=== PATIENT | female | born 1985 | race Caucasian/White ===

== ENCOUNTER 2018-09-03 16:43 | Emergency (ER) | payer SELFPAY ==
[2018-09-03 17:48] LABS: Absolute Lymphocytes (CBC) 1.6 K/uL (0.7-4.9); Absolute Monocytes 0.7 K/uL (0.1-1.3); Absolute Neutrophil 7.4 K/uL (1.8-8.0); Basophils % 0.5 % (0-1.3); Eosinophils % 0.6 % (0-4.4); Hematocrit 32.4 % (36.0-45.0); MCH 21.4 pg (27.0-35.0); MCV 67.9 fL (80-100); MPV 7.1 fL (7.6-11.3); Monocytes % 6.9 % (3.3-12.3); RBC Red Blood Cell Count 4.78 M/uL (3.86-4.86)
[2018-09-03] MEDS ORDERED: AZITHROMYCIN 250 MG TAB ONE (18:06)
[2018-09-03] MEDS ORDERED: FLUCONAZOLE 100 MG TAB ONE (18:06)
[2018-09-03] MEDS ORDERED: LIDOCAINE 1% MPF 30 ML VIAL ONE (18:07)
[2018-09-03] MEDS ORDERED: CEFTRIAXONE/SWI 1gm 1 GM/10 ML SYR ONE (18:07)
[2018-09-03 18:08] LABS: ALT/SGPT 12 U/L (12-78); AST/SGOT 8 U/L (15-37); Albumin 3.2 g/dL (3.4-5.0); Alkaline Phosphatase 74 U/L (45-117); BUN Blood Urea Nitrogen 12 mg/dL (7-18); Bicarbonate 27 mmol/L (21-32); Bilirubin Total 0.2 mg/dL (0.2-1.0); Glucose Level 381 mg/dL (74-106); Potassium 3.6 mmol/L (3.5-5.1); Protein, Total 7.2 g/dL (6.4-8.2); Sodium Level 137 mmol/L (136-145)
--- NOTE | 2018-09-03 18:23 | ER ---
Nurse's Notes [facility] Name: Javier Pimentel Age: 32 yrs Sex: Female : 1985 Arrival Date: 09/03/2018 Time: 16:45 Bed 14 Private MD: Diagnosis: Abscess of Bartholin's gland;Cyst of Bartholin's gland;Type 1 diabetes mellitus;Anemia, unspecified Presentation: 09/03 17:06 Presenting complaint: Patient states: swelling and tenderness to right labia for a few iw days, has been getting over a yeast infection. Transition of care: patient was not received from another setting of care. Onset of symptoms was September 03, 2018. Risk Assessment: Do you want to hurt yourself or someone else? Patient reports no desire to harm self or others. Initial Sepsis Screen: Does the patient meet any 2 criteria? No. Patient's initial sepsis screen is negative. Does the patient have a suspected source of infection? No. Patient's initial sepsis screen is negative. Care prior to arrival: None. 17:06 Method Of Arrival: Ambulatory iw 17:06 Acuity: NING 3 iw Triage Assessment: 17:05 General: Appears in no apparent distress. Behavior is cooperative. 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 - Social history:: Smoking status: Patient uses tobacco products, few cigarettes per day . - Ebola Screening: : Patient negative for fever greater than or equal to 101.5 degrees Fahrenheit, and additional compatible Ebola Virus Disease symptoms Patient denies exposure to infectious person Patient denies travel to an Ebola-affected area in the 21 days before illness onset No symptoms or risks identified at this time. - Family history:: not pertinent. Screenin:05 Abuse screen: Denies threats or abuse. Denies injuries from another. Nutritional ls4 screening: No deficits noted. Tuberculosis screening: No symptoms or risk factors identified. Fall Risk None identified. Assessment: 18:38 Pain: Complains of pain in pelvis and right labia minora Pain currently is 5 out of 10 ls4 on a pain scale. Quality of pain is described as pressure. Neuro: No deficits noted. Respiratory: No deficits noted. GI: No deficits noted. Musculoskeletal: No deficits noted. 19:15 Reassessment: Patient appears in no apparent distress at this time. Patient and/or cc3 family updated on plan of care and expected duration. Pain level reassessed. Patient is alert, oriented x 3, equal unlabored respirations, skin warm/dry/pink. Received from morning shift RENARD Romeo as a case of vaginal pain, for discharge home after IV fluids and repeat random blood sugar as endorsed. 19:40 Reassessment: Repeat RBS of 190 mg/dL, Dr. Byers discharged home the patient with cc3 prescription given. IV cannula removed and patient left ER vitally stable and ambulatory with her . Vital Signs: 17:10 BP 123 / 86; Pulse 105; Resp 16; Temp 98.2(O); Pulse Ox 100% on R/A; Weight 48.99 kg; iw Height 4 ft. 11 in. (149.86 cm); Pain 8/10; 18:10 BP 120 / 80; Pulse 99; Resp 16; Pulse Ox 99% on R/A; Pain 3/10; ls4 19:15 BP 124 / 86; Pulse 93; Resp 20 S; Temp 98.9(O); Pulse Ox 100% on R/A; cc3 17:10 Body Mass Index 21.81 (48.99 kg, 149.86 cm) ED Course: 16:45 Patient arrived in ED. rg4 16:53 Agueda Chiang, RN is Primary Nurse. ls4 16:56 Zhang Byers MD is Attending Physician. nata 17:05 Patient has correct armband on for positive identification. Allergy band placed. Placed ls4 in gown. Bed in low position. Call light in reach. Side rails up X2. Door closed. Noise minimized. 17:05 Assist provider with pelvic exam: Performed by Zhang Byers MD Patient tolerated well.ls4 17:07 Triage completed. iw 17:10 Arm band placed on. iw 17:10 Inserted saline lock: 20 gauge in right antecubital area, using aseptic technique. ls4 18:23 Jhon Willard MD is Referral Physician. nata 19:02 Assist provider with I \T\ D: of an abscess on right Bartholin's gland Set up I\T\D tray. jl 7 Performed by Zhang Byers MD Culture sent to lab. Wound packed. WORD Patient tolerated well. 19:40 IV discontinued, intact, bleeding controlled, No redness/swelling at site. Pressure cc3 dressing applied. Administered Medications: 18:10 Drug: DiFLUcan 150 mg Route: PO; ls4 18:36 Follow up: Response: No adverse reaction; No change in condition ls4 18:10 Drug: Insulin Regular Human 5 units {Co-Signature: bp (Jeremy Yadav RN).} Route: ls4 Sub-Q; Site: right upper arm; 18:30 Follow up: Response: No adverse reaction ls4 18:14 Drug: Zithromax 1 grams Route: PO; ls4 18:37 Follow up: Response: No adverse reaction ls4 18:18 Drug: Insulin Regular Human 8 units {Co-Signature: bp (Jeremy Yadav RN).} Route: IVP; ls4 Site: right antecubital; 18:30 Follow up: Response: No adverse reaction ls4 18:22 Drug: Lidocaine (1 %) 10 mg {Note: administered by Dr Byers .} Volume: 20 ml; Route: ls4 Infiltration; 18:23 Not Given (Other Intervention Used): Rocephin - (cefTRIAXone) 1 grams IVPB once over 30 ls4 mins; (mix in 50 mL NS) 18:35 Drug: Rocephin 1 grams Route: IV; Rate: calculated rate; Site: right antecubital; ls4 18:38 Follow up: IV Status: Completed infusion; IV Intake: 10ml ls4 18:37 Drug: NS 0.9% 1000 ml Route: IV; Rate: 1 bolus; Site: right antecubital; ls4 19:40 Follow up: Response: No adverse reaction; IV Status: Completed infusion; IV Intake: cc3 1000ml Point of Care Testing: Blood Glucose: 19:21 Blood Glucose: 190 mg/dL; cc3 Ranges: Intake: 18:38 IV: 10ml; Total: 10ml. ls4 19:40 IV: 1000ml; Total: 1010ml. cc3 Outcome: 18:23 Discharge ordered by . nata 18:46 Condition: stable ls4 19:40 Discharged to home ambulatory, with family. cc3 19:40 Condition: stable 19:40 Discharge instructions given to patient, family, Instructed on discharge instructions, follow up and referral plans. medication usage, Demonstrated understanding of instructions, follow-up care, medications, Prescriptions given X 3. 19:47 Patient left the ED. cc3 Addendum: 09/09/2018 07:59 Addendum: Culture Results: Positive wound culture. No further action required. Other: a a5 Continue antibiotics prescribed per NORA Vincent. . Signatures: Zhang Byers MD MD cha Williams, Irene, RN RN iw Mee Mcallister RN RN alee5 Brianna Daly4 Brandy Andrade RN RN jl7 Arianna Miller cc3 Agueda Chiang, RN RN ls4 Jeremy Yadav RN bp Corrections: (The following items were deleted from the chart) 09/03 17:24 17:06 Acuity: NING 4 [facility]
--- NOTE | 2018-09-03 18:23 | EDPHYS ---
Physician Documentation [facility] Name: Javier Pimentel Age: 32 yrs Sex: Female : 1985 Arrival Date: 09/03/2018 Time: 16:45 Bed 14 Private MD: ED Physician Zhang Byers HPI: 09/03 17:14 This 32 yrs old Female presents to ER via Ambulatory with complaints of nata Vaginal Pain. 17:14 The patient presents with pelvic pain, that is located in/on the right labia minora. nata Onset: The symptoms/episode began/occurred 3 day(s) ago. Modifying factors: The symptoms are alleviated by nothing, the symptoms are aggravated by movement, sexual intercourse, walking. Severity of symptoms: At their worst the symptoms were moderate, in the emergency department the symptoms are unchanged. The patient has not experienced similar symptoms in the past. PIECE HAND: 17:05 0 ls4 Historical: - Allergies: 17:10 PENICILLINS; iw - Home Meds: 17:10 Novolin 70/30 [place] Sub-Q nightly [Active]; metformin 1,000 mg Oral tab 1 tab 2 times iw per day [Active]; sertraline 100 mg oral tab 1 tab once daily [Active]; - PMHx: 17:10 Diabetes - IDDM; Anxiety; iw - PSHx: 17:10 Tubal ligation; ; iw - Immunization history:: Adult Immunizations not up to date. - Social history:: Smoking status: Patient uses tobacco products, few cigarettes per day . - Ebola Screening: : Patient negative for fever greater than or equal to 101.5 degrees Fahrenheit, and additional compatible Ebola Virus Disease symptoms Patient denies exposure to infectious person Patient denies travel to an Ebola-affected area in the 21 days before illness onset No symptoms or risks identified at this time. - Family history:: not pertinent. ROS: 17:14 Constitutional: Negative for fever, chills, and weight loss, Eyes: Negative for injury, nata pain, redness, and discharge, ENT: Negative for injury, pain, and discharge, Neck: Negative for injury, pain, and swelling, Cardiovascular: Negative for chest pain, palpitations, and edema, Respiratory: Negative for shortness of breath, cough, wheezing, and pleuritic chest pain, Abdomen/GI: Negative for abdominal pain, nausea, vomiting, diarrhea, and constipation, Back: Negative for injury and pain, MS/Extremity: Negative for injury and deformity, Skin: Negative for injury, rash, and discoloration, Neuro: Negative for headache, weakness, numbness, tingling, and seizure, Psych: Negative for depression, anxiety, suicide ideation, homicidal ideation, and hallucinations, Allergy/Immunology: Negative for hives, rash, and allergies, Endocrine: Negative for neck swelling, polydipsia, polyuria, polyphagia, and marked weight changes, Hematologic/Lymphatic: Negative for swollen nodes, abnormal bleeding, and unusual bruising. 17:14 : Positive for pelvic pain, of the right labia minora. Exam: 17:14 Constitutional: This is a well developed, well nourished patient who is awake, alert, nata and in no acute distress. Head/Face: Normocephalic, atraumatic. Eyes: Pupils equal round and reactive to light, extra-ocular motions intact. Lids and lashes normal. Conjunctiva and sclera are non-icteric and not injected. Cornea within normal limits. Periorbital areas with no swelling, redness, or edema. ENT: Nares patent. No nasal discharge, no septal abnormalities noted. Tympanic membranes are normal and external auditory canals are clear. Oropharynx with no redness, swelling, or masses, exudates, or evidence of obstruction, uvula midline. Mucous membranes moist. Neck: Trachea midline, no thyromegaly or masses palpated, and no cervical lymphadenopathy. Supple, full range of motion without nuchal rigidity, or vertebral point tenderness. No Meningismus. Chest/axilla: Normal chest wall appearance and motion. Nontender with no deformity. No lesions are appreciated. Cardiovascular: Regular rate and rhythm with a normal S1 and S2. No gallops, murmurs, or rubs. Normal PMI, no JVD. No pulse deficits. Respiratory: Lungs have equal breath sounds bilaterally, clear to auscultation and percussion. No rales, rhonchi or wheezes noted. No increased work of breathing, no retractions or nasal flaring. Abdomen/GI: Soft, non-tender, with normal bowel sounds. No distension or tympany. No guarding or rebound. No evidence of tenderness throughout. Back: No spinal tenderness. No costovertebral tenderness. Full range of motion. Skin: Warm, dry with normal turgor. Normal color with no rashes, no lesions, and no evidence of cellulitis. MS/ Extremity: Pulses equal, no cyanosis. Neurovascular intact. Full, normal range of motion. Neuro: Awake and alert, GCS 15, oriented to person, place, time, and situation. Cranial nerves II-XII grossly intact. Motor strength 5/5 in all extremities. Sensory grossly intact. Cerebellar exam normal. Normal gait. 17:14 : CVA tenderness, is absent, Pelvic Exam: External exam: Bartholin's cyst present, erythema is noted. Vital Signs: 17:10 BP 123 / 86; Pulse 105; Resp 16; Temp 98.2(O); Pulse Ox 100% on R/A; Weight 48.99 kg; iw Height 4 ft. 11 in. (149.86 cm); Pain 8/10; 18:10 BP 120 / 80; Pulse 99; Resp 16; Pulse Ox 99% on R/A; Pain 3/10; ls4 19:15 BP 124 / 86; Pulse 93; Resp 20 S; Temp 98.9(O); Pulse Ox 100% on R/A; cc3 17:10 Body Mass Index 21.81 (48.99 kg, 149.86 cm) iw Procedures: 17:19 I \T\ D: Incision and drainage was performed for an abscess of the Bartholin's gland. nata Prepped with Betadine, Anesthetized with 10 ml's 1% Lidocaine. Incised with #11 blade. Drained moderate amount Packed with word. Dressing: sterile 4x4 gauze, the patient tolerated the procedure well. MDM: 16:56 Patient medically screened. [facility] 17:19 Data reviewed: vital signs, nurses notes, lab test result(s). [facility] 09/03 17:14 Order name: CBC with Diff [facility] 09/03 17:14 Order name: Comprehensive Metabolic Panel; Complete Time: 18:13 nata 09/03 17:50 Order name: CBC Smear Scan EDMS 09/03 18:49 Order name: Urine Dipstick--Ancillary (enter results); Complete Time: 19:28 bd 09/03 18:49 Order name: Urine --Ancillary (enter results); Complete Time: 19:28 bd 09/03 19:03 Order name: Wound Culture jl7 09/03 17:14 Order name: Urine Dipstick-Ancillary (obtain specimen); Complete Time: 18:26 [facility] 09/03 17:14 Order name: Urine Test (obtain specimen); Complete Time: 18:26 [facility] Administered Medications: 18:10 Drug: DiFLUcan 150 mg Route: PO; ls4 18:36 Follow up: Response: No adverse reaction; No change in condition ls4 18:10 Drug: Insulin Regular Human 5 units {Co-Signature: bp (Jeremy Yadav RN).} Route: ls4 Sub-Q; Site: right upper arm; 18:30 Follow up: Response: No adverse reaction ls4 18:14 Drug: Zithromax 1 grams Route: PO; ls4 18:37 Follow up: Response: No adverse reaction ls4 18:18 Drug: Insulin Regular Human 8 units {Co-Signature: bp (Jeremy Yadav RN).} Route: IVP; ls4 Site: right antecubital; 18:30 Follow up: Response: No adverse reaction ls4 18:22 Drug: Lidocaine (1 %) 10 mg {Note: administered by Dr Byers .} Volume: 20 ml; Route: ls4 Infiltration; 18:23 Not Given (Other Intervention Used): Rocephin - (cefTRIAXone) 1 grams IVPB once over 30 ls4 mins; (mix in 50 mL NS) 18:35 Drug: Rocephin 1 grams Route: IV; Rate: calculated rate; Site: right antecubital; ls4 18:38 Follow up: IV Status: Completed infusion; IV Intake: 10ml ls4 18:37 Drug: NS 0.9% 1000 ml Route: IV; Rate: 1 bolus; Site: right antecubital; ls4 19:40 Follow up: Response: No adverse reaction; IV Status: Completed infusion; IV Intake: cc3 1000ml Point of Care Testing: Blood Glucose: 19:21 Blood Glucose: 190 mg/dL; cc3 Ranges: Critical Glucose Levels:Adult <50 mg/dl or >400 mg/dl <40 mg/dl or >180 mg/dl Disposition: 09/03/18 18:23 Discharged to Home. Impression: Abscess of Bartholin's gland, Cyst of Bartholin's gland, Type 1 diabetes mellitus, Anemia, unspecified. - Condition is Stable. - Discharge Instructions: Anemia, Nonspecific, Bartholin Cyst or Abscess, Type 1 Diabetes Mellitus, Diagnosis, Adult, Incision and Drainage, How to Take a Sitz Bath, Type 1 Diabetes Mellitus, Self Care, Adult, Type 1 Diabetes Mellitus, Diagnosis, Adult, [id number]. - Prescriptions for Tylenol- Codeine #3 300-30 mg Oral Tablet - take 2 tablets by ORAL route every 6 hours As needed; 20 tablet. Doxycycline Hyclate 100 mg Oral Tablet - take 1 tablet by ORAL route every 12 hours; 20 tablet. Fluconazole 150 mg Oral Tablet - take 1 tablet by ORAL route once daily; 2 tablet. - Medication Reconciliation Form, Thank You Letter, Antibiotic Education, Prescription Opioid Use form. - Follow up: Private Physician; When: 2 - 3 days; Reason: Recheck today's complaints, Continuance of care, Re-evaluation by your physician. Follow up: Jhon Willard; When: 2 - 3 days; Reason: Recheck today's complaints, Re-evaluation by your physician. - Problem is new. - Symptoms have improved. Signatures: Dispatcher [employer] EDMS Zhang Byers MD MD cha Williams, Irene, RN RN iw Brandy Andrade RN RN jl7 Arianna Miller cc3 Agueda Chiang RN RN ls4 Jeremy Yadav RN bp Corrections: (The following items were deleted from the chart) 19:47 18:23 09/03/2018 18:23 Discharged to Home. Impression: Abscess of Bartholin's gland; cc3 Cyst of Bartholin's gland; Type 1 diabetes mellitus; Anemia, unspecified. Condition is Stable. Discharge Instructions: Bartholin Cyst or Abscess, Type 1 Diabetes Mellitus, Diagnosis, Adult, Incision and Drainage, How to Take a Sitz Bath, Type 1 Diabetes Mellitus, Self Care, Adult, Type 1 Diabetes Mellitus, Diagnosis, Adult, [id number], Anemia, Nonspecific. Prescriptions for Tylenol-Codeine #3 300-30 mg Oral Tablet - take 2 tablets by ORAL route every 6 hours As needed; 20 tablet, Doxycycline Hyclate 100 mg Oral Tablet - take 1 tablet by ORAL route every 12 hours; 20 tablet, Fluconazole 150 mg Oral Tablet - take 1 tablet by ORAL route once daily; 2 tablet. and Forms are Medication Reconciliation Form, Thank You Letter, Antibiotic Education, Prescription Opioid Use. Follow up: Private Physician; When: 2 - 3 days; Reason: Recheck today's complaints, Continuance of care, Re-evaluation by your physician. Follow up: Jhon Willard; When: 2 - 3 days; Reason: Recheck today's complaints, Re-evaluation by your physician. Problem is new. Symptoms have improved. nata
[2018-09-03] MEDS ORDERED: INSULIN -REGULAR HUMAN 50 UNIT/0.5 ML ML ONE (18:37)
[2018-09-03] MEDS ORDERED: NA CHLORIDE 0.9% 1,000 ML ONE (18:49)
[2018-09-03 19:03] LABS: Urine Blood NEGATIVE (NEG); Urine Glucose 3+ (NEG); Urine Protein NEGATIVE (NEG); Urine Specific Gravity 1.015 (1.005-1.030); Urine pH 5.5 (5.0-7.0)
[2018-09-03 20:37] VITALS: BP 124/86; TEMP 98.9; O2SAT 100
[2018-09-03 21:56] LABS: Platelet Estimate INCR; Urine White Blood Cell Casts OK
[2018-09-03 21:57] LABS: Anisocytosis 1+; Blood Morphology Comment NOTED (NOT SEEN); Hypochromasia 1+
== END 2018-09-03 19:47 | disposition home or self-care (01) ==
LOC: ER 16:43
PROC: 0U9L0ZZ Drainage of Vestibular Gland, Open Approach (ICD-10-PCS; principal; 2018-09-03)
DX: N75.1 Abscess of Bartholin's gland (principal); D64.9 Anemia, unspecified; E10.9 Type 1 diabetes mellitus without complications; F41.9 Anxiety disorder, unspecified; Z79.4 Long term (current) use of insulin; Z88.0 Allergy status to penicillin
CPT/HCPCS: 36415; 80053; 81003; 81025; 82962; 85025; 87070; 87077; 87186; 87205; 96361; 96372; 96374; 96375; 99284; J0696; J7030

== ENCOUNTER 2018-11-12 19:53 | Emergency (ER) | payer SELFPAY ==
[2018-11-12 21:33] LABS: Urine Blood NEGATIVE (NEG); Urine Glucose 2+ (NEG); Urine Protein NEGATIVE (NEG)
--- NOTE | 2018-11-12 21:36 | RAD REPORT ---
EXAM DESCRIPTION: CT - Head Brain Wo Cont - 11/12/2018 8:55 pm CLINICAL HISTORY: Slip and fall, head injury, left-sided head trauma COMPARISON: None. TECHNIQUE: Axial 5 mm thick images of the head were obtained without IV contrast. All CT scans are performed using dose optimization technique as appropriate and may include automated exposure control or mA/KV adjustment according to patient size. FINDINGS: No intracranial hemorrhage, mass, edema or shift of mid-line structures. No acute infarcti on changes seen. No abnormal extra-axial fluid collections. Ventricles are normal. Right-sided mastoid air cells are clear. Left mastoid air cells are opacified. There is mucosal thick ening throughout much of the visualized portions of the maxillary sinus. Left ethmoid air cells and l eft sphenoid sinus fully opacified. Left frontal sinus is partially opacified. Patchy mucosal thicken ing in the right side ethmoid air cells. Nasal pharyngeal tissues are not fully imaged on this study. No acute bony findings. IMPRESSION: No hemorrhage, edema or acute intracranial finding. Extensive opacification of the left-side paranasal sinuses and left ethmoid air cells believed to be mastoiditis/sinusitis changes that predate the injury. Nasopharyngeal region is not adequately visual ized to assess for any associated abnormality.
--- NOTE | 2018-11-12 21:51 | ER ---
Nurse's Notes [facility] Name: Javier Pimentel Age: 32 yrs Sex: Female : 1985 Arrival Date: 11/12/2018 Time: 19:57 Bed 7 Private MD: Diagnosis: Contusion of other part of head;Acute pansinusitis Presentation: 11/12 20:05 Presenting complaint: Patient states: that she was taking a shower and slipped and fc fell. Hitting the left side of her head on the side of the bathtub. Denies any LOC. Care prior to arrival: Medication(s) given: Excedrin Migraine at 1630. Mechanism of Injury: Fall from standing position. Trauma event details: Injury occurred in the [facility], Injury occurred: at home. Injury occurred: November 12, 2018 Injury occurred at: 16:00. 20:05 Acuity: NING 3 fc 20:05 Method Of Arrival: Ambulatory fc 20:09 Transition of care: patient was not received from another setting of care. Onset of fc symptoms was November 12, 2018 at 16:00. Risk Assessment: Do you want to hurt yourself or someone else? Patient reports no desire to harm self or others. Initial Sepsis Screen: Does the patient meet any 2 criteria? HR > 90 bpm. Yes Does the patient have a suspected source of infection? No. Patient's initial sepsis screen is negative. 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 - Social history:: Smoking status: Patient/guardian denies using tobacco, Patient/guardian denies using alcohol, street drugs. - Ebola Screening: : Patient negative for fever greater than or equal to 101.5 degrees Fahrenheit, and additional compatible Ebola Virus Disease symptoms Patient denies exposure to infectious person Patient denies travel to an Ebola-affected area in the 21 days before illness onset. Screenin:05 Abuse screen: Denies threats or abuse. Tuberculosis screening: No symptoms or risk fc factors identified. 20:10 Nutritional screening: No deficits noted. Fall Risk None identified. fc Assessment: 20:19 General: Appears in no apparent distress. Behavior is calm, cooperative. Pain: ak1 Complains of pain in left side of head. Neuro: Level of Consciousness is awake, alert, obeys commands, Oriented to person, place, time, situation, Truck Caterer are equal bilaterally Moves all extremities. Gait is steady, Speech is normal, Facial symmetry appears normal. Cardiovascular: No deficits noted. Respiratory: No deficits noted. GI: No signs and/or symptoms were reported involving the gastrointestinal system. : No signs and/or symptoms were reported regarding the genitourinary system. EENT: No signs and/or symptoms were reported regarding the EENT system. Derm: No signs and/or symptoms reported regarding the dermatologic system. Musculoskeletal: No signs and/or symptoms reported regarding the musculoskeletal system. 20:21 Reassessment: pt stated she slipped and fell in shower at 1600, pt denies LOC. pt c/o ak1 left side head pain. . 21:17 Reassessment: Patient appears in no apparent distress at this time. No changes from ak1 previously documented assessment. pt returned from CT. will continue to monitor. Vital Signs: 20:05 BP 123 / 86; Pulse 105; Resp 18; Temp 99.1(O); Pulse Ox 99% on R/A; Weight 49.44 kg fc (R); Height 4 ft. 11 in. (149.86 cm) (R); Pain 9/10; 21:16 BP 119 / 86; Pulse 106; Resp 18; Pulse Ox 99% on R/A; ak1 20:05 Body Mass Index 22.02 (49.44 kg, 149.86 cm) [place] Coma Score: 20:05 Eye Response: spontaneous(4). Verbal Response: oriented(5). Motor Response: obeys fc commands(6). Total: 15. Trauma Score (Adult): 20:05 Eye Response: spontaneous(1); Verbal Response: oriented(1); Motor Response: obeys fc commands(2); Systolic BP: > 89 mm Hg(4); Respiratory Rate: 10 to 29 per min(4); Luz Marina Score: 15; Trauma Score: 12 ED Course: 19:57 Patient arrived in ED. am2 20:05 Patient has correct armband on for positive identification. Bed in low position. Call light in reach. 20:05 Patient maintains SpO2 saturation greater than 95% on room air. 20:08 Triage completed. 20:10 Arm band placed on Patient placed in an exam room, on a stretcher. 20:16 Lacy Herr, RN is Primary Nurse. ak1 20:19 Pulse ox on. NIBP on. Door closed. ak1 20:21 Sandeep Rizo MD is Attending Physician. 20:[address] 20:55 CT completed. Patient tolerated procedure well. Patient moved back from CT. sd 20:56 CT Head Brain wo Cont In Process Unspecified. EDMS 21:57 No provider procedures requiring assistance completed. Patient did not have IV access ak1 during this emergency room visit. Administered Medications: No medications were administered Outcome: 21:51 Discharge ordered by . gs 21:57 Discharged to home ambulatory. ak1 21:57 Condition: good 21:57 Discharge instructions given to patient, Instructed on discharge instructions, follow up and referral plans. medication usage, safe sex practices, control, Demonstrated understanding of instructions, follow-up care, medications, Prescriptions given X 1. 22:03 Patient left the ED. ak1 Signatures: Dispatcher [employer] Sri Eller Felicia, RN RN Lacy Herr, RN RN ak1 Marco Velez [facility] Sandeep Rizo MD MD
--- NOTE | 2018-11-12 21:52 | EDPHYS ---
Physician Documentation [facility] Name: Javier Pimentel Age: 32 yrs Sex: Female : 1985 Arrival Date: 11/12/2018 Time: 19:57 Bed 7 Private MD: ED Physician Sandeep Rizo HPI: 11/12 21:46 This 32 yrs old Female presents to ER via Ambulatory with complaints of Fall gs Injury, Headache. 21:46 Details of fall: The patient fell from an upright position, while standing. Onset: The gs symptoms/episode began/occurred acutely, just prior to arrival. Associated injuries: The patient sustained injury to the head, contusion, pain, tenderness. Severity of symptoms: At their worst the symptoms were moderate, in the emergency department the symptoms are unchanged. The patient has not experienced similar symptoms in the past. 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 - Social history:: Smoking status: Patient/guardian denies using tobacco, Patient/guardian denies using alcohol, street drugs. - Ebola Screening: : Patient negative for fever greater than or equal to 101.5 degrees Fahrenheit, and additional compatible Ebola Virus Disease symptoms Patient denies exposure to infectious person Patient denies travel to an Ebola-affected area in the 21 days before illness onset. ROS: 21:46 All other systems are negative. gs Exam: 21:46 Eyes: Pupils equal round and reactive to light, extra-ocular motions intact. Lids and gs lashes normal. Conjunctiva and sclera are non-icteric and not injected. Cornea within normal limits. Periorbital areas with no swelling, redness, or edema. ENT: Nares patent. No nasal discharge, no septal abnormalities noted. Tympanic membranes are normal and external auditory canals are clear. Oropharynx with no redness, swelling, or masses, exudates, or evidence of obstruction, uvula midline. Mucous membranes moist. Neck: Trachea midline, no thyromegaly or masses palpated, and no cervical lymphadenopathy. Supple, full range of motion without nuchal rigidity, or vertebral point tenderness. No Meningismus. Chest/axilla: Normal chest wall appearance and motion. Nontender with no deformity. No lesions are appreciated. Cardiovascular: Regular rate and rhythm with a normal S1 and S2. No gallops, murmurs, or rubs. Normal PMI, no JVD. No pulse deficits. Respiratory: Lungs have equal breath sounds bilaterally, clear to auscultation and percussion. No rales, rhonchi or wheezes noted. No increased work of breathing, no retractions or nasal flaring. Abdomen/GI: Soft, non-tender, with normal bowel sounds. No distension or tympany. No guarding or rebound. No evidence of tenderness throughout. Back: No spinal tenderness. No costovertebral tenderness. Full range of motion. Skin: Warm, dry with normal turgor. Normal color with no rashes, no lesions, and no evidence of cellulitis. MS/ Extremity: Pulses equal, no cyanosis. Neurovascular intact. Full, normal range of motion. Neuro: Awake and alert, GCS 15, oriented to person, place, time, and situation. Cranial nerves II-XII grossly intact. Motor strength 5/5 in all extremities. Sensory grossly intact. Cerebellar exam normal. Normal gait. 21:46 Constitutional: The patient appears alert, awake. 21:46 Head/face: Noted is contusion, that is superficial, of the left temporal area. Vital Signs: 20:05 BP 123 / 86; Pulse 105; Resp 18; Temp 99.1(O); Pulse Ox 99% on R/A; Weight 49.44 kg fc (R); Height 4 ft. 11 in. (149.86 cm) (R); Pain 9/10; 21:16 BP 119 / 86; Pulse 106; Resp 18; Pulse Ox 99% on R/A; ak1 20:05 Body Mass Index 22.02 (49.44 kg, 149.86 cm) [place] Coma Score: 20:05 Eye Response: spontaneous(4). Verbal Response: oriented(5). Motor Response: obeys commands(6). Total: 15. Trauma Score (Adult): 20:05 Eye Response: spontaneous(1); Verbal Response: oriented(1); Motor Response: obeys fc commands(2); Systolic BP: > 89 mm Hg(4); Respiratory Rate: 10 to 29 per min(4); Luz Marina Score: 15; Trauma Score: 12 MDM: 20:29 Patient medically screened. 21:46 Differential diagnosis: closed head injury, contusion. Data reviewed: vital signs, nurses notes. Response to treatment: the patient's symptoms have mildly improved after treatment, and as a result, I will discharge patient. 11/12 20:39 Order name: Urine Dipstick--Ancillary (enter results); Complete Time: 21:46 [facility] 11/12 20:39 Order name: Urine --Ancillary (enter results); Complete Time: 21:46 [facility] 11/12 20:31 Order name: CT Head Brain wo Cont; Complete Time: 21:46 Administered Medications: No medications were administered Disposition: 11/12/18 21:51 Discharged to Home. Impression: Contusion of other part of head, Acute pansinusitis. - Condition is Stable. - Discharge Instructions: Head Injury, Adult, Sinusitis, Adult. - Prescriptions for Zithromax Z- Duglas 250 mg Oral Tablet - take 1 tablet by ORAL route as directed for 5 days Day 1 - take two (2) tablets one time. Day 2, 3, 4 , 5 take one (1) tablet once daily.; 6 tablet. - Medication Reconciliation Form, Thank You Letter, Antibiotic Education, Prescription Opioid Use form. - Follow up: Private Physician; When: 2 - 3 days; Reason: Re-evaluation by your physician. Signatures: Dispatcher [employer] EDJosefina Baum RN RN fc Krenek, Amber, RN RN ak1 Snadeep Rizo MD MD Corrections: (The following items were deleted from the chart) 22:03 21:51 11/12/2018 21:51 Discharged to Home. Impression: Contusion of other part of head; ak1 Acute pansinusitis. Condition is Stable. Forms are Medication Reconciliation Form, Thank You Letter, Antibiotic Education, Prescription Opioid Use. Follow up: Private Physician; When: 2 - 3 days; Reason: Re-evaluation by your physician.
[2018-11-12 22:13] VITALS: TEMP 99.1; O2SAT 99
[2018-11-12 22:14] VITALS: BP 119/86
== END 2018-11-12 22:03 | disposition home or self-care (01) ==
LOC: ER 19:53
DX: S00.83XA Contusion of other part of head, initial encounter (principal); J01.40 Acute pansinusitis, unspecified; W18.39XA Other fall on same level, initial encounter; Y93.89 Activity, other specified; Y92.9 Unspecified place or not applicable; Z88.0 Allergy status to penicillin; F41.9 Anxiety disorder, unspecified
CPT/HCPCS: 70450; 81003; 81025; 99284

== ENCOUNTER 2018-12-09 18:45 | Emergency (ER) | payer SELFPAY ==
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
[2018-12-09] MEDS ORDERED: SMZ./TMP. 800/160 MG TABLET ONE (20:24)
[2018-12-09] MEDS ORDERED: HYDROCODONE/APAP 7.5/325 MG TAB ONE (20:24)
[2018-12-09 20:34] VITALS: BP 138/97; TEMP 97.9; O2SAT 99
--- NOTE | 2018-12-09 20:38 | RAD REPORT ---
EXAM DESCRIPTION: RAD - Forearm Right - 12/09/2018 8:26 pm CLINICAL HISTORY: Right arm pain status post injury FINDINGS: No fracture is seen.
[2018-12-09 22:56] LABS: Urine Blood TRACE (NEG); Urine Glucose 3+ (NEG); Urine Protein NEGATIVE (NEG)
== END 2018-12-09 20:27 | disposition home or self-care (01) ==
LOC: ER 18:45
DX: S50.11XA Contusion of right forearm, initial encounter (principal); Y04.8XXA Assault by other bodily force, initial encounter; Y93.9 Activity, unspecified; Y92.89 Other specified places as the place of occurrence of the external cause; Z72.0 Tobacco use; Z88.0 Allergy status to penicillin
CPT/HCPCS: 81003; 81025; 82962; 87086; 87088; 99284

== ENCOUNTER 2019-09-13 14:15 | Emergency (ER) | payer SELFPAY ==
--- NOTE | 2019-09-13 15:44 | RAD REPORT ---
EXAM DESCRIPTION: US - Extremity Nonvascular Limited - 09/13/2019 3:36 pm CLINICAL HISTORY: right labial abscess COMPARISON: TRANSVAG OB dated 03/11/2016; Abdomen Pelvis W Contrast dated 06/21/2017 TECHNIQUE: Real-time sonographic evaluation of the area of interest was performed. FINDINGS: Heterogenous complex collection is seen in the area of interest 3.8 x 2.6 x 1.6 cm. Althou gh nonspecific, in the correct clinical setting, this could represent an abscess.
[2019-09-13] MEDS ORDERED: LIDOCAINE 1% MPF 5 ML VIAL ONE (15:50)
[2019-09-13] MEDS ORDERED: MORPHINE 4 MG/ML SYR ONE (16:11)
[2019-09-13] MEDS ORDERED: ONDANSETRON 4 MG (ODT) TAB ONE (16:12)
--- NOTE | 2019-09-13 17:07 | ER ---
Nurse's Notes [facility] Name: Javier Pimentel Age: 33 yrs Sex: Female : 1985 Arrival Date: 09/13/2019 Time: 14:17 Bed 16 Private MD: Rigo Abel T Diagnosis: Abscess of Bartholin's gland Presentation: 09/13 14:24 Presenting complaint: Patient states: I am having swelling on the right side of my la1 vagina, noticed it last night. Transition of care: patient was not received from another setting of care. Onset of symptoms was September 13, 2019. Risk Assessment: Do you want to hurt yourself or someone else? Patient reports no desire to harm self or others. Initial Sepsis Screen: Does the patient meet any 2 criteria? No. Patient's initial sepsis screen is negative. Does the patient have a suspected source of infection? No. Patient's initial sepsis screen is negative. Care prior to arrival: None. 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 - Social history:: Smoking status: Patient/guardian denies using tobacco. - Ebola Screening: : No symptoms or risks identified at this time. Screenin:36 Abuse screen: Denies threats or abuse. Denies injuries from another. Nutritional ca1 screening: No deficits noted. Tuberculosis screening: No symptoms or risk factors identified. Fall Risk None identified. Assessment: 14:36 General: Appears in no apparent distress. comfortable, Behavior is calm, cooperative, ca1 appropriate for age. Pain: Complains of pain in groin Pain currently is 7 out of 10 on a pain scale. Pain began 1 day ago. Neuro: Level of Consciousness is awake, alert, obeys commands, Oriented to person, place, time, situation. Derm: Skin is intact, is healthy with good turgor, Skin is Abscess located on groin is dime sized, is hot to touch, is red, is raised. Musculoskeletal: Circulation, motion, and sensation intact. Capillary refill < 3 seconds, Range of motion: intact in all extremities. 14:51 Reassessment: BGL 169. ca1 15:46 Reassessment: Patient appears in no apparent distress at this time. Patient and/or ca1 family updated on plan of care and expected duration. Pain level reassessed. Patient is alert, oriented x 3, equal unlabored respirations, skin warm/dry/pink. 16:56 Reassessment: Patient appears in no apparent distress at this time. Patient is alert, ca1 oriented x 3, equal unlabored respirations, skin warm/dry/pink. Vital Signs: 14:25 BP 115 / 74; Pulse 74; Resp 16; Temp 98.7; Pulse Ox 100% on R/A; Weight 55.79 kg; la1 Height 4 ft. 11 in. (149.86 cm); 15:46 BP 110 / 75; Pulse 97; Resp 16 S; Pulse Ox 100% on R/A; ca1 16:56 BP 130 / 91; Pulse 97; Resp 16 S; Pulse Ox 100% on R/A; ca1 14:25 Body Mass Index 24.84 (55.79 kg, 149.86 cm) la1 ED Course: 14:17 Patient arrived in ED. ag5 14:18 Rigo Abel MD is Private Physician. ag5 14:24 Triage completed. la1 14:25 Arm band placed on left wrist. la1 14:26 Bogdan Silvestre PA is PHCP. jr8 14:26 Homero Kenney MD is Attending Physician. jr8 14:34 Winnie Mcdonough, RENARD is Primary Nurse. ca1 14:36 Patient has correct armband on for positive identification. Placed in gown. Bed in low ca1 position. Call light in reach. Side rails up X 1. Pulse ox on. NIBP on. Warm blanket given. 15:37 US Extrmty Nonvasular Limited In Process Unspecified. EDMS 16:44 Assist provider with I \T\ D: of an abscess on right Bartholin's gland Set up I\T\D tray. ca 1 Performed by Bogdan MELENDEZ Wound packed. Word catheter Dressing with Neosporin and 4X4s, tape Patient tolerated well. 17:14 Patient did not have IV access during this emergency room visit. ca1 Administered Medications: 16:10 Drug: Zofran 4 mg Route: PO; ca1 16:47 Follow up: Response: No adverse reaction ca1 16:20 Drug: morphine 4 mg Route: IM; Site: left deltoid; ca1 16:47 Follow up: Response: No adverse reaction; Pain is decreased; RASS: Alert and Calm (0) ca1 16:47 Drug: Lidocaine (1 %) 1 amp {Note: by PA. Bogdan} Volume: 5 ml; Route: Infiltration; ca1 16:47 Drug: Lidocaine (1 %) 1 amp {Note: by PA. Bogdan} Volume: 5 ml; Route: Infiltration; ca1 Outcome: 17:06 Discharge ordered by MD. winters 17:14 Discharged to home ambulatory, with friend. ca1 17:14 Condition: stable 17:14 Discharge instructions given to patient, Instructed on discharge instructions, follow up and referral plans. medication usage, wound care, Demonstrated understanding of instructions, follow-up care, medications, wound care, Prescriptions given X 1. 17:15 Patient left the ED. ca1 Signatures: Dispatcher [employer] EDMS Bogdan Silvestre PA PA jrArsh Huang RN RN la1 Winnie Mcdonough RN RN ca1 Mai Parks 5
--- NOTE | 2019-09-13 17:07 | EDPHYS ---
Physician Documentation [facility] Name: Javier Pimentel Age: 33 yrs Sex: Female : 1985 Arrival Date: 09/13/2019 Time: 14:17 Bed 16 Private MD: Rigo Abel T ED Physician Homero Kenney HPI: 09/13 17:07 This 33 yrs old Female presents to ER via Ambulatory with complaints of jr8 Vaginal Swelling. 17:07 The patient presents with swelling to labia . Onset: The symptoms/episode jr8 began/occurred acutely, today. Modifying factors: The symptoms are alleviated by nothing, the symptoms are aggravated by movement, pressure, walking. Associated signs and symptoms: The patient has no apparent associated signs or symptoms. Severity of symptoms: At their worst the symptoms were mild, in the emergency department the symptoms are unchanged. The patient has experienced a previous episode. The patient has not recently seen a physician. Stated that she felt pain and swelling to right labial region. Has had Bartholin abscess in past and concerned she has another one . 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 - Social history:: Smoking status: Patient/guardian denies using tobacco. - Ebola Screening: : No symptoms or risks identified at this time. ROS: 17:07 Eyes: Negative for injury, pain, redness, and discharge, ENT: Negative for injury, jr8 pain, and discharge, Neck: Negative for injury, pain, and swelling, Cardiovascular: Negative for chest pain, palpitations, and edema, Respiratory: Negative for shortness of breath, cough, wheezing, and pleuritic chest pain, Abdomen/GI: Negative for abdominal pain, nausea, vomiting, diarrhea, and constipation, Back: Negative for injury and pain, MS/Extremity: Negative for injury and deformity, Skin: Negative for injury, rash, and discoloration, Neuro: Negative for headache, weakness, numbness, tingling, and seizure. 17:07 : Positive for vaginal pain. Exam: 17:07 Eyes: Pupils equal round and reactive to light, extra-ocular motions intact. Lids and jr8 lashes normal. Conjunctiva and sclera are non-icteric and not injected. Cornea within normal limits. Periorbital areas with no swelling, redness, or edema. ENT: Nares patent. No nasal discharge, no septal abnormalities noted. Tympanic membranes are normal and external auditory canals are clear. Oropharynx with no redness, swelling, or masses, exudates, or evidence of obstruction, uvula midline. Mucous membranes moist. Neck: Trachea midline, no thyromegaly or masses palpated, and no cervical lymphadenopathy. Supple, full range of motion without nuchal rigidity, or vertebral point tenderness. No Meningismus. Cardiovascular: Regular rate and rhythm with a normal S1 and S2. No gallops, murmurs, or rubs. Normal PMI, no JVD. No pulse deficits. Respiratory: Lungs have equal breath sounds bilaterally, clear to auscultation and percussion. No rales, rhonchi or wheezes noted. No increased work of breathing, no retractions or nasal flaring. Abdomen/GI: Soft, non-tender, with normal bowel sounds. No distension or tympany. No guarding or rebound. No evidence of tenderness throughout. Back: No spinal tenderness. No costovertebral tenderness. Full range of motion. Skin: Warm, dry with normal turgor. Normal color with no rashes, no lesions, and no evidence of cellulitis. MS/ Extremity: Pulses equal, no cyanosis. Neurovascular intact. Full, normal range of motion. Neuro: Awake and alert, GCS 15, oriented to person, place, time, and situation. Cranial nerves II-XII grossly intact. Motor strength 5/5 in all extremities. Sensory grossly intact. Cerebellar exam normal. Normal gait. 17:07 : Pelvic Exam: External exam: Bartholin's cyst present, the nurse was present for the exam. Vital Signs: 14:25 BP 115 / 74; Pulse 74; Resp 16; Temp 98.7; Pulse Ox 100% on R/A; Weight 55.79 kg; la1 Height 4 ft. 11 in. (149.86 cm); 15:46 BP 110 / 75; Pulse 97; Resp 16 S; Pulse Ox 100% on R/A; ca1 16:56 BP 130 / 91; Pulse 97; Resp 16 S; Pulse Ox 100% on R/A; ca1 14:25 Body Mass Index 24.84 (55.79 kg, 149.86 cm) la1 Procedures: 16:40 I \T\ D: Incision and drainage was performed for an abscess of the right Bartholin's jr8 gland. Prepped with Betadine, Anesthetized with 2 ml's 1% Lidocaine. Incised with #11 blade. Drained moderate amount purulent fluid. bloody fluid. Packed with word cath. the patient tolerated the procedure well. MDM: 14:26 Patient medically screened. jr8 17:05 Data reviewed: vital signs, nurses notes, and as a result, I will discharge patient. jr8 Data interpreted: Pulse oximetry: on room air is 100 %. Interpretation: normal. Counseling: I had a detailed discussion with the patient and/or guardian regarding: the historical points, exam findings, and any diagnostic results supporting the discharge/admit diagnosis, the need for outpatient follow up, an OB/Gyne specialist, to return to the emergency department if symptoms worsen or persist or if there are any questions or concerns that arise at home. Response to treatment: the patient's symptoms have markedly improved after treatment. 09/13 15:03 Order name: Glucose, Ancillary Testing; Complete Time: 15:03 EDMS 09/13 15:04 Order name: US Extrmty Nonvasular Limited; Complete Time: 15:48 jr8 09/13 16:46 Order name: Dressing - Wound; Complete Time: 16:46 ca1 09/13 16:46 Order name: Gloves, Sterile; Complete Time: 16:46 ca1 09/13 16:46 Order name: I\T\D Setup; Complete Time: 16:46 ca1 09/13 16:46 Order name: Scalpel; Complete Time: 16:46 ca1 Administered Medications: 16:10 Drug: Zofran 4 mg Route: PO; ca1 16:47 Follow up: Response: No adverse reaction ca1 16:20 Drug: morphine 4 mg Route: IM; Site: left deltoid; ca1 16:47 Follow up: Response: No adverse reaction; Pain is decreased; RASS: Alert and Calm (0) ca1 16:47 Drug: Lidocaine (1 %) 1 amp {Note: by PA. Bogdan} Volume: 5 ml; Route: Infiltration; ca1 16:47 Drug: Lidocaine (1 %) 1 amp {Note: by PA. Bogdan} Volume: 5 ml; Route: Infiltration; ca1 Disposition: 09/14 07:07 Co-signature as Attending Physician, Homero Kenney MD. rn Disposition: 09/13/19 17:06 Discharged to Home. Impression: Abscess of Bartholin's gland. - Condition is Stable. - Discharge Instructions: Bartholin Cyst or Abscess. - Prescriptions for Clindamycin HCl 300 mg Oral Capsule - take 1 capsule by ORAL route every 6 hours for 7 days; 28 capsule. - Medication Reconciliation Form, Thank You Letter, Antibiotic Education, Prescription Opioid Use form. - Follow up: Private Physician; When: 5 - 6 days; Reason: Recheck today's complaints, Continuance of care, Re-evaluation by your physician. - Problem is new. - Symptoms have improved. Signatures: Dispatcher [employer] EDMS Homero Kenney MD MD rn Roszak, Josh, PA PA jr8 Arsh Pardo RN RN la1 Winnie Mcdonough RN RN ca1 Corrections: (The following items were deleted from the chart) 09/13 17:15 17:06 09/13/2019 17:06 Discharged to Home. Impression: Abscess of Bartholin's gland. ca1 Condition is Stable. Forms are Medication Reconciliation Form, Thank You Letter, Antibiotic Education, Prescription Opioid Use. Follow up: Private Physician; When: 5 - 6 days; Reason: Recheck today's complaints, Continuance of care, Re-evaluation by your physician. Problem is new. Symptoms have improved. jr8
[2019-09-13 17:24] VITALS: TEMP 98.7; O2SAT 100
[2019-09-13 17:26] VITALS: BP 130/91
== END 2019-09-13 17:15 | disposition home or self-care (01) ==
LOC: ER 14:15
PROC: 0U9L0ZZ Drainage of Vestibular Gland, Open Approach (ICD-10-PCS; principal; 2019-09-13)
DX: N75.1 Abscess of Bartholin's gland (principal)
CPT/HCPCS: 76882; 82947; 96372; 99284

== ENCOUNTER 2020-12-26 20:16 | Emergency (ER) | payer MEDICAID, OTHER ==
[2020-12-26 21:33] LABS: Absolute Lymphocytes (CBC) 1.8 K/uL (0.7-4.9); Basophils % 0.8 % (0-1.3); Hematocrit 35.5 % (36.0-45.0); Lymphocytes % 27.5 % (15.3-44.8); MPV 7.3 fL (7.6-11.3); RBC Red Blood Cell Count 4.51 M/uL (3.86-4.86)
[2020-12-26] MEDS ORDERED: FAMOTIDINE 20 MG/2 ML VIAL IV ONE (21:53)
[2020-12-26] MEDS ORDERED: FLUORESCEIN SODIUM 1 MG/WRAP ONE (21:53)
[2020-12-26] MEDS ORDERED: ONDANSETRON 4 MG/2 ML VIAL ONE (21:53)
[2020-12-26] MEDS ORDERED: NA CHLORIDE 0.9% 1,000 ML ONE ×2 (21:53→22:39)
[2020-12-26 21:55] LABS: ALT/SGPT 15 U/L (12-78); AST/SGOT 10 U/L (15-37); Albumin 3.2 g/dL (3.4-5.0); Alkaline Phosphatase 91 U/L (45-117); BUN Blood Urea Nitrogen 14 mg/dL (7-18); Bicarbonate 31 mmol/L (21-32); Bilirubin Direct 0.1 mg/dL (0-0.2); Bilirubin Total 0.2 mg/dL (0.2-1.0); Glucose Level 400 mg/dL (74-106); Lipase 52 U/L (73-393); Potassium 3.5 mmol/L (3.5-5.1); Sodium Level 137 mmol/L (136-145)
[2020-12-26 22:05] LABS: Urine Blood 2+ (NEG); Urine Glucose 2+ (NEG); Urine Protein NEGATIVE (NEG); Urine Specific Gravity 1.015 (1.005-1.030)
[2020-12-26] MEDS ORDERED: TETRACAINE HCL 0.5% 4ML OPTH ONE (22:36)
[2020-12-26] MEDS ORDERED: INSULIN -REGULAR HUMAN 50 UNIT/0.5 ML ML ONE (22:41)
--- NOTE | 2020-12-27 00:28 | ER ---
Nurse's Notes [facility] Name: Javier Pimentel Age: 35 yrs Sex: Female : 1985 Arrival Date: 12/26/2020 Time: 20:16 Bed 13 [facility] MD: Diagnosis: Gastrenteritis;Cystitis, unspecified;Diabetes With Hyperglycemia;Right Corneal Abrasion Presentation: 12/26 20:18 Coronavirus screen: Client denies travel out of the [place] in the last 14 days. Ebola ll1 Screen: Patient denies travel to an Ebola-affected area in the 21 days before illness onset. Risk Assessment: Do you want to hurt yourself or someone else? Patient reports no desire to harm self or others. 20:18 Method Of Arrival: Ambulatory ll1 20:18 Acuity: NING 3 ll1 20:21 Chief complaint: Patient states: N/V/D for 10 days. R eye redness, irritation, drainage ll1 for 1 week. No fever. Initial Sepsis Screen: Does the patient meet any 2 criteria? No. Patient's initial sepsis screen is negative. Does the patient have a suspected source of infection? Yes: Other: N/V/D. Onset of symptoms was December 16, 2020. Triage Assessment: 20:39 GI: Reports diarrhea, nausea, vomiting. vg1 Historical: - Allergies: 20:19 PENICILLINS; ll1 - PMHx: 20:19 Anxiety; Diabetes - IDDM; ll1 - PSHx: 20:23 ; Tubal ligation; ll1 - Immunization history:: Adult Immunizations up to date, Flu vaccine is up to date. - Social history:: Smoking status: Patient denies any tobacco usage or history of. Smoking status: Reported history of juuling and/or vaping. Screenin:38 Abuse screen: Denies threats or abuse. Nutritional screening: No deficits noted. vg1 Tuberculosis screening: No symptoms or risk factors identified. Fall Risk No fall in past 12 months (0 pts). No secondary diagnosis (0 pts). No IV (0 pts). Ambulatory Aid- None/Bed Rest/Nurse Assist (0 pts). Gait- Normal/Bed Rest/Wheelchair (0 pts) Mental Status- Oriented to own ability (0 pts). Total Davis Fall Scale indicates No Risk (0-24 pts). Assessment: 20:36 General: Appears in no apparent distress. comfortable, Behavior is calm, cooperative. vg1 Pain: Complains of pain in right eye, right upper quadrant and left upper quadrant Pain currently is 8 out of 10 on a pain scale. Pain began about 10 days ago. Neuro: Level of Consciousness is awake, alert, obeys commands, Oriented to person, place, time, situation. Cardiovascular: Patient's skin is warm and dry. Respiratory: Airway is patent Respiratory effort is even, unlabored, Respiratory pattern is regular, symmetrical. GI: Abdomen is flat, non-distended, Bowel sounds present X 4 quads. Abd is soft and non tender in right lower quadrant and left lower quadrant Abdomen is tender to palpation in right upper quadrant and left upper quadrant Reports diarrhea, nausea, vomiting. : No signs and/or symptoms were reported regarding the genitourinary system. EENT: Sclera/Cornea are reddened in outer aspect of conjuctiva of right eye, iris of right eye and inner aspect of conjuctiva of right eye. Derm: Skin is intact, is healthy with good turgor. Musculoskeletal: Circulation, motion, and sensation intact. 22:36 Reassessment: Patient appears in no apparent distress at this time. No changes from vg1 previously documented assessment. Patient and/or family updated on plan of care and expected duration. Pain level reassessed. Patient is alert, oriented x 3, equal unlabored respirations, skin warm/dry/pink. 22:36 Reassessment: Received VO from Dr Harden to administer 10 units of Reg insulin Sub q x1 vg1 and 1 L NS bolus. 23:30 Reassessment: Patient appears in no apparent distress at this time. Patient and/or jb4 family updated on plan of care and expected duration. Pain level reassessed. Patient is alert, oriented x 3, equal unlabored respirations, skin warm/dry/pink. 12/27 00:30 Reassessment: Patient appears in no apparent distress at this time. Patient and/or jb4 family updated on plan of care and expected duration. Pain level reassessed. Patient is alert, oriented x 3, equal unlabored respirations, skin warm/dry/pink. Vital Signs: 12/26 20:21 BP 122 / 86; Pulse 89; Resp 17; Temp 97.2; Pulse Ox 99% ; Weight 56.7 kg; Height 4 ft. ll1 11 in. (149.86 cm); Pain 8/10; 20:38 BP 111 / 78; Pulse 85; Resp 14; Pulse Ox 100% on R/A; vg1 22:15 BP 109 / 80; Pulse 88; Resp 16; Pulse Ox 100% on R/A; jb4 23:15 BP 117 / 95; Pulse 94; Resp 18; Pulse Ox 98% on R/A; jb4 12/27 00:00 BP 129 / 85; Pulse 85; Resp 17; Pulse Ox 100% on R/A; jb4 12/26 20:21 Body Mass Index 25.25 (56.70 kg, 149.86 cm) ll1 Visual Acuity: 12/26 23:30 Left Eye Visual acuity 20/30, Pupil size 3 mm, Normal, React To Light, Reactive To jb4 Accomodation; Right Eye Visual acuity 20/50, Pupil size 3 mm, Normal, React To Light, Reactive To Accomodation; Both Eyes Visual acuity 20/40; With Lenses; ED Course: 20:16 Patient arrived in ED. cl3 20:18 Triage completed. ll1 20:18 Arm band placed on Patient placed in an exam room, on a stretcher. ll1 20:24 Ander Harden MD is Attending Physician. mh7 20:27 Candice Daly, RENARD is Primary Nurse. vg1 20:39 Patient has correct armband on for positive identification. Bed in low position. Call vg1 light in reach. Side rails up X 1. 21:10 Urine collected: clean catch specimen, clear, blood tinged. jp3 21:10 Patient maintains SpO2 saturation greater than 95% on room air. jp3 21:20 Initial lab(s) drawn, by ga, sent to lab. Inserted saline lock: 20 gauge in left jb4 antecubital area, using aseptic technique. Blood collected. 23:30 CT Abd/Pelvis - IV Contrast Only In Process Unspecified. EDMS 12/27 00:26 Gadiel Boyle MD is Referral Physician. mh7 00:26 Jon Mcmahon MD is Referral Physician. mh7 00:40 Beth Collins MD is Referral Physician. mh7 00:54 No provider procedures requiring assistance completed. Patient did not have IV access jb4 during this emergency room visit. Administered Medications: 12/26 21:40 Drug: NS 0.9% 1000 ml Route: IV; Rate: 1000 ml; Site: left antecubital; jb4 23:00 Follow up: Response: No adverse reaction; IV Status: Completed infusion; IV Intake: jb4 1000ml 21:41 Drug: Zofran (Ondansetron) 4 mg Route: IVP; Site: left antecubital; jb4 22:41 Follow up: Response: No adverse reaction vg1 21:43 Drug: Pepcid 20 mg Route: IVP; Site: left antecubital; jb4 22:41 Follow up: Response: No adverse reaction vg1 22:39 Drug: NS 0.9% 1000 ml Route: IV; Rate: 1 bolus; Site: left antecubital; vg1 12/27 00:00 Follow up: Response: No adverse reaction; IV Status: Completed infusion; IV Intake: jb4 1000ml 12/26 22:40 Drug: Insulin Regular Human 10 units {Co-Signature: jb4 (Vinay Brooks RN).} Route: vg1 Sub-Q; Site: left upper arm; 23:40 Follow up: Response: No adverse reaction; Blood sugar is lowered jb4 22:50 Drug: Fluorescein Strip 1 strip Route: Ophthalmic; Site: right eye; jb4 22:50 Drug: Tetracaine Drops 0.5 % 1 drops Route: Ophthalmic; Site: right eye; jb4 12/27 00:49 Drug: Cipro 500 mg Route: PO; jb4 00:49 Follow up: Response: Medication administered at discharge. jb4 Point of Care Testing: Urine : 12/26 21:22 hCG Reading: Negative; Control Reading: Positive; jp3 Intake: 23:00 IV: 1000ml; Total: 1000ml. jb4 12/27 00:00 IV: 1000ml; Total: 2000ml. jb4 Outcome: 00:28 Discharge ordered by MD. pham 00:54 Discharged to home ambulatory. jb4 00:54 Condition: stable 00:54 Discharge instructions given to patient, Instructed on discharge instructions, follow up and referral plans. medication usage, Demonstrated understanding of instructions, follow-up care, medications, Prescriptions given X 5 00:55 Patient left the ED. jb4 Addendum: 12/30/2020 17:23 Addendum: Culture Results: Positive urine culture. Prescription called-in to pharmacy s s of choice. Levaquin 750 mg PO DAILY x 7 days called in to health [facility] pharmacy in [place] as ordered by NORA Lynn. Pt verbalizes understanding. Signatures: Dispatcher [employer] Palma Bond, RN RN Vinay Brooks, RN RN jb4 Jose Alfredo Reardon jp3 Emanuel Fernandez cl3 Candice Daly RN RN vg1 Angeline Fernandez RN RN ll1 Ander Harden MD MD 7 Vinay Brooks RN jb4 Corrections: (The following items were deleted from the chart) 12/26 20:24 20:19 Immunization history: Adult Immunizations up to date, Flu vaccine is not up to 1 date. ll1 20:39 20:36 GI: Abdomen is flat, non-distended, Bowel sounds present X 4 quads. Abd is soft vg1 and non tender in right lower quadrant and left lower quadrant Abdomen is tender to palpation in right upper quadrant and left upper quadrant vg1 12/27 00:54 00:00 BP 129 / ???; Pulse 85bpm; Resp 17bpm; Pulse Ox 100% RA; jb4 jb4
--- NOTE | 2020-12-27 00:28 | EDPHYS ---
Physician Documentation [facility] Name: Javier Pimentel Age: 35 yrs Sex: Female : 1985 Arrival Date: 12/26/2020 Time: 20:16 Bed 13 Private MD: ED Physician Ander Harden HPI: 12/26 21:30 This 35 yrs old Female presents to ER via Ambulatory with complaints of mh7 Vomiting/Diarrhea. 21:30 The patient presents to the emergency department with nausea, that is moderate, mh7 vomiting, that is intermittent, described as undigested food, diarrhea, that is intermittent. Onset: The symptoms/episode began/occurred 10 day(s) ago. Possible causes: unknown. The symptoms are aggravated by food , The symptoms are alleviated by nothing. Associated signs and symptoms: Pertinent positives: abdominal pain, diarrhea, nausea, vomiting, Pertinent negatives: anorexia, belching, constipation, dysuria, fever, flatulence, GI bleeding, hematuria, vaginal discharge. Severity of symptoms: At their worst the symptoms were moderate 4 day(s) ago, in the emergency department the symptoms are unchanged. Also complains of right ye redness and drainage for 10 days. Denies any eye pain, vision loss.. Historical: - Allergies: 20:19 PENICILLINS; ll1 - PMHx: 20:19 Anxiety; Diabetes - IDDM; ll1 - PSHx: 20:23 ; Tubal ligation; ll1 - Immunization history:: Adult Immunizations up to date, Flu vaccine is up to date. - Social history:: Smoking status: Patient denies any tobacco usage or history of. Smoking status: Reported history of juuling and/or vaping. ROS: 21:30 Constitutional: Negative for fever, chills, and weight loss, ENT: Negative for injury, mh7 pain, and discharge, Neck: Negative for injury, pain, and swelling, Cardiovascular: Negative for chest pain, palpitations, and edema, Respiratory: Negative for shortness of breath, cough, wheezing, and pleuritic chest pain, Back: Negative for injury and pain, : Negative for injury, bleeding, discharge, and swelling, MS/Extremity: Negative for injury and deformity, Skin: Negative for injury, rash, and discoloration, Neuro: Negative for headache, weakness, numbness, tingling, and seizure, Psych: Negative for depression, anxiety, suicide ideation, homicidal ideation, and hallucinations, Allergy/Immunology: Negative for hives, rash, and allergies, Endocrine: Negative for neck swelling, polydipsia, polyuria, polyphagia, and marked weight changes, Hematologic/Lymphatic: Negative for swollen nodes, abnormal bleeding, and unusual bruising. 21:30 Eyes: Positive for discharge, itching, redness, tearing, Negative for blurry vision, foreign body sensation, icterus, injury or acute deformity, matting, pain, photophobia, sunken appearance, swelling, vision loss, visual disturbance. Exam: 21:30 Constitutional: This is a well developed, well nourished patient who is awake, alert, mh7 and in no acute distress. Head/Face: Normocephalic, atraumatic. Neck: Trachea midline, no thyromegaly or masses palpated, and no cervical lymphadenopathy. Supple, full range of motion without nuchal rigidity, or vertebral point tenderness. No Meningismus. Chest/axilla: Normal chest wall appearance and motion. Nontender with no deformity. No lesions are appreciated. Cardiovascular: Regular rate and rhythm with a normal S1 and S2. No gallops, murmurs, or rubs. Normal PMI, no JVD. No pulse deficits. Respiratory: Lungs have equal breath sounds bilaterally, clear to auscultation and percussion. No rales, rhonchi or wheezes noted. No increased work of breathing, no retractions or nasal flaring. 21:30 Back: No spinal tenderness. No costovertebral tenderness. Full range of motion. Skin: Warm, dry with normal turgor. Normal color with no rashes, no lesions, and no evidence of cellulitis. MS/ Extremity: Pulses equal, no cyanosis. Neurovascular intact. Full, normal range of motion. Neuro: Awake and alert, GCS 15, oriented to person, place, time, and situation. Cranial nerves II-XII grossly intact. Motor strength 5/5 in all extremities. Sensory grossly intact. Cerebellar exam normal. Normal gait. Psych: Awake, alert, with orientation to person, place and time. Behavior, mood, and affect are within normal limits. 21:30 Abdomen/GI: Inspection: abdomen appears normal, Bowel sounds: normal, in all quadrants, Palpation: mild abdominal tenderness, in the umbilical area, right upper quadrant and left upper quadrant, Rectal exam: the exam is deferred, because of patient request, Indicators: McBurney's point is not tender, Quinonez's sign is negative, Rovsing's sign is negative, Obturator sign is negative, Psoas sign is negative, Liver: no appreciated palpable abnormalities, Hernia: not appreciated. 12/27 00:13 Eyes: Periorbital structures: appear normal, Pupils: equal, round, and reactive to mh7 light and accomodation, Extraocular movements: intact throughout, Conjunctiva: chemosis, is not appreciated, excoriated, is not appreciated, injected, in the right eye, Corneas: abrasion, that is small, on the right, at 6 o'clock, foreign body, is not appreciated, a fluorescein strip employed to appreciate the findings, Sclera: no appreciated abnormality, Lids and lashes: appear normal, funduscopic exam reveals no obvious abnormalities, Visual chopra: are intact, Nystagmus: is not appreciated, Intraocular pressure: right eye = 15mmHg, left eye = 15mmHg, No slit lamp available. Vital Signs: 12/26 20:21 BP 122 / 86; Pulse 89; Resp 17; Temp 97.2; Pulse Ox 99% ; Weight 56.7 kg; Height 4 ft. ll1 11 in. (149.86 cm); Pain 8/10; 20:38 BP 111 / 78; Pulse 85; Resp 14; Pulse Ox 100% on R/A; vg1 22:15 BP 109 / 80; Pulse 88; Resp 16; Pulse Ox 100% on R/A; jb4 23:15 BP 117 / 95; Pulse 94; Resp 18; Pulse Ox 98% on R/A; jb4 12/27 00:00 BP 129 / 85; Pulse 85; Resp 17; Pulse Ox 100% on R/A; jb4 12/26 20:21 Body Mass Index 25.25 (56.70 kg, 149.86 cm) ll1 Visual Acuity: 12/26 23:30 Left Eye Visual acuity 20/30, Pupil size 3 mm, Normal, React To Light, Reactive To jb4 Accomodation; Right Eye Visual acuity 20/50, Pupil size 3 mm, Normal, React To Light, Reactive To Accomodation; Both Eyes Visual acuity 20/40; With Lenses; MDM: 12/27 00:24 Differential diagnosis: gastritis, pancreatitis, diverticulitis, viral gastroenteritis, [facility] gastroenteritis. Data reviewed: vital signs, nurses notes, old medical records, lab test result(s), CBC, electrolytes, urinalysis, UPT: negative radiologic studies, CT scan. Data interpreted: Pulse oximetry: on room air is 100 %. Interpretation: normal. Counseling: I had a detailed discussion with the patient and/or guardian regarding: the historical points, exam findings, and any diagnostic results supporting the discharge/admit diagnosis, lab results, radiology results, the need for outpatient follow up, an orthotic finish grinding technician, a urologist, to return to the emergency department if symptoms worsen or persist or if there are any questions or concerns that arise at home. Response to treatment: the patient's symptoms have resolved after treatment, the patient's blood pressure is in an acceptable range, mental status has returned to baseline, the patient no longer shows bradycardia, the patient is not short of breath, the patient is not tachycardic, the patient's pain is gone, the patient's temperature has normalized. 00:28 Patient medically screened. [facility] 12/26 21:11 Order name: Basic Metabolic Panel [facility] 12/26 21:11 Order name: CBC with Diff; Complete Time: 21:55 [facility] 12/26 21:11 Order name: Hepatic Function; Complete Time: 21:55 [facility] 12/26 21:11 Order name: Lipase; Complete Time: 21:55 [facility] 12/26 21:12 Order name: Basic Metabolic Panel; Complete Time: 21:55 [facility] 12/26 21:23 Order name: Urine Dipstick--Ancillary (enter results) [facility] 12/26 21:23 Order name: Urine --Ancillary (enter results) [facility] 12/26 21:24 Order name: Urine Dipstick-Ancillary; Complete Time: 22:43 [facility] 12/26 21:24 Order name: Urine --Ancillary; Complete Time: 22:43 [facility] 12/26 22:44 Order name: CT Abd/Pelvis - IV Contrast Only [facility] 12/26 22:47 Order name: Glucose, Ancillary Testing; Complete Time: 22:53 [facility] 12/26 23:57 Order name: Glucose, Ancillary Testing; Complete Time: 00:00 [facility] 12/27 00:11 Order name: Urine Culture [facility] 12/26 21:11 Order name: IV Saline Lock; Complete Time: 21:25 [facility] 12/26 21:11 Order name: Labs collected and sent; Complete Time: : [facility] 12/26 21:11 Order name: Urine Dipstick-Ancillary (obtain specimen); Complete Time: 21: [facility] 12/26 21:11 Order name: Urine Test (obtain specimen); Complete Time: : [facility] 12/26 22:52 Order name: Visual Acuity; Complete Time: 23:56 [facility] Administered Medications: 12/26 21:40 Drug: NS 0.9% 1000 ml Route: IV; Rate: 1000 ml; Site: left antecubital; jb4 23:00 Follow up: Response: No adverse reaction; IV Status: Completed infusion; IV Intake: jb4 1000ml 21:41 Drug: Zofran (Ondansetron) 4 mg Route: IVP; Site: left antecubital; jb4 22:41 Follow up: Response: No adverse reaction 1 21:43 Drug: Pepcid 20 mg Route: IVP; Site: left antecubital; jb4 22:41 Follow up: Response: No adverse reaction vg1 22:39 Drug: NS 0.9% 1000 ml Route: IV; Rate: 1 bolus; Site: left antecubital; vg1 12/27 00:00 Follow up: Response: No adverse reaction; IV Status: Completed infusion; IV Intake: jb4 1000ml 12/26 22:40 Drug: Insulin Regular Human 10 units {Co-Signature: jb4 (Vinay Brooks RN).} Route: vg1 Sub-Q; Site: left upper arm; 23:40 Follow up: Response: No adverse reaction; Blood sugar is lowered jb4 22:50 Drug: Fluorescein Strip 1 strip Route: Ophthalmic; Site: right eye; jb4 22:50 Drug: Tetracaine Drops 0.5 % 1 drops Route: Ophthalmic; Site: right eye; jb4 12/27 00:49 Drug: Cipro 500 mg Route: PO; jb4 00:49 Follow up: Response: Medication administered at discharge. jb4 Point of Care Testing: Urine : 12/26 21:22 hCG Reading: Negative; Control Reading: Positive; jp3 Disposition: 12/27/20 00:28 Discharged to Home. Impression: Gastrenteritis, Cystitis, unspecified, Diabetes With Hyperglycemia, Right Corneal Abrasion. - Condition is Stable. - Discharge Instructions: Viral Gastroenteritis, Adult, Ivhy-zj-Cowm, Corneal Abrasion, Desq-ec-Rhlc, Urinary Tract Infection, Adult, Ftuf-vd-Kjih, Diabetes Mellitus and Food, Hyperglycemia, [id number]-gn-Vzmv. - Prescriptions for Zofran ODT 4 mg Oral tablet,disintegrating - place 1 tablet by TRANSLINGUAL route every 8 hours As needed; 10 tablet. Bentyl 20 mg Oral Tablet - take 1 tablet by ORAL route every 6 hours As needed; 20 tablet. Pepcid 20 mg Oral Tablet - take 1 tablet by ORAL route every 12 hours for 5 days; 10 tablet. Bactrim DS 800- 160 mg Oral Tablet - take 1 tablet by ORAL route every 12 hours for 7 days; 14 tablet. Ciloxan 0.3 % Ophthalmic Drops - instill 2 drop by OPHTHALMIC route every 6 hours for 7 days; 5 milliliter. - Medication Reconciliation Form, Thank You Letter, Antibiotic Education, Prescription Opioid Use form. - Follow up: Gadiel Boyle MD; When: 1 - 2 days; Reason: Worsening of condition, Recheck today's complaints, Continuance of care. Follow up: Jon Mcmahon MD; When: 1 - 2 days; Reason: Worsening of condition, Further diagnostic work-up, Recheck today's complaints. Follow up: Beth Collins MD; When: 1 - 2 days; Reason: Worsening of condition, Recheck today's complaints. - Problem is an ongoing problem. - Symptoms have improved. Signatures: Dispatcher [employer] EDNJ Vinay Brooks RN RN jb4 Candice Daly RN RN vg1 Angeline Fernandez RN RN ll1 Ander Harden MD MD mh7 Vinay Brooks RN jb4 Corrections: (The following items were deleted from the chart) 20:24 20:19 Immunization history: Adult Immunizations up to date, Flu vaccine is not up to ll1 date. ll1 12/27 00:39 00:28 12/27/2020 00:28 Discharged to Home. Impression: Gastrenteritis; Cystitis, mh7 unspecified; Diabetes With Hyperglycemia. Condition is Stable. Forms are Medication Reconciliation Form, Thank You Letter, Antibiotic Education, Prescription Opioid Use. Follow up: Gadiel Boyle; When: 1 - 2 days; Reason: Worsening of condition, Recheck today's complaints, Continuance of care. Follow up: Jon Mcmahon; When: 1 - 2 days; Reason: Worsening of condition, Further diagnostic work-up, Recheck today's complaints. Problem is an ongoing problem. Symptoms have improved. mh7 00:40 00:39 12/27/2020 00:28 Discharged to Home. Impression: Gastrenteritis; Cystitis, mh7 unspecified; Diabetes With Hyperglycemia; Right Corneal Abrasion. Condition is Stable. Discharge Instructions: Viral Gastroenteritis, Adult, Gxzl-nn-[id number], Urinary Tract Infection, Adult, Gbjl-bc-Exer, Diabetes Mellitus and Food, Hyperglycemia, Bbfj-zm-Tdas. Prescriptions for Zofran ODT 4 mg Oral tablet,disintegrating - place 1 tablet by TRANSLINGUAL route every 8 hours As needed; 10 tablet, Bentyl 20 mg Oral Tablet - take 1 tablet by ORAL route every 6 hours As needed; 20 tablet, Pepcid 20 mg Oral Tablet - take 1 tablet by ORAL route every 12 hours for 5 days; 10 tablet, Bactrim DS 800-160 mg Oral Tablet - take 1 tablet by ORAL route every 12 hours for 7 days; 14 tablet. and Forms are Medication Reconciliation Form, Thank You Letter, Antibiotic Education, Prescription Opioid Use. Follow up: Gadiel Boyle; When: 1 - 2 days; Reason: Worsening of condition, Recheck today's complaints, Continuance of care. Follow up: Jon Mcmahon; When: 1 - 2 days; Reason: Worsening of condition, Further diagnostic work-up, Recheck today's complaints. Problem is an ongoing problem. Symptoms have improved. 7 00:55 00:40 12/27/2020 00:28 Discharged to Home. Impression: Gastrenteritis; Cystitis, jb4 unspecified; Diabetes With Hyperglycemia; Right Corneal Abrasion. Condition is Stable. Discharge Instructions: Viral Gastroenteritis, Adult, Owtk-hy-Pktu, Urinary Tract Infection, Adult, Tjzr-es-Mlnd, Diabetes Mellitus and Food, Hyperglycemia, Wwyx-dd-Jaqy. Prescriptions for Zofran ODT 4 mg Oral tablet,disintegrating - place 1 tablet by TRANSLINGUAL route every 8 hours As needed; 10 tablet, Bentyl 20 mg Oral Tablet - take 1 tablet by ORAL route every 6 hours As needed; 20 tablet, Pepcid 20 mg Oral Tablet - take 1 tablet by ORAL route every 12 hours for 5 days; 10 tablet, Bactrim DS 800-160 mg Oral Tablet - take 1 tablet by ORAL route every 12 hours for 7 days; 14 tablet, Ciloxan 0.3 % Ophthalmic Drops - instill 2 drop by OPHTHALMIC route every 6 hours for 7 days; 5 milliliter. and Forms are Medication Reconciliation Form, Thank You Letter, Antibiotic Education, Prescription Opioid Use. Follow up: Gadiel Boyle; When: 1 - 2 days; Reason: Worsening of condition, Recheck today's complaints, Continuance of care. Follow up: Jon Mcmahon; When: 1 - 2 days; Reason: Worsening of condition, Further diagnostic work-up, Recheck today's complaints. Follow up: Beth Collins; When: 1 - 2 days; Reason: Worsening of condition, Recheck today's complaints. Problem is an ongoing problem. Symptoms have improved. 7
[2020-12-27] MEDS ORDERED: CIPROFLOXACIN HCL 500 MG TAB ONE (00:53)
[2020-12-27 01:09] VITALS: TEMP 97.2
[2020-12-27 01:13] VITALS: BP 129/85; O2SAT 100
--- NOTE | 2020-12-28 12:34 | RAD REPORT ---
EXAM DESCRIPTION: CT - Abdomen Pelvis W Contrast - 12/27/2020 12:53 am [facility]: CT ABDOMEN PELVIS WITH IV CONTRAST CLINICAL HISTORY: Abd pain;Nausea / vomiting. COMPARISON: None. TECHNIQUE: CT of the abdomen and pelvis was performed following intravenous administration of iodina tracey contrast. Arterial phase images through the abdomen and portal venous phase images through the ab domen and pelvis were obtained. Oral contrast was not administered. Axial, coronal, and sagittal soft tissue window reconstructions were created and sent to PACS. This exam was performed according to our departmental dose-optimization program, which includes autom ated exposure control, adjustment of the mA and/or kV according to patient size and/or use of iterati ve reconstruction technique. FINDINGS: Thoracic: No significant abnormality. Hepatobiliary: No concerning hepatic lesion identified. Geographic low density along the falciform li gament is likely focal fatty infiltration versus a perfusional variant. The hepatic and portal veins are patent. The gallbladder is unremarkable. No biliary ductal dilatation. Pancreas: Unremarkable. Spleen: Unremarkable. Gastrointestinal: No evidence of bowel obstruction or perienteric inflammation. The appendix is dominik l. Adrenals: No abnormality identified in either adrenal gland. Renal: No concerning parenchymal abnormality in either kidney. No hydronephrosis or urolithiasis. Bladder/Reproductive: Small amount anti-dependent gas within the urinary bladder. Small amount of int ramural gas superiorly. There is also a small amount of extraperitoneal free air anterior and along t he right posterior bladder. No gas is identified in the ureters or renal collecting systems. No nikole d off fluid collection identified. No immediately adjacent free fluid. Grossly unremarkable CT appear ance of the uterus and ovaries. Vascular/Lymphatics: No lymphadenopathy identified by CT size criteria. Abdominal aorta is normal in caliber. Mild atherosclerosis. Trace nonspecific fat stranding at the root of the mesentery. Musculoskeletal: No concerning osseous lesion identified. Fluid / peritoneum: Trace free fluid in the pelvis. IMPRESSION 1. Small amount of gas in the urinary bladder, as well as in the superior wall (intramu ral gas), and adjacent soft tissues (free extraperitoneal air). Correlate for gas-forming infection ( emphysematous cystitis). Bladder rupture is unlikely, given no immediately adjacent free fluid. [facility] er, correlation with cystography. 2. No gas in the ureters or renal collecting systems. No abscess identified. 3. Trace free fluid in the pelvis. Electronically signed by: Margarita Rand MD 12/26/2020 11:50 PM CEILING INSTALLER Due to temporary technical issues with the PACS/Fluency reporting system, reports are being signed by the in house radiologists without review as a courtesy to insure prompt reporting. The interpreting radiologist is fully responsible for the content of the report.
== END 2020-12-27 00:55 | disposition home or self-care (01) ==
LOC: ER 20:16
DX: K52.9 Noninfective gastroenteritis and colitis, unspecified (principal); N30.90 Cystitis, unspecified without hematuria; E11.65 Type 2 diabetes mellitus with hyperglycemia; S05.01XA Injury of conjunctiva and corneal abrasion without foreign body, right eye, initial encounter; Z88.0 Allergy status to penicillin
CPT/HCPCS: 96361; 87088; 85025; 87086; 80048; 36415; 81025; 82947 ×2; 80076; 87077 ×2; 87186 ×2; 81003; 83690; 74177; 96375; 96372; 96374; 99284; Q9967; J7030 ×2; J2405

== ENCOUNTER 2021-01-17 16:50 | Emergency (ER) | payer MEDICAID, OTHER ==
[2021-01-17 19:00] LABS: Absolute Lymphocytes (CBC) 1.3 K/uL (0.7-4.9); Basophils % 0.2 % (0-1.3); Hematocrit 39.3 % (36.0-45.0); Lymphocytes % 15.2 % (15.3-44.8); RBC Red Blood Cell Count 4.84 M/uL (3.86-4.86)
[2021-01-17 19:08] LABS: ALT/SGPT 19 U/L (12-78); AST/SGOT 6 U/L (15-37); Albumin 3.4 g/dL (3.4-5.0); Alkaline Phosphatase 67 U/L (45-117); BUN Blood Urea Nitrogen 22 mg/dL (7-18); Bicarbonate 26 mmol/L (21-32); Bilirubin Direct < 0.1 mg/dL (0-0.2); Bilirubin Total 0.4 mg/dL (0.2-1.0); Glucose Level 400 mg/dL (74-106); Lipase 77 U/L (73-393); Potassium 4.1 mmol/L (3.5-5.1); Protein, Total 6.8 g/dL (6.4-8.2); Sodium Level 136 mmol/L (136-145)
[2021-01-17 19:21] LABS: Urine Blood NEGATIVE (NEG); Urine Glucose 3+ (NEG); Urine Protein NEGATIVE (NEG); Urine Specific Gravity 1.015 (1.005-1.030)
[2021-01-17] MEDS ORDERED: NA CHLORIDE 0.9% 1,000 ML ONE ×2 (19:22→20:55)
[2021-01-17 19:39] LABS: Urine Bacteria >50 /HPF (<20); Urine RBC <5 /HPF (NONE SEEN); Urine Yeast PRESENT (NONE SEEN)
[2021-01-17] MEDS ORDERED: INSULIN -REGULAR HUMAN 50 UNIT/0.5 ML ML ONE (20:59)
[2021-01-17] MEDS ORDERED: FLUCONAZOLE 100 MG TAB ONE (21:00)
[2021-01-17] MEDS ORDERED: CEFTRIAXONE/SWI 1gm 1 GM/10 ML SYR ONE (21:06)
[2021-01-17] MEDS ORDERED: ONDANSETRON 4 MG/2 ML VIAL ONE (21:06)
[2021-01-17] MEDS ORDERED: MORPHINE 4 MG/ML SYR ONE (21:06)
--- NOTE | 2021-01-17 21:36 | ER ---
Nurse's Notes [facility] Name: Javier Pimentel Age: 35 yrs Sex: Female : 1985 Arrival Date: 01/17/2021 Time: 16:53 Bed 24 Private MD: Diagnosis: Hyperglycemia, unspecified;Dental pain;Candidiasis of other urogenital sites;Urinary tract infection, site not specified Presentation: 01/17 17:00 Chief complaint: Patient states: Pain on the L side of face. I think it starts on the L ca1 lower teeth then goes all the way to my L ear. It started this morning. Coronavirus screen: Client denies travel out of the [place] in the last 14 days. At this time, the client does not indicate any symptoms associated with coronavirus-19. Ebola Screen: Patient negative for fever greater than or equal to 101.5 degrees Fahrenheit, and additional compatible Ebola Virus Disease symptoms Patient denies exposure to infectious person. Patient denies travel to an Ebola-affected area in the 21 days before illness onset. No symptoms or risks identified at this time. Initial Sepsis Screen: Does the patient meet any 2 criteria? No. Patient's initial sepsis screen is negative. Does the patient have a suspected source of infection? No. Patient's initial sepsis screen is negative. Risk Assessment: Do you want to hurt yourself or someone else? Patient reports no desire to harm self or others. Onset of symptoms was January 17, 2021. 17:00 Method Of Arrival: Ambulatory ca1 17:00 Acuity: NING 4 ca1 18:44 Acuity: NING 3 iw 18:44 Chief complaint: now pt reports that she is worried about being in DKA, ran out of her iw inulin 3 days ago, has been vomiting and has dysuria. 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 - Social history:: Smoking status: Patient denies any tobacco usage or history of. Screenin:46 Abuse screen: Denies threats or abuse. Denies injuries from another. Nutritional iw screening: No deficits noted. Tuberculosis screening: No symptoms or risk factors identified. Fall Risk IV access (20 points). Assessment: 18:45 General: Appears in no apparent distress. Behavior is calm, cooperative. Pain: Denies iw pain. Neuro: Level of Consciousness is awake, alert, obeys commands, Oriented to person, place, time, situation, Moves all extremities. Full function. Cardiovascular: Patient's skin is warm and dry. Respiratory: Respiratory effort is even, unlabored, Respiratory pattern is regular, symmetrical. GI: Reports vomiting. Derm: Skin is intact, is healthy with good turgor. Musculoskeletal: Range of motion:. 19:45 Reassessment: Patient and/or family updated on plan of care and expected duration. Pain fu level reassessed. Patient is alert, oriented x 3, equal unlabored respirations, skin warm/dry/pink. 20:30 Reassessment: Patient and/or family updated on plan of care and expected duration. Pain fu level reassessed. Patient is alert, oriented x 3, equal unlabored respirations, skin warm/dry/pink. 22:00 Reassessment: Patient and/or family updated on plan of care and expected duration. Pain fu level reassessed. Patient is alert, oriented x 3, equal unlabored respirations, skin warm/dry/pink. Patient denies pain at this time. Patient states feeling better. 22:05 Reassessment: blood glucose 172. fu Vital Signs: 17:00 BP 142 / 99; Pulse 87; Resp 16 S; Temp 97.3(TE); Pulse Ox 100% on R/A; Weight 58.97 kg ca1 (R); Height 5 ft. (152.40 cm) (R); Pain 10/10; 17:00 Body Mass Index 25.39 (58.97 kg, 152.40 cm) ca1 ED Course: 16:53 Patient arrived in ED. bg2 17:02 Triage completed. ca1 17:03 Arm band placed on right wrist. ca1 18:19 Richard Qureshi NP is PHCP. pm1 18:19 Zhang Byers MD is Attending Physician. pm1 18:32 Reyna Hwang, RENARD is Primary Nurse. iw 18:46 Initial lab(s) drawn, by me, sent to lab. Inserted saline lock: 22 gauge in right iw antecubital area, using aseptic technique. Blood collected. 21:00 Patient has correct armband on for positive identification. Bed in low position. Call fu light in reach. Side rails up X 1. 21:00 Pulse ox on. NIBP on. fu 22:00 No provider procedures requiring assistance completed. fu 22:05 Basic Metabolic Panel Sent. fu 22:05 CBC with Diff Sent. fu 22:06 Hepatic Function Sent. fu 22:06 Lipase Sent. fu 22:12 IV discontinued, bleeding controlled, Pressure dressing applied. fu Administered Medications: 19:12 Drug: NS 0.9% 1000 ml Route: IV; Rate: 1000 ml; Site: left antecubital; fu 20:12 Follow up: Response: No adverse reaction; IV Intake: 1000ml fu 19:22 Drug: NS 0.9% 1000 ml Route: IV; Rate: 1000 ml; Site: left antecubital; fu 20:47 Drug: Insulin Regular Human 10 units {Co-Signature: fu (Noah Ferrer RN).} Route: IVP; rr5 Site: left antecubital; 22:05 Follow up: Response: Blood sugar is lowered fu 20:47 Drug: DiFLUcan 150 mg Route: PO; rr5 21:47 Follow up: Response: No adverse reaction fu 20:52 Drug: Zofran (Ondansetron) 4 mg Route: IVP; Site: left antecubital; rr5 21:50 Follow up: Response: Nausea is decreased fu 20:54 Drug: Rocephin 1 grams Route: IV; Rate: calculated rate; Site: left antecubital; rr5 20:54 Drug: morphine 4 mg {Note: rass 0.} Route: IVP; Site: left antecubital; rr5 21:24 Follow up: Response: Pain is decreased fu Point of Care Testing: Blood Glucose: 18:51 Blood Glucose: 367 mg/dL; iw Ranges: Intake: 20:12 IV: 1000ml; Total: 1000ml. fu Outcome: 21:35 Discharge ordered by . pm1 22:10 Discharged to home ambulatory. fu 22:10 Condition: stable 22:10 Prescriptions given X 4. 22:10 Discharge instructions given to patient, Instructed on discharge instructions, follow up and referral plans. Demonstrated understanding of instructions, follow-up care. 22:12 Patient left the ED. fu Addendum: 01/21/2021 19:07 Addendum: Culture Results: Positive urine culture. Bacteria is resistant to, has s g intermediate sensitivity, or is not tested against prescribed antibiotics. Report given to TERESA for further evaluation and then to insurance broker for follow up with patient. Prescription called-in to pharmacy of choice. Macrobid 100 mg tablet BID dispense 14, Bogdan EMLENDEZ, called to [facility] at [phone]. Signatures: Valerio Norman, RN RENARD Reyna Hwang RN RENARD Smita Dimas 2 Richard Qureshi, BEAUTY CULTURE TEACHER BEAUTY CULTURE TEACHER pm1 Carissa, Noah RN RENARD fu Junior Armando RN RENARD rr5 Winnie Mcdonough RN RN ca1 Noah Ferrer RN fu Corrections: (The following items were deleted from the chart) 01/17 20:55 20:02 Zofran (Ondansetron) 4 mg IVP in left antecubital rr5 rr5 01/18 02:15 02:14 Reassessment: blood glucose 172 fu fu 02:01/17 22:12 Discharged to home ambulatory, fu fu 01/18 02:19 01/17 22:12 Condition: stable fu fu 01/18 02:01/17 22:12 Discharge instructions given to patient, Instructed on discharge fu instructions, follow up and referral plans. Demonstrated understanding of instructions, follow-up care, fu 01/18 02:01/17 22:12 Prescriptions given X 4, fu fu
--- NOTE | 2021-01-17 21:36 | EDPHYS ---
Physician Documentation [facility] Name: Javier Pimentel Age: 35 yrs Sex: Female : 1985 Arrival Date: 01/17/2021 Time: 16:53 Bed 24 Private MD: Zhang Molina HPI: 01/17 18:39 This 35 yrs old Female presents to ER via Ambulatory with complaints of pm1 Dental pain. 18:39 The patient presents with pain. The problem is located in the upper left first molar. pm1 Onset: The symptoms/episode began/occurred 2 day(s) ago. Duration: The symptoms are continuous. Modifying factors: The symptoms are alleviated by nothing, the symptoms are aggravated by chewing, food. Associated signs and symptoms: Pertinent positives: nausea, vomiting, Pertinent negatives: fever, inability to eat. Severity of symptoms: in the emergency department the symptoms are unchanged. The patient has experienced similar episodes in the past, a few times. The patient has not recently seen a physician, just moved to the area. Patient reports some nausea and being without her insulin for the past three days. Patient is concerned that she is in DKA due to the nausea and vomiting. Patient has been without her insulin because she just moved to the area and does not have a MD. 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 - Social history:: Smoking status: Patient denies any tobacco usage or history of. ROS: 18:39 Constitutional: Negative for fever, chills, and weight loss, Cardiovascular: Negative pm1 for chest pain, palpitations, and edema, Respiratory: Negative for shortness of breath, cough, wheezing, and pleuritic chest pain. 18:39 Back: Negative for injury and pain. 18:39 MS/Extremity: Negative for injury and deformity, Skin: Negative for injury, rash, and discoloration, Neuro: Negative for headache, weakness, numbness, tingling, and seizure. 18:39 Abdomen/GI: Positive for nausea and vomiting, Negative for abdominal pain, diarrhea, constipation. 18:39 : Positive for burning with urination, vaginal itching, Negative for pelvic pain, flank pain. 18:39 ENT: Positive for dental pain, ear pain. pm1 Exam: 18:39 Constitutional: This is a well developed, well nourished patient who is awake, alert, pm1 and in no acute distress. Head/Face: Normocephalic, atraumatic. 18:39 Back: No spinal tenderness. No costovertebral tenderness. Full range of motion. Skin: Warm, dry with normal turgor. Normal color with no rashes, no lesions, and no evidence of cellulitis. MS/ Extremity: Pulses equal, no cyanosis. Neurovascular intact. Full, normal range of motion. 18:39 ENT: External ear(s): are unremarkable, Ear canal(s): are normal, TM's: are normal, Posterior pharynx: no acute changes, Dental exam: dental caries, that is moderate, diffusely, gum swelling, not appreciated. 18:39 Cardiovascular: Exam negative for acute changes, Rate: normal, Rhythm: regular, Pulses: no pulse deficits are appreciated. 18:39 Respiratory: Exam negative for acute changes, respiratory distress, shortness of breath. 18:39 Abdomen/GI: Inspection: abdomen appears normal, Palpation: abdomen is soft and non-tender, in all quadrants. 18:39 Neuro: Exam negative for acute changes, Orientation: is normal, Mentation: is normal, Motor: is normal, moves all fours. Vital Signs: 17:00 BP 142 / 99; Pulse 87; Resp 16 S; Temp 97.3(TE); Pulse Ox 100% on R/A; Weight 58.97 kg ca1 (R); Height 5 ft. (152.40 cm) (R); Pain 10/10; 17:00 Body Mass Index 25.39 (58.97 kg, 152.40 cm) ca1 MDM: 18:22 Patient medically screened. pm1 20:05 Data reviewed: vital signs. Data interpreted: Pulse oximetry: on room air is 100 %. pm1 Interpretation: normal. 20:57 Counseling: I had a detailed discussion with the patient and/or guardian regarding: the pm1 historical points, exam findings, and any diagnostic results supporting the discharge/admit diagnosis, lab results. 21:33 ED course: normal anion gap. Patient is not in DKA. Will prescribe patient her insulin pm1 to take at her regular dosage and will give patient abx for UTI. 21:33 Counseling: I had a detailed discussion with the patient and/or guardian regarding: the pm1 need for outpatient follow up, to return to the emergency department if symptoms worsen or persist or if there are any questions or concerns that arise at home. 01/17 18:32 Order name: Basic Metabolic Panel pm1 01/17 18:32 Order name: CBC with Diff pm1 01/17 18:32 Order name: Hepatic Function pm1 01/17 18:32 Order name: Lipase pm1 01/17 18:32 Order name: Urine Microscopic Only pm1 01/17 18:32 Order name: ABG pm1 01/17 19:02 Order name: Glucose, Ancillary Testing; Complete Time: 19:18 EDMS 01/17 19:07 Order name: CBC with Automated Diff; Complete Time: 19:18 EDMS 01/17 19:08 Order name: Basic Metabolic Panel; Complete Time: 19:18 EDMS 01/17 19:08 Order name: Liver (Hepatic) Function; Complete Time: 19:18 EDMS 01/17 19:08 Order name: Lipase; Complete Time: 19:18 EDMS 01/17 19:09 Order name: Urine Dipstick--Ancillary (enter results) tt3 01/17 19:09 Order name: Urine --Ancillary (enter results) tt3 01/17 19:22 Order name: Urine --Ancillary; Complete Time: 19:49 EDMS 01/17 18:32 Order name: IV Saline Lock; Complete Time: 18:51 pm1 01/17 18:32 Order name: Labs collected and sent; Complete Time: 18:51 pm1 01/17 18:32 Order name: Urine Dipstick-Ancillary (obtain specimen); Complete Time: 18:51 pm1 01/17 18:32 Order name: Urine Test (obtain specimen); Complete Time: 19:03 pm1 01/17 19:22 Order name: Urine Dipstick-Ancillary; Complete Time: 19:49 EDMS 01/17 19:39 Order name: Urine Microscopic Only; Complete Time: 19:49 EDMS 01/17 21:32 Order name: Glucose Level; Complete Time: 22:05 pm1 Administered Medications: 19:12 Drug: NS 0.9% 1000 ml Route: IV; Rate: 1000 ml; Site: left antecubital; fu 20:12 Follow up: Response: No adverse reaction; IV Intake: 1000ml fu 19:22 Drug: NS 0.9% 1000 ml Route: IV; Rate: 1000 ml; Site: left antecubital; fu 20:47 Drug: Insulin Regular Human 10 units {Co-Signature: fu (Noah Ferrer RN).} Route: IVP; rr5 Site: left antecubital; 22:05 Follow up: Response: Blood sugar is lowered fu 20:47 Drug: DiFLUcan 150 mg Route: PO; rr5 21:47 Follow up: Response: No adverse reaction fu 20:52 Drug: Zofran (Ondansetron) 4 mg Route: IVP; Site: left antecubital; rr5 21:50 Follow up: Response: Nausea is decreased fu 20:54 Drug: Rocephin 1 grams Route: IV; Rate: calculated rate; Site: left antecubital; rr5 20:54 Drug: morphine 4 mg {Note: rass 0.} Route: IVP; Site: left antecubital; rr5 21:24 Follow up: Response: Pain is decreased fu Point of Care Testing: Blood Glucose: 18:51 Blood Glucose: 367 mg/dL; iw Ranges: Critical Glucose Levels:Adult <50 mg/dl or >400 mg/dl <40 mg/dl or >180 mg/dl Disposition: 01/18 19:57 Co-signature as Attending Physician, Zhang Byers MD I agree with the assessment and nata plan of care. Disposition: 01/17/21 21:35 Discharged to Home. Impression: Hyperglycemia, unspecified, Dental pain, Candidiasis of other urogenital sites, Urinary tract infection, site not specified. - Condition is Stable. - Discharge Instructions: Hyperglycemia, Urinary Tract Infection, Adult, Vaginal Yeast Infection, Adult, Blood Glucose Monitoring, Adult. - Prescriptions for Humulin 70/30 100 unit/mL (70- 30) Subcutaneous suspension - inject 20 unit by SUBCUTANEOUS route as directed; 1 bottle. Zofran ODT 4 mg Oral tablet,disintegrating - place 2 tablet by TRANSLINGUAL route every 8 hours As needed; 12 tablet. Bactrim DS 800- 160 mg Oral Tablet - take 1 tablet by ORAL route every 12 hours for 10 days; 20 tablet. Tramadol 50 mg Oral Tablet - take 1 tablet by ORAL route every 8 hours as needed; 12 tablet. - Medication Reconciliation Form, Thank You Letter, Antibiotic Education, Prescription Opioid Use form. - Follow up: Emergency Department; When: As needed; Reason: Worsening of condition. Follow up: Private Physician; When: 2 - 3 days; Reason: Recheck today's complaints, Continuance of care, Re-evaluation by your physician. - Problem is new. - Symptoms have improved. Signatures: Dispatcher [employer] EDMS Zhang Byers MD MD cha Marinas, Patrick, DOUGLAS ACETALDEHYDE CONVERTER OPERATOR pm1 Noah Ferrer, RN RENARD fu Junior Armando RN RN rr5 Winnie Mcdonough RN RN [facility] Noah wei Corrections: (The following items were deleted from the chart) 01/17 22:12 21:35 01/17/2021 21:35 Discharged to Home. Impression: Hyperglycemia, unspecified; fu Dental pain; Candidiasis of other urogenital sites; Urinary tract infection, site not specified. Condition is Stable. Forms are Medication Reconciliation Form, Thank You Letter, Antibiotic Education, Prescription Opioid Use. Follow up: Emergency Department; When: As needed; Reason: Worsening of condition. Follow up: Private Physician; When: 2 - 3 days; Reason: Recheck today's complaints, Continuance of care, Re-evaluation by your physician. Problem is new. Symptoms have improved. pm1
[2021-01-17 22:40] LABS: Blood Gas Oxyhemoglobin 43.3 % (94-97); Blood O2 Saturation 44.1 % (92-98.5)
[2021-01-17 23:46] VITALS: BP 142/99; TEMP 97.3; O2SAT 100
== END 2021-01-17 22:12 | disposition home or self-care (01) ==
LOC: ER 16:50
DX: E11.65 Type 2 diabetes mellitus with hyperglycemia (principal); B37.49 Other urogenital candidiasis; Z88.0 Allergy status to penicillin
CPT/HCPCS: 87088; 85025; 87086; 80048; 36415; 81025; 82947 ×2; 80076; 83690; 82805; 96375; 96374; 99284; J0696; J7030 ×2; J2405; 81003; 81015; 87077; 87186

== ENCOUNTER 2021-04-02 11:57 | Emergency (ER) | payer MEDICAID ==
[2021-04-02 13:05] LABS: Urine Blood 1+ (Negative); Urine Glucose 3+ (Negative); Urine Protein Negative (Negative); Urine Specific Gravity <=1.005 (1.005-1.030); Urine pH 5.5 (5.0-7.0)
[2021-04-02] MEDS ORDERED: ONDANSETRON 4 MG/2 ML VIAL ONE (13:18)
[2021-04-02] MEDS ORDERED: NA CHLORIDE 0.9% 1,000 ML ONE ×2 (13:18→15:57)
[2021-04-02 13:31] LABS: Urine Bacteria LOADED /HPF (<20)
[2021-04-02 13:40] LABS: ALT/SGPT 16 U/L (12-78); AST/SGOT 6 U/L (15-37); Albumin 3.2 g/dL (3.4-5.0); Alkaline Phosphatase 67 U/L (45-117); BUN Blood Urea Nitrogen 6 mg/dL (7-18); Bicarbonate 31 mmol/L (21-32); Bilirubin Direct < 0.1 mg/dL (0-0.2); Bilirubin Total 0.3 mg/dL (0.2-1.0); Lipase 58 U/L (73-393); Potassium 3.9 mmol/L (3.5-5.1); Protein, Total 6.7 g/dL (6.4-8.2); Sodium Level 136 mmol/L (136-145)
[2021-04-02 13:42] LABS: Glucose Level 587 mg/dL (74-106)
[2021-04-02 13:54] LABS: Absolute Lymphocytes (CBC) 1.9 K/uL (0.7-4.9); Basophils % 0.4 % (0-1.3); Hematocrit 36.6 % (36.0-45.0); Lymphocytes % 36.1 % (15.3-44.8); MPV 7.4 fL (7.6-11.3); RBC Red Blood Cell Count 4.48 M/uL (3.86-4.86)
[2021-04-02] MEDS ORDERED: INSULIN -REGULAR HUMAN 50 UNIT/0.5 ML ML ONE ×2 (14:45→15:56)
[2021-04-02] MEDS ORDERED: CEFTRIAXONE/SWI 1gm 1 GM/10 ML SYR ONE (14:46)
[2021-04-02] MEDS ORDERED: ACETAMINOPHEN 500 MG TAB ONE (15:45)
--- NOTE | 2021-04-02 17:12 | EDPHYS ---
Physician Documentation [facility] Name: Javier Pimentel Age: 35 yrs Sex: Female : 1985 Arrival Date: 04/02/2021 Time: 12:02 Bed 16 Private MD: ED Physician Justin Garg HPI: 04/02 16:02 This 35 yrs old Female presents to ER via Ambulatory with complaints of High jr8 Blood Sugar, Vomiting. 16:02 Onset: The symptoms/episode began/occurred acutely, today. Current symptoms: In the [facility] emergency department the patient's symptoms are unchanged from the initial presentation. The patient has experienced a previous episode. The patient has not recently seen a physician. Patient stated that she ran out of her insulin 2 days ago. Today started to have n/v and noted that her blood sugar was almost 500 . 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 - Social history:: Smoking status: Reported history of juuling and/or vaping. ROS: 16:02 Eyes: Negative for injury, pain, redness, and discharge, ENT: Negative for injury, jr8 pain, and discharge, Neck: Negative for injury, pain, and swelling, Cardiovascular: Negative for chest pain, palpitations, and edema, Respiratory: Negative for shortness of breath, cough, wheezing, and pleuritic chest pain, Back: Negative for injury and pain, MS/Extremity: Negative for injury and deformity, Skin: Negative for injury, rash, and discoloration, Neuro: Negative for headache, weakness, numbness, tingling, and seizure. 16:02 Abdomen/GI: Positive for nausea and vomiting, Negative for abdominal pain, diarrhea, constipation, abdominal cramps, abdominal distension. Exam: 16:02 Eyes: Pupils equal round and reactive to light, extra-ocular motions intact. Lids and jr8 lashes normal. Conjunctiva and sclera are non-icteric and not injected. Cornea within normal limits. Periorbital areas with no swelling, redness, or edema. ENT: Nares patent. No nasal discharge, no septal abnormalities noted. Tympanic membranes are normal and external auditory canals are clear. Oropharynx with no redness, swelling, or masses, exudates, or evidence of obstruction, uvula midline. Mucous membranes moist. Neck: Trachea midline, no thyromegaly or masses palpated, and no cervical lymphadenopathy. Supple, full range of motion without nuchal rigidity, or vertebral point tenderness. No Meningismus. Cardiovascular: Regular rate and rhythm with a normal S1 and S2. No gallops, murmurs, or rubs. Normal PMI, no JVD. No pulse deficits. Respiratory: Lungs have equal breath sounds bilaterally, clear to auscultation and percussion. No rales, rhonchi or wheezes noted. No increased work of breathing, no retractions or nasal flaring. Abdomen/GI: Soft, non-tender, with normal bowel sounds. No distension or tympany. No guarding or rebound. No evidence of tenderness throughout. Back: No spinal tenderness. No costovertebral tenderness. Full range of motion. Skin: Warm, dry with normal turgor. Normal color with no rashes, no lesions, and no evidence of cellulitis. MS/ Extremity: Pulses equal, no cyanosis. Neurovascular intact. Full, normal range of motion. Neuro: Awake and alert, GCS 15, oriented to person, place, time, and situation. Cranial nerves II-XII grossly intact. Motor strength 5/5 in all extremities. Sensory grossly intact. Vital Signs: 12:28 BP 110 / 78; Pulse 98; Resp 18; Temp 98.4(O); Pulse Ox 100% on R/A; Weight 58.97 kg; em Height 4 ft. 11 in. (149.86 cm); Pain 10/10; 12:55 BP 124 / 93; Pulse 95; Resp 16; Pulse Ox 98% on R/A; vg1 14:00 BP 129 / 97; Pulse 94; Resp 16; Pulse Ox 98% on R/A; vg1 15:00 BP 119 / 87; Pulse 95; Resp 16; Pulse Ox 100% on R/A; vg1 12:28 Body Mass Index 26.26 (58.97 kg, 149.86 cm) em MDM: 12:53 Patient medically screened. [facility] 17:10 Data reviewed: vital signs, nurses notes, lab test result(s). Data interpreted: Pulse jr8 oximetry: on room air is 100 %. Interpretation: normal. Counseling: I had a detailed discussion with the patient and/or guardian regarding: the historical points, exam findings, and any diagnostic results supporting the discharge/admit diagnosis, lab results, the need for outpatient follow up, a family practitioner, to return to the emergency department if symptoms worsen or persist or if there are any questions or concerns that arise at home. Response to treatment: the patient's symptoms have markedly improved after treatment, patient is well hydrated. ED course: blood sugars to a much more reasonable level. Patient will go home on Abx for UTI and 70/30 . 04/02 12:54 Order name: Hepatic Function; Complete Time: 14: [facility] 04/02 12:54 Order name: Lipase; Complete Time: 14: [facility] 04/02 12:54 Order name: Basic Metabolic Panel; Complete Time: 14: [facility] 04/02 12:54 Order name: CBC with Diff; Complete Time: 14: [facility] 04/02 12:54 Order name: Ketone, Serum; Complete Time: 14:20 8 04/02 13:04 Order name: Urine Dipstick-Ancillary; Complete Time: 13:13 [facility] 04/02 13:05 Order name: Urine Microscopic Only; Complete Time: 14:20 8 04/02 13:36 Order name: Urine Culture [facility] 04/02 15:41 Order name: Glucose, Ancillary Testing; Complete Time: 15:57 [facility] 04/02 17:14 Order name: Glucose, Ancillary Testing; Complete Time: 17:20 [facility] 04/02 12:54 Order name: IV Saline Lock; Complete Time: 13:07 8 04/02 12:54 Order name: Labs collected and sent; Complete Time: 13:07 [facility] 04/02 12:54 Order name: Urine Dipstick-Ancillary (obtain specimen); Complete Time: 13:05 jr8 Administered Medications: 11:30 Drug: Insulin Regular Human 10 units {Co-Signature: ca1 (Winnie Mcdonough RN).} Route: vg1 Sub-Q; Site: left upper arm; 15:30 Follow up: Response: No adverse reaction; Blood sugar is lowered vg1 13:13 Drug: Zofran (Ondansetron) 4 mg Route: IVP; Site: left antecubital; vg1 14:22 Follow up: Response: No adverse reaction vg1 13:20 Drug: NS 0.9% 1000 ml Route: IV; Rate: 1000 ml; Site: left antecubital; vg1 14:21 Follow up: IV Status: Completed infusion; IV Intake: 1000ml vg1 14:32 Drug: Insulin Regular Human 10 units {Co-Signature: ca1 (Winnie Mcdonough RN).} Route: IVP; vg1 Site: left antecubital; 15:30 Follow up: Response: No adverse reaction vg1 14:39 Drug: Rocephin (cefTRIAXone) 1 grams Route: IV; Rate: calculated rate; Site: left vg1 antecubital; 15:30 Drug: Tylenol 1000 mg Route: PO; vg1 17:30 Follow up: Response: No adverse reaction; Pain is decreased vg1 15:43 Drug: Insulin Regular Human 10 units {Co-Signature: ld1 (Carri Tom RN).} Route: hb Sub-Q; Site: left upper arm; 17:30 Follow up: Response: No adverse reaction vg1 15:45 Drug: NS 0.9% 1000 ml Route: IV; Rate: 1 bolus; Site: left antecubital; hb 17:30 Follow up: IV Status: Completed infusion; IV Intake: 1000ml vg1 Disposition: 18:17 Co-signature as Attending Physician, Justin Garg MD I agree with the assessment and kdr plan of care. Disposition: 04/02/21 17:11 Discharged to Home. Impression: Hyperglycemia, unspecified, Urinary tract infection, site not specified. - Condition is Stable. - Discharge Instructions: Hyperglycemia, Urinary Tract Infection, Adult, Blood Glucose Monitoring, Adult. - Prescriptions for Humulin 70/30 100 unit/mL (70- 30) Subcutaneous suspension - inject 30 unit by SUBCUTANEOUS route as directed 30 units QAM and 20 units QHS; 1 vial. Macrobid 100 mg Oral Capsule - take 1 capsule by ORAL route every 12 hours for 7 days; 14 capsule. - Medication Reconciliation Form, Thank You Letter, Antibiotic Education, Prescription Opioid Use form. - Follow up: Private Physician; When: 5 - 6 days; Reason: Recheck today's complaints, Continuance of care, Re-evaluation by your physician. - Problem is new. - Symptoms have improved. Signatures: Dispatcher [employer] EDMS Justin Garg MD MD [facility] Rocky Mckeon RN RN Bogdan Roman PA PA jr8 Lisa Koo, RN RN Candice Warner RN RN vg1 Winnie Mcdonough RN ca1 Carri Tom RN ld1 Corrections: (The following items were deleted from the chart) 17:29 17:11 04/02/2021 17:11 Discharged to Home. Impression: Hyperglycemia, unspecified; vg1 Urinary tract infection, site not specified. Condition is Stable. Forms are Medication Reconciliation Form, Thank You Letter, Antibiotic Education, Prescription Opioid Use. Follow up: Private Physician; When: 5 - 6 days; Reason: Recheck today's complaints, Continuance of care, Re-evaluation by your physician. Problem is new. Symptoms have improved. jr8
--- NOTE | 2021-04-02 17:12 | ER ---
Nurse's Notes [facility] Name: Javier Pimentel Age: 35 yrs Sex: Female : 1985 Arrival Date: 04/02/2021 Time: 12:02 Bed 16 Private MD: Diagnosis: Hyperglycemia, unspecified;Urinary tract infection, site not specified Presentation: 04/02 12:28 Chief complaint: Patient states: Nausea and vomiting since this morning, checked em glucose and it was 494, has not had any insulin for 3 days, also reports falling today after becoming dizzy, reports left shoulder and left hip pain, also reports burning with urination that started 3 days ago, denies fever. Coronavirus screen: Client denies travel out of the [place] in the last 14 days. Ebola Screen: Patient negative for fever greater than or equal to 101.5 degrees Fahrenheit, and additional compatible Ebola Virus Disease symptoms Patient denies exposure to infectious person. Patient denies travel to an Ebola-affected area in the 21 days before illness onset. No symptoms or risks identified at this time. Initial Sepsis Screen: Does the patient meet any 2 criteria? HR > 90 bpm. No. Patient's initial sepsis screen is negative. Does the patient have a suspected source of infection? No. Patient's initial sepsis screen is negative. Risk Assessment: Do you want to hurt yourself or someone else? Patient reports no desire to harm self or others. Onset of symptoms was April 02, 2021. 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 - Social history:: Smoking status: Reported history of juuling and/or vaping. Screenin:56 Abuse screen: Denies threats or abuse. Nutritional screening: No deficits noted. vg1 Tuberculosis screening: No symptoms or risk factors identified. Fall Risk Fall in past 12 months (25 points). No secondary diagnosis (0 pts). IV access (20 points). Ambulatory Aid- None/Bed Rest/Nurse Assist (0 pts). Gait- Normal/Bed Rest/Wheelchair (0 pts) Mental Status- Oriented to own ability (0 pts). Total Davis Fall Scale indicates High Risk Score (45 or more points). Fall prevention measures have been instituted. Side Rails Up X 2 Placed Close to Nursing Station. Assessment: 12:54 General: Appears in no apparent distress. comfortable, Behavior is calm, cooperative. vg1 Pain: Complains of pain in Left shoulder, left hip, LLQ Pain currently is 10 out of 10 on a pain scale. Pain began 2 hours ago. Neuro: Level of Consciousness is awake, alert, obeys commands, Oriented to person, place, time, situation, Reports headache. Cardiovascular: Patient's skin is warm and dry. Respiratory: Airway is patent Respiratory effort is even, unlabored. GI: Abdomen is flat, Reports nausea, vomiting. : No signs and/or symptoms were reported regarding the genitourinary system. EENT: No signs and/or symptoms were reported regarding the EENT system. Derm: Skin is intact, is healthy with good turgor. Musculoskeletal: Circulation, motion, and sensation intact. 14:09 Reassessment: Patient appears in no apparent distress at this time. No changes from vg1 previously documented assessment. Patient and/or family updated on plan of care and expected duration. Pain level reassessed. Patient is alert, oriented x 3, equal unlabored respirations, skin warm/dry/pink. 15:32 Reassessment: BG 401; provider notified. Received VO from NORA Silvestre to administer 10 vg1 units of REG INSULIN SQ and a bolus of NS 0.9% x1 IV. 15:34 Reassessment: Patient appears in no apparent distress at this time. Patient and/or vg1 family updated on plan of care and expected duration. Pain level reassessed. Patient is alert, oriented x 3, equal unlabored respirations, skin warm/dry/pink. Vital Signs: 12:28 BP 110 / 78; Pulse 98; Resp 18; Temp 98.4(O); Pulse Ox 100% on R/A; Weight 58.97 kg; em Height 4 ft. 11 in. (149.86 cm); Pain 10/10; 12:55 BP 124 / 93; Pulse 95; Resp 16; Pulse Ox 98% on R/A; vg1 14:00 BP 129 / 97; Pulse 94; Resp 16; Pulse Ox 98% on R/A; vg1 15:00 BP 119 / 87; Pulse 95; Resp 16; Pulse Ox 100% on R/A; vg1 12:28 Body Mass Index 26.26 (58.97 kg, 149.86 cm) em ED Course: 12:02 Patient arrived in ED. mr 12:30 Triage completed. em 12:31 Arm band placed on. em 12:50 Candice Daly, RENARD is Primary Nurse. vg1 12:50 Bogdan Silvestre PA is PHCP. jr8 12:50 Justin Garg MD is Attending Physician. jr8 12:56 Patient has correct armband on for positive identification. Bed in low position. Call vg1 light in reach. Side rails up X 1. 13:07 Warm blanket given. Verbal reassurance given. Pulse ox on. NIBP on. jp3 13:07 Initial lab(s) drawn, by or, sent to lab. Inserted saline lock: 20 gauge in left jp3 antecubital area, using aseptic technique. Blood collected. Patient maintains SpO2 saturation greater than 95% on room air. 17:29 No provider procedures requiring assistance completed. IV discontinued, intact, vg1 bleeding controlled, No redness/swelling at site. Pressure dressing applied. Administered Medications: 11:30 Drug: Insulin Regular Human 10 units {Co-Signature: tomy (Winnie Mcdonough RN).} Route: vg1 Sub-Q; Site: left upper arm; 15:30 Follow up: Response: No adverse reaction; Blood sugar is lowered vg1 13:13 Drug: Zofran (Ondansetron) 4 mg Route: IVP; Site: left antecubital; vg1 14:22 Follow up: Response: No adverse reaction vg1 13:20 Drug: NS 0.9% 1000 ml Route: IV; Rate: 1000 ml; Site: left antecubital; vg1 14:21 Follow up: IV Status: Completed infusion; IV Intake: 1000ml vg1 14:32 Drug: Insulin Regular Human 10 units {Co-Signature: tomy (Winnie Mcdonough RN).} Route: IVP; vg1 Site: left antecubital; 15:30 Follow up: Response: No adverse reaction vg1 14:39 Drug: Rocephin (cefTRIAXone) 1 grams Route: IV; Rate: calculated rate; Site: left vg1 antecubital; 15:30 Drug: Tylenol 1000 mg Route: PO; vg1 17:30 Follow up: Response: No adverse reaction; Pain is decreased vg1 15:43 Drug: Insulin Regular Human 10 units {Co-Signature: ld1 (Carri Tom RN).} Route: hb Sub-Q; Site: left upper arm; 17:30 Follow up: Response: No adverse reaction vg1 15:45 Drug: NS 0.9% 1000 ml Route: IV; Rate: 1 bolus; Site: left antecubital; hb 17:30 Follow up: IV Status: Completed infusion; IV Intake: 1000ml vg1 Intake: 14:21 IV: 1000ml; Total: 1000ml. vg1 17:30 IV: 1000ml; Total: 2000ml. vg1 Outcome: 17:11 Discharge ordered by . vianey 17:29 Discharged to home ambulatory. vg1 17:29 Condition: stable 17:29 Discharge instructions given to patient, Instructed on discharge instructions, follow up and referral plans. medication usage, Demonstrated understanding of instructions, follow-up care, medications, Prescriptions given X 2. 17:29 Patient left the ED. vg1 Signatures: Miladis Nichols Edgar, RN RN Bogdan Roman PA PA jr8 Lisa Koo, Jose Alfredo Nieto RN, Victoria, RN RN vg1 Winnie Mcdonough RN ca1 Carri Tom RN ld1
[2021-04-02 18:04] VITALS: TEMP 98.4
[2021-04-02 18:11] VITALS: BP 119/87; O2SAT 100
== END 2021-04-02 17:29 | disposition home or self-care (01) ==
LOC: ER 11:57
DX: E11.65 Type 2 diabetes mellitus with hyperglycemia (principal); N39.0 Urinary tract infection, site not specified; Z88.0 Allergy status to penicillin
CPT/HCPCS: 96361; 87088; 85025; 87086; 80048; 36415; 82010; 82947 ×2; 80076; 87077 ×2; 87186 ×2; 83690; 96375; 96372; 96374; 99284; J0696; J7030 ×2; J2405; 81003; 81015

== ENCOUNTER 2021-07-13 16:49 | Inpatient (IN) | payer OTHER ==
[2021-07-13 18:16] LABS: Absolute Lymphocytes (CBC) 0.9 K/uL (0.7-4.9); Basophils % 0.2 % (0-1.3); Hematocrit 41.9 % (36.0-45.0); Lymphocytes % 5.5 % (15.3-44.8); MPV 7.7 fL (7.6-11.3); RBC Red Blood Cell Count 5.11 M/uL (3.86-4.86)
[2021-07-13 18:40] LABS: ALT/SGPT 15 U/L (12-78); AST/SGOT 9 U/L (15-37); Albumin 3.6 g/dL (3.4-5.0); Alkaline Phosphatase 72 U/L (45-117); BUN Blood Urea Nitrogen 17 mg/dL (7-18); Bicarbonate 20 mmol/L (21-32); Bilirubin Direct 0.1 mg/dL (0-0.2); Bilirubin Total 0.7 mg/dL (0.2-1.0); Lipase 32 U/L (73-393); Potassium 4.1 mmol/L (3.5-5.1); Protein, Total 7.5 g/dL (6.4-8.2); Sodium Level 139 mmol/L (136-145)
[2021-07-13 18:49] LABS: Glucose Level 465 mg/dL (74-106)
[2021-07-13] MEDS ORDERED: NA CHLORIDE 0.9% 1,000 ML ONE (18:50)
[2021-07-13] MEDS ORDERED: ONDANSETRON 4 MG/2 ML VIAL ONE (19:05)
[2021-07-13] MEDS ORDERED: FAMOTIDINE 20 MG/2 ML VIAL IV ONE (19:06)
[2021-07-13] MEDS ORDERED: LIDOCAINE VISCOUS 2% SOLN 15 ML UDC ONE (19:06)
[2021-07-13] MEDS ORDERED: MAGNES/ALUMIN/SIMET 30ML UCUP ONE (19:06)
[2021-07-13 19:28] LABS: Platelet Estimate INCR; White Blood Cell Scan OK (OK)
[2021-07-13 19:29] LABS: Blood Morphology Comment NOT SEEN (NOT SEEN)
[2021-07-13] MEDS ORDERED: INSULIN -REGULAR HUMAN 50 UNIT/0.5 ML ML ONE (19:56)
[2021-07-13] MEDS ORDERED: NA CHLORIDE 0.9% 2,000 ML ONE (19:56)
[2021-07-13] MEDS ORDERED: DIPHENHYDRAMINE 50 MG/ML VIAL ONE (20:06)
[2021-07-13] MEDS ORDERED: METOCLOPRAMIDE 10 MG/2mL INJ ONE (20:06)
--- NOTE | 2021-07-13 20:43 | RAD REPORT ---
EXAM DESCRIPTION: CT - Chest For Pe Angio - 07/13/2021 8:34 pm CLINICAL HISTORY: CHEST PAIN COMPARISON: No comparisons FINDINGS: Chest Wall: No suspicious thyroid nodules or pathologic lymphadenopathy. Lungs: No acute abnormality. Pleura: No significant effusions or pneumothorax. Mediastinum/fernandez: No pathologic lymphadenopathy. There is some fluid within the esophagus. There is m oderate circumferential thickening of the distal esophagus. Pulmonary arteries/Aorta: No filling defect identified. No aortic aneurysm. Heart: No significant pericardial effusion. Normal heart size. Upper abdomen: No acute abnormality. Bones: No acute abnormality. IMPRESSION: Negative for pulmonary embolism. There is some fluid within the esophagus which may be s econdary to reflux. The distal esophagus is circumferentially thickened. Endoscopy could better evalu ate.
--- NOTE | 2021-07-13 20:45 | RAD REPORT ---
EXAM DESCRIPTION: CTAbdomen Pelvis W Contrast - 07/13/2021 8:34 pm CLINICAL HISTORY: . abdominal pain, vomiting COMPARISON: Abdomen Pelvis W Contrast dated 12/26/2020; Abdomen Pelvis W Contrast dated 06/21/2017 TECHNIQUE: Biphasic CT imaging of the abdomen and pelvis was performed with 100 ml non-ionic IV cont rast. All CT scans are performed using dose optimization technique as appropriate and may include automated exposure control or mA/KV adjustment according to patient size. FINDINGS: Lower chest: Moderate circumferential thickening of distal esophagus. Liver: No acute abnormality or suspicious lesions. Biliary: No biliary ductal dilatation. Stomach: No significant focal abnormality. Duodenum: No significant focal abnormality. Pancreas: No significant abnormality. Spleen: No significant abnormality. Adrenal: No suspicious lesions. Kidney/ureter: No hydronephrosis. No renal calculi. Retroperitoneum: No retroperitoneal adenopathy. Bowel: No significant focal abnormality. Normal appendix. Peritoneum: No ascites or free air. Bladder: Grossly unremarkable. Reproductive: Left adnexal cyst, presumably physiologic. Bones: No acute fracture. Other: n/a IMPRESSION: No acute intra-abdominal or pelvic finding. Moderately thickened distal esophagus suggesting esophagitis. Endoscopy could better evaluate.
[2021-07-13] MEDS ORDERED: SUCRALFATE 1 GM TABLET ONE (22:21)
[2021-07-13 23:11] LABS: BUN Blood Urea Nitrogen 13 mg/dL (7-18); Bicarbonate 15 mmol/L (21-32); Glucose Level 246 mg/dL (74-106); Potassium 3.5 mmol/L (3.5-5.1); Sodium Level 143 mmol/L (136-145)
[2021-07-14 00:08] LABS: Arterial Blood Carboxyhemoglob 1.3 % (0-1.5); Blood Gas Oxyhemoglobin 95.3 % (94-97); Blood O2 Saturation 97.7 % (92-98.5)
--- NOTE | 2021-07-14 00:16 | EDPHYS ---
Physician Documentation [facility] Name: Javier Pimentel Age: 35 yrs Sex: Female : 1985 Arrival Date: 07/13/2021 Time: 16:58 Bed 30 Private MD: GRANT Physician Zhang Byers HPI: 07/13 18:51 This 35 yrs old Female presents to ER via EMS with complaints of jmm Vomiting/diarrhea. 18:51 Onset: The symptoms/episode began/occurred gradually, 3 day(s) ago. Possible causes: jmm unknown. The symptoms are aggravated by nothing. The symptoms are alleviated by nothing. Associated signs and symptoms: Pertinent negatives: fever. Is a 35-year-old female with history of bipolar, diabetes mellitus, schizophrenia that presents emerged part with complaints of vomiting and diarrhea over the past few days. Patient states she has not taken her insulin due to not feeling well. Patient states that she has chest pain when she vomits.. 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 - Social history:: Smoking status: unknown. ROS: 18:51 Constitutional: Negative for fever, chills, and weight loss, Cardiovascular: Negative jmm for chest pain, palpitations, and edema, Respiratory: Negative for shortness of breath, cough, wheezing, and pleuritic chest pain. 18:51 Abdomen/GI: Positive for abdominal pain, nausea and vomiting, diarrhea. 18:51 All other systems are negative. Exam: 18:51 Constitutional: This is a well developed, well nourished patient who is awake, alert, jmm and in no acute distress. Head/Face: atraumatic. Eyes: EOMI, no conjunctival erythema appreciated ENT: Moist Mucus Membranes Neck: Trachea midline, Supple Chest/axilla: Normal chest wall appearance and motion. Cardiovascular: Regular rate and rhythm. No edema appreciated Respiratory: Normal respirations, no respiratory distress appreciated Abdomen/GI: Non distended, soft Back: Normal ROM Skin: General appearance color normal MS/ Extremity: Moves all extremities, no obvious deformities appreciated, no edema noted to the lower extremities Neuro: Awake and alert, normal gait Psych: Behavior is normal, Mood is normal, Patient is cooperative and pleasant Vital Signs: 18:15 BP 135 / 100; Pulse 98; Resp 16; Temp 97.1; aj2 18:15 Pulse Ox 99% on R/A; aj2 21:07 BP 127 / 65; Pulse 132; Resp 18; Temp 97.6(A); Pulse Ox 100% on R/A; Pain 2/10; kc4 07/14 03:00 Weight 62.8 kg; Height 4 ft. 11 in. (149.86 cm); bs2 03:00 Body Mass Index 27.96 (62.80 kg, 149.86 cm) bs2 MDM: 07/13 17:44 Patient medically screened. [facility] 07/14 00:15 Data reviewed: vital signs, nurses notes. Counseling: I had a detailed discussion with kamila the patient and/or guardian regarding: the historical points, exam findings, and any diagnostic results supporting the discharge/admit diagnosis, the need for further work-up and treatment in the hospital. ED course: I discussed the patient with Arsh Pardo whom accepted the patient to Dr. Suzie pink. 07/13 17:18 Order name: Glucose, Ancillary Testing; Complete Time: 17:36 [facility] 07/13 17:36 Order name: Basic Metabolic Panel; Complete Time: 18:53 [facility] 07/13 17:36 Order name: CBC with Diff; Complete Time: 19:42 [facility] 07/13 17:36 Order name: Hepatic Function; Complete Time: 18:53 [facility] 07/13 17:36 Order name: Lipase; Complete Time: 18:53 [facility] 07/13 19:28 Order name: CBC Smear Scan; Complete Time: 19:42 [facility] 07/13 21:02 Order name: BMP: draw after IVF; Complete Time: 23:32 [facility] 07/13 23:33 Order name: ABG; Complete Time: 00:14 [facility] 07/14 00:40 Order name: COVID-19 : Document "Date of Symptom Onset" if Symptomatic. [facility] 07/14 01:15 Order name: Glucose, Ancillary Testing; Complete Time: 01:17 [facility] 07/14 01:17 Order name: Urine Microscopic Only; Complete Time: 15:20 la1 07/14 01:54 Order name: Urine Drug Screen kc4 07/14 02:17 Order name: Urine Drug Screen; Complete Time: 15:20 EDMS 07/14 02:44 Order name: Glucose, Ancillary Testing; Complete Time: 15:20 EDMS 07/14 03:44 Order name: Glucose, Ancillary Testing; Complete Time: 15:20 EDMS 07/14 03:59 Order name: SARS-COV-2 RT PCR; Complete Time: 15:20 EDMS 07/14 05:16 Order name: Glucose, Ancillary Testing; Complete Time: 15:20 EDMS 07/14 05:46 Order name: Acetone Level; Complete Time: 15:20 EDMS 07/14 06:20 Order name: Basic Metabolic Panel; Complete Time: 15:20 EDMS 07/14 06:20 Order name: Lipid Profile; Complete Time: 15:20 EDMS 07/14 06:20 Order name: Magnesium; Complete Time: 15:20 EDMS 07/14 06:27 Order name: Glucose, Ancillary Testing; Complete Time: 15:20 EDMS 07/14 06:58 Order name: Hemoglobin A1c; Complete Time: 15:20 EDMS 07/14 08:25 Order name: Glucose, Ancillary Testing; Complete Time: 15:20 EDMS 07/14 10:31 Order name: Glucose, Ancillary Testing; Complete Time: 15:20 EDMS 07/14 11:34 Order name: Glucose, Ancillary Testing; Complete Time: 15:20 EDMS 07/14 12:08 Order name: Procalcitonin; Complete Time: 15:20 EDMS 07/14 13:19 Order name: Glucose, Ancillary Testing; Complete Time: 15:20 EDMS 07/14 14:07 Order name: Magnesium; Complete Time: 15:20 EDMS 07/13 17:36 Order name: IV Saline Lock; Complete Time: 18:12 m 07/13 17:36 Order name: Labs collected and sent; Complete Time: 18:13 m 07/13 19:43 Order name: CT Chest For PE Angio; Complete Time: 20:57 m 07/13 19:43 Order name: CT Abd/Pelvis - IV Contrast Only; Complete Time: 20:57 [facility] 07/14 01:17 Order name: Urine Dipstick-Ancillary (obtain specimen); Complete Time: 02:21 la1 07/14 18:19 Order name: Glucose, Ancillary Testing; Complete Time: 18:23 EDMS 07/14 19:15 Order name: Glucose, Ancillary Testing; Complete Time: 19:24 EDMS 07/14 20:45 Order name: Glucose, Ancillary Testing; Complete Time: 00:38 EDMS 07/14 21:03 Order name: Basic Metabolic Panel; Complete Time: 00:38 EDMS Administered Medications: 07/13 18:13 Drug: NS 0.9% 1000 ml Route: IV; Rate: 1 bolus; Site: left antecubital; aj2 20:02 Follow up: IV Status: Completed infusion; IV Intake: 1000ml kc4 18:20 Drug: Zofran (Ondansetron) 4 mg Route: IVP; Site: left antecubital; aj2 20:03 Follow up: Response: No adverse reaction kc4 19:22 Drug: GI Cocktail without - (Maalox Suspension 30 ml, Lidocaine Liquid 2 % 15 aj2 ml) Route: PO; 20:03 Follow up: Response: No adverse reaction kc4 19:22 Drug: Pepcid (famotidine) 20 mg Route: IVP; Site: left antecubital; aj2 20:04 Follow up: Response: No adverse reaction kc4 19:39 CANCELLED (Physician Discretion; provider ): Insulin Aspart 10 units Sub-Q once kc4 19:44 CANCELLED (Duplicate Order): Pepcid (famotidine) 20 mg IVP once; dilute with 10 mL 0.9% kc4 NaCl; give over 2 minutes 19:48 CANCELLED (Duplicate Order): Reglan (metoCLOPramide) 20 mg IVP once; over 15 mins kc4 20:00 Drug: Insulin Regular Human 10 units {Co-Signature: bs2 (Karlee Valdez RN).} Route: kc4 IVP; Site: left antecubital; 07/14 01:10 Follow up: Response: No adverse reaction 4 07/13 20:01 Drug: Benadryl (diphenhydrAMINE) 12.5 mg Route: IVP; Site: left antecubital; kc4 07/14 01:09 Follow up: Response: No adverse reaction 4 07/13 20:01 Drug: Reglan (metoCLOPramide) 20 mg Route: IVP; Site: left antecubital; kc4 07/14 01:09 Follow up: Response: No adverse reaction kc4 07/13 20:02 Drug: NS 0.9% 2000 ml Route: IV; Rate: 1 bolus; Site: left antecubital; kc4 07/14 02:20 Follow up: IV Status: Completed infusion; IV Intake: 2000ml bs2 07/13 22:03 Drug: Sucralfate Suspension 1 grams Route: PO; kc4 07/14 01:09 Follow up: Response: No adverse reaction kc4 01:26 Drug: ProTONIX (pantoprazole) 40 mg Route: IVP; Site: left antecubital; kc4 02:19 Follow up: Response: No adverse reaction bs2 01:50 Drug: Insulin Drip - (Insulin Regular Human 100 units, NS 0.9% 100 ml) {Co-Signature: [facility] bs2 (Karlee Valdez RN).} Route: IV; Rate: calculated rate; Site: left hand; 02:49 Follow up: IV Status: Infusion continued upon admission bs2 01:51 Drug: D5-1/2 NS 1000 ml Route: IV; Rate: 125 ml/hr; Site: left antecubital; kc4 02:49 Follow up: IV Status: Infusion continued upon admission bs2 02:48 Drug: LevaQUIN (levofloxacin) 500 mg Volume: 100 ml; Route: IVPB; Infused Over: 60 bs2 mins; Site: left antecubital; 04:00 Follow up: IV Status: Completed infusion bs2 Disposition: 07/15 07:20 Co-signature as Attending Physician, Zhang Byers MD I agree with the assessment and nata plan of care. Disposition Summary: 07/14/21 00:16 Hospitalization Ordered Hospitalization Status: Inpatient Admission jm Provider: Michel Larsen Condition: Stable jmm Problem: new jmm Symptoms: are unchanged jmm Bed/Room Type: Standard [facility] Location: Telemetry/MedSurg (Inpatient)(07/14/21 20:38) tl1 Room Assignment: 230(07/14/21 20:38) tl1 Diagnosis - DKA jmm Forms: - Medication Reconciliation Form jmm - SBAR form jmm Signatures: Dispatcher [facility] EDPA Summer Lang RN Zhang Bergeron MD MD cha Mickail, Joel, PA PA [facility] Arsh Pardo, MATCHBOOK ASSEMBLER-C MATCHBOOK ASSEMBLER-Cla1 Marylu Soriano RN RN tl1 Karlee Valdez RN RN bs2 Jerica Rose aj2 Esthela Mack kc4 Karlee Valdze RN bs2 Corrections: (The following items were deleted from the chart) 07/13 19:39 18:56 Insulin Aspart 10 units Sub-Q once ordered. [facility] kc4 19:39 19:21 Insulin Aspart 10 units Sub-Q once ordered. [facility] kc4 19:44 19:41 Pepcid (famotidine) 20 mg IVP once; dilute with 10 mL 0.9% NaCl; give over 2 kc4 minutes ordered. kc4 19:48 19:45 Reglan (metoCLOPramide) 20 mg IVP once; over 15 mins ordered. kc4 kc4 07/14 00:25 07/13 18:48 Arterial Blood Gas+RC.LAB.BRZ ordered. EDMS EDMS 07/14 00:38 00:16 Telemetry/MedSurg (Inpatient) [facility] 00:38 00:16 [facility] 02:21 01:17 Urine Test ordered. la1 bs2 20:38 00:38 [facility] ER HOLD tl1 20:38 00:38 ERHOLD- tl1
--- NOTE | 2021-07-14 00:16 | ER ---
Nurse's Notes [facility] Name: Javier Pimentel Age: 35 yrs Sex: Female : 1985 Arrival Date: 07/13/2021 Time: 16:58 Bed 30 Private MD: Diagnosis: DKA Presentation: 07/13 18:18 Chief complaint: Patient states: Reports she has been vomiting for a "couple" of days. aj2 Reports she is a diabetic and has not taken her insulin in a "few" days. Chief complaint:. Coronavirus screen: Vaccine status: Patient reports being unvaccinated. Ebola Screen: No symptoms or risks identified at this time. Initial Sepsis Screen: Does the patient meet any 2 criteria? No. Patient's initial sepsis screen is negative. 18:18 Method Of Arrival: EMS: [facility] 18:18 Initial Sepsis Screen: Does the patient have a suspected source of infection? No. aj2 Patient's initial sepsis screen is negative. Risk Assessment: Do you want to hurt yourself or someone else? Patient reports no desire to harm self or others. Onset of symptoms is unknown. 21:09 Acuity: NING 3 kc4 Triage Assessment: 18:15 General: Appears in no apparent distress. Behavior is cooperative, agitated. Pain: aj2 Denies pain. 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 - Social history:: Smoking status: unknown. Screenin:08 Abuse screen: Denies threats or abuse. Denies injuries from another. Nutritional kc4 screening: Has had N/V for 3 or more days. Tuberculosis screening: No symptoms or risk factors identified. Fall Risk None identified. Assessment: 21:12 Reassessment: Patient and/or family updated on plan of care and expected duration. Pain kc4 level reassessed. Patient is alert, oriented x 3, equal unlabored respirations, skin warm/dry/pink. Patient states feeling better. General: Appears in no apparent distress. comfortable, Behavior is calm, cooperative, appropriate for age. Neuro: No deficits noted. Cardiovascular: Rhythm is sinus tachycardia. Respiratory: No deficits noted. GI: No deficits noted. : No deficits noted. EENT: No deficits noted. Derm: No deficits noted. Musculoskeletal: No deficits noted. Vital Signs: 18:15 BP 135 / 100; Pulse 98; Resp 16; Temp 97.1; aj2 18:15 Pulse Ox 99% on R/A; aj2 21:07 BP 127 / 65; Pulse 132; Resp 18; Temp 97.6(A); Pulse Ox 100% on R/A; Pain 2/10; kc4 07/14 03:00 Weight 62.8 kg; Height 4 ft. 11 in. (149.86 cm); bs2 03:00 Body Mass Index 27.96 (62.80 kg, 149.86 cm) bs2 ED Course: 07/13 16:58 Patient arrived in ED. aa5 17:34 Timothy Varela PA is PHCP. [facility] 17:34 Zhang Byers MD is Attending Physician. [facility] 18:07 Jerica Rose is Primary Nurse. aj2 18:15 Arm band placed on left wrist. aj2 20:34 CT Chest For PE Angio In Process Unspecified. EDMS 20:34 CT Abd/Pelvis - IV Contrast Only In Process Unspecified. EDMS 21:09 Triage completed. kc4 21:09 No provider procedures requiring assistance completed. Inserted saline lock: 20 gauge kc4 in left antecubital area, using aseptic technique. ,using aseptic technique. inserted on previous shift. 21:10 Patient has correct armband on for positive identification. Placed in gown. Bed in low kc4 position. Call light in reach. Side rails up X 1. environmental monitoring specialist on. Pulse ox on. NIBP on. Door closed. Noise minimized. Lights dimmed. Warm blanket given. PO fluids given. 07/14 00:16 Michel Larsen DO is Hospitalizing Provider. [facility] 01:51 COVID-19 : Document "Date of Symptom Onset" if Symptomatic. Sent. kc4 02:19 Urine Drug Screen Sent. kc4 02:20 Inserted saline lock: 20 gauge in left hand, using aseptic technique. kc4 02:50 Patient admitted, IV remains in place. bs2 19:23 Primary Nurse role handed off by Jerica Rose Administered Medications: 07/13 18:13 Drug: NS 0.9% 1000 ml Route: IV; Rate: 1 bolus; Site: left antecubital; aj2 20:02 Follow up: IV Status: Completed infusion; IV Intake: 1000ml kc4 18:20 Drug: Zofran (Ondansetron) 4 mg Route: IVP; Site: left antecubital; aj2 20:03 Follow up: Response: No adverse reaction kc4 19:22 Drug: GI Cocktail without - (Maalox Suspension 30 ml, Lidocaine Liquid 2 % 15 aj2 ml) Route: PO; 20:03 Follow up: Response: No adverse reaction kc4 19:22 Drug: Pepcid (famotidine) 20 mg Route: IVP; Site: left antecubital; aj2 20:04 Follow up: Response: No adverse reaction kc4 19:39 CANCELLED (Physician Discretion; provider ): Insulin Aspart 10 units Sub-Q once kc4 19:44 CANCELLED (Duplicate Order): Pepcid (famotidine) 20 mg IVP once; dilute with 10 mL 0.9% kc4 NaCl; give over 2 minutes 19:48 CANCELLED (Duplicate Order): Reglan (metoCLOPramide) 20 mg IVP once; over 15 mins kc4 20:00 Drug: Insulin Regular Human 10 units {Co-Signature: bs2 (Karlee Valdez RN).} Route: kc4 IVP; Site: left antecubital; 07/14 01:10 Follow up: Response: No adverse reaction [facility] 07/13 20:01 Drug: Benadryl (diphenhydrAMINE) 12.5 mg Route: IVP; Site: left antecubital; kc4 07/14 01:09 Follow up: Response: No adverse reaction 4 07/13 20:01 Drug: Reglan (metoCLOPramide) 20 mg Route: IVP; Site: left antecubital; 4 07/14 01:09 Follow up: Response: No adverse reaction [facility] 07/13 20:02 Drug: NS 0.9% 2000 ml Route: IV; Rate: 1 bolus; Site: left antecubital; kc4 07/14 02:20 Follow up: IV Status: Completed infusion; IV Intake: 2000ml bs2 07/13 22:03 Drug: Sucralfate Suspension 1 grams Route: PO; kc4 07/14 01:09 Follow up: Response: No adverse reaction kc4 01:26 Drug: ProTONIX (pantoprazole) 40 mg Route: IVP; Site: left antecubital; kc4 02:19 Follow up: Response: No adverse reaction bs2 01:50 Drug: Insulin Drip - (Insulin Regular Human 100 units, NS 0.9% 100 ml) {Co-Signature: 4 bs2 (Karlee Valdez RN).} Route: IV; Rate: calculated rate; Site: left hand; 02:49 Follow up: IV Status: Infusion continued upon admission bs2 01:51 Drug: D5-1/2 NS 1000 ml Route: IV; Rate: 125 ml/hr; Site: left antecubital; kc4 02:49 Follow up: IV Status: Infusion continued upon admission bs2 02:48 Drug: LevaQUIN (levofloxacin) 500 mg Volume: 100 ml; Route: IVPB; Infused Over: 60 bs2 mins; Site: left antecubital; 04:00 Follow up: IV Status: Completed infusion bs2 Intake: 07/13 20:02 IV: 1000ml; Total: 1000ml. 4 07/14 02:20 IV: 2000ml; Total: 3000ml. bs2 Outcome: 00:16 Decision to Hospitalize by Provider. [facility] 02:50 Admitted to ICU Other pt is ER HOLD bs2 02:50 Condition: stable 02:50 Instructed on the need for admit. 21:46 Patient left the ED. mw2 Signatures: Dispatcher [employer] EDMS Rosalva Huntley Joel, PA PA jmm Calderon, Audri, RN RN aa5 Jimbo Ascencio mw2 Karlee Valdez RN RN bs2 Jerica Rose aj2 Esthela Mack kc4 Karlee Valdez RN bs2 Corrections: (The following items were deleted from the chart) 07/13 19:23 18:25 NS 0.9% 2000 ml IV at 1 bolus in left antecubital aj2 aj2
[2021-07-14] MEDS ORDERED: NA CHLORIDE 0.9% 100 ML ONE (01:21)
[2021-07-14] MEDS ORDERED: INSULIN -REGULAR HUMAN 50 UNIT/0.5 ML ML ONE ×4 (01:21→21:18)
[2021-07-14] MEDS ORDERED: PANTOPRAZOLE 40 MG INJ ONE (01:38)
[2021-07-14] MEDS ORDERED: D5 0.45 NS 1,000 ML IV ONE (01:39)
--- NOTE | 2021-07-14 01:50 | P.HP ---
Certification for Inpatient Patient admitted to: Inpatient With expected LOS: >2 Midnights Patient will require the following post-hospital care: None Practitioner: I am a practitioner with admitting privileges, knowledge of patient current condition, hospital course, and medical plan of care. Services: Services provided to patient in accordance with Admission requirements found in Title 42 Section 412.3 of the Code of Federal Regulations Patient History Date of Service: 07/14/21 History of Present Illness: 35-year-old female with history of diabetes metas type I, bipolar/schizophrenia presents emerge department for nausea, vomiting, hyperglycemia. Patient was evaluated in the emergency department labs were significant for sodium 139 chloride 104 CO2 20 creatinine 0.62 glucose 465 initial anion gap was 15, ED provider attempted to treat initial anion gap acidosis with normal saline, patient received 3 L normal saline bolus repeat labs demonstrated sodium 143 chloride 117 but CO2 dropped to 15, glucose around 246. Given patient's acidosis is worsening patient was initiated on insulin drip, ED provider wishes to admit for further evaluation and management of diabetic ketoacidosis. Allergies Penicillins Allergy (Intermediate, Verified 04/02/12 20:01) Itching/Hives/Rash Home Medications: Insulin 70/30 NPH/Reg Human [Novolin 70/30*] SQ ACHS 11/29/12 Vits W-Ca,Fe,FA(<1Mg) [] 11/29/12 Hydrocodone/Acetaminophen [[place] 5-325 Tablet] 1 each PO Q4HP PRN #0 tablet 12/01/12 - Past Medical/Surgical History Diabetic: Yes -: Diabetes type 1 -: Bipolar disorder -: Schizophrenia -: None Psychosocial/ Personal History: Disabled, lives alone. - Family History Father -: Diabetes Mother -: Diabetes - Social History Smoking Status: Never smoker Alcohol use: No CD- Drugs: No Caffeine use: Yes Place of Residence: Home Review of Systems 10-point ROS is otherwise unremarkable General: Malaise Gastrointestinal: Nausea, Vomiting Physical Examination - Physical Exam General: Alert, In no apparent distress, Oriented x3 HEENT: Atraumatic, PERRLA, Mucous membr. moist/pink, EOMI, Sclerae nonicteric Neck: Supple, 2+ carotid pulse no bruit, No LAD, Without JVD or thyroid abnormality Respiratory: Clear to auscultation bilaterally, Normal air movement Cardiovascular: Regular rate/rhythm, Normal S1 S2 Gastrointestinal: Normal bowel sounds, No tenderness Musculoskeletal: No tenderness Integumentary: No rashes Neurological: Normal speech, Normal strength at 5/5 x4 extr, Normal tone, Normal affect - Studies Laboratory Data (last 24 hrs) 07/13/21 22:10: Sodium 143, Potassium 3.5, BUN 13, Creatinine 0.39 L, Glucose 246 H 07/13/21 17:46: WBC 16.10 H, Hgb 14.0, Hct 41.9, Plt Count 498 H 07/13/21 17:46: Sodium 139, Potassium 4.1, BUN 17, Creatinine 0.62, Glucose 465 H*, Total Bilirubin 0.7, AST 9 L, ALT 15, Alkaline Phosphatase 72, Lipase 32 L Assessment and Plan - Plan Assessment: Diabetes type 1 complicated with diabetic ketoacidosis Bipolar disorder/schizophrenia Plan: Diabetes type 1 complicated with diabetic ketoacidosis: Continue with hourly Accu-Cheks, every 4 BMP, insulin drip. Patient's CO2 dropped from 20-15 with IV fluids, needs insulin drip for the time being. A1c with morning labs, every 4 hours ketones. Patient reports she has been out of her needles and has been unable to administer insulin Terazol for past 1 week. Bipolar disorder/schizophrenia: Home medications have been continued. DVT PPX: Lovenox Code status: Full code Discharge Plan: Home Plan to discharge in: 48 Hours - Advance Directives Does patient have a Living Will: No Does patient have a Durable POA for Healthcare: No - Code Status/Comfort Care Code Status Assessed: Yes (fc) Critical Care: No Time Spent Managing Pts Care (In Minutes): 55
[2021-07-14 02:17] LABS: Barbiturates NEGATIVE (NEGATIVE); Benzodiazepines NEGATIVE (NEGATIVE); Cocaine NEGATIVE (NEGATIVE); METHAMPHETAM NEGATIVE (NEGATIVE); Methadone NEGATIVE (NEGATIVE); Opiates NEGATIVE (NEGATIVE); Phencyclidine NEGATIVE (NEGATIVE); THC Cannibis NEGATIVE (NEGATIVE)
[2021-07-14] MEDS ORDERED: PROPRANOLOL HCL 10 MG TAB PO SCH (02:24)
[2021-07-14] MEDS ORDERED: hydrOXYzine HCL 25 MG TAB PO PRN (02:24)
[2021-07-14] MEDS ORDERED: INSULIN -REGULAR HUMAN 100 UNIT in NA CHLORIDE 0.9% 100 ML IV SCH (02:24)
[2021-07-14] MEDS: D5 0.45 NS 1,000 ML IV SCH ×3 (02:24→18:24)
[2021-07-14] MEDS ORDERED: Levofloxacin500mg IV 500 MG/100 ML BAG IV SCH (02:24)
[2021-07-14] MEDS: GABAPENTIN 300 MG CAP PO SCH ×3 (02:24→20:59)
[2021-07-14 02:51] LABS: Urine Bacteria <20 /HPF (<20); Urine RBC NONE SEEN /HPF (NONE SEEN); Urine Yeast MANY (NONE SEEN)
[2021-07-14] MEDS ORDERED: PROMETHAZINE INJ 25 MG/ML AMP IV ONE (02:54)
[2021-07-14] MEDS ORDERED: GABAPENTIN 300 MG CAP ONE ×3 (02:57→21:19)
[2021-07-14 03:02] VITALS: BMI 27.9
[2021-07-14] MEDS ORDERED: PROMETHAZINE INJ 25 MG/ML AMP ONE (03:05)
[2021-07-14] MEDS ORDERED: PROPRANOLOL HCL 10 MG TAB ONE (03:18)
[2021-07-14] MEDS: QUETIAPINE 100MG TAB PO SCH ×2 (04:00→22:06)
[2021-07-14] MEDS ORDERED: QUETIAPINE 100MG TAB ONE (04:04)
[2021-07-14] MEDS ORDERED: ONDANSETRON 4 MG/2 ML VIAL IV ONE (05:37)
[2021-07-14] MEDS ORDERED: ONDANSETRON 4 MG/2 ML VIAL ONE ×2 (05:57→20:50)
[2021-07-14 06:18] LABS: BUN Blood Urea Nitrogen 10 mg/dL (7-18); Bicarbonate 18 mmol/L (21-32); Glucose Level 182 mg/dL (74-106); HDL Cholesterol 45 mg/dL (40-60); LDL Cholesterol, Calculated 137 (<130); Potassium 3.2 mmol/L (3.5-5.1); Sodium Level 140 mmol/L (136-145)
[2021-07-14 06:19] LABS: Magnesium 1.3 mg/dL (1.8-2.4)
[2021-07-14] MEDS ORDERED: Magnesium Sulfate 2gm IVPB 2 G/50 ML BAG IV ONE (06:29)
--- NOTE | 2021-07-14 06:40 | P.PN ---
Subjective Date of Service: 07/14/21 Subjective: Improving Physical Examination - Vital Signs Blood Pressure: 105/65 Pulse: 107 Respirations: 18 Pulse Ox (%): 98 - Studies Laboratory Data (last 24 hrs) 07/13/21 22:10: Sodium 143, Potassium 3.5, BUN 13, Creatinine 0.39 L, Glucose 246 H 07/13/21 17:46: WBC 16.10 H, Hgb 14.0, Hct 41.9, Plt Count 498 H 07/13/21 17:46: Sodium 139, Potassium 4.1, BUN 17, Creatinine 0.62, Glucose 465 H*, Total Bilirubin 0.7, AST 9 L, ALT 15, Alkaline Phosphatase 72, Lipase 32 L Assessment & Plan Discharge Plan: Home Plan to discharge in: 24 Hours Physician Review Additional Text: COVID: Negative CT Chest: COMPARISON: No comparisons FINDINGS: Chest Wall: No suspicious thyroid nodules or pathologic lymphadenopathy. Lungs: No acute abnormality. Pleura: No significant effusions or pneumothorax. Mediastinum/fernandez: No pathologic lymphadenopathy. There is some fluid within the esophagus. There is moderate circumferential thickening of the distal esophagus. Pulmonary arteries/Aorta: No filling defect identified. No aortic aneurysm. Heart: No significant pericardial effusion. Normal heart size. Upper abdomen: No acute abnormality. Bones: No acute abnormality. IMPRESSION: Negative for pulmonary embolism. There is some fluid within the esophagus which may be secondary to reflux. The distal esophagus is circumferentially thickened. Endoscopy could better evaluate. CT Ab: FINDINGS: Lower chest: Moderate circumferential thickening of distal esophagus. Liver: No acute abnormality or suspicious lesions. Biliary: No biliary ductal dilatation. Stomach: No significant focal abnormality. Duodenum: No significant focal abnormality. Pancreas: No significant abnormality. Spleen: No significant abnormality. Adrenal: No suspicious lesions. Kidney/ureter: No hydronephrosis. No renal calculi. Retroperitoneum: No retroperitoneal adenopathy. Bowel: No significant focal abnormality. Normal appendix. Peritoneum: No ascites or free air. Bladder: Grossly unremarkable. Reproductive: Left adnexal cyst, presumably physiologic. Bones: No acute fracture. Other: n/a IMPRESSION: No acute intra-abdominal or pelvic finding. Moderately thickened distal esophagus suggesting esophagitis. Physical exam General: Alert, In no apparent distress, Oriented x3 HEENT: Atraumatic, PERRLA, Mucous membr. moist/pink, EOMI, Sclerae nonicteric Neck: Supple, 2+ carotid pulse no bruit, No LAD, Without JVD or thyroid abnormality Respiratory: Clear to auscultation bilaterally, Normal air movement Cardiovascular: Regular rate/rhythm, Normal S1 S2 Gastrointestinal: Normal bowel sounds, No tenderness Musculoskeletal: No tenderness Integumentary: No rashes Neurological: Normal speech, Normal strength at 5/5 x4 extr, Normal tone, Normal affect Impression: Diabetes type 1 complicated with diabetic ketoacidosis Bipolar disorder/schizophrenia GERD Plan: Diabetes type 1 complicated with diabetic ketoacidosis: Patient no longer in DKA. Discontinue insulin drip. Transition to Lantus. Educated on the importance of taking her medications. This was discussed in detail with present. Hemoglobin A1c 11. Continue to reassess. Consider discharge later today. Bipolar disorder/schizophrenia: Home medications restarted GERD: Continue Protonix DVT PPX: Lovenox Code status: Full code Discharge Plan: Home Time Spent Managing Pts Care (In Minutes): 55
[2021-07-14] MEDS ORDERED: POTASSIUM CL SA 10 MEQ TAB PO ONE (07:00)
[2021-07-14] MEDS ORDERED: NA CHLORIDE 0.9% 500 ML IV ONE ×2 (07:18→14:00)
[2021-07-14] MEDS: INSULIN GLARGINE 100 UNITS/ML SQ SCH ×3 (07:20→20:59)
[2021-07-14] MEDS: INSULIN -REGULAR HUMAN 50 UNIT/0.5 ML ML SQ SCH ×4 (07:30→20:59)
[2021-07-14] MEDS ORDERED: NA CHLORIDE 0.9% 500 ML ONE ×2 (08:00→14:19)
[2021-07-14] MEDS ORDERED: INSULIN GLARGINE 100 UNITS/ML SQ ONE ×2 (08:32→21:19)
[2021-07-14] MEDS ORDERED: PROPRANOLOL HCL 40 MG TAB PO SCH (09:00)
[2021-07-14] MEDS: ENOXAPARIN 40 MG/0.4 ML SQ SCH (09:00)
[2021-07-14] MEDS: FLUOXETINE 20 MG CAP PO SCH (09:00)
[2021-07-14] MEDS ORDERED: ENOXAPARIN 40 MG/0.4 ML SQ ONE (13:49)
[2021-07-14] MEDS: ONDANSETRON 4 MG/2 ML VIAL IV PRN (20:44)
[2021-07-14 21:02] LABS: BUN Blood Urea Nitrogen 9 mg/dL (7-18); Bicarbonate 19 mmol/L (21-32); Glucose Level 293 mg/dL (74-106); Potassium 3.9 mmol/L (3.5-5.1); Sodium Level 139 mmol/L (136-145)
[2021-07-15] MEDS: D5 0.45 NS 1,000 ML IV SCH (02:24)
[2021-07-15] MEDS: ONDANSETRON 4 MG/2 ML VIAL IV PRN ×2 (04:54→12:39)
--- NOTE | 2021-07-15 05:59 | P.DS ---
Admission Date: 07/14/21 Discharge Date: 07/15/21 Primary Care Provider: unknown Disposition: ROUTINE DISCHARGE Discharge Condition: GOOD Reason for Admission: DKA Consultations: none Procedures: COVID: Negative CT Chest: COMPARISON: No comparisons FINDINGS: Chest Wall: No suspicious thyroid nodules or pathologic lymphadenopathy. Lungs: No acute abnormality. Pleura: No significant effusions or pneumothorax. Mediastinum/fernandez: No pathologic lymphadenopathy. There is some fluid within the esophagus. There is moderate circumferential thickening of the distal esophagus. Pulmonary arteries/Aorta: No filling defect identified. No aortic aneurysm. Heart: No significant pericardial effusion. Normal heart size. Upper abdomen: No acute abnormality. Bones: No acute abnormality. IMPRESSION: Negative for pulmonary embolism. There is some fluid within the esophagus which may be secondary to reflux. The distal esophagus is circumf erentially thickened. Endoscopy could better evaluate. CT Ab: FINDINGS: Lower chest: Moderate circumferential thickening of distal esophagus. Liver: No acute abnormality or suspicious lesions. Biliary: No biliary ductal dilatation. Stomach: No significant focal abnormality. Duodenum: No significant focal abnormality. Pancreas: No significant abnormality. Spleen: No significant abnormality. Adrenal: No suspicious lesions. Kidney/ureter: No hydronephrosis. No renal calculi. Retroperitoneum: No retroperitoneal adenopathy. Bowel: No significant focal abnormality. Normal appendix. Peritoneum: No ascites or free air. Bladder: Grossly unremarkable. Reproductive: Left adnexal cyst, presumably physiologic. Bones: No acute fracture. Other: n/a IMPRESSION: No acute intra-abdominal or pelvic finding. Moderately thickened distal esophagus suggesting esophagitis. Medical Problem List: Diabetes type 1 complicated with diabetic ketoacidosis Bipolar disorder/schizophrenia GERD with possible esophagitis Chronic pain Brief History of Present Illness: 35-year-old female with history of diabetes mellitus type 1, bipolar disorder, and schizophrenia. Patient presented with nausea, vomiting and hyperglycemia. Patient found to have DKA. The patient was admitted for treatment. Hospital Course: Patient presented with nausea, vomiting secondary to diabetic ketoacidosis. Patient with history of diabetes mellitus type 1. Patient with noncompliance. Patient was treated for DKA. This resolved. Patient was transition to Lantus. Hemoglobin A1c 11.0. Education on the importance of taking her medications was addressed in detail with patient and significant other. Patient still do a better job of this. At discharge patient doing well without significant nausea or vomiting. DKA resolved. At discharge the patient will continue with Lantus 20 units subcu twice daily. Recommend to monitor blood sugars at least twice daily. Recommend to maintain blood sugar less than 140 fasting and less than 200 after meals. If blood sugar remains above 200 she may increase Lantus by 1 to 2 units for better control. This can be done with the help of her PCP. Patient placed establish care locally with a PCP to further monitor her care. Recommend to recheck hemoglobin A1c every 3 months. Recommend diabetic diet at this time. Recommend measures to ensure that she takes her Lantus appropriately. Education on DKA and diabetes mellitus type 1 will be provided. Patient with bipolar disorder and schizophrenia. At discharge she will continue with her medications including Prozac and Seroquel. Recommend follow-up with her psychiatrist to further monitor and adjust medication. Patient with GERD and possible esophagitis. This was noted on CT scan. At discharge will recommend Protonix 40 mg daily. Recommend follow-up with GI as an outpatient to further evaluate. Patient would benefit with EGD to further address. Patient with chronic pain. At discharge she will continue with her medications including Neurontin as directed. Patient will continue with her pain medication as directed. Patient would benefit with pain management referral to further address. Vital Signs/Physical Exam: Temp Pulse Resp BP Pulse Ox 98.6 F 111 H 18 108/74 97 07/15/21 00:00 07/15/21 00:00 07/15/21 00:00 07/15/21 00:00 07/15/21 00:00 General: Alert, In no apparent distress, Oriented x3, Cooperative HEENT: Atraumatic Neck: Supple Respiratory: Clear to auscultation bilaterally, Normal air movement Cardiovascular: Normal pulses, Regular rate/rhythm Gastrointestinal: Normal bowel sounds, Soft and benign, Non-distended, No tenderness, No masses, No rebound, No guarding Musculoskeletal: No erythema, No tenderness, No warmth Integumentary: No tenderness/swelling Neurological: Normal speech, Normal strength at 5/5 x4 extr, Normal tone, Normal affect Laboratory Data at Discharge: WBC 16.10 K/uL (4.3-10.9) H 07/13/21 17:46 Hgb 14.0 g/dL (12.0-15.0) 07/13/21 17:46 Hct 41.9 % (36.0-45.0) 07/13/21 17:46 Plt Count 498 K/uL (152-406) H 07/13/21 17:46 Sodium 139 mmol/L (136-145) 07/14/21 20:34 Potassium 3.9 mmol/L (3.5-5.1) 07/14/21 20:34 BUN 9 mg/dL (7-18) 07/14/21 20:34 Creatinine 0.61 mg/dL (0.55-1.3) 07/14/21 20:34 Glucose 293 mg/dL (74-106) H 07/14/21 20:34 Magnesium 2.3 mg/dL (1.8-2.4) D 07/14/21 13:37 Total Bilirubin 0.7 mg/dL (0.2-1.0) 07/13/21 17:46 AST 9 U/L (15-37) L 07/13/21 17:46 ALT 15 U/L (12-78) 07/13/21 17:46 Alkaline Phosphatase 72 U/L (45-117) 07/13/21 17:46 Triglycerides 90 mg/dL (<150) 07/14/21 05:19 Cholesterol 200 mg/dL (<200) 07/14/21 05:19 HDL Cholesterol 45 mg/dL (40-60) 07/14/21 05:19 Cholesterol/HDL Ratio 4.44 07/14/21 05:19 Lipase 32 U/L (73-393) L 07/13/21 17:46 Home Medications: Hydrocodone/Acetaminophen [[place] 5-325 Tablet] 1 each PO Q4HP PRN #0 tablet 12/01/12 Insulin Glargine Human [Lantus*] 20 units SQ BID #1 vial 07/14/21 Pantoprazole [Protonix Tab] 40 mg PO DAILY #30 tab 07/14/21 New Medications: Insulin Glargine Human [Lantus*] 20 units SQ BID #1 vial Pantoprazole [Protonix Tab] 40 mg PO DAILY #30 tab Physician Discharge Instructions: Patient presented with nausea, vomiting secondary to diabetic ketoacidosis. Patient with history of diabetes mellitus type 1. Patient with noncompliance. Patient was treated for DKA. This resolved. Patient was transition to Lantus. Hemoglobin A1c 11.0. Education on the importance of taking her medications was addressed in detail with patient and significant other. Patient still do a better job of this. At discharge patient doing well without significant nausea or vomiting. DKA resolved. At discharge the patient will continue with Lantus 20 units subcu twice daily. Recommend to monitor blood sugars at least twice daily. Recommend to maintain blood sugar less than 140 fasting and less than 200 after meals. If blood sugar remains above 200 she may increase Lantus by 1 to 2 units for better control. This can be done with the help of her PCP. Patient placed establish care locally with a PCP to further monitor her care. Recommend to recheck hemoglobin A1c every 3 months. Recommend diabetic diet at this time. Recommend measures to ensure that she takes her Lantus appropriately. Education on DKA and diabetes mellitus type 1 will be provided. Patient with bipolar disorder and schizophrenia. At discharge she will continue with her medications including Prozac and Seroquel. Recommend follow-up with her psychiatrist to further monitor and adjust medication. Patient with GERD and possible esophagitis. This was noted on CT scan. At discharge will recommend Protonix 40 mg daily. Recommend follow-up with GI as an outpatient to further evaluate. Patient would benefit with EGD to further address. Patient with chronic pain. At discharge she will continue with her medications including Neurontin as directed. Patient will continue with her pain medication as directed. Patient would benefit with pain management referral to further address. Diet: ADA Activity: [place] Followup: Unknown,U [Primary Care Provider] - Time spent managing pt's care (in minutes): 55
[2021-07-15 06:08] LABS: Absolute Lymphocytes (CBC) 2.7 K/uL (0.7-4.9); Basophils % 0.5 % (0-1.3); Hematocrit 30.6 % (36.0-45.0); Lymphocytes % 30.8 % (15.3-44.8); MPV 6.8 fL (7.6-11.3); RBC Red Blood Cell Count 3.75 M/uL (3.86-4.86)
[2021-07-15 06:21] LABS: BUN Blood Urea Nitrogen 6 mg/dL (7-18); Bicarbonate 23 mmol/L (21-32); Glucose Level 237 mg/dL (74-106); Magnesium 1.7 mg/dL (1.8-2.4); Potassium 3.3 mmol/L (3.5-5.1); Sodium Level 142 mmol/L (136-145)
[2021-07-15] MEDS ORDERED: PANTOPRAZOLE 40MG TABLET PO SCH (07:30)
[2021-07-15] MEDS: ENOXAPARIN 40 MG/0.4 ML SQ SCH (09:00)
[2021-07-15] MEDS ORDERED: POTASSIUM CL SA 10 MEQ TAB PO ONE (09:00)
[2021-07-15] MEDS ORDERED: MAGNESIUM SULFATE 1 gm IVPB 1 GM/100 ML BAG IV ONE (09:00)
[2021-07-15] MEDS: INSULIN -REGULAR HUMAN 50 UNIT/0.5 ML ML SQ SCH ×2 (09:29→11:30)
[2021-07-15] MEDS: INSULIN GLARGINE 100 UNITS/ML SQ SCH (09:29)
[2021-07-15] MEDS: GABAPENTIN 300 MG CAP PO SCH (09:30)
[2021-07-15] MEDS: FLUOXETINE 20 MG CAP PO SCH (09:30)
[2021-07-15 10:14] VITALS: O2SAT 95
[2021-07-15] MEDS ORDERED: ACETAMINOPHEN 500 MG TAB PO ONE (12:50)
[2021-07-15] MEDS ORDERED: ACETAMINOPHEN 500 MG TAB ONE (13:04)
[2021-07-15 14:10] VITALS: BP 94/58; TEMP 97.8
== END 2021-07-15 16:48 | disposition home or self-care (01) | DRG 639 ==
LOC: ER 16:49 → ERHOLD 07-14 01:14 → 2ND 07-14 21:25
PROVIDERS: ADMIT Family Medicine; ATTEND Family Medicine
DX: E10.10 Type 1 diabetes mellitus with ketoacidosis without coma (principal); F20.9 Schizophrenia, unspecified; F31.9 Bipolar disorder, unspecified; K21.9 Gastro-esophageal reflux disease without esophagitis; Z88.0 Allergy status to penicillin; Z20.822 Contact with and (suspected) exposure to COVID-19
CPT/HCPCS: 36415; 71275; 74177; 80048; 80061; 80076; 80307; 81015; 82010; 82947; 83036; 83690; 83735; 84145; 85025; 87077; 87086; 87088; 87186; 99285; C9113; J1200; J1650; J1815; J2405; J2550; J2765; J3475; J7030; J7040; J7799; Q9967; U0003

== ENCOUNTER 2022-04-11 10:42 | Emergency (ER) | payer OTHER ==
[2022-04-11 11:16] LABS: Absolute Lymphocytes (CBC) 1.8 K/uL (0.7-4.9); Hematocrit 35.4 % (36.0-45.0); Lymphocytes % 17.4 % (15.3-44.8); MPV 6.3 fL (7.6-11.3); RBC Red Blood Cell Count 5.05 M/uL (3.86-4.86)
[2022-04-11] MEDS ORDERED: ONDANSETRON 4 MG/2 ML VIAL ONE (11:22)
[2022-04-11 11:43] LABS: Potassium 3.8 mmol/L (3.5-5.1)
--- NOTE | 2022-04-11 13:53 | EDPHYS ---
Physician Documentation [facility] Name: Javier Pimentel Age: 36 yrs Sex: Female : 1985 Arrival Date: 04/11/2022 Time: 10:43 Bed 19 Private MD: ED Physician Andrew Leroy HPI: 04/11 10:55 This 36 yrs old Female presents to ER via EMS with complaints of Nausea, Low Blood ms3 Sugar. 10:55 The patient presents to the emergency department with nausea, vomiting. Onset: The ms3 symptoms/episode began/occurred acutely, this morning. Possible causes: unknown. The symptoms are aggravated by nothing. The symptoms are alleviated by nothing. Associated signs and symptoms: The patient has no apparent associated signs or symptoms. 36-year-old female with past medical history of anxiety, bipolar, diabetes type 1 presents via [facility] for low blood sugar that began this morning. Patient states she awoke this morning and took 20 units of her Lantus. Patient states she did not eat her typical meal and then became lightheaded. Patient states she checked her blood glucose and found it was low and was having problems getting her glucose up.. 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 - Social history:: Smoking status: Patient denies any tobacco usage or history of. ROS: 10:55 Constitutional: Negative for fever, and chills. Neck: Negative for injury, pain, and ms3 swelling, Cardiovascular: Negative for chest pain, and palpitations. Respiratory: Negative for shortness of breath, cough, wheezing, and pleuritic chest pain. 10:55 MS/Extremity: Negative for injury and deformity, Skin: Negative for injury, rash, and discoloration. 10:55 Abdomen/GI: Positive for abdominal pain. 10:55 All other systems are negative. Exam: 10:55 Constitutional: This is a well developed, well nourished patient who is awake, alert, ms3 and in no acute distress. Head/Face: Normocephalic, atraumatic. Neck: Trachea midline, no cervical lymphadenopathy. Supple, full range of motion without nuchal rigidity, or vertebral point tenderness. No Meningismus. Chest/axilla: Normal chest wall appearance and motion. Nontender with no deformity. Cardiovascular: Regular rate and rhythm with a normal S1 and S2. No gallops, murmurs, or rubs. Normal PMI, no JVD. No pulse deficits. Respiratory: Lungs have equal breath sounds bilaterally, clear to auscultation and percussion. No rales, rhonchi or wheezes noted. No increased work of breathing, no retractions or nasal flaring. Abdomen/GI: Soft, non-tender, with normal bowel sounds. No distension or tympany. No guarding or rebound. No evidence of tenderness throughout. Skin: Warm, dry with normal turgor. Normal color with no rashes, no lesions, and no evidence of cellulitis. MS/ Extremity: Pulses equal, no cyanosis. Neurovascular intact. Full, normal range of motion. Neuro: Awake and alert, GCS 15, oriented to person, place, time, and situation. Cranial nerves II-XII grossly intact. Motor strength 5/5 in all extremities. Sensory grossly intact. Cerebellar exam normal. Normal gait. Psych: Awake, alert, with orientation to person, place and time. Behavior, mood, and affect are within normal limits. Vital Signs: 10:44 BP 106 / 88; Pulse 97; Resp 17; Temp 97.9(TE); Pulse Ox 97% on R/A; Pain 4/10; ll1 14:20 BP 104 / 69; Pulse 90; Resp 17; Pulse Ox 99% ; Pain 0/10; jh6 MDM: 10:50 Patient medically screened. ms3 10:55 Differential diagnosis: Nonspecific abd pain, gastritis, viral gastroenteritis, ms3 Euglycemic DKA. 13:52 Data reviewed: vital signs, nurses notes, lab test result(s). Counseling: I had a ms3 detailed discussion with the patient and/or guardian regarding: the historical points, exam findings, and any diagnostic results supporting the discharge/admit diagnosis, lab results, the need for outpatient follow up, to return to the emergency department if symptoms worsen or persist or if there are any questions or concerns that arise at home. ED course: Discussed labs, PE findings with patient. Patient to follow up with PMD in 2-3 days. Patient understands/ agrees with plan. All questions answered. Return precautions given to include worsening symptoms, or any other concerns. Patient is improved, in NAD, non-toxic appearing, ambulatory in ED, speaking full sentences.. 04/11 10:50 Order name: CBC with Diff; Complete Time: 12:53 ms3 04/11 10:50 Order name: BMP; Complete Time: 12:53 ms3 04/11 11:22 Order name: Heart Healthy; Complete Time: 13:36 EDMS Administered Medications: 11:25 Drug: Zofran (Ondansetron) 4 mg Route: IVP; Site: right forearm; ll1 14:14 Follow up: Response: No adverse reaction; Nausea is decreased jh6 Disposition Summary: 04/11/22 13:52 Discharge Ordered Location: Home ms3 Condition: Stable ms3 Diagnosis - Hypoglycemia, unspecified ms3 Followup: ms3 - With: Private Physician - When: 2 - 3 days - Reason: Re-evaluation by your physician Discharge Instructions: - Discharge Summary Sheet ms3 - Hypoglycemia ms3 Forms: - Medication Reconciliation Form ms3 - Thank You Letter ms3 - Antibiotic Education ms3 - Prescription Opioid Use ms3 Prescriptions: - Zofran 4 mg Oral Tablet - take 1 tablet by ORAL route every 12 hours As needed; 20 tablet; Refills: 0, ms3 Product Selection Permitted Signatures: Dispatcher [employer] Angeline Starr RN RN ll1 Andrew Leroy DO DO ms3 Telma Richards RN jh6
--- NOTE | 2022-04-11 13:53 | ER ---
Nurse's Notes [facility] Name: Javier Pimentel Age: 36 yrs Sex: Female : 1985 Arrival Date: 04/11/2022 Time: 10:43 Bed 19 Private MD: Diagnosis: Hypoglycemia, unspecified Presentation: 04/11 10:44 Chief complaint: Patient states: Not feeling well since last night. Still feels bad ll1 with nausea, blood sugar meter reads low 40-50's. No fever. EMS states: FS 110, given oral glucose, FS 113 after. VSS. Coronavirus screen: Client denies travel out of the [place] in the last 14 days. At this time, the client does not indicate any symptoms associated with coronavirus-19. Ebola Screen: Patient denies travel to an Ebola-affected area in the 21 days before illness onset. Initial Sepsis Screen: Does the patient meet any 2 criteria? HR > 90 bpm. No. Patient's initial sepsis screen is negative. Does the patient have a suspected source of infection? No. Patient's initial sepsis screen is negative. Risk Assessment: Do you want to hurt yourself or someone else? Patient reports no desire to harm self or others. Onset of symptoms was April 10, 2022. 10:44 Method Of Arrival: EMS ll1 10:44 Acuity: NING 3 ll1 Triage Assessment: 10:47 General: Appears uncomfortable, ill, Behavior is calm, cooperative, appropriate for ll1 age. Pain: Complains of pain in abdomen Quality of pain is described as aching. EENT: Reports pain when swallowing. Neuro: Reports generalized malaise. Cardiovascular: No deficits noted. Respiratory: No deficits noted. GI: Abdomen is flat, Bowel sounds present X 4 quads. Reports upper abdominal pain, nausea. 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 - Social history:: Smoking status: Patient denies any tobacco usage or history of. Screenin:48 Abuse screen: Denies threats or abuse. Nutritional screening: No deficits noted. ll1 Tuberculosis screening: No symptoms or risk factors identified. Fall Risk IV access (20 points). Gait- Weak (10 pts.). Mental Status- Total Davis Fall Scale indicates Low Risk Score (25-44 pts). Fall prevention measures have been instituted. Side Rails Up X 2 Placed close to Nursing Station Frequent Obs/Assesments occuring Family Present and informed to notify staff if they need to leave bedside As available Patient and Family Educated on Fall Prevention Program and strategies. Assessment: 11:45 Reassessment: No changes from previously documented assessment. Patient and/or family ll1 updated on plan of care and expected duration. Pain level reassessed. Patient is alert, oriented x 3, equal unlabored respirations, skin warm/dry/pink. 12:45 Reassessment: No changes from previously documented assessment. Patient and/or family ll1 updated on plan of care and expected duration. Pain level reassessed. Patient is alert, oriented x 3, equal unlabored respirations, skin warm/dry/pink. 13:45 GI: Reports cramping, nausea. ll1 14:10 Reassessment: No changes from previously documented assessment. Patient and/or family ll1 updated on plan of care and expected duration. Pain level reassessed. Patient is alert, oriented x 3, equal unlabored respirations, skin warm/dry/pink. Vital Signs: 10:44 BP 106 / 88; Pulse 97; Resp 17; Temp 97.9(TE); Pulse Ox 97% on R/A; Pain 4/10; ll1 14:20 BP 104 / 69; Pulse 90; Resp 17; Pulse Ox 99% ; Pain 0/10; jh6 ED Course: 10:43 Patient arrived in ED. ll1 10:44 Arm band placed on Patient placed in an exam room, on a stretcher. ll1 10:47 Triage completed. ll1 10:48 Patient has correct armband on for positive identification. Call light in reach. Side ll1 rails up X 1. 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 Pulse ox on. 10:50 Andrew Leroy DO is Attending Physician. ms3 10:50 Inserted saline lock: 22 gauge in right forearm, using aseptic technique. Blood ll1 collected. 10:51 Angeline Fernandez, RENARD is Primary Nurse. ll1 14:14 IV discontinued, intact, bleeding controlled, No redness/swelling at site. Pressure jh6 dressing applied. 14:31 No provider procedures requiring assistance completed. ll1 Administered Medications: 11:25 Drug: Zofran (Ondansetron) 4 mg Route: IVP; Site: right forearm; ll1 14:14 Follow up: Response: No adverse reaction; Nausea is decreased jh6 Medication: 10:48 VIS not applicable for this client. ll1 Outcome: 13:52 Discharge ordered by . ms3 14:13 Discharged to home ambulatory. [facility] [place] 14:13 Condition: improved 14:13 Discharge instructions given to patient, Instructed on discharge instructions, Demonstrated understanding of instructions, medications, Prescriptions given X 1. 14:31 Patient left the ED. 1 Signatures: Angeline Fernandez RN RN 1 Andrew Leroy DO DO ms3 Telma Richards, RN RN 6
[2022-04-11 14:55] VITALS: BP 104/69; O2SAT 99
[2022-04-11 14:57] VITALS: TEMP 97.9
== END 2022-04-11 14:31 | disposition home or self-care (01) ==
LOC: ER 10:42
DX: E11.649 Type 2 diabetes mellitus with hypoglycemia without coma (principal); F20.9 Schizophrenia, unspecified; Z88.0 Allergy status to penicillin
CPT/HCPCS: 85025; 80048; 36415; 96374; 99284; J2405

== ENCOUNTER 2022-12-26 08:35 | Inpatient (IN) | payer OTHER ==
[2022-12-26] MEDS ORDERED: MORPHINE 4 MG/ML SYR ONE ×2 (08:48→13:30)
[2022-12-26] MEDS ORDERED: ONDANSETRON 4 MG/2 ML VIAL ONE ×2 (08:48→13:30)
[2022-12-26] MEDS ORDERED: INSULIN -REGULAR HUMAN 50 UNIT/0.5 ML ML ONE (08:53)
[2022-12-26 08:54] LABS: Absolute Lymphocytes (CBC) 0.6 K/uL (0.7-4.9); Hematocrit 27.2 % (36.0-45.0); Lymphocytes % 3.2 % (15.3-44.8); MCV 60.7 fL (80-100); MPV 6.4 fL (7.6-11.3); RBC Red Blood Cell Count 4.49 M/uL (3.86-4.86)
[2022-12-26 09:13] LABS: ALT/SGPT 16 U/L (13-56); AST/SGOT 9 U/L (15-37); Albumin 3.2 g/dL (3.4-5.0); Alkaline Phosphatase 83 U/L (45-117); BUN Blood Urea Nitrogen 17 mg/dL (7-18); Bicarbonate 28 mmol/L (21-32); Bilirubin Total 0.5 mg/dL (0.2-1.0); Glomerular Filtration Rate 115 ml/min (=/>90); Glucose Level 325 mg/dL (74-106); Lipase 31 U/L (73-393); Potassium 3.8 mmol/L (3.5-5.1); Protein, Total 6.9 g/dL (6.4-8.2); Sodium Level 138 mmol/L (136-145)
[2022-12-26 09:49] LABS: Blood Morphology Comment NOTED (NOT SEEN); Platelet Estimate ADEQ; White Blood Cell Scan OK (OK)
[2022-12-26 09:50] LABS: Anisocytosis 2+; Hypochromasia 1+
[2022-12-26 09:57] LABS: Urine Blood 2+ (Negative); Urine Glucose 2+ (Negative); Urine Protein Negative (Negative); Urine Specific Gravity 1.015 (1.005-1.030)
[2022-12-26 10:01] LABS: Urine Specific Gravity/Preg 1.015 (1.005-1.030)
[2022-12-26] MEDS ORDERED: PROMETHAZINE INJ 25 MG/ML AMP ONE ×2 (10:16→19:09)
--- NOTE | 2022-12-26 10:36 | RAD REPORT ---
EXAM DESCRIPTION: CTAbdomen Pelvis W Contrast - 12/26/2022 10:21 am CLINICAL HISTORY: Abdominal pain. ABD PAIN COMPARISON: Abdomen Pelvis W Contrast dated 07/13/2021; Abdomen Pelvis W Contrast dated 12/26/2020 ; Abdomen Pelvis W Contrast dated 06/21/2017 TECHNIQUE: Biphasic CT imaging of the abdomen and pelvis was performed with 100 ml non-ionic IV cont rast. All CT scans are performed using dose optimization technique as appropriate and may include automated exposure control or mA/KV adjustment according to patient size. FINDINGS: Mild opacity is seen in the right posterior gutter as well as the inferior right middle lo be. There is a small 5 mm nonspecific nodule seen in the right middle.Distal esophagus appears mildly thickened. The liver, spleen, pancreas, adrenal glands and kidneys are within normal limits. No bowel obstruction, free air, free fluid or abscess. The appendix is normal. No evidence of signi ficant lymphadenopathy. 4 cm left ovarian cyst. Trace pelvic free fluid. Moderate lumbosacral degenerative changes. IMPRESSION: No acute intra-abdominal or pelvic finding. 4 cm left ovarian cysts, probably functional.
[2022-12-26] MEDS ORDERED: NA CHLORIDE 0.9% 1,000 ML ONE (12:11)
[2022-12-26] MEDS ORDERED: PANTOPRAZOLE 40 MG INJ ONE (12:11)
[2022-12-26] MEDS ORDERED: PANTOPRAZOLE INJ 80 MG in NA CHLORIDE 0.9% 250 ML IV ONE (12:30)
--- NOTE | 2022-12-26 13:15 | RAD REPORT ---
EXAM DESCRIPTION: RAD - Chest Single View - 12/26/2022 12:30 pm CLINICAL HISTORY: further eval opacities on CT Chest pain. COMPARISON: CHEST PA AND LAT 2 VIEW dated 07/21/2015; CHEST PA AND LAT 2 VIEW dated 07/19/2014; CHEST SI NGLE VIEW dated 05/02/2014; Abdomen Pelvis W Contrast dated 12/26/2022 FINDINGS: Portable technique limits examination quality. Small opacity is seen in the right lung base probably representing early infiltrate/pneumonia. The norah ngs are otherwise clear. The heart is normal in size. No displaced fractures.
--- NOTE | 2022-12-26 13:27 | ER ---
Nurse's Notes [facility] Name: Javier Pimentel Age: 37 yrs Sex: Female : 1985 Arrival Date: 12/26/2022 Time: 08:37 Bed 2 Private MD: Diagnosis: Pneumonia, unspecified organism;Hyperglycemia, unspecified;Dehydration;Anemia, unspecified;Esophagitis, unspecified Presentation: 12/26 08:37 Chief complaint: EMS states: N/V that began last night. PT states that this usually ss happens when her blood sugar is high. Coronavirus screen: Client denies travel out of the [place] in the last 14 days. Ebola Screen: Patient denies exposure to infectious person. Patient denies travel to an Ebola-affected area in the 21 days before illness onset. Initial Sepsis Screen: Does the patient meet any 2 criteria? HR > 90 bpm. No. Patient's initial sepsis screen is negative. Does the patient have a suspected source of infection? No. Patient's initial sepsis screen is negative. Risk Assessment: Do you want to hurt yourself or someone else? Patient reports no desire to harm self or others. Onset of symptoms was December 25, 2022. 08:37 Method Of Arrival: EMS: [facility] 08:37 Acuity: NING 3 08:37 Care prior to arrival: Medication(s) given: LR 200 mL IV bolus IV initiated. 22 GA, in ss the left antecubital area, Glucose check: 375. 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 - Social history:: Smoking status: Patient denies any tobacco usage or history of. Patient/guardian denies using alcohol, street drugs. - Family history:: not pertinent. - Hospitalizations: : No recent hospitalization is reported. Screenin:02 [facility] ED Fall Risk Assessment (Adult) History of falling in the last 3 months, ss including since admission No falls in past 3 months (0 pts). Abuse screen: Denies threats or abuse. Denies injuries from another. Nutritional screening: No deficits noted. Tuberculosis screening: Never had TB. Assessment: 08:37 General: Appears distressed, uncomfortable, ill, Behavior is restless, cooperative. ss Pain: Complains of pain in abdomen Pain currently is 10 out of 10 on a pain scale. Quality of pain is described as aching, crampy, Pain began last night Is continuous. Neuro: Level of Consciousness is awake, alert, obeys commands, Oriented to person, place, time, situation. Respiratory: Airway is patent Respiratory effort is even, unlabored, Respiratory pattern is regular, symmetrical. GI: Abdomen is flat, non-distended, Reports nausea, vomiting, since last night. Derm: Skin is intact, is healthy with good turgor, Skin is dry, Skin is pale. Musculoskeletal: Circulation, motion, and sensation intact. Range of motion: intact in all extremities, Swelling. 09:02 Reassessment: Pt reports that pain has decreased to 7/10. RASS score 0. ss 09:13 Reassessment: Patient appears in no apparent distress at this time. Pt reports that her ss pain is now 6/10 and denies nausea. Lights dimmed for comfort. Fluids infusing freely. Call light remains within reach Patient states feeling better. Patient states symptoms have improved. 13:30 Reassessment: PT is resting at this time. Eyes closed. RR even and unlabored. ss 15:09 Reassessment: Patient appears in no apparent distress at this time. Patient is alert, ss oriented x 3, equal unlabored respirations, skin warm/dry/pink. awaiting admission orders. 17:30 Reassessment: spoke with Dr. Willis. PT is requesting additional pain medication and ss nausea medication and it is not yet time for Zofran. EKG ordered and obtained. Showed to Dr. Willis after and states that he will review her orders and add additional medications. 19:13 Reassessment: Pt asked for assistance changing her brief. Cleansed patient of urinary ss incontinence and changed linens. 19:15 Reassessment: Report given to RENARD Hill and RENARD Islas. ss 20:22 Reassessment: Patient and/or family updated on plan of care and expected duration. Pain vc1 level reassessed. GI: Reports nausea. Vital Signs: 08:37 BP 167 / 87; Pulse 104; Resp 18; Temp 98.2(O); Pulse Ox 98% on R/A; Weight 72.57 kg; Height 5 ft. 0 in. (152.40 cm); Pain 10/10; 11:19 BP 107 / 80; Pulse 114; Resp 15; Pulse Ox 98% ; jl7 17:07 Pulse 109; Resp 15; Pulse Ox 100% on R/A; ss 20:17 BP 127 / 76; Pulse 103; Resp 16; Pulse Ox 98% ; vc1 08:37 Body Mass Index 31.25 (72.57 kg, 152.40 cm) ED Course: 08:37 Patient arrived in ED. ss 08:37 Homero Kenney MD is Attending Physician. rn 08:39 Triage completed. ss 08:39 Arm band placed on right wrist. 08:43 Palma Schmitz RN is Primary Nurse. 09:02 Patient has correct armband on for positive identification. Placed in gown. Bed in low ss position. Call light in reach. Client placed on continuous cardiac and pulse oximetry monitoring. NIBP monitoring applied. Warm blanket given. 09:02 Maintain EMS IV. Gauge \T\ site: 22 gauge in L AC. Patient maintains SpO2 saturation ss greater than 95% on room air. 13:04 Inserted saline lock: 22 gauge in right forearm, using aseptic technique. ,using aseptic technique. insertion VIA US Blood collected. 13:25 Carl Willis MD is Hospitalizing Provider. rn 19:36 No provider procedures requiring assistance completed. Patient admitted, IV remains in ss place. 20:58 Primary Nurse role handed off by Palma Schmitz, RN mw2 Administered Medications: 08:43 Drug: Lactated Ringers Solution 1000 ml {Note: EMS IV fluids continued. OK per Dr. celina Kenney.} Route: IV; Rate: 1000 bolus; Site: left antecubital; 09:45 Follow up: IV Status: Completed infusion; IV Intake: 1000ml 08:45 Drug: Zofran (Ondansetron) 4 mg Route: IVP; Site: left antecubital; 08:49 Drug: morphine 4 mg Route: IVP; Infused Over: 4 mins; Site: left antecubital; ss 08:50 CANCELLED (Other Intervention Used): NS 0.9% 1000 ml IV at 1 bolus Per protocol; 1000 ss mL bolus 08:50 Drug: Insulin Regular Human 5 units {Co-Signature: celina (Palma Schmitz RN).} Route: jl7 Sub-Q; Site: left lower abdomen; 10:30 Follow up: Response: No adverse reaction; Blood sugar is lowered ss 10:16 Drug: Phenergan (promethazine) 12.5 mg Route: IVP; Site: left antecubital; iw 13:03 Follow up: Response: No adverse reaction; Nausea is decreased ss 12:13 Drug: ProTONIX (pantoprazole) 40 mg Route: IVP; Site: left antecubital; ss 13:59 Follow up: Response: No adverse reaction ss 12:13 Drug: NS 0.9% 1000 ml Route: IV; Rate: 1000 ml; Site: left antecubital; ss 16:44 Follow up: IV Status: Completed infusion; IV Intake: 1000ml ss 13:03 Drug: ProTONIX (pantoprazole) 8 mg/hr Route: IV; Rate: 25 ml/hr; Site: left antecubital;ss 13:59 Follow up: IV Status: Infusion continued upon admission ss 13:30 Drug: Zofran (Ondansetron) 4 mg Route: IVP; Site: right forearm; ss 13:49 Follow up: Response: No adverse reaction; Nausea is decreased ss 13:36 Drug: morphine 4 mg Route: IVP; Infused Over: 4 mins; Site: right forearm; ss 16:53 Follow up: Response: No adverse reaction; Pain is decreased; RASS: Alert and Calm (0) ss 13:49 Drug: LevaQUIN (levofloxacin) 750 mg Volume: 150 ml; Route: IVPB; Infused Over: 90 ss mins; Site: right forearm; 15:10 Follow up: IV Status: Completed infusion ss Medication: 09:02 VIS not applicable for this client. Point of Care Testing: Blood Glucose: 08:42 Blood Glucose: 304 mg/dL; ss 11:17 Blood Glucose: 244 mg/dL; jl7 Ranges: Intake: 09:45 IV: 1000ml; Total: 1000ml. ss 16:44 IV: 1000ml; Total: 2000ml. Outcome: 13:27 Decision to Hospitalize by Provider. rn 19:36 Instructed on the need for admit. ss 20:41 Admitted to Med/surg accompanied by nurse, via stretcher, room 216, Report called to vc1 Renard Lopez 20:41 Condition: good 21:12 Patient left the ED. vc1 Signatures: Reyna Hwang RN RN Homero Kenney MD MD rn Smirch, Shelby, RN RN Brandy Andrade RN RN 7 Jimbo Wells 2 Janel Georges RN RN 1 Palma Schmitz RN Corrections: (The following items were deleted from the chart) 08:50 08:43 NS 0.9% 1000 ml IV at 1 bolus in left antecubital ss 08:52 08:43 Lactated Ringers Solution 1000 ml IV at 1000 bolus in left antecubital ss 09:08 08:37 Derm: Skin is intact, is healthy with good turgor, Skin is dry, Skin is pink, ss warm \T\ dry. normal, ss 09:13 09:07 Cardiovascular: [facility] 13:36 13:36 morphine 4 mg IVP in right antecubital over 4 mins [facility]
--- NOTE | 2022-12-26 13:27 | EDPHYS ---
Physician Documentation [facility] Name: Javier Pimentel Age: 37 yrs Sex: Female : 1985 Arrival Date: 12/26/2022 Time: 08:37 Bed 2 Private MD: ED Physician Homero Kenney HPI: 12/26 09:01 This 37 yrs old Female presents to ER via EMS with complaints of Nausea/Vomiting, High rn Blood Sugar. 09:01 The patient presents to the emergency department with nausea, vomiting, diarrhea, rn abdominal pain. Onset: The symptoms/episode began/occurred yesterday. Possible causes: unknown. The symptoms are aggravated by nothing. The symptoms are alleviated by nothing. Associated signs and symptoms: Pertinent positives: abdominal pain, diarrhea, nausea, vomiting, Pertinent negatives: fever, GI bleeding. Severity of symptoms: At their worst the symptoms were moderate in the emergency department the symptoms are unchanged. The patient has experienced similar episodes in the past. The patient has not recently seen a physician. 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 - Social history:: Smoking status: Patient denies any tobacco usage or history of. Patient/guardian denies using alcohol, street drugs. - Family history:: not pertinent. - Hospitalizations: : No recent hospitalization is reported. ROS: 09:01 Constitutional: Negative for fever, chills, and weight loss, Eyes: Negative for injury, rn pain, redness, and discharge, Cardiovascular: Negative for chest pain, palpitations, and edema, Respiratory: Negative for shortness of breath, cough, wheezing, and pleuritic chest pain, Abdomen/GI: + lower abd pain, + nausea/vomiting/diarrhea Back: Negative for injury and pain, MS/Extremity: Negative for injury and deformity, Skin: Negative for injury, rash, and discoloration, Neuro: Negative for headache, numbness, tingling, and seizure. Exam: 09:01 Constitutional: This is a well developed, well nourished patient who is awake, alert, rn vomiting Head/Face: Normocephalic, atraumatic. ENT: dry MM Cardiovascular: Tachycardic, regular Respiratory: No increased work of breathing, no retractions or nasal flaring. Abdomen/GI: Soft, mild epigastric and suprapubic tenderness, no rebound, no masses Skin: Warm, dry MS/ Extremity: Pulses equal, no cyanosis. Neuro: Awake and alert, GCS 15 Vital Signs: 08:37 BP 167 / 87; Pulse 104; Resp 18; Temp 98.2(O); Pulse Ox 98% on R/A; Weight 72.57 kg; ss Height 5 ft. 0 in. (152.40 cm); Pain 10/10; 11:19 BP 107 / 80; Pulse 114; Resp 15; Pulse Ox 98% ; jl7 17:07 Pulse 109; Resp 15; Pulse Ox 100% on R/A; ss 20:17 BP 127 / 76; Pulse 103; Resp 16; Pulse Ox 98% ; vc1 08:37 Body Mass Index 31.25 (72.57 kg, 152.40 cm) ss MDM: 08:37 Patient medically screened. rn 13:18 Differential diagnosis: Nonspecific abd pain, gastritis, pancreatitis, appendicitis, rn diverticulitis, viral gastroenteritis, gastroenteritis. Data reviewed: vital signs, nurses notes, lab test result(s), radiologic studies, CT scan, plain films, and as a result, I will admit patient. Consideration of Admission/Observation Patient was admitted/placed on observation. Escalation of care including admission/observation considered. Counseling: I had a detailed discussion with the patient and/or guardian regarding: the historical points, exam findings, and any diagnostic results supporting the discharge/admit diagnosis, lab results, radiology results, the need for further work-up and treatment in the hospital. Response to treatment: the patient's symptoms have mildly improved after treatment, and as a result, I will admit patient. ED course: Pt without acute findings on CT abdomen and pelvis. CXR just obtained shows questionable early pneumonia. Elevated WBC. Lactate pending. Blood cultures ordered and drawn. . 13:24 ED course: No evidence of end organ dysfunction. Does not currently qualify for severe rn sepsis. . 13:27 ED course: Pt with anemia, worsened from previous visits, CT shows possible rn esophagitis, will place of protonix drip and admit for further care. 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 . 12/26 08:41 Order name: CBC with Diff rn 12/26 08:41 Order name: CMP rn 12/26 08:41 Order name: Lipase rn 12/26 08:41 Order name: Ketone, Serum rn 12/26 08:55 Order name: CBC with Automated Diff; Complete Time: 09:55 EDMS 12/26 08:56 Order name: Glucose, Ancillary Testing; Complete Time: 09:55 EDMS 12/26 09:04 Order name: Acetone Level; Complete Time: 09:55 EDMS 12/26 09:13 Order name: Comprehensive Metabolic Panel; Complete Time: 09:55 EDMS 12/26 09:13 Order name: Lipase; Complete Time: 09:55 EDMS 12/26 09:50 Order name: CBC Smear Scan; Complete Time: 09:55 EDMS 12/26 09:56 Order name: Urine --Ancillary (enter results) em 12/26 09:58 Order name: Urine Dipstick-Ancillary; Complete Time: 11:26 EDFL 12/26 10:01 Order name: Urine --Ancillary; Complete Time: 11:26 EDFL 12/26 11:27 Order name: Glucose, Ancillary Testing; Complete Time: 11:53 EDFL 12/26 08:41 Order name: CT Abd/Pelvis - IV Contrast Only rn 12/26 10:37 Order name: CT; Complete Time: 11:26 EDFL 12/26 11:27 Order name: XRAY Chest (1 view) rn 12/26 11:53 Order name: COVID-19/FLU A+B rn 12/26 11:54 Order name: Lactate w/ 2H reflex if indic. rn 12/26 11:54 Order name: Blood Culture Adult (2) rn 12/26 13:15 Order name: RAD; Complete Time: 13:17 EDFL 12/26 13:22 Order name: Lactate w/ 2H reflex if indic.; Complete Time: 13:24 EDFL 12/26 16:52 Order name: Hemoglobin A1c EDFL 12/26 16:55 Order name: Phosphorus EDFL 12/26 16:55 Order name: T4 Free EDFL 12/26 16:55 Order name: Magnesium EDFL 12/26 16:55 Order name: Thyroid Stimulating Hormone EDFL 12/26 16:58 Order name: Lipid Profile EDFL 12/26 17:45 Order name: COVID-19/FLU A+B EDFL 12/26 18:53 Order name: Glucose, Ancillary Testing EDFL 12/26 08:41 Order name: IV Saline Lock; Complete Time: 08:43 rn 12/26 08:41 Order name: Labs collected and sent; Complete Time: 08:43 rn 12/26 08:41 Order name: Urine Dipstick-Ancillary (obtain specimen); Complete Time: 09:59 rn 12/26 08:41 Order name: Urine Test (obtain specimen); Complete Time: 09:59 rn 12/26 08:41 Order name: Glucose Level; Complete Time: 08:43 rn Administered Medications: 08:43 Drug: Lactated Ringers Solution 1000 ml {Note: EMS IV fluids continued. OK per Dr. celina Kenney.} Route: IV; Rate: 1000 bolus; Site: left antecubital; 09:45 Follow up: IV Status: Completed infusion; IV Intake: 1000ml ss 08:45 Drug: Zofran (Ondansetron) 4 mg Route: IVP; Site: left antecubital; ss 08:49 Drug: morphine 4 mg Route: IVP; Infused Over: 4 mins; Site: left antecubital; ss 08:50 CANCELLED (Other Intervention Used): NS 0.9% 1000 ml IV at 1 bolus Per protocol; 1000 ss mL bolus 08:50 Drug: Insulin Regular Human 5 units {Co-Signature: celina (Palma Schmitz RN).} Route: jl7 Sub-Q; Site: left lower abdomen; 10:30 Follow up: Response: No adverse reaction; Blood sugar is lowered ss 10:16 Drug: Phenergan (promethazine) 12.5 mg Route: IVP; Site: left antecubital; iw 13:03 Follow up: Response: No adverse reaction; Nausea is decreased ss 12:13 Drug: ProTONIX (pantoprazole) 40 mg Route: IVP; Site: left antecubital; ss 13:59 Follow up: Response: No adverse reaction ss 12:13 Drug: NS 0.9% 1000 ml Route: IV; Rate: 1000 ml; Site: left antecubital; ss 16:44 Follow up: IV Status: Completed infusion; IV Intake: 1000ml ss 13:03 Drug: ProTONIX (pantoprazole) 8 mg/hr Route: IV; Rate: 25 ml/hr; Site: left antecubital;ss 13:59 Follow up: IV Status: Infusion continued upon admission ss 13:30 Drug: Zofran (Ondansetron) 4 mg Route: IVP; Site: right forearm; ss 13:49 Follow up: Response: No adverse reaction; Nausea is decreased ss 13:36 Drug: morphine 4 mg Route: IVP; Infused Over: 4 mins; Site: right forearm; ss 16:53 Follow up: Response: No adverse reaction; Pain is decreased; RASS: Alert and Calm (0) ss 13:49 Drug: LevaQUIN (levofloxacin) 750 mg Volume: 150 ml; Route: IVPB; Infused Over: 90 ss mins; Site: right forearm; 15:10 Follow up: IV Status: Completed infusion Point of Care Testing: Blood Glucose: 08:42 Blood Glucose: 304 mg/dL; ss 11:17 Blood Glucose: 244 mg/dL; jl7 Ranges: Critical Glucose Levels:Adult <50 mg/dl or >400 mg/dl <40 mg/dl or >180 mg/dl Disposition Summary: 12/26/22 13:27 Hospitalization Ordered Hospitalization Status: Inpatient Admission rn Provider: Carl Willis rn Location: Telemetry/[facility] (Inpatient) rn Condition: Stable rn Problem: new rn Symptoms: have improved rn Bed/Room Type: Standard rn Room Assignment: 216(12/26/22 19:06) Diagnosis - Pneumonia, unspecified organism rn - Hyperglycemia, unspecified rn - Dehydration rn - Anemia, unspecified rn - Esophagitis, unspecified rn Forms: - Medication Reconciliation Form rn - SBAR form rn Signatures: Dispatcher [employer] EDSummer Márquez RN RN Reyna Hwang RN RN Homero Kenney MD MD rn Smirch, Shelby, RN RN Brandy Andrade RN RN jl7 Palma Schmitz RN ss Corrections: (The following items were deleted from the chart) 08:50 08:41 NS 0.9% 1000 ml IV at 1 bolus Per protocol; 1000 mL bolus ordered. rn ss 08:50 08:43 NS 0.9% 1000 ml IV at 1 bolus Per protocol; 1000 mL bolus given. ss ss 08:50 08:50 NS 0.9% 1000 ml IV at 1 bolus Per protocol; 1000 mL bolus ordered. [facility] 19:06 13:27 rn mw
[2022-12-26] MEDS ORDERED: Levofloxacin 750mg IV 750 MG/150 ML BAG IV ONE (13:48)
[2022-12-26] MEDS ORDERED: ACETAMINOPHEN 325 MG TABLET PO PRN (15:23)
[2022-12-26] MEDS ORDERED: TRAMADOL HCL 50 MG TAB PO PRN (15:24)
[2022-12-26] MEDS ORDERED: SODIUM CHLORIDE 0.9% 10ML INJ IV PRN (15:26)
[2022-12-26] MEDS ORDERED: LABETALOL 20 MG/4ML SYRINGE IV PRN (15:35)
--- NOTE | 2022-12-26 15:38 | P.HP ---
Certification for Inpatient Patient admitted to: Inpatient With expected LOS: >2 Midnights Patient will require the following post-hospital care: None Practitioner: I am a practitioner with admitting privileges, knowledge of patient current condition, hospital course, and medical plan of care. Services: Services provided to patient in accordance with Admission requirements found in Title 42 Section 412.3 of the Code of Federal Regulations Patient History Date of Service: 12/26/22 Reason for admission: N\V\Abd pain History of Present Illness: Patient is a 37-year-old female with a past medical history significant for anxiety disorder, schizophrenia, bipolar disorder, DM 1 who presents with complaint of nausea and vomiting onset yesterday. Patient reported that she had flulike symptoms--congestion, runny nose, chest tightness and cough 9 days ago. Patient also reported that she started having upper quadrants pain yesterday. Patient also reported dark stools. Patient reported that today she started noticing large amount of hematemesis. Patient rated pain as 10/10 in severity and described pain as sharp in quality. Patient also reported that she had 3 episodes of diarrhea this morning but has not had any episodes in the ER. Patient reported associated signs and symptoms of subjective fever, loss of appetite, SOB, headache, dizziness and generalized malaise. Patient denies any other signs or symptoms. Symptoms are aggravated or relieved by nothing. Patient decided to present to the hospital due to worsening symptoms. Allergies Penicillins Allergy (Intermediate, Verified 07/14/21 22:07) Itching/Hives/Rash Home Medications: Hydrocodone/Acetaminophen [[place] 5-325 Tablet] 1 each PO Q4HP PRN #0 tablet 12/01/12 Insulin Glargine Human [Lantus*] 20 units SQ BID #1 vial 07/14/21 Pantoprazole [Protonix Tab] 40 mg PO DAILY #30 tab 07/14/21 - Past Medical/Surgical History Diabetic: Yes -: Diabetes type 1 -: Bipolar disorder -: Schizophrenia -: None Psychosocial/ Personal History: Disabled, lives alone. - Family History Father -: Diabetes Mother -: Diabetes - Social History Smoking Status: Never smoker Counseled patient to stop smoking for: less than 10 minutes Alcohol use: No CD- Drugs: Yes Caffeine use: No Place of Residence: Home Review of Systems General: Fever, Weakness, Malaise, Other (Loos fo appetite ) Eyes: Unremarkable ENT: Other (Runny nose), Unremarkable Respiratory: Cough, Shortness of Breath, Other (Chest tightness, chest congestion ) Cardiovascular: Unremarkable Gastrointestinal: Nausea, Vomiting, Abdominal Pain, Diarrhea, Melena, Other (Hematemesis ) Genitourinary: Unremarkable Musculoskeletal: Unremarkable Integumentary: Unremarkable Neurological: Weakness, Other (HEadache, dizziness ) Lymphatics: Unremarkable Physical Examination - Physical Exam General: Alert, Oriented x3, Cooperative, Mild distress HEENT: Atraumatic, PERRLA, Mucous membr. moist/pink, EOMI, Sclerae nonicteric Neck: Supple, 2+ carotid pulse no bruit, No LAD, Without JVD or thyroid abnormality Respiratory: Normal air movement, Diminished Cardiovascular: No edema, Regular rate/rhythm, Normal S1 S2 Capillary refill: <2 Seconds Gastrointestinal: Normal bowel sounds, Hypoactive, Tenderness Musculoskeletal: No clubbing, No swelling, No tenderness Integumentary: No rashes, No breakdown, No significant lesion Neurological: Normal speech, Normal tone, Normal affect Lymphatics: No axilla or inguinal lymphadenopathy - Studies Laboratory Data (last 24 hrs) 12/26/22 08:42: Sodium 138, Potassium 3.8, BUN 17, Creatinine 0.69, Glucose 325 H, Total Bilirubin 0.5, AST 9 L, ALT 16, Alkaline Phosphatase 83, Lipase 31 L 12/26/22 08:42: WBC 18.20 H, Hgb 8.5 L, Hct 27.2 L, Plt Count 621 H Assessment and Plan - Plan --Community acquired pneumonia. Patient started on antibiotics, neb treatment with albuterol\Atrovent. Continue O2 therapy as needed. --Gastrointestinal bleeding. Patient reports episodes of hematemesis and melena. H&H stable. Driver Messenger consulted. Patient placed on Protonix. GI recommends placing patient on n.p.o. after midnight. We will continue to monitor hemoglobin and transfuse if less than 7.0. Further management per ballistics professor. .--Sepsis POA. Likely secondary to pneumonia. Blood cultures pending. Continue antibiotics. --Leukocytosis. Blood cultures pending. Continue antibiotics. --Microcytic anemia. Compounded by blood loss anemia. H&H stable. Continue supportive care. --Depression\bipolar disorder\schizophrenia. Continue home medications. -- Abdominal pain. CT imaging does not indicate any intra-abdominal abnormality. We will manage pain with current pain medication regimen. -- Diarrhea. Patient currently denies any episode of diarrhea since been in the ER. Continue supportive care. --DM 1 with hyperglycemia. BS monitoring with sliding scale insulin and insulin glargine --Class I obesity. Likely secondary to excess calories intake. Patient counseled on weight reduction, diet and exercise therapy. --Hypertension. Poorly controlled. We will manage BP with labetalol as needed. -- Nausea and vomiting. Antiemetics on board. Continue supportive care --DVT prophylaxis with SCDs. Discharge Plan: Home Plan to discharge in: Greater than 2 days - Advance Directives Does patient have a Living Will: No Does patient have a Durable POA for Healthcare: No - Code Status/Comfort Care Code Status Assessed: Yes Physician Review: Patient Assessed, Agree with Above Assessment and Plan Critical Care: No
[2022-12-26] MEDS: INSULIN -REGULAR HUMAN 50 UNIT/0.5 ML ML SQ SCH ×2 (16:30→21:00)
[2022-12-26 16:55] LABS: Magnesium 1.7 mg/dL (1.6-2.4); Phosphorus 3.2 mg/dL (2.5-4.9); Thyroid Stimulating Hormone 0.78 uIU/mL (0.358-3.740)
[2022-12-26 17:44] LABS: SARS-COV-2 RT PCR NEGATIVE (NEGATIVE)
[2022-12-26] MEDS ORDERED: CEFTRIAXONE 1000 MG/VIAL ONE (19:09)
[2022-12-26] MEDS ORDERED: NA CHLORIDE 0.9% 50 ML ONE (19:09)
[2022-12-26] MEDS: CEFTRIAXONE 1,000 MG in NA CHLORIDE 0.9% 50 ML IVPB SCH (19:20)
[2022-12-26] MEDS: PROMETHAZINE INJ 25 MG/ML AMP IV PRN (19:31)
[2022-12-26] MEDS: ALBUTEROL 2.5 MG/3 ML NEB SOL NEB SCH (20:25)
[2022-12-26] MEDS: IPRATROPIUM BROM 0.5MG/2.5ML NEB SCH (20:25)
[2022-12-26] MEDS ORDERED: ALBUTEROL 2.5 MG/3 ML NEB SOL ONE (20:32)
[2022-12-26] MEDS ORDERED: IPRATROPIUM BROM 0.5MG/2.5ML ONE (20:32)
[2022-12-26] MEDS: PANTOPRAZOLE 40 MG INJ IVP SCH ×2 (21:00→23:26)
[2022-12-26] MEDS: HYDROCODONE/APAP 5/325 MG TAB PO PRN (22:04)
[2022-12-26] MEDS: ONDANSETRON 4 MG/2 ML VIAL IV PRN (22:05)
[2022-12-26 22:31] VITALS: BMI 31.2
[2022-12-26] MEDS: INSULIN GLARGINE 100 UNIT/ML SQ SCH (23:26)
[2022-12-26] MEDS: AZITHROMYCIN IV 500 MG in NA CHLORIDE 0.9% 250 ML IVPB SCH (23:27)
[2022-12-27] MEDS: IPRATROPIUM BROM 0.5MG/2.5ML NEB SCH ×2 (02:00→08:00)
[2022-12-27] MEDS: ALBUTEROL 2.5 MG/3 ML NEB SOL NEB SCH ×2 (02:00→08:00)
[2022-12-27] MEDS: PROMETHAZINE INJ 25 MG/ML AMP IV PRN ×3 (03:04→18:31)
[2022-12-27 03:43] LABS: Absolute Lymphocytes (CBC) 1.4 K/uL (0.7-4.9); Hematocrit 22.2 % (36.0-45.0); Lymphocytes % 10.8 % (15.3-44.8); MPV 6.8 fL (7.6-11.3); RBC Red Blood Cell Count 3.69 M/uL (3.86-4.86)
[2022-12-27 04:03] LABS: Potassium 3.4 mmol/L (3.5-5.1)
[2022-12-27] MEDS ORDERED: HYDROMORPHONE HCL 0.5 MG/0.5 ML INJ IV PRN (04:20)
[2022-12-27] MEDS: KCL 20 MEQ/100 mL IVPB 20 MEQ/100 ML BAG IV SCH ×2 (04:50→06:56)
[2022-12-27] MEDS: Ringers Lactate 1,000 ML IV SCH ×2 (04:51→12:29)
[2022-12-27] MEDS: INSULIN -REGULAR HUMAN 50 UNIT/0.5 ML ML SQ SCH ×4 (07:30→21:58)
[2022-12-27] MEDS: ONDANSETRON 4 MG/2 ML VIAL IV PRN ×3 (07:59→21:16)
[2022-12-27] MEDS: PANTOPRAZOLE 40 MG INJ IVP SCH ×2 (07:59→21:16)
[2022-12-27] MEDS: AZITHROMYCIN IV 500 MG in NA CHLORIDE 0.9% 250 ML IVPB SCH (07:59)
[2022-12-27] MEDS: CEFTRIAXONE 1,000 MG in NA CHLORIDE 0.9% 50 ML IVPB SCH (07:59)
[2022-12-27] MEDS: INSULIN GLARGINE 100 UNIT/ML SQ SCH ×2 (08:00→21:57)
[2022-12-27] MEDS: ASPIRIN 81 MG CHEWABLE TABLET PO SCH (08:00)
[2022-12-27] MEDS ORDERED: NA CHLORIDE 0.9% 1,000 ML ONE (08:26)
[2022-12-27] MEDS ORDERED: propofoL 200 MG/20 ML VIAL IV ONE (09:32)
[2022-12-27] MEDS ORDERED: MIDAZOLAM HCL 2 MG/2 ML INJ ONE (09:32)
[2022-12-27] MEDS ORDERED: LIDOCAINE 1% MPF 5 ML VIAL ONE (09:32)
[2022-12-27] MEDS ORDERED: ALBUTEROL 2.5 MG/3 ML NEB SOL NEB PRN ×2 (09:45→12:00)
[2022-12-27] MEDS ORDERED: IPRATROPIUM BROM 0.5MG/2.5ML NEB PRN ×2 (09:45→12:00)
[2022-12-27] MEDS ORDERED: ONDANSETRON 4 MG/2 ML VIAL ONE (09:52)
[2022-12-27 12:02] LABS: Barbiturates NEGATIVE (NEGATIVE); Benzodiazepines POSITIVE (NEGATIVE); Cocaine NEGATIVE (NEGATIVE); METHAMPHETAM NEGATIVE (NEGATIVE); Methadone NEGATIVE (NEGATIVE); Opiates POSITIVE (NEGATIVE); Phencyclidine NEGATIVE (NEGATIVE); THC Cannibis NEGATIVE (NEGATIVE)
[2022-12-27 12:24] LABS: Specific Gravity 1.019 (1.005-1.030); Urine Bacteria <20 /HPF (<20); Urine Bilirubin NEGATIVE (Negative); Urine Blood 3+ (OVER) (Negative); Urine Clarity Turbid (Clear); Urine Color Colorless (Yellow); Urine Glucose TRACE (Negative); Urine Mucus Slight /HPF (None Seen); Urine Protein TRACE (Negative); Urine RBC >50 /HPF (None Seen); Urine Urobilinogen Normal (Normal)
--- NOTE | 2022-12-27 13:37 | P.PN ---
Subjective Date of Service: 12/27/22 Chief Complaint: N\\V\\Abd pain No acute events overnight. She reports persistent abdominal pain, nausea, and vomiting. She states that her symptoms are moderately controlled with her current anti-emetic regimen. Review of Systems 10-point ROS is otherwise unremarkable Gastrointestinal: Nausea, Vomiting, Abdominal Pain Physical Examination - Vital Signs Temperature: 98.4 F Blood Pressure: 119/58 Pulse: 103 Respirations: 16 Pulse Ox (%): 98 - Physical Exam General: Alert, In no apparent distress, Oriented x3 HEENT: Atraumatic, EOMI, Sclerae nonicteric Neck: JVD not distended Respiratory: Clear to auscultation bilaterally, Normal air movement Cardiovascular: No edema, Regular rate/rhythm, Normal S1 S2, No gallops, No rubs , No murmurs Gastrointestinal: Normal bowel sounds, Soft and benign, Non-distended, No tenderness, No rebound, No guarding Musculoskeletal: No clubbing Integumentary: No rashes Neurological: Normal speech, Normal affect - Studies Laboratory Data (last 24 hrs) 12/26/22 08:42: Phosphorus 3.2, Magnesium 1.7 12/26/22 08:42: Triglycerides 51, Cholesterol 127, HDL Cholesterol 48, Cholesterol/HDL Ratio 2.65 Assessment And Plan - Plan # Sepsis likely secondary to Community-Acquired Right Middle Lobe Pneumonia +/- Urinary Tract Infection She met sepsis criteria based on HR > 90 bpm and WBC > 12,000, and the suspected source is pulmonary +/- urinary. - Sepsis order set was initiated - Initial Lactate was 1.4 - Blood cultures drawn before antibiotics were given - Broad spectrum antibiotics started: Ceftriaxone + Azithromycin - In regards to fluids: - 30 mL/kg of IV fluids was not administered given SBP > 90, MAP > 65, lactic acid < 4 - Chest x-ray = "small opacity is seen in the right lung base probably representing early infiltrate/pneumonia. The lungs are otherwise clear. The heart is normal in size. No displaced fractures." # Acute Blood Loss Anemia suspect due to Acute Upper Gastrointestinal Bleed # Intractable Abdominal Pain, Nausea, and Vomiting # Distal Esophageal Thickening likely secondary to Vomiting Differential diagnoses include, but are not limited to, esophageal varices, Karla-Regalado tear, arteriovenous malformations, Tello lesions, Dieulafoy's lesions, peptic ulcer disease, gastritis/esophagitis, and malignancy. - CT abdomen/pelvis = "no acute intra-abdominal or pelvic finding. 4 cm left ovarian cysts, probably functional." - Consulted Gastroenterology and spoke with Dr. Hall - recommendations appreciated - Plan for esophagogastroduodenoscopy this morning - Type & Screen - Serial H&H - Hgb: 8.5 -> 7.0 - Transfuse for Hgb < 7.0 - 2 large bore IVs - Continue pantoprazole - NPO - advance diet as tolerated (post-EGD) - Continue Lactated Ringers' @ 100 mL/hr - PRN anti-emetics # Hyperglycemia in Type I Diabetes Mellitus - Hgb A1c = 8.8 % - difficult to interpret given anemia - Correction scale insulin # Schizophrenia # Bipolar Disorder - Resume home medications once verified Carl Willis M.D.
[2022-12-27] MEDS: HYDROCODONE/APAP 5/325 MG TAB PO PRN ×2 (14:39→21:15)
[2022-12-27 15:15] LABS: Hematocrit 25.7 % (36.0-45.0)
--- NOTE | 2022-12-27 17:12 | EKG ---
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
[2022-12-27] MEDS ORDERED: POTASSIUM CL SA 10 MEQ TAB PO ONE (21:00)
[2022-12-28] MEDS: PROMETHAZINE INJ 25 MG/ML AMP IV PRN ×3 (01:17→20:02)
[2022-12-28] MEDS: Ringers Lactate 1,000 ML IV SCH ×4 (01:17→21:45)
[2022-12-28] MEDS: HYDROCODONE/APAP 5/325 MG TAB PO PRN ×3 (01:18→20:03)
[2022-12-28 04:09] LABS: Absolute Lymphocytes (CBC) 1.3 K/uL (0.7-4.9); Hematocrit 23.9 % (36.0-45.0); Lymphocytes % 15.8 % (15.3-44.8); MPV 6.4 fL (7.6-11.3); RBC Red Blood Cell Count 3.89 M/uL (3.86-4.86)
[2022-12-28 04:12] LABS: MCV 61.3 fL (80-100)
[2022-12-28 04:22] LABS: Potassium 3.9 mmol/L (3.5-5.1)
[2022-12-28] MEDS: ONDANSETRON 4 MG/2 ML VIAL IV PRN ×2 (06:10→16:33)
[2022-12-28] MEDS: INSULIN -REGULAR HUMAN 50 UNIT/0.5 ML ML SQ SCH ×4 (07:30→21:43)
[2022-12-28] MEDS ORDERED: POTASSIUM CL SA 10 MEQ TAB PO ONE (09:00)
[2022-12-28 09:36] VITALS: O2SAT 100
[2022-12-28] MEDS: FERROUS SULFATE 325 MG TAB PO SCH (10:04)
[2022-12-28] MEDS: ASPIRIN 81 MG CHEWABLE TABLET PO SCH (10:04)
[2022-12-28] MEDS: INSULIN GLARGINE 100 UNIT/ML SQ SCH ×2 (10:05→21:44)
[2022-12-28] MEDS: AZITHROMYCIN IV 500 MG in NA CHLORIDE 0.9% 250 ML IVPB SCH (10:05)
[2022-12-28] MEDS: PANTOPRAZOLE 40 MG INJ IVP SCH ×2 (10:05→20:02)
[2022-12-28] MEDS: CEFTRIAXONE 1,000 MG in NA CHLORIDE 0.9% 50 ML IVPB SCH (10:05)
--- NOTE | 2022-12-28 10:58 | P.PN ---
Subjective Date of Service: 12/28/22 Chief Complaint: N\\V\\Abd pain No acute events overnight. She reports mild improvement in her nausea/vomiting, but continues to have difficulty keeping food down. EGD was concerning for esophageal ulcer. She reports using OTC ibuprofen at home. She believes that alternating the ondansetron and promethazine is helping. Review of Systems 10-point ROS is otherwise unremarkable Gastrointestinal: Nausea, Vomiting, Abdominal Pain Physical Examination - Vital Signs Temperature: 97.6 F Blood Pressure: 166/93 Pulse: 102 Respirations: 18 Pulse Ox (%): 100 Assessment And Plan - Plan - Physical Exam General: Alert, In no apparent distress, Oriented x3 HEENT: Atraumatic, Sclerae nonicteric Neck: JVD not distended Respiratory: Faint rhonchi on right lower lung field; otherwise, clear to auscultation bilaterally without wheezes or rales Cardiovascular: No edema, Regular rate/rhythm, No gallops, No rubs, No murmurs Gastrointestinal: Normal bowel sounds, Soft, Non-distended, Minimal generalized tenderness, No rebound, No guarding Musculoskeletal: No clubbing Integumentary: No rashes Neurological: Normal speech, Normal affect # Sepsis likely secondary to Community-Acquired Right Middle Lobe Pneumonia +/- Urinary Tract Infection She met sepsis criteria based on HR > 90 bpm and WBC > 12,000, and the suspected source is pulmonary +/- urinary. - Sepsis order set was initiated - Initial Lactate was 1.4 - Blood cultures drawn before antibiotics were given - Broad spectrum antibiotics started: Ceftriaxone + Azithromycin - In regards to fluids: - 30 mL/kg of IV fluids was not administered given SBP > 90, MAP > 65, lactic acid < 4 - Chest x-ray = "small opacity is seen in the right lung base probably representing early infiltrate/pneumonia. The lungs are otherwise clear. The heart is normal in size. No displaced fractures." - Repeat chest x-ray this morning - Urinalysis revealed microscopic hematuria - per RN, this was collected when she was on her menstrual cycle - Advised to have repeat UA in clinic once menstrual cycle is completed # Acute Blood Loss Anemia suspect due to Acute Upper Gastrointestinal Bleed # Intractable Abdominal Pain, Nausea, and Vomiting # Distal Esophageal Thickening likely secondary to Vomiting Differential diagnoses include, but are not limited to, esophageal varices, Karla-Regalado tear, arteriovenous malformations, Tello lesions, Dieulafoy's lesions, peptic ulcer disease, gastritis/esophagitis, and malignancy. - CT abdomen/pelvis = "no acute intra-abdominal or pelvic finding. 4 cm left ovarian cysts, probably functional." - Consulted Gastroenterology and spoke with Dr. Hall - recommendations appreciated - Esophagogastroduodenoscopy = hiatal hernia, gastritis, esophageal ulcer - Type & Screen - Serial H&H - Hgb: 8.5 -> 7.0 - Transfuse for Hgb < 7.0 - 2 large bore IVs - Continue pantoprazole - Started sucralfate - Advance diet as tolerated - Continue Lactated Ringers' @ 100 mL/hr - PRN anti-emetics # Hyperglycemia in Type I Diabetes Mellitus - Hgb A1c = 8.8 % - difficult to interpret given anemia - Correction scale insulin # Schizophrenia # Bipolar Disorder - Resume home medications once verified Carl Willis M.D.
[2022-12-28 12:12] LABS: Hematocrit 23.4 % (36.0-45.0)
--- NOTE | 2022-12-28 15:01 | RAD REPORT ---
EXAM DESCRIPTION: RAD - Chest Pa And Lat (2 Views) - 12/28/2022 6:26 am CLINICAL HISTORY: Follow-up PNA COMPARISON: None. FINDINGS: Frontal and lateral radiographic views of the chest. Cardiomediastinal silhouette: Normal size and contour. Lungs: Persistent mild right basilar opacities. No pneumothorax. Bones: No acute osseous abnormality. Upper abdomen: No abnormality identified. IMPRESSION: 1. Persistent mild right basilar opacities may related to mild pneumonic process or atel ectasis. Electronically signed by: David Paredes 12/28/2022 6:36 AM COMMUNITY HEALTH PROGRAM COORDINATOR Due to temporary technical issues with the PACS/Fluency reporting system, reports are being signed by the in house radiologists without review as a courtesy to insure prompt reporting. The interpreting radiologist is fully responsible for the content of the report.
[2022-12-28] MEDS: SUCRALFATE 1 GM TABLET PO SCH ×2 (16:33→20:03)
[2022-12-29] MEDS: ONDANSETRON 4 MG/2 ML VIAL IV PRN ×2 (01:18→08:24)
[2022-12-29 03:40] LABS: Absolute Lymphocytes (CBC) 2.8 K/uL (0.7-4.9); Hematocrit 23.8 % (36.0-45.0); Lymphocytes % 36.5 % (15.3-44.8); MCV 61.4 fL (80-100); MPV 6.5 fL (7.6-11.3); RBC Red Blood Cell Count 3.87 M/uL (3.86-4.86)
[2022-12-29 03:52] LABS: Potassium 3.6 mmol/L (3.5-5.1)
[2022-12-29 04:18] LABS: Blood Morphology Comment NOTED (NOT SEEN); Hypochromasia 2+; Platelet Estimate INCR; Platelets, Giant NOTED; White Blood Cell Scan OK (OK)
[2022-12-29] MEDS ORDERED: POTASSIUM 25 MEQ EFFERV TAB PO ONE (04:38)
[2022-12-29] MEDS: Ringers Lactate 1,000 ML IV SCH (05:00)
[2022-12-29] MEDS: HYDROCODONE/APAP 5/325 MG TAB PO PRN (05:26)
[2022-12-29] MEDS: PROMETHAZINE INJ 25 MG/ML AMP IV PRN (05:27)
[2022-12-29] MEDS: INSULIN -REGULAR HUMAN 50 UNIT/0.5 ML ML SQ SCH (07:30)
[2022-12-29] MEDS: ASPIRIN 81 MG CHEWABLE TABLET PO SCH (08:23)
[2022-12-29] MEDS: CEFTRIAXONE 1,000 MG in NA CHLORIDE 0.9% 50 ML IVPB SCH (08:23)
[2022-12-29] MEDS: SUCRALFATE 1 GM TABLET PO SCH (08:23)
[2022-12-29] MEDS: FERROUS SULFATE 325 MG TAB PO SCH (08:23)
[2022-12-29] MEDS: INSULIN GLARGINE 100 UNIT/ML SQ SCH (08:24)
[2022-12-29] MEDS: PANTOPRAZOLE 40 MG INJ IVP SCH (08:24)
[2022-12-29 08:27] VITALS: BP 135/90; TEMP 97.8
--- NOTE | 2022-12-29 08:42 | P.DS ---
Admission Date: 12/26/22 Discharge Date: 12/29/22 Disposition: ROUTINE DISCHARGE Discharge Condition: GOOD Reason for Admission: N\\V\\Abd pain Consultations: 1. Gastroenterology 2. Infectious Diseases Procedures: - 12/27/2022 - Esophagogastroduodenoscopy Hospital Course: DIAGNOSES: # Sepsis likely secondary to Community-Acquired Right Middle Lobe Pneumonia +/- Fungal Urinary Tract Infection # Acute Blood Loss Anemia suspect due to Acute Upper Gastrointestinal Bleed # Intractable Abdominal Pain, Nausea, and Vomiting # Distal Esophageal Thickening likely secondary to Vomiting # Hyperglycemia in Type I Diabetes Mellitus # Schizophrenia # Bipolar Disorder HOSPITAL COURSE: Ms. Javier Pimentel is a 37 year old female with a past medical history significant for type 1 diabetes mellitus, schizophrenia, and bipolar disorder who was admitted to the [facility] on 12/26/2022 for shortness of breath, cough, abdominal pain, nausea, vomiting, and hematemesis. She was admitted to the Medicine service. Upon further evaluation, her chest x- ray revealed, "small opacity is seen in the right lung base probably rep resenting early infiltrate/pneumonia. The lungs are otherwise clear. The heart is normal in size. No displaced fractures." Her CT abdomen/pelvis revealed, "no acute intra-abdominal or pelvic finding. 4 cm left ovarian cysts, probably functional." She was found to meet sepsis criteria and started on IV antibiotics, with gradual improvement in her symptoms. She was transitioned to PO antibiotics and advised to schedule an outpatient chest x-ray in about 2-3 weeks to ensure resolution of her pneumonia. In regards to her gastrointestinal symptoms, Gastroenterology was consulted and she was evaluated by Dr. Hall. On 12/27/2022, she underwent an esophagogastroduodenoscopy. This test was significant for a hiatal hernia, gastritis, and an esophageal ulcer. She was started on pantoprazole and sucralfate. She was placed on a clear liquid diet, and this was gradually advanced over her hospitalization. Her H&H values remained stable, and she had no recurrent episodes of bleeding. This morning, she stated that she felt significantly better and would like to be discharged home. On 12/29/2022, she was seen on morning rounds and deemed medically stable for discharge. She was discharged with instructions to schedule follow-up appointments with her PCP (DOUGLAS Gtz) and with Gastroenterology (Dr. Hall). She was provided prescriptions for cefdinir, doxycycline, fluconazole, pantoprazole, sucralfate, and ferrous sulfate. She was given the opportunity to ask questions and reported no further questions. Furthermore, all questions were answered to the best of my ability. A copy of this discharge summary will be sent to the above providers to facilitate continuity of care. Today, I personally spent 25 minutes on her case, of which greater than 50% of the time was spent in patient education, counseling, and coordination of care as described above. - Physical Exam General: Alert, In no apparent distress, Oriented x3 HEENT: Atraumatic, Sclerae nonicteric Neck: JVD not distended Respiratory: Diminished, but otherwise clear to auscultation bilaterally Cardiovascular: No edema, Regular rate/rhythm, No murmurs Gastrointestinal: Normal bowel sounds, Soft, Non-distended, No tenderness Musculoskeletal: No clubbing Integumentary: No rashes Neurological: Normal speech, Normal affect Vital Signs/Physical Exam: Temp Pulse Resp BP Pulse Ox 97.8 F 99 H 16 135/90 100 12/29/22 08:00 12/29/22 08:53 12/29/22 08:00 12/29/22 08:00 12/29/22 08:00 Laboratory Data at Discharge: WBC 7.60 K/uL (4.3-10.9) 12/29/22 02:46 Hgb 7.5 g/dL (12.0-15.0) L 12/29/22 02:46 Hct 23.8 % (36.0-45.0) L 12/29/22 02:46 Plt Count 680 K/uL (152-406) H 12/29/22 02:46 Sodium 140 mmol/L (136-145) 12/29/22 02:46 Potassium 3.6 mmol/L (3.5-5.1) 12/29/22 02:46 BUN 5 mg/dL (7-18) L 12/29/22 02:46 Creatinine 0.57 mg/dL (0.55-1.02) 12/29/22 02:46 Glucose 103 mg/dL (74-106) 12/29/22 02:46 Phosphorus 3.2 mg/dL (2.5-4.9) 12/26/22 08:42 Magnesium 1.6 mg/dL (1.6-2.4) 12/29/22 02:46 Total Bilirubin 0.5 mg/dL (0.2-1.0) 12/26/22 08:42 AST 9 U/L (15-37) L 12/26/22 08:42 ALT 16 U/L (13-56) 12/26/22 08:42 Alkaline Phosphatase 83 U/L (45-117) 12/26/22 08:42 Triglycerides 51 mg/dL (<150) 12/26/22 08:42 Cholesterol 127 mg/dL (<200) 12/26/22 08:42 HDL Cholesterol 48 mg/dL (40-60) 12/26/22 08:42 Cholesterol/HDL Ratio 2.65 12/26/22 08:42 Lipase 31 U/L (73-393) L 12/26/22 08:42 Home Medications: RX: Insulin Glargine Human [Lantus*] 20 units SQ BID #1 vial 07/14/21 RX: Fluoxetine HCl 20 mg PO DAILY 12/27/22 RX: Gabapentin 600 mg PO BID 12/27/22 RX: Propranolol [Inderal*] 10 mg PO TID 12/27/22 RX: Quetiapine Fumarate [Seroquel] 300 mg PO BEDTIME 12/27/22 RX: hydrOXYzine HCL [Atarax] 50 mg PO Q6H 12/27/22 Cefdinir [Cefdinir*] 300 mg PO BID 7 Days #14 cap 12/29/22 Pantoprazole [Protonix Tab] 40 mg PO BID #60 tab 12/29/22 RX: Doxycycline Hyclate 100 mg PO BID 7 Days #14 tab 12/29/22 RX: Ferrous Sulfate [Ferrous Sulfate*] 325 mg PO DAILY #30 tab 12/29/22 RX: Fluconazole [Diflucan] 100 mg PO DAILY 7 Days #7 tab 12/29/22 RX: Sucralfate 10 ml PO ACHS #1200 ml 12/29/22 New Medications: Cefdinir [Cefdinir*] 300 mg PO BID 7 Days #14 cap RX: Fluconazole [Diflucan] 100 mg PO DAILY 7 Days #7 tab RX: Doxycycline Hyclate 100 mg PO BID 7 Days #14 tab RX: Ferrous Sulfate [Ferrous Sulfate*] 325 mg PO DAILY #30 tab Pantoprazole [Protonix Tab] 40 mg PO BID #60 tab RX: Sucralfate 10 ml PO ACHS #1200 ml Physician Discharge Instructions: 1. Please call and schedule a follow-up appointment with your PCP (DOUGLAS Gtz) in 3-5 days - Please schedule a chest x-ray in 2-3 weeks to make sure your pneumonia has healed - There was blood in your urine when it was tested here, please follow this up with your PCP - You also had a small cyst on your left ovary - please discuss this with your PCP or [facility] 2. Please call and schedule a follow-up appointment with Gastroenterology (Dr. Hall) in 5-7 days Diet: Regular Activity: Ad parish Followup: Alphonso Gtz FNP [OUTSIDE PHYSICIAN] - (Call to schedule appointment.) Dmitriy Hall MD [OUTSIDE PHYSICIAN] - (Call to schedule appointment.) Time spent managing pt's care (in minutes): 25
--- NOTE | 2022-12-29 08:42 | P.CNS ---
Date of Consult: 12/29/22 Chief Complaint: N\V\Abd pain History of Present Illness: Patient is a 37-year-old female with a past medical history significant for anxiety disorder, schizophrenia, bipolar disorder, DM 1 who presents with complaint of nausea and vomiting onset yesterday. Patient reported that she had flulike symptoms--congestion, runny nose, chest tightness and cough 9 days ago. Patient also reported that she started having upper quadrants pain yesterday.Patient also reported dark stools.Patient reported that today she started noticing large amount of hematemesis. Patient rated pain as 10/10 in severity and described pain as sharp in quality.Patient also reported that she had 3 episodes of diarrhea this morning but has not had any episodes in the ER. Patient reported associated signs and symptoms of subjective fever, loss of appetite, SOB, headache, dizziness and generalized malaise. Patient denies any other signs or symptoms.Symptoms are aggravated or relieved by nothing.Patient decided to present to the hospital due to worsening symptoms. Upon assessment, patient reported having mild burning sensation. Denied having itching, pain, or frequent urination Urine culture on 12/27 indicates 4+ yeast not tony albicans. ID has been consulted for recommendations and management Allergies Penicillins Allergy (Intermediate, Verified 07/14/21 22:07) Itching/Hives/Rash Home Medications: Insulin Glargine Human [Lantus*] 20 units SQ BID #1 vial 07/14/21 Fluoxetine HCl 20 mg PO DAILY 12/27/22 Gabapentin 600 mg PO BID 12/27/22 Propranolol [Inderal*] 10 mg PO TID 12/27/22 Quetiapine Fumarate [Seroquel] 300 mg PO BEDTIME 12/27/22 hydrOXYzine HCL [Atarax] 50 mg PO Q6H 12/27/22 Cefdinir [Cefdinir*] 300 mg PO BID 7 Days #14 cap 12/29/22 Doxycycline Hyclate 100 mg PO BID 7 Days #14 tab 12/29/22 Ferrous Sulfate [Ferrous Sulfate*] 325 mg PO DAILY #30 tab 12/29/22 Pantoprazole [Protonix Tab] 40 mg PO BID #60 tab 12/29/22 Sucralfate 10 ml PO ACHS #1200 ml 12/29/22 - Past Medical/Surgical History Diabetic: Yes -: Diabetes type 1 -: Bipolar disorder -: Schizophrenia -: None Psychosocial/ Personal History: Disabled, lives alone. - Family History Father Medical History: Diabetes Mother Medical History: Diabetes - Social History Smoking Status: Unknown if ever smoked Alcohol use: No CD- Drugs: Yes Caffeine use: No Place of Residence: Home Review of Systems 10-point ROS is otherwise unremarkable Respiratory: As per HPI Gastrointestinal: Nausea Genitourinary: Dysuria Physical Examination Temp Pulse Resp BP Pulse Ox 97.8 F 109 H 16 135/90 100 12/29/22 08:00 12/29/22 08:00 12/29/22 08:00 12/29/22 08:00 12/29/22 08:00 General: Alert, In no apparent distress, Oriented x3 Neck: Supple Respiratory: Clear to auscultation bilaterally Cardiovascular: No edema, Normal S1 S2 Capillary refill: <2 Seconds Gastrointestinal: Normal bowel sounds, Other (mild nauseated at tolerable level) Musculoskeletal: No swelling, No tenderness Integumentary: No rashes, No breakdown Neurological: Normal speech, Normal tone, Sensation intact, Normal affect active medications Acetaminophen (Acetaminophen 325 Mg Tablet) 650 mg PO Q6H PRN PRN Reason: TEMP > 100.4' F Last Admin: 12/27/22 12:27 Dose: 650 mg Hydrocodone Bitart/Acetaminophen (Hydrocodone/Apap 5/325 Mg Tab) 1 tab PO Q4HP PRN PRN Reason: Pain scale 5-7 (Moderate) Last Admin: 12/29/22 05:26 Dose: 1 tab Albuterol Sulfate (Albuterol 2.5 Mg/3 Ml Neb Katia) 2.5 mg NEB [id number] PRN PRN Reason: SHORTNESS OF BREATH Aspirin (Aspirin 81 Mg Chewable Tablet) 81 mg PO DAILY [facility] Last Admin: 12/29/22 08:23 Dose: 81 mg Ferrous Sulfate (Ferrous Sulfate 325 Mg Tab) 325 mg PO DAILY [place] Last Admin: 12/29/22 08:23 Dose: 325 mg Hydromorphone HCl (Hydromorphone Hcl 0.5 Mg/0.5 Ml Inj) 0.5 mg IV Q4H PRN PRN Reason: Pain scale 5-7 (Moderate) Last Admin: 12/27/22 04:49 Dose: 0.5 mg Azithromycin 500 mg/ Sodium (Chloride) 250 mls @ 250 mls/hr IVPB DAILY [facility]; Protocol Last Admin: 12/28/22 10:05 Dose: 250 mls Ceftriaxone Sodium 1,000 mg/ (Sodium Chloride) 50 mls @ 100 mls/hr IVPB DAILY [facility]; Protocol Last Admin: 12/29/22 08:23 Dose: 50 mls Lactated Ringer's (Lactated Ringers) 1,000 mls @ 125 mls/hr IV .Q8H [facility] Last Admin: 12/29/22 05:00 Dose: Not Given Insulin Glargine (Insulin Glargine 100 Unit/Ml) 20 unit SQ BID [facility] Last Admin: 12/29/22 08:24 Dose: 20 unit Insulin Human Regular (Insulin -Regular Human 50 Unit/0.5 Ml Ml) 0 [facility] SQ [facility]; Protocol Last Admin: 12/29/22 07:30 Dose: Not Given Ipratropium [place] (Ipratropium Brom 0.5mg/2.5ml) 0.5 mg NEB [id number] PRN PRN Reason: SHORTNESS OF BREATH Labetalol HCl (Labetalol 20 Mg/4ml Syringe) 10 mg IV Q6H PRN PRN Reason: SBP>160 Ondansetron HCl (Ondansetron 4 Mg/2 Ml Vial) 4 mg IV Q6HP PRN PRN Reason: NAUSEA / VOMITING Last Admin: 12/29/22 08:24 Dose: 4 mg Pantoprazole Sodium (Pantoprazole 40 Mg Inj) 40 mg IVP Q12HR [facility]; Protocol Last Admin: 12/29/22 08:24 Dose: 40 mg Promethazine HCl (Promethazine Inj 25 Mg/Ml Amp) 6.25 mg IV Q6H PRN PRN Reason: NAUSEA / VOMITING Last Admin: 12/29/22 05:27 Dose: 6.25 mg Sodium Chloride (Sodium Chloride 0.9% 10ml Inj) 10 ml IV UD PRN PRN Reason: Diluant Sodium Chloride (Flush Normal Saline 10 Ml) 10 ml IV BID [facility] Last Admin: 12/29/22 08:24 Dose: 10 ml Sucralfate (Sucralfate 1 Gm Tablet) 1 gm PO ACHS [facility] Last Admin: 12/29/22 08:23 Dose: 1 gm Imagings Data: CTAbdomen Pelvis W Contrast - 12/26/2022 FINDINGS: Mild opacity is seen in the right posterior gutter as well as the inferior right middle lobe. There is a small 5 mm nonspecific nodule seen in the right middle.Distal esophagus appears mildly thickened. The liver, spleen, pancreas, adrenal glands and kidneys are within normal limits. No bowel obstruction, free air, free fluid or abscess. The appendix is normal. No evidence of significant lymphadenopathy. 4 cm left ovarian cyst. Trace pelvic free fluid. Moderate lumbosacral degenerative changes. IMPRESSION: No acute intra-abdominal or pelvic finding. 4 cm left ovarian cysts, probably functional. RAD - Chest Single View - 12/26/2022 FINDINGS: Portable technique limits examination quality. Small opacity is seen in the right lung base probably representing early infiltrate/pneumonia. The lungs are otherwise clear. The heart is normal in size. No displaced fractures. RAD - Chest Pa And Lat (2 Views) - 12/28/2022 FINDINGS: Frontal and lateral radiographic views of the chest. Cardiomediastinal silhouette: Normal size and contour. Lungs: Persistent mild right basilar opacities. No pneumothorax. Bones: No acute osseous abnormality. Upper abdomen: No abnormality identified. IMPRESSION: 1. Persistent mild right basilar opacities may related to mild pneumonic process or atelectasis. - Problems (1) Abnormal urine culture Current Visit: Yes Status: Acute Plan: Cultures: - 12/27 UA: Positive RBC, WBC, Yeast - 12/27 UC: 4+ Yeast not Tony albicans Antibiotics: None Recommendations: Patient is symptomatic with mild burning sensation. ID recommend to have Fluconazole 100 mg, PO, for total of 7 days Conclusions/Impression: - Urinary yeast infection: PO Fluconazole 100 mg for total of 7 days - Community acquired pneumonia - Gastrointestinal bleeding - Sepsis POA - Leukocytosis: Resolved - Microcytic anemia - Depression\bipolar disorder\schizophrenia - Abdominal pain - Diarrhea - DM 1 - Class I obesity - Hypertension - Nausea and vomiting - Bipolar disorder - Schizophrenia ID will monitor the patient closely for signs of infection with fever and WBC trends Case has been discussed with Derek Rolon Thank you Dr. Willis for consultation
== END 2022-12-29 10:10 | disposition home or self-care (01) | DRG 871 ==
LOC: ER 08:35 → ERHOLD 15:21 → 2ND 20:48
PROVIDERS: ADMIT Internal Medicine; ATTEND Internal Medicine
PROC: 0DB98ZX Excision of Duodenum, Via Natural or Artificial Opening Endoscopic, Diagnostic (ICD-10-PCS; 2022-12-27)
PROC: 0DB78ZX Excision of Stomach, Pylorus, Via Natural or Artificial Opening Endoscopic, Diagnostic (ICD-10-PCS; 2022-12-27)
PROC: 0DB68ZX Excision of Stomach, Via Natural or Artificial Opening Endoscopic, Diagnostic (ICD-10-PCS; 2022-12-27)
PROC: 0DB38ZX Excision of Lower Esophagus, Via Natural or Artificial Opening Endoscopic, Diagnostic (ICD-10-PCS; principal; 2022-12-27 09:00)
DX: A41.9 Sepsis, unspecified organism (principal); J18.9 Pneumonia, unspecified organism; K29.71 Gastritis, unspecified, with bleeding; K22.11 Ulcer of esophagus with bleeding; D62 Acute posthemorrhagic anemia; I10 Essential (primary) hypertension; E86.0 Dehydration; F20.9 Schizophrenia, unspecified; K44.9 Diaphragmatic hernia without obstruction or gangrene; F31.9 Bipolar disorder, unspecified; E66.9 Obesity, unspecified; E10.65 Type 1 diabetes mellitus with hyperglycemia; N83.202 Unspecified ovarian cyst, left side; R82.90 Unspecified abnormal findings in urine; Z88.0 Allergy status to penicillin; Z60.2 Problems related to living alone; Z79.4 Long term (current) use of insulin; Z68.31 Body mass index [BMI] 31.0-31.9, adult; Z28.39 Other underimmunization status; Z79.899 Other long term (current) drug therapy; Z20.822 Contact with and (suspected) exposure to COVID-19
CPT/HCPCS: 0240U; 36415; 71045; 71046; 74177; 80048; 80053; 80061; 80307; 81001; 81003; 81025; 82010; 82947; 83036; 83605; 83690; 83735; 84100; 84132; 84439; 84443; 85014; 85018; 85025; 86850; 86900; 86901; 87040; 87086; 87088; 88305; 88312; 93005; 94010; 94640; 96372; 99285; C9113; J0456; J1170; J1815; J2001; J2250; J2405; J2550; J2704; J3480; J7030; J7050; J7120; J7613; J7644; Q9967

== ENCOUNTER 2023-05-15 14:47 | Inpatient (IN) | payer OTHER ==
[2023-05-15] MEDS ORDERED: ONDANSETRON 4 MG/2 ML VIAL ONE ×2 (15:09→17:57)
[2023-05-15] MEDS ORDERED: FAMOTIDINE 20 MG/2 ML VIAL IV ONE (15:09)
[2023-05-15 15:14] LABS: Absolute Lymphocytes (CBC) 0.6 K/uL (0.7-4.9); Hematocrit 36.8 % (36.0-45.0); Lymphocytes % 4.6 % (15.3-44.8); MCV 75.8 fL (80-100); MPV 6.9 fL (7.6-11.3); RBC Red Blood Cell Count 4.86 M/uL (3.86-4.86)
[2023-05-15] MEDS ORDERED: PROMETHAZINE INJ 25 MG/ML AMP ONE (15:19)
[2023-05-15] MEDS ORDERED: MORPHINE 4 MG/ML SYR ONE ×2 (15:20→18:51)
[2023-05-15 15:35] LABS: Albumin 3.6 g/dL (3.4-5.0); Bilirubin Total 0.5 mg/dL (0.2-1.0); Potassium 3.5 mEq/L (3.5-5.1); Protein, Total 7.1 g/dL (6.4-8.2)
[2023-05-15] MEDS ORDERED: MAGNES/ALUMIN/SIMET 30ML UCUP ONE (16:03)
[2023-05-15] MEDS ORDERED: INSULIN -REGULAR HUMAN 50 UNIT/0.5 ML ML ONE (16:04)
[2023-05-15 16:18] LABS: BETA HYDROXYBUTYRATE 3.42 mmol/L (0.02-0.27)
[2023-05-15 17:21] LABS: Blood Morphology Comment NOT SEEN (NOT SEEN); Platelet Estimate INCR; White Blood Cell Scan OK (OK)
[2023-05-15] MEDS ORDERED: NA CHLORIDE 0.9% 1,000 ML ONE (17:57)
--- NOTE | 2023-05-15 18:30 | ER ---
Nurse's Notes [facility] Name: Javier Pimentel Age: 37 yrs Sex: Female : 1985 Arrival Date: 05/15/2023 Time: 14:47 Bed 7 Private MD: Diagnosis: Abdominal pain, Generalized;Hyperglycemia, unspecified;Nausea with vomiting, unspecified-intactable Presentation: 05/15 14:54 Chief complaint: EMS states: Toned out for N/V since 0400 this morning, bgl 400. jl7 Coronavirus screen: At this time, the client does not indicate any symptoms associated with coronavirus-19. Ebola Screen: No symptoms or risks identified at this time. Initial Sepsis Screen: Does the patient meet any 2 criteria? No. Patient's initial sepsis screen is negative. Does the patient have a suspected source of infection? No. Patient's initial sepsis screen is negative. Risk Assessment: Do you want to hurt yourself or someone else? Patient reports no desire to harm self or others. Onset of symptoms was May 15, 2023 at 04:00. Care prior to arrival: Medication(s) given: LR IV initiated. 22 GA, in the left antecubital area, Glucose check: 400. 14:54 Method Of Arrival: EMS: [facility] 14:54 Acuity: NING 2 jl7 Triage Assessment: 14:56 General: Appears in no apparent distress. uncomfortable, Behavior is calm, cooperative, jl7 appropriate for age. Pain: Complains of pain in "My esophagus." Pain currently is 10 out of 10 on a pain scale. Neuro: Level of Consciousness is awake, alert, obeys commands, Oriented to person, place, time, situation. Cardiovascular: Patient's skin is warm and dry. Respiratory: Airway is patent Respiratory effort is even, unlabored, Respiratory pattern is regular, symmetrical. GI: Reports nausea, vomiting. Derm: Skin is dry, Skin is pale, Skin temperature is warm. 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 - Social history:: Smoking status: Reported history of juuling and/or vaping. Screenin:12 [facility] ED Fall Risk Assessment (Adult) Score/Fall Risk Level 0 - 2 = Low Risk. Abuse as6 screen: Denies threats or abuse. Denies injuries from another. Nutritional screening: No deficits noted. Tuberculosis screening: No symptoms or risk factors identified. Assessment: 15:00 General: See triage assessment. jl7 16:00 Reassessment: Patient appears in no apparent distress at this time. No changes from jl7 previously documented assessment. Patient and/or family updated on plan of care and expected duration. Pain level reassessed. Patient is alert, oriented x 3, equal unlabored respirations, skin warm/dry/pink. 16:57 Reassessment: Patient appears in no apparent distress at this time. No changes from jl7 previously documented assessment. Patient and/or family updated on plan of care and expected duration. Pain level reassessed. Patient is alert, oriented x 3, equal unlabored respirations, skin warm/dry/pink. 19:12 General: "I need something for nausea, pain, and heart burn" . as6 19:22 General: attempted to call report. no answer . as6 Vital Signs: 14:54 BP 156 / 113; Pulse 101; Resp 17; Temp 98.2; Pulse Ox 100% on R/A; Weight 72.57 kg; jl7 Height 5 ft. 0 in. ; Pain 10/10; 15:26 BP 155 / 112; Pulse 92; Resp 15; Pulse Ox 98% ; jl7 17:01 BP 144 / 106; Pulse 104; Resp 15; Pulse Ox 97% ; jl7 17:55 BP 116 / 89; Pulse 105; Resp 15; Pulse Ox 100% ; jl7 18:50 BP 141 / 95; Pulse 95; Resp 15; Pulse Ox 98% ; jl7 19:13 BP 167 / 106; Pulse 95; Resp 19 S; Pulse Ox 97% on R/A; as6 19:23 BP 132 / 90; as6 14:54 Body Mass Index 31.25 (72.57 kg, 152.4 cm) jl7 14:54 Pain Scale: Adult jl7 ED Course: 14:50 Patient arrived in ED. em1 14:50 [facility] Pad[facility]C [facility] kb 14:50 Justin Garg MD is Attending Physician. kb 14:54 Brandy Andrade RN is Primary Nurse. jl7 14:56 Triage completed. jl7 14:56 Arm band placed on right wrist. jl7 15:26 Initial lab(s) drawn, by me, sent to lab. Maintain EMS IV. Dressing intact. Good blood jl7 return noted. Site clean \\T\\ dry. Gauge \\T\\ site: 22 left AC. 18:29 Carl Willis MD is Hospitalizing Provider. kb 19:12 Placed in gown. Bed in low position. Call light in reach. Side rails up X2. as6 19:22 No provider procedures requiring assistance completed. Patient admitted, IV remains in as6 place. Administered Medications: 15:02 Drug: Famotidine IVP 20 mg Route: IVP; Site: left antecubital; jl7 15:09 Follow up: Response: No adverse reaction; No change in condition jl7 15:03 Drug: Ondansetron IVP 4 mg Route: IVP; Site: left antecubital; jl7 15:09 Follow up: Response: No adverse reaction; Nausea unchanged jl7 15:09 Drug: NS 0.9% IV 1000 ml {Note: LR continued from EMS per Elizabeth Padilla NP.} Route: jl7 IV; Rate: 1 bolus; Site: left antecubital; 19:38 Follow up: Response: No adverse reaction; IV Status: Completed infusion; IV Intake: as6 1000ml 15:20 Drug: Promethazine IM 25 mg Route: IM; Site: right deltoid; jl7 17:04 Follow up: Response: Nausea is decreased jl7 15:25 Drug: morphine IVP or IV 4 mg Route: IVP; Infused Over: 4 mins; Site: left antecubital; jl7 15:45 Follow up: Response: Pain is decreased jl7 16:01 Drug: Insulin Regular Human IVP 10 units {Co-Signature: mb9 (Miladis Burnett RN).} jl7 Route: IVP; Site: left antecubital; 17:04 Follow up: Response: Blood sugar is lowered jl7 16:01 Drug: Alum-Mag Hydroxide-Simeth PO Suspension (200 mg-200 mg-20 mg/5 mL) 30 ml Route: jl7 PO; 17:04 Follow up: Response: No adverse reaction; Pain is decreased jl7 17:52 Drug: NS 0.9% IV 1000 ml Route: IV; Rate: 1000 ml; Site: left antecubital; kc6 19:38 Follow up: Response: No adverse reaction; IV Status: Completed infusion; IV Intake: as6 1000ml 17:53 Drug: Ondansetron IVP 4 mg Route: IVP; Site: left antecubital; kc6 19:38 Follow up: Response: No adverse reaction as6 18:45 Drug: morphine IVP or IV 4 mg Route: IVP; Infused Over: 4 mins; Site: left antecubital; jl7 19:38 Follow up: Response: No adverse reaction as6 Medication: 16:57 VIS not applicable for this client. jl7 Intake: 19:38 IV: 1000ml; Total: 1000ml. as6 19:38 IV: 1000ml; Total: 2000ml. as6 Outcome: 18:29 Decision to Hospitalize by Provider. kb 19:22 Condition: stable as6 19:22 Instructed on the need for admit. 19:44 Admitted to Med/surg accompanied by tech, via wheelchair, room 214, with chart, Report as6 called to Chantal GLYNN 19:45 Patient left the ED. as6 Signatures: Elizabeth Padilla, SERVICE TECH-C SERVICE TECH-Santino Gaines em1 Brandy Andrade RN RN jl7 Luis Thompson RN RN as6 Margarita Maldonado RN RN [email or web address] Miladis Burnett RN mb9 Corrections: (The following items were deleted from the chart) 17:01 16:56 BP 143 / 108; Pulse 96bpm; Resp 15bpm; Pulse Ox 100%; jl7 jl7
--- NOTE | 2023-05-15 18:30 | EDPHYS ---
Physician Documentation [facility] Name: Javier Pimentel Age: 37 yrs Sex: Female : 1985 Arrival Date: 05/15/2023 Time: 14:47 Bed 7 Private MD: ED Physician Justin Garg HPI: 05/15 15:00 This 37 yrs old Female presents to ER via EMS with complaints of Nausea/Vomiting. kb 15:00 The patient presents to the emergency department with nausea, vomiting, abdominal pain. kb Onset: The symptoms/episode began/occurred this morning, at 03:00. Possible causes: unknown. The symptoms are aggravated by nothing. The symptoms are alleviated by nothing. Associated signs and symptoms: Pertinent positives: abdominal pain, nausea, vomiting, Pertinent negatives: fever. Severity of symptoms: At their worst the symptoms were moderate in the emergency department the symptoms are unchanged. The patient has not experienced similar symptoms in the past. The patient has not recently seen a physician. Pt reports nausea and vomiting that started at 0300. States she has been out of her long 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. . 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 - Social history:: Smoking status: Reported history of juuling and/or vaping. ROS: 14:59 Constitutional: Negative for fever, chills, and weight loss. kb 14:59 Abdomen/GI: Positive for abdominal pain, nausea and vomiting, Negative for diarrhea, constipation. 14:59 All other systems are negative. Exam: 14:59 Constitutional: This is a well developed, well nourished patient who is awake, alert, kb and in no acute distress. Head/Face: Normocephalic, atraumatic. ENT: Moist Mucous membranes Cardiovascular: Regular rate and rhythm with a normal S1 and S2. No gallops, murmurs, or rubs. No pulse deficits. Respiratory: Respirations even and unlabored. No increased work of breathing. Talking in full sentences Abdomen/GI: Soft, non-tender. No distention Skin: Warm, dry with normal turgor. Normal color. MS/ Extremity: Pulses equal, no cyanosis. Neurovascular intact. Full, normal range of motion. Neuro: Awake and alert, GCS 15, oriented to person, place, time, and situation. Moves all extremities. Normal gait. 16:22 ECG was reviewed by the Attending Physician. kb Vital Signs: 14:54 BP 156 / 113; Pulse 101; Resp 17; Temp 98.2; Pulse Ox 100% on R/A; Weight 72.57 kg; jl7 Height 5 ft. 0 in. ; Pain 10/10; 15:26 BP 155 / 112; Pulse 92; Resp 15; Pulse Ox 98% ; jl7 17:01 BP 144 / 106; Pulse 104; Resp 15; Pulse Ox 97% ; jl7 17:55 BP 116 / 89; Pulse 105; Resp 15; Pulse Ox 100% ; jl7 18:50 BP 141 / 95; Pulse 95; Resp 15; Pulse Ox 98% ; jl7 19:13 BP 167 / 106; Pulse 95; Resp 19 S; Pulse Ox 97% on R/A; as6 19:23 BP 132 / 90; as6 14:54 Body Mass Index 31.25 (72.57 kg, 152.4 cm) jl7 14:54 Pain Scale: Adult jl7 MDM: 14:50 Patient medically screened. kb 15:01 Differential diagnosis: Nonspecific abd pain, gastritis, GERD, hyperglycemia, DKA. Data kb reviewed: vital signs, nurses notes. Historians other than the Patient: EMS: [facility]. 16:56 ED course: Pain decreased with maalox. kb 18:23 Counseling: I had a detailed discussion with the patient and/or guardian regarding: the kb historical points, exam findings, and any diagnostic results supporting the discharge/admit diagnosis, lab results, the need for further work-up and treatment in the hospital. 18:23 Consideration of Admission/Observation Patient was admitted/placed on observation. kb 18:28 Management of patient was discussed with the following: Hospitalist: [facility] accepts pt for admission. 05/15 14:52 Order name: CBC with Diff; Complete Time: 17:26 kb 05/15 14:52 Order name: CMP; Complete Time: 16:19 kb 05/15 14:52 Order name: Lipase; Complete Time: 16:19 kb 05/15 14:52 Order name: Test, Urine kb 05/15 14:52 Order name: Urinalysis w/ reflexes kb 05/15 15:04 Order name: Glucose, Ancillary Testing; Complete Time: 15:06 EDMS 05/15 15:20 Order name: CBC Smear Scan; Complete Time: 17:26 EDMS 05/15 15:56 Order name: BETA HYDROXYBUTYRATE; Complete Time: 16:19 EDMS 05/15 16:22 Order name: Troponin High Sensitivity; Complete Time: 17:26 kb 05/15 16:55 Order name: Glucose, Ancillary Testing; Complete Time: 16:56 EDMS 05/15 18:47 Order name: Urinalysis w/ reflexes EDMS 05/15 18:47 Order name: Basic Metabolic Panel EDMS 05/15 18:47 Order name: Basic Metabolic Panel EDMS 05/15 18:47 Order name: Basic Metabolic Panel EDMS 05/15 18:47 Order name: Basic Metabolic Panel EDMS 05/15 18:47 Order name: CBC with Automated Diff EDMS 05/15 18:48 Order name: CBC with Automated Diff EDMS 05/15 18:48 Order name: CBC with Automated Diff EDMS 05/15 18:48 Order name: CBC with Automated Diff EDMS / 18:48 Order name: Magnesium EDMS 05/15 18:48 Order name: Magnesium EDMS 05/15 18:48 Order name: Magnesium EDMS 05/15 18:48 Order name: Magnesium EDMS 05/15 18:48 Order name: Phosphorus EDMS 05/15 18:48 Order name: Phosphorus EDMS 05/15 18:48 Order name: Phosphorus EDMS 05/15 18:48 Order name: Phosphorus EDMS 05/15 14:52 Order name: EKG; Complete Time: 14:53 kb 05/15 18:47 Order name: Clear Liquid EDMS 05/15 14:52 Order name: IV Saline Lock; Complete Time: 14:59 kb 05/15 14:52 Order name: Labs collected and sent; Complete Time: 14:59 kb 05/15 14:52 Order name: EKG - Nurse/Tech; Complete Time: 16:35 kb EC:22 Rate is 90 beats/min. Rhythm is regular. QRS [place] is Normal. HI interval is normal at kb 128 msec. QRS interval is normal at 80 msec. QT interval is prolonged at 511 msec. Administered Medications: 15:02 Drug: Famotidine IVP 20 mg Route: IVP; Site: left antecubital; jl7 15:09 Follow up: Response: No adverse reaction; No change in condition jl7 15:03 Drug: Ondansetron IVP 4 mg Route: IVP; Site: left antecubital; jl7 15:09 Follow up: Response: No adverse reaction; Nausea unchanged jl7 15:09 Drug: NS 0.9% IV 1000 ml {Note: LR continued from EMS per Elizabeth Padilla NP.} Route: jl7 IV; Rate: 1 bolus; Site: left antecubital; 19:38 Follow up: Response: No adverse reaction; IV Status: Completed infusion; IV Intake: as6 1000ml 15:20 Drug: Promethazine IM 25 mg Route: IM; Site: right deltoid; jl7 17:04 Follow up: Response: Nausea is decreased jl7 15:25 Drug: morphine IVP or IV 4 mg Route: IVP; Infused Over: 4 mins; Site: left antecubital; jl7 15:45 Follow up: Response: Pain is decreased jl7 16:01 Drug: Insulin Regular Human IVP 10 units {Co-Signature: mb9 (Miladis Burnett RN).} jl7 Route: IVP; Site: left antecubital; 17:04 Follow up: Response: Blood sugar is lowered jl7 16:01 Drug: Alum-Mag Hydroxide-Simeth PO Suspension (200 mg-200 mg-20 mg/5 mL) 30 ml Route: jl7 PO; 17:04 Follow up: Response: No adverse reaction; Pain is decreased jl7 17:52 Drug: NS 0.9% IV 1000 ml Route: IV; Rate: 1000 ml; Site: left antecubital; kc6 19:38 Follow up: Response: No adverse reaction; IV Status: Completed infusion; IV Intake: as6 1000ml 17:53 Drug: Ondansetron IVP 4 mg Route: IVP; Site: left antecubital; kc6 19:38 Follow up: Response: No adverse reaction as6 18:45 Drug: morphine IVP or IV 4 mg Route: IVP; Infused Over: 4 mins; Site: left antecubital; jl7 19:38 Follow up: Response: No adverse reaction as6 Disposition: 20:17 Co-signature as Attending Physician, Justin Garg MD I agree with the assessment and kdr plan of care. Disposition Summary: 05/15/23 18:29 Hospitalization Ordered Hospitalization Status: Observation kb Provider: Carl Willis Location: Telemetry/MedSurg (observation) kb Condition: Stable kb Problem: new kb Symptoms: are unchanged kb Bed/Room Type: Standard Room Assignment: 214(05/15/23 19:13) mw Diagnosis - Abdominal pain, Generalized kb - Hyperglycemia, unspecified kb - Nausea with vomiting, unspecified - intactable kb Forms: - Medication Reconciliation Form kb - SBAR form kb Signatures: Dispatcher [employer] EDMS Elizabeth Padilla FNP-C FNP-Summer Carrillo, RN RN Justin Gonzalez MD MD kdr Leal, Jahala RN RN jl7 Margarita Maldonado RN RN kc6 Luis Thompson RN as6 Miladis Burnett RN mb9 Corrections: (The following items were deleted from the chart) 15:56 15:41 Acetaminophen Level ordered. EDMS EDMS 15:56 15:50 Acetaminophen Level reviewed. EDMS 19:13 18:29 kb mw
--- NOTE | 2023-05-15 18:41 | P.HP ---
Certification for Inpatient Patient admitted to: Inpatient With expected LOS: <2 Midnights Patient will require the following post-hospital care: None Practitioner: I am a practitioner with admitting privileges, knowledge of patient current condition, hospital course, and medical plan of care. Services: Services provided to patient in accordance with Admission requirements found in Title 42 Section 412.3 of the Code of Federal Regulations Patient History Date of Service: 05/15/23 Reason for admission: Intracable nausa, vomiting History of Present Illness: 37 yrs old Female with past medical history IDDM, Bipolar Depression, peripherial neuropathy, HTN presents to ER via EMS with complaints of Nausea/Vomiting. She reports nause and vomiting started 2-3 days ago, but is worse today around 0300. She reports associated epigastric burning from vomiting, abdominal pain that is lower suprabupic. She reports high blood sugar over 200 the last few da ys. She reports unable to tolerate po intake so she has not taken her Lantus in the last 2-3 days. She reports EGD in Dec 2022, but has not followed with GI. She does not know if she has a history of Gastroporesis. She reports LMP 05/08/2023 She denies Fever, chills, diaphoresis, chest pain, shortness of breath or edema. Allergies Penicillins Allergy (Intermediate, Verified 07/14/21 22:07) Itching/Hives/Rash Home Medications: Insulin Glargine Human [Lantus*] 20 units SQ BID #1 vial 07/14/21 Fluoxetine HCl 20 mg PO DAILY 12/27/22 Gabapentin 600 mg PO BID 12/27/22 Propranolol [Inderal*] 10 mg PO TID 12/27/22 Quetiapine Fumarate [Seroquel] 300 mg PO BEDTIME 12/27/22 hydrOXYzine HCL [Atarax] 50 mg PO Q6H 12/27/22 Cefdinir [Cefdinir*] 300 mg PO BID 7 Days #14 cap 12/29/22 Doxycycline Hyclate 100 mg PO BID 7 Days #14 tab 12/29/22 Ferrous Sulfate [Ferrous Sulfate*] 325 mg PO DAILY #30 tab 12/29/22 Fluconazole [Diflucan] 100 mg PO DAILY 7 Days #7 tab 12/29/22 Pantoprazole [Protonix Tab] 40 mg PO BID #60 tab 12/29/22 Sucralfate 10 ml PO ACHS #1200 ml 12/29/22 - Past Medical/Surgical History Diabetic: Yes -: Diabetes type 1 -: Bipolar disorder -: Schizophrenia -: None Psychosocial/ Personal History: Disabled, lives alone. - Family History Father -: Diabetes Mother -: Diabetes - Social History Alcohol use: No CD- Drugs: Yes Caffeine use: No Review of Systems 10-point ROS is otherwise unremarkable General: As per HPI Physical Examination - Physical Exam General: Alert, Oriented x3, Other (appears ill) HEENT: Atraumatic, Normocephalic, PERRLA Neck: Supple, 2+ carotid pulse no bruit Respiratory: Clear to auscultation bilaterally, Normal air movement Cardiovascular: No edema, Normal pulses, Regular rate/rhythm Capillary refill: <2 Seconds Gastrointestinal: Hypoactive, Other (NV, suprabupic tenderness) Musculoskeletal: No clubbing, No swelling Integumentary: No rashes, No breakdown Neurological: Normal speech, Normal affect (AOx4) - Studies Laboratory Data (last 24 hrs) 05/15/23 14:55: Sodium 141, Potassium 3.5, BUN 20 H, Creatinine 0.86, Glucose 448 H*, Total Bilirubin 0.5, AST 9 L, ALT 17, Alkaline Phosphatase 79, Lipase 12 L 05/15/23 14:55: WBC 13.40 H, Hgb 11.8 L, Hct 36.8, Plt Count 556 H Assessment and Plan - Problems (Diagnosis) (1) Leukocytosis Current Visit: Yes Status: Acute Plan: Urine cultures, blood cultures, Trend WBC Start empiric Rocephin Education on Blood glucose control (2) IDDM UNCONTROLLED Onset Date: ~05/13/23 Current Visit: Yes Status: Acute Plan: SSI AC ACHS Resume long 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 (3) hypertension unc Current Visit: Yes Status: Acute Plan: resume home HTN medication PRN antihypertensives EKG completed ER (4) Gastroparesis Current Visit: Yes Status: Suspected Plan: Follow up with GI OP Educated on BG control, small freq meals (5) Intractable nausea and vomiting Onset Date: ~05/13/23 Current Visit: Yes Status: Acute Plan: Clear liq diet PRN antiemetics Follow up with GI after DC (6) Peripheral neuropathy Current Visit: Yes Status: Chronic Plan: Resume home medications Education on BG control, increased risk for foot infections (7) BIPOLAR controlled Current Visit: Yes Status: Chronic Plan: resume approp home medications denies SI/HI throughts Discharge Plan: Home Plan to discharge in: 48 Hours - Advance Directives Does patient have a Living Will: No Does patient have a Durable POA for Healthcare: No - Code Status/Comfort Care Code Status: Full Code Physician Review: Patient Assessed, Agree with Above Assessment and Plan Critical Care: No (55)
[2023-05-15] MEDS ORDERED: ACETAMINOPHEN 500 MG TAB PO PRN (18:42)
[2023-05-15] MEDS ORDERED: ALPRAZOLAM 0.25 MG TABLET PO PRN (18:42)
[2023-05-15] MEDS ORDERED: hydrOXYzine HCL 25 MG TAB PO PRN (19:31)
[2023-05-15] MEDS ORDERED: SODIUM CHLORIDE 0.9% 10ML INJ IV PRN (19:48)
[2023-05-15] MEDS: NA CHLORIDE 0.9% 1,000 ML IV SCH (20:46)
[2023-05-15] MEDS: GABAPENTIN 300 MG CAP PO SCH (20:47)
[2023-05-15] MEDS: QUETIAPINE 100MG TAB PO SCH (20:47)
[2023-05-15] MEDS: INSULIN -REGULAR HUMAN 50 UNIT/0.5 ML ML SQ SCH (20:48)
[2023-05-15] MEDS: INSULIN GLARGINE 100 UNIT/ML SQ SCH (20:48)
[2023-05-15] MEDS: PANTOPRAZOLE 40 MG INJ IVP SCH (20:49)
[2023-05-15] MEDS: ONDANSETRON 4 MG/2 ML VIAL IV PRN (20:49)
[2023-05-15] MEDS: CEFTRIAXONE 1,000 MG in NA CHLORIDE 0.9% 50 ML IVPB SCH (20:50)
[2023-05-15] MEDS: PROPRANOLOL HCL 10 MG TAB PO SCH (20:56)
[2023-05-16 00:30] VITALS: BMI 31.2
[2023-05-16] MEDS: ONDANSETRON 4 MG/2 ML VIAL IV PRN ×4 (00:38→18:04)
[2023-05-16] MEDS: SIMETHICONE 80 MG TAB PO PRN ×3 (00:38→18:02)
[2023-05-16] MEDS ORDERED: MORPHINE 4 MG/ML SYR IV ONE (01:03)
[2023-05-16 03:31] LABS: Absolute Lymphocytes (CBC) 1.3 K/uL (0.7-4.9); Hematocrit 31.3 % (36.0-45.0); MCV 75.8 fL (80-100); MPV 6.8 fL (7.6-11.3); RBC Red Blood Cell Count 4.13 M/uL (3.86-4.86)
[2023-05-16 04:09] LABS: Magnesium 1.7 mg/dL (1.6-2.4); Phosphorus 4.1 mg/dL (2.5-4.9); Potassium 3.1 mEq/L (3.5-5.1)
[2023-05-16] MEDS ORDERED: POTASSIUM CL SA 10 MEQ TAB PO ONE (05:24)
[2023-05-16] MEDS ORDERED: MAGNESIUM SULFATE 1 gm IVPB 1 GM/100 ML BAG IV ONE (05:26)
[2023-05-16] MEDS: NA CHLORIDE 0.9% 1,000 ML IV SCH ×2 (05:44→18:02)
[2023-05-16 06:07] LABS: Specific Gravity > 1.030 (1.005-1.030)
[2023-05-16 06:17] LABS: Specific Gravity > 1.030 (1.005-1.030); Urine Bacteria 20-50 /HPF (<20); Urine Bilirubin NEGATIVE (Negative); Urine Blood 3+ (Negative); Urine Clarity Turbid (Clear); Urine Color Light-Yellow (Yellow); Urine Glucose 4+ (Over) (Negative); Urine Mucus Slight /HPF (None Seen); Urine Protein 1+ (Negative); Urine RBC <5 /HPF (None Seen); Urine Urobilinogen Normal (Normal)
--- NOTE | 2023-05-16 07:09 | P.PN ---
Date of Service: 05/16/23 Subjective: Nausea, +vomiting today ~unchanged from yesterday couldn't tolerate food this morning burning sensation when urinating occasionally afebrile feels more epigastric / esophageal pain today compared to lower abdominal / pelvic pain felt yesterday denies black stools ROS: 10 point ROS as noted above, otherwise negative Physical Exam: GEN: Alert, oriented, uncomfortable appearing HEENT: Normal conjunctiva, sclera anicteric CV: Regular rate and rhythm, no edema Pulm: Nonlabored respirations on room air ABD: moderate epigastric tenderness, mild suprapubic tenderness, nondistended Neuro: Normal speech, normal affect vitals reviewed Problem List: Intractable nausea and vomiting h/o esophageal ulcer / GERD UTI hx of recurrent UTIs IDDM2 Hypertension Gastroparesis Peripheral Neuropathy Bipolar Intractable nausea and vomiting h/o esophageal ulcer / GERD UTI hx of recurrent UTIs UA: SD+nitrite, +bacteruria, +blood, -RBCs, -WBCs Blood culture (05/16): pending Urine culture (05/16): pending Continue empiric Rocephin (05/15-) Leukocytosis improving, +afebrile PRN antiemetics PRN pain medication add carafate patient stopped taking protonix ~1 month after last hospitalization; episode feels similar IDDM2 Gastroparesis Peripheral Neuropathy ACHS, sliding scale insulin Continue home medications - gabapentin Hypertension GERD Bipolar Continue home medications - protonix, carafate, atarax, seroquel VTE: Lovenox Code: Full Dispo: Home, ~2 days
[2023-05-16] MEDS: SUCRALFATE 1GM/10ML UCUP PO SCH ×4 (07:30→21:00)
[2023-05-16] MEDS: PNEUMOCOCCAL VACCINE 0.5 ML IMVAC ONE ×2 (08:00→18:03)
[2023-05-16] MEDS: GABAPENTIN 300 MG CAP PO SCH ×2 (08:33→21:12)
[2023-05-16] MEDS: ENOXAPARIN 40 MG/0.4 ML SQ SCH (08:34)
[2023-05-16] MEDS: INSULIN GLARGINE 100 UNIT/ML SQ SCH ×2 (08:34→21:00)
[2023-05-16] MEDS: INSULIN -REGULAR HUMAN 50 UNIT/0.5 ML ML SQ SCH ×4 (08:34→21:00)
[2023-05-16] MEDS: PROPRANOLOL HCL 10 MG TAB PO SCH ×3 (08:41→21:12)
[2023-05-16] MEDS: PANTOPRAZOLE 40 MG INJ IVP SCH ×2 (08:42→21:13)
[2023-05-16] MEDS ORDERED: SCOPOLAMINE HYDROBROMIDE PATCH TD SCH (09:00)
[2023-05-16] MEDS: PROMETHAZINE 25 MG TABLET PO PRN ×2 (12:37→21:16)
[2023-05-16] MEDS: MORPHINE 2 MG/ML SYR IV PRN ×2 (13:34→19:53)
[2023-05-16] MEDS: QUETIAPINE 100MG TAB PO SCH (21:12)
[2023-05-16] MEDS: CEFTRIAXONE 1,000 MG in NA CHLORIDE 0.9% 50 ML IVPB SCH (21:13)
[2023-05-17 03:34] LABS: Absolute Lymphocytes (CBC) 2.8 K/uL (0.7-4.9); Hematocrit 29.4 % (36.0-45.0); MPV 6.5 fL (7.6-11.3); RBC Red Blood Cell Count 3.87 M/uL (3.86-4.86)
[2023-05-17 03:57] LABS: Magnesium 1.9 mg/dL (1.6-2.4); Phosphorus 3.6 mg/dL (2.5-4.9); Potassium 2.8 mEq/L (3.5-5.1)
[2023-05-17] MEDS: NA CHLORIDE 0.9% 1,000 ML IV SCH ×3 (05:33→20:09)
[2023-05-17] MEDS: MORPHINE 2 MG/ML SYR IV PRN ×3 (05:56→17:58)
[2023-05-17] MEDS ORDERED: KCL 20 MEQ/100 mL IVPB 20 MEQ/100 ML BAG IV SCH (06:00)
--- NOTE | 2023-05-17 06:52 | P.PN ---
Date of Service: 05/17/23 Subjective: Doesn't feel like she is improving, but not getting worse esophageal pain > suprapubic discomfort, +vomiting continues ~unchanged still cannot tolerate diet slight dysuria persists ROS: 10 point ROS as noted above, otherwise negative Physical Exam: GEN: Alert, oriented, slightly uncomfortable appearing HEENT: Normal conjunctiva, sclera anicteric CV: Regular rate and rhythm, no edema Pulm: Nonlabored respirations on room air ABD: moderate epigastric tenderness, mild suprapubic tenderness, nondistended Neuro: Normal speech, normal affect vitals reviewed Problem List: Intractable nausea and vomiting h/o esophageal ulcer / GERD; H pylori (+) 12/2022 UTI hx of recurrent UTIs IDDM2 Hypertension Gastroparesis Peripheral Neuropathy Bipolar Intractable nausea and vomiting h/o esophageal ulcer / GERD; H pylori (+) 12/2022 UTI hx of recurrent UTIs UA: SD+nitrite, +bacteruria, +blood, -RBCs, -WBCs CT abdomen (05/16): No acute intra-abdominal process Trace free fluid in the pelvis and right lower quadrant, nonspecific GI consulted Abdominal u/s (05/17): ordered Blood culture (05/16): NGTD Urine culture (05/16): pending Continue empiric Rocephin (05/15-) Leukocytosis resolved, +afebrile continue carafate decrease IVF patient stopped taking protonix ~1 month after last hospitalization; episode feels similar review of prior pathology from 12/2022 - notes +H. pylori GI consulted. Dr. Hall to see patient and review recs for triple vs quadruple therapy pt with penicillin allergy IDDM2 Gastroparesis Peripheral Neuropathy ACHS, sliding scale insulin Continue home medications - gabapentin Hypertension GERD Bipolar Continue home medications - protonix, carafate, atarax, seroquel VTE: Lovenox Code: Full Dispo: Home, ~2 days
[2023-05-17 07:29] LABS: ALT/SGPT 11 U/L (13-56); AST/SGOT 8 U/L (15-37); Albumin 2.6 g/dL (3.4-5.0); Alkaline Phosphatase 58 U/L (45-117); Bilirubin Total 0.3 mg/dL (0.2-1.0); Lipase 9 U/L (13-75); Protein, Total 5.4 g/dL (6.4-8.2)
[2023-05-17 07:30] LABS: Bilirubin Direct < 0.1 mg/dL (0-0.2); Bilirubin Indirect, Calculated ND mg/dL (0.2-0.8)
[2023-05-17] MEDS: SUCRALFATE 1GM/10ML UCUP PO SCH ×4 (07:30→21:11)
[2023-05-17] MEDS: INSULIN -REGULAR HUMAN 50 UNIT/0.5 ML ML SQ SCH ×4 (07:30→21:00)
--- NOTE | 2023-05-17 08:01 | RAD REPORT ---
EXAM DESCRIPTION: CT - Abdomen Pelvis W Contrast - 05/17/2023 7:40 am CLINICAL HISTORY: epigastric and suprapubic pain COMPARISON: Abdomen Pelvis W Contrast dated 12/26/2022; Abdomen Pelvis W Contrast dated 07/13/2021 ; Abdomen Pelvis W Contrast dated 12/26/2020; Abdomen Pelvis W Contrast dated 06/21/2017 TECHNIQUE: Thin cut axial CT imaging of the abdomen and pelvis was performed following intravenous a dministration of 100 mL Isovue 300. Multiplanar reformats were generated and reviewed. All CT scans are performed using dose optimization technique as appropriate and may include automated exposure control or mA/KV adjustment according to patient size. FINDINGS: No suspicious findings in the lung bases. The liver, spleen, adrenal glands, and pancreas show no suspicious findings. Subtle subcapsular geogr aphic focus of hypoattenuation adjacent to the falciform margins, suggestive of focal fatty sparing. Gallbladder and biliary tree are also without suspicious finding. Symmetric renal function is seen with no hydronephrosis or suspicious renal mass. No dilated bowel loops or bowel wall thickening. Trace free fluid in the pelvis and right lower quadr ant, nonspecific, and could be physiologic. Appendix is normal in appearance. No free air, fluid lg ections, or inflammatory stranding. No hernia, mass or bulky lymphadenopathy. The urinary bladder is without significant finding. No suspicious bony findings. IMPRESSION: No acute intra-abdominal process. Findings as above.
[2023-05-17] MEDS: GABAPENTIN 300 MG CAP PO SCH ×2 (08:22→21:09)
[2023-05-17] MEDS: PANTOPRAZOLE 40 MG INJ IVP SCH ×2 (08:22→21:11)
[2023-05-17] MEDS: ENOXAPARIN 40 MG/0.4 ML SQ SCH (08:22)
[2023-05-17] MEDS: ONDANSETRON 4 MG/2 ML VIAL IV PRN ×4 (08:22→21:13)
[2023-05-17] MEDS: PROPRANOLOL HCL 10 MG TAB PO SCH ×3 (08:23→21:10)
[2023-05-17] MEDS: KCL 20 MEQ/100 mL IVPB 20 MEQ/100 ML BAG IV SCH ×2 (08:43→11:58)
--- NOTE | 2023-05-17 12:34 | EKG ---
Test Date: 2023-05-15 Test Time: 15:59:34 Pan Helper: MIGUEL MEASUREMENT RESULTS: Intervals: Rate: 90 NV: 128 QRSD: 80 QT: 418 QTc: 511 [place]: P: 57 NV: 128 QRS: 28 T: -40 INTERPRETIVE STATEMENTS: Normal sinus rhythm ST & T wave abnormality, consider anterior ischemia Prolonged QT Abnormal ECG Compared to ECG 12/26/2022 17:39:48 Possible ischemia now present Prolonged QT interval now present Sinus tachycardia no longer present ST (T wave) deviation still present Electronically Signed On 05-17-23 12:33:09 CDT by Kris Lopez
--- NOTE | 2023-05-17 16:10 | RAD REPORT ---
EXAM DESCRIPTION: US - Abdomen Exam Limited - 05/17/2023 3:51 pm CLINICAL HISTORY: Abdominal pain. COMPARISON: None. FINDINGS: Small echogenic foci within the gallbladder. No posterior shadowing seen. Presumably this represents echogenic bile. The gallbladder wall is not thickened. A gallstone is not seen. The biliary tree is normal caliber. Liver has a homogeneous echotexture without visualization of a lesion. Minimal right pleural effusion IMPRESSION: Minimal right pleural effusion No significant gallbladder/liver abnormality noted
[2023-05-17] MEDS: CLARITHROMYCIN 500 MG TABLET PO SCH ×2 (17:54→20:53)
[2023-05-17] MEDS ORDERED: POTASSIUM CL SA 10 MEQ TAB PO ONE (21:00)
[2023-05-17] MEDS: QUETIAPINE 100MG TAB PO SCH (21:10)
[2023-05-17] MEDS: metroNIDAZOLE 500 MG TABLET PO SCH (21:10)
[2023-05-17] MEDS: CEFTRIAXONE 1,000 MG in NA CHLORIDE 0.9% 50 ML IVPB SCH (21:11)
[2023-05-17 23:45] VITALS: O2SAT 100
[2023-05-18 03:06] LABS: Absolute Lymphocytes (CBC) 2.6 K/uL (0.7-4.9); Hematocrit 33.8 % (36.0-45.0); Lymphocytes % 40.1 % (15.3-44.8); MCV 76.6 fL (80-100); MPV 6.8 fL (7.6-11.3); RBC Red Blood Cell Count 4.41 M/uL (3.86-4.86)
[2023-05-18 03:20] LABS: Magnesium 1.9 mg/dL (1.6-2.4); Phosphorus 3.4 mg/dL (2.5-4.9); Potassium 3.8 mEq/L (3.5-5.1)
[2023-05-18] MEDS ORDERED: NA CHLORIDE 0.9% 500 ML IV ONE (04:39)
--- NOTE | 2023-05-18 07:15 | P.PN ---
Date of Service: 05/18/23 Subjective: not much improvement tolerated some sips BP low overnight, given 500ml bolus, IVF were dc'd yesterday afternoon ROS: 10 point ROS as noted above, otherwise negative Physical Exam: GEN: Alert, oriented, NAD HEENT: Normal conjunctiva, sclera anicteric CV: Regular rate and rhythm, no edema Pulm: Nonlabored respirations on room air ABD: moderate epigastric tenderness, nondistended Neuro: Normal speech, normal affect vitals reviewed Problem List: Intractable nausea and vomiting h/o esophageal ulcer / GERD; H pylori (+) 12/2022 UTI hx of recurrent UTIs IDDM2 Hypertension Gastroparesis Peripheral Neuropathy Bipolar Intractable nausea and vomiting h/o esophageal ulcer / GERD; H pylori (+) 12/2022 UTI hx of recurrent UTIs UA: SD+nitrite, +bacteruria, +blood, -RBCs, -WBCs CT abdomen (05/17): No acute intra-abdominal process Trace free fluid in the pelvis and right lower quadrant, nonspecific GI consulted Abdominal u/s (05/17): Minimal right pleural effusion Blood culture (05/16): NGTD Urine culture (05/16): pending Continue empiric Rocephin (05/15-) Leukocytosis resolved, +afebrile continue carafate dc'd IVF 05/17 patient stopped taking protonix ~1 month after last hospitalization; episode feels similar review of prior pathology from 12/2022 - notes +H. pylori GI consulted. start triple therapy - added clarithromycin and flagyl. pharmacy reported no bismuth on formulary pt with penicillin allergy IDDM2 Gastroparesis Peripheral Neuropathy ACHS, sliding scale insulin Continue home medications - gabapentin Hypertension GERD Bipolar Continue home medications - protonix, carafate, atarax, seroquel VTE: Lovenox Code: Full Dispo: Home, ~2 days
[2023-05-18] MEDS: INSULIN -REGULAR HUMAN 50 UNIT/0.5 ML ML SQ SCH ×4 (07:30→20:38)
[2023-05-18] MEDS: SUCRALFATE 1GM/10ML UCUP PO SCH ×4 (07:30→20:39)
[2023-05-18] MEDS: CLARITHROMYCIN 500 MG TABLET PO SCH ×2 (08:26→20:39)
[2023-05-18] MEDS: metroNIDAZOLE 500 MG TABLET PO SCH ×3 (08:27→20:37)
[2023-05-18] MEDS: ENOXAPARIN 40 MG/0.4 ML SQ SCH (08:27)
[2023-05-18] MEDS: GABAPENTIN 300 MG CAP PO SCH ×2 (08:27→20:37)
[2023-05-18] MEDS: PANTOPRAZOLE 40 MG INJ IVP SCH ×2 (08:28→20:36)
[2023-05-18] MEDS: MORPHINE 2 MG/ML SYR IV PRN ×2 (08:37→16:16)
[2023-05-18] MEDS ORDERED: POTASSIUM CL SA 10 MEQ TAB PO ONE (09:00)
[2023-05-18] MEDS ORDERED: NA CHLORIDE 0.9% 50 ML ONE (20:07)
[2023-05-18] MEDS: CEFTRIAXONE 1,000 MG in NA CHLORIDE 0.9% 50 ML IVPB SCH (20:36)
[2023-05-18] MEDS: QUETIAPINE 100MG TAB PO SCH (20:37)
[2023-05-19 03:06] LABS: Magnesium 1.6 mg/dL (1.6-2.4)
[2023-05-19] MEDS ORDERED: MAGNESIUM SULFATE 1 gm IVPB 1 GM/100 ML BAG IV ONE (05:40)
[2023-05-19] MEDS: MORPHINE 2 MG/ML SYR IV PRN ×3 (07:01→20:48)
[2023-05-19] MEDS: ONDANSETRON 4 MG/2 ML VIAL IV PRN ×2 (07:01→17:11)
--- NOTE | 2023-05-19 07:06 | P.PN ---
Date of Service: 05/19/23 Subjective: feels like shes slowly improving vomiting yesterday, +diarrhea; both improving tolerated sips of clear liquids today no acute events overnight ROS: 10 point ROS as noted above, otherwise negative Physical Exam: GEN: Alert, oriented, NAD HEENT: Normal conjunctiva, sclera anicteric CV: Regular rate and rhythm, no edema Pulm: Nonlabored respirations on room air ABD: mild-moderate epigastric tenderness, nondistended Neuro: Normal speech, normal affect vitals reviewed Problem List: Intractable nausea and vomiting h/o esophageal ulcer / GERD; H pylori (+) 12/2022 UTI hx of recurrent UTIs IDDM2 Hypertension Gastroparesis Peripheral Neuropathy Bipolar Intractable nausea and vomiting h/o esophageal ulcer / GERD; H pylori (+) 12/2022 UTI, suspected hx of recurrent UTIs UA: SD+nitrite, +bacteruria, +blood, -RBCs, -WBCs rocephin started 05/15, negative cultures / mixed vicki, dc'd 05/19 CT abdomen (05/17): No acute intra-abdominal process Trace free fluid in the pelvis and right lower quadrant, nonspecific GI consulted Abdominal u/s (05/17): Minimal right pleural effusion continue carafate, protonix dc'd IVF 05/17 patient stopped taking protonix ~1 month after last hospitalization; episode feels similar review of prior pathology from 12/2022 - notes +H. pylori GI consulted. start triple therapy - added clarithromycin and flagyl (05/17 - 05/31). pharmacy reported no bismuth on formulary pt with penicillin allergy IDDM2 Gastroparesis Peripheral Neuropathy ACHS, sliding scale insulin Continue home medications - gabapentin Hypertension GERD Bipolar Continue home medications - protonix, carafate, atarax, seroquel dc'd propranolol due to occasional low BP readings VTE: Lovenox Code: Full Dispo: Home, ~1-2 days
[2023-05-19] MEDS: SUCRALFATE 1GM/10ML UCUP PO SCH ×4 (07:30→20:49)
[2023-05-19] MEDS: INSULIN -REGULAR HUMAN 50 UNIT/0.5 ML ML SQ SCH ×4 (07:30→21:00)
[2023-05-19] MEDS: PANTOPRAZOLE 40 MG INJ IVP SCH ×2 (08:11→21:20)
[2023-05-19] MEDS: GABAPENTIN 300 MG CAP PO SCH ×2 (08:11→20:47)
[2023-05-19] MEDS: CLARITHROMYCIN 500 MG TABLET PO SCH ×2 (08:11→21:18)
[2023-05-19] MEDS: metroNIDAZOLE 500 MG TABLET PO SCH ×3 (08:11→20:47)
[2023-05-19] MEDS: ENOXAPARIN 40 MG/0.4 ML SQ SCH (08:11)
[2023-05-19] MEDS: QUETIAPINE 100MG TAB PO SCH (20:47)
--- NOTE | 2023-05-20 07:05 | P.PN ---
Date of Service: 05/20/23 Subjective: Feeling a little better today feels like pain is biggest issue/limiting factor, followed by nausea tolerating liquids, no vomiting otherwise no new / worsening problems ROS: 10 point ROS as noted above, otherwise negative Physical Exam: GEN: Alert, oriented, NAD HEENT: Normal conjunctiva, sclera anicteric CV: Regular rate and rhythm, no edema Pulm: Nonlabored respirations on room air ABD: mild epigastric tenderness, nondistended Neuro: Normal speech, normal affect vitals reviewed Problem List: Intractable nausea and vomiting h/o esophageal ulcer / GERD; H pylori (+) 12/2022 UTI, ruled out hx of recurrent UTIs IDDM2 Hypertension Gastroparesis Peripheral Neuropathy Bipolar Intractable nausea and vomiting h/o esophageal ulcer / GERD; H pylori (+) 12/2022 UTI, ruled out patient stopped taking protonix ~1 month after last hospitalization; episode feels similar Completed 4 days of rocephin for suspected UTI; Cultures with mixed vicki / no bacteria; DC'd 05/19 CT abdomen (05/17): No acute intra-abdominal process; Trace free fluid in the pelvis and right lower quadrant, nonspecific GI consulted - Abdominal u/s (05/17): Minimal right pleural effusion continue carafate, protonix advanced to Full liquids 05/20 dc'd IVF 05/17 review of prior pathology from 12/2022 - notes +H. pylori GI consulted. start triple therapy - added clarithromycin and flagyl (05/17 - 05/31). pharmacy reported no bismuth on formulary' will need 2 weeks total pt with penicillin allergy dc opioids for pain, can be worsening her gastroparesis viscous lidocaine on shortage, will use phenaseptic spray morphine dc'd 05/20 IDDM2 Gastroparesis Peripheral Neuropathy ACHS, sliding scale insulin Continue home medications - gabapentin Hypertension GERD Bipolar Continue home medications - protonix, carafate, atarax, seroquel dc'd propranolol due to occasional low BP readings VTE: Lovenox Code: Full Dispo: Home, ~1 day
[2023-05-20] MEDS: INSULIN -REGULAR HUMAN 50 UNIT/0.5 ML ML SQ SCH ×4 (07:30→21:00)
[2023-05-20] MEDS: PANTOPRAZOLE 40 MG INJ IVP SCH ×2 (07:59→21:05)
[2023-05-20] MEDS: MORPHINE 2 MG/ML SYR IV PRN (07:59)
[2023-05-20] MEDS: SUCRALFATE 1GM/10ML UCUP PO SCH ×4 (07:59→20:57)
[2023-05-20] MEDS: ONDANSETRON 4 MG/2 ML VIAL IV PRN ×4 (07:59→23:33)
[2023-05-20] MEDS: ENOXAPARIN 40 MG/0.4 ML SQ SCH (07:59)
[2023-05-20] MEDS: metroNIDAZOLE 500 MG TABLET PO SCH ×3 (08:00→20:57)
[2023-05-20] MEDS: CLARITHROMYCIN 500 MG TABLET PO SCH ×2 (08:00→21:04)
[2023-05-20] MEDS: GABAPENTIN 300 MG CAP PO SCH ×2 (08:00→20:57)
[2023-05-20] MEDS ORDERED: MAGNESIUM SULFATE 1 gm IVPB 1 GM/100 ML BAG IV ONE (09:00)
[2023-05-20] MEDS ORDERED: LIDOCAINE VISCOUS 2% SOLN 15 ML UDC PO PRN (09:27)
[2023-05-20] MEDS ORDERED: PHENOL 1.4% ORAL SPRAY 180ML MM PRN (10:06)
[2023-05-20] MEDS: QUETIAPINE 100MG TAB PO SCH (20:57)
[2023-05-21] MEDS ORDERED: CALCIUM CARBONATE CHEW 500MG TAB PO ONE ×2 (01:22→23:30)
[2023-05-21 03:28] LABS: Albumin 2.9 g/dL (3.4-5.0); Bilirubin Total 0.5 mg/dL (0.2-1.0); Magnesium 1.2 mg/dL (1.6-2.4); Potassium 3.7 mEq/L (3.5-5.1); Protein, Total 5.9 g/dL (6.4-8.2)
[2023-05-21] MEDS ORDERED: Magnesium Sulfate 2gm IVPB 2 G/50 ML BAG IV ONE (06:30)
[2023-05-21] MEDS: ONDANSETRON 4 MG/2 ML VIAL IV PRN ×3 (06:48→20:02)
--- NOTE | 2023-05-21 07:22 | P.PN ---
Date of Service: 05/21/23 Subjective: feeling better today, tolerating diet slight nausea, +improvement of pain; no vomiting HR in 140s-150s this morning, felt lightheaded walking to bathroom, BP borderline low HR baseline in hospitals based off of previous hospitalizations ~90-110s ROS: 10 point ROS as noted above, otherwise negative Physical Exam: GEN: Alert, oriented, NAD HEENT: Normal conjunctiva, sclera anicteric CV: Regular rate and rhythm, no edema Pulm: Nonlabored respirations on room air ABD: mild epigastric tenderness, nondistended Neuro: Normal speech, normal affect vitals reviewed Problem List: Intractable nausea and vomiting h/o esophageal ulcer / GERD; H pylori (+) 12/2022 UTI, ruled out hx of recurrent UTIs IDDM2 Hypertension Gastroparesis Peripheral Neuropathy Bipolar Intractable nausea and vomiting h/o esophageal ulcer / GERD; H pylori (+) 12/2022 UTI, ruled out patient stopped taking protonix ~1 month after last hospitalization; episode feels similar Completed 4 days of rocephin for suspected UTI; Cultures with mixed vicki / no bacteria; DC'd 05/19 CT abdomen (05/17): No acute intra-abdominal process; Trace free fluid in the pelvis and right lower quadrant, nonspecific GI consulted - continue carafate, protonix advanced to gi soft 05/21 review of prior pathology from 12/2022 - notes +H. pylori start triple therapy - added clarithromycin and flagyl (05/17 - 05/31). pharmacy reported no bismuth on formulary' will need 2 weeks total 05/20 - dc opioids for pain, can be worsening her gastroparesis viscous lidocaine on shortage, will use phenaseptic spray morphine dc'd 05/20 Sinus Tachycardia HR baseline in hospitals based off of previous hospitalizations ~90-110s a few months ago was started on propranolol, states for BP held propranolol the last few days due to low BP possible rebound BP, vs possibly dehydrated 05/21 - HR in 140s-150s this morning +felt lightheaded walking to bathroom, BP borderline low start IVF, re-assess IDDM2 Gastroparesis Peripheral Neuropathy ACHS, sliding scale insulin Continue home medications - gabapentin Hypertension GERD Bipolar Continue home medications - protonix, carafate, atarax, seroquel dc'd propranolol due to occasional low BP readings VTE: Lovenox Code: Full Dispo: Home, ~1 day
[2023-05-21] MEDS: ENOXAPARIN 40 MG/0.4 ML SQ SCH (08:14)
[2023-05-21] MEDS: GABAPENTIN 300 MG CAP PO SCH ×2 (08:16→20:00)
[2023-05-21] MEDS: SUCRALFATE 1GM/10ML UCUP PO SCH ×4 (08:16→20:00)
[2023-05-21] MEDS: CLARITHROMYCIN 500 MG TABLET PO SCH ×2 (08:16→20:00)
[2023-05-21] MEDS: PANTOPRAZOLE 40 MG INJ IVP SCH ×2 (08:17→20:01)
[2023-05-21] MEDS: metroNIDAZOLE 500 MG TABLET PO SCH ×3 (08:17→20:00)
[2023-05-21] MEDS: INSULIN -REGULAR HUMAN 50 UNIT/0.5 ML ML SQ SCH ×4 (08:33→21:20)
[2023-05-21] MEDS ORDERED: POTASSIUM CL SA 10 MEQ TAB PO ONE (09:00)
[2023-05-21] MEDS ORDERED: NA CHLORIDE 0.9% 500 ML IV ONE (12:15)
[2023-05-21] MEDS: Ringers Lactate 1,000 ML IV SCH (17:05)
[2023-05-21] MEDS: QUETIAPINE 100MG TAB PO SCH (20:00)
[2023-05-21] MEDS ORDERED: MAGNESIUM SULFATE 1 gm IVPB 1 GM/100 ML BAG IV ONE (21:00)
[2023-05-22 03:23] LABS: Absolute Lymphocytes (CBC) 1.3 K/uL (0.7-4.9); Lymphocytes % 21.5 % (15.3-44.8); MCV 76.3 fL (80-100)
[2023-05-22 04:00] LABS: Magnesium 1.5 mg/dL (1.6-2.4); Potassium 3.5 mEq/L (3.5-5.1)
[2023-05-22] MEDS: Ringers Lactate 1,000 ML IV SCH ×2 (04:08→13:00)
--- NOTE | 2023-05-22 06:53 | P.PN ---
Date of Service: 05/22/23 Subjective: doing okay, tolerating diet. ROS: 10 point ROS as noted above, otherwise negative Physical Exam: GEN: Alert, oriented, NAD HEENT: Normal conjunctiva, sclera anicteric CV: Regular rate and rhythm, no edema Pulm: Nonlabored respirations on room air ABD: mild epigastric tenderness, nondistended Neuro: Normal speech, normal affect vitals reviewed Problem List: Intractable nausea and vomiting h/o esophageal ulcer / GERD; H pylori (+) 12/2022 UTI, ruled out hx of recurrent UTIs IDDM2 Hypertension Gastroparesis Peripheral Neuropathy Bipolar Intractable nausea and vomiting h/o esophageal ulcer / GERD; H pylori (+) 12/2022 UTI, ruled out patient stopped taking protonix ~1 month after last hospitalization; episode feels similar Completed 4 days of rocephin for suspected UTI; Cultures with mixed vicki / no bacteria; DC'd 05/19 CT abdomen (05/17): No acute intra-abdominal process; Trace free fluid in the pelvis and right lower quadrant, nonspecific GI consulted - continue carafate, protonix advanced to gi soft 05/21 review of prior pathology from 12/2022 - notes +H. pylori start triple therapy - added clarithromycin and flagyl (05/17 - 05/31). pharmacy reported no bismuth on formulary' will need 2 weeks total 05/20 - dc opioids for pain, can be worsening her gastroparesis viscous lidocaine on shortage, will use phenaseptic spray morphine dc'd 05/20 Sinus Tachycardia HR baseline in hospitals based off of previous hospitalizations ~90-110s a few months ago was started on propranolol, states for BP held propranolol the last few days due to low BP possible rebound BP, vs possibly dehydrated 05/21 - HR in 140s-150s this morning +felt lightheaded walking to bathroom, BP borderline low start IVF, re-assess IDDM2 Gastroparesis Peripheral Neuropathy ACHS, sliding scale insulin Continue home medications - gabapentin Hypertension GERD Bipolar Continue home medications - protonix, carafate, atarax, seroquel dc'd propranolol due to occasional low BP readings VTE: Lovenox Code: Full Dispo: Home, ~1 day
[2023-05-22] MEDS ORDERED: Magnesium Sulfate 2gm IVPB 2 G/50 ML BAG IV ONE (08:00)
[2023-05-22] MEDS: ENOXAPARIN 40 MG/0.4 ML SQ SCH (08:01)
[2023-05-22] MEDS: GABAPENTIN 300 MG CAP PO SCH (08:01)
[2023-05-22] MEDS: PANTOPRAZOLE 40 MG INJ IVP SCH (08:02)
[2023-05-22] MEDS: SUCRALFATE 1GM/10ML UCUP PO SCH ×2 (08:02→11:45)
[2023-05-22] MEDS: CLARITHROMYCIN 500 MG TABLET PO SCH (08:02)
[2023-05-22] MEDS: metroNIDAZOLE 500 MG TABLET PO SCH ×2 (08:02→14:18)
[2023-05-22] MEDS: INSULIN -REGULAR HUMAN 50 UNIT/0.5 ML ML SQ SCH ×2 (08:03→11:45)
[2023-05-22] MEDS: ONDANSETRON 4 MG/2 ML VIAL IV PRN (08:07)
[2023-05-22] MEDS ORDERED: POTASSIUM CL SA 10 MEQ TAB PO ONE (09:00)
--- NOTE | 2023-05-22 10:24 | P.DS ---
Admission Date: 05/15/23 Discharge Date: 05/22/23 Disposition: ROUTINE DISCHARGE Discharge Condition: GOOD Reason for Admission: Intracable nausa, vomiting Consultations: GI - Dr. Hall Brief History of Present Illness: 37 yo F, PMH: IDDM, Bipolar Depression, peripherial neuropathy, HTN Patient presents to ER via EMS with complaints of Nausea/Vomiting. She reports nause and vomiting started 2-3 days ago, but is worse today around 0300. She reports associated epigastric burning from vomiting, abdominal pain that is lower suprabupic. She reports high blood sugar over 200 the last few days. She reports unable to tolerate po intake so she has not taken her Lantus in the last 2-3 days. She reports EGD in Dec 2022, but has not followed with GI. She does not know if she has a history of Gastroporesis. She reports LMP 05/08/2023 She denies Fever, chills, diaphoresis, chest pain, shortness of breath or edema. Hospital Course: Problem List: Intractable nausea and vomiting h/o esophageal ulcer / GERD; H pylori (+) 12/2022 UTI, ruled out hx of recurrent UTIs IDDM2 Hypertension Gastroparesis Peripheral Neuropathy Bipolar Patient presented with Nausea/Vomiting, epigastric burning, abdominal pain. A Review of prior pathology from 12/2022 revealed she was positive for H. pylori from path report of her EGD. Due to her penicillin allergy and lack of bismuth on formulary at our pharmacy, she was started on triple therapy (in lieu of quadruple therapy) of clarithromycin and flagyl and will need to continue taking these after discharge for a total of 2 weeks. She was also given carafate, protonix, and zofran, and had significant improvement of her symptoms. GI was consulted. Recommended patient to follow up with GI in a few weeks for further evaluation/possible need for endoscopy. On day of discharge, patient was able to tolerate soft foods and remained afebrile without leukocytosis. During her hospitalization, she was found to have sinus tachycaria intermittently. Review of EMR notes she has had similar range of heart rate every admission, dating back to at least 2019. A few months ago was started on propanolol likely due to her tachycardia. Suspected dehydration played a role in her rate rate, which did improve slightly from IV hydration. Her blood pressure was noted to be low to low-normal throughout hospitalization. Review of EMR notes/vital signs also showed she typically ran in the 100-110s systolic. Her propranolol was held during the hospitalization secondary to her BP, and she had slight improvement. Advised to continue to hold off on taking propranolol, check blood pressure daily, and follow up with her PCP She did initially report some suprapubic discomfort and urinary changes. Urinalysis was concerning for possible UTI. Given her symptoms and UA, she was empirically treated with IV antibiotics. Urine culture resulted with mixed vicki. She remained afebrile and without leukocytosis. Antibiotic was discontinued on day 5 of treatment (as she was continued on clarithromycin and flagyl). New / change in prescriptions: Clarithromycin for 9 more days Flagyl for 9 more days Protonix twice daily until advised to stop by GURDEEP Griffith as needed carafate as needed - before meals and bedtime hold off on propanolol. Check Blood pressure daily, once systolic blood pressure is consistently greater than 130, can restart Follow up: PCP 3-5 days GI - within 2-4 weeks she will need a follow up EGD soon Physical Exam: GEN: Alert, oriented, NAD HEENT: Normal conjunctiva, sclera anicteric CV: Regular rate and rhythm, no edema Pulm: Nonlabored respirations on room air ABD: mild epigastric tenderness, nondistended MSK: No joint tenderness Integumentary: No rashes Neuro: Normal speech, normal affect Vital Signs/Physical Exam: Temp Pulse Resp BP Pulse Ox 97.4 F 105 H 16 103/64 98 05/22/23 08:00 05/22/23 08:00 05/22/23 08:00 05/22/23 08:00 05/22/23 08:00 Laboratory Data at Discharge: WBC 6.10 thou/uL (4.3-10.9) 05/22/23 02:36 Hgb 9.5 g/dL (12.0-15.0) L 05/22/23 02:36 Hct 29.0 % (36.0-45.0) L 05/22/23 02:36 Plt Count 350 thou/uL (152-406) 05/22/23 02:36 Sodium 138 mEq/L (136-145) 05/22/23 02:36 Potassium 3.5 mEq/L (3.5-5.1) 05/22/23 02:36 BUN 8 mg/dL (7-18) 05/22/23 02:36 Creatinine 0.64 mg/dL (0.55-1.02) 05/22/23 02:36 Glucose 288 mg/dL (74-106) H 05/22/23 02:36 Phosphorus 3.4 mg/dL (2.5-4.9) 05/18/23 02:05 Magnesium 1.5 mg/dL (1.6-2.4) L 05/22/23 02:36 Total Bilirubin 0.5 mg/dL (0.2-1.0) 05/21/23 02:48 AST 10 U/L (15-37) L 05/21/23 02:48 ALT 11 U/L (13-56) L 05/21/23 02:48 Alkaline Phosphatase 59 U/L (45-117) 05/21/23 02:48 Lipase 9 U/L (13-75) L 05/17/23 03:25 Home Medications: Fluoxetine HCl 60 mg PO DAILY 12/27/22 Gabapentin 600 mg PO BID 12/27/22 Propranolol [Inderal*] 10 mg PO TID 12/27/22 Quetiapine Fumarate [Seroquel] 300 mg PO BEDTIME 12/27/22 hydrOXYzine HCL [Atarax] 50 mg PO Q6H 12/27/22 Ferrous Sulfate [Ferrous Sulfate*] 325 mg PO DAILY #30 tab 12/29/22 Sucralfate 10 ml PO ACHS #1200 ml 12/29/22 Insulin Glargine Human [Lantus*] 30 units SQ BID 05/16/23 Clarithromycin [Biaxin] 500 mg PO BID 9 Days #18 tab 05/22/23 Pantoprazole [Protonix Tab*] 40 mg PO BID 30 Days #60 tab 05/22/23 Sucralfate 10 ml PO ACHS 30 Days #1200 ml 05/22/23 metroNIDAZOLE [Flagyl*] 500 mg PO TID 9 Days #27 tab 05/22/23 ondansetron HCL [Ondansetron HCl] 4 mg PO Q8H #10 tab 05/22/23 New Medications: Clarithromycin [Biaxin] 500 mg PO BID 9 Days #18 tab metroNIDAZOLE [Flagyl*] 500 mg PO TID 9 Days #27 tab ondansetron HCL [Ondansetron HCl] 4 mg PO Q8H #10 tab Pantoprazole [Protonix Tab*] 40 mg PO BID 30 Days #60 tab Sucralfate 10 ml PO ACHS 30 Days #1200 ml Physician Discharge Instructions: Patient presented with Nausea/Vomiting, epigastric burning, abdominal pain. A Review of prior pathology from 12/2022 revealed she was positive for H. pylori from path report of her EGD. Due to her penicillin allergy and lack of bismuth on formulary at our pharmacy, she was started on triple therapy (in lieu of quadruple therapy) of clarithromycin and flagyl and will need to continue taking these after discharge for a total of 2 weeks. She was also given carafate, protonix, and zofran, and had significant improvement of her symptoms. GI was consulted. Recommended patient to follow up with GI in a few weeks for further evaluation/possible need for endoscopy. On day of discharge, patient was able to tolerate soft foods and remained afebrile without leukocytosis. During her hospitalization, she was found to have sinus tachycaria intermittently. Review of EMR notes she has had similar range of heart rate alvin ry admission, dating back to at least 2019. A few months ago was started on propanolol likely due to her tachycardia. Suspected dehydration played a role in her rate rate, which did improve slightly from IV hydration. Her blood pressure was noted to be low to low-normal throughout hospitalization. Review of EMR notes/vital signs also showed she typically ran in the 100-110s systolic. Her propranolol was held during the hospitalization secondary to her BP, and she had slight improvement. Advised to continue to hold off on taking propranolol, check blood pressure daily, and follow up with her PCP She did initially report some suprapubic discomfort and urinary changes. Urinalysis was concerning for possible UTI. Given her symptoms and UA, she was empirically treated with IV antibiotics. Urine culture resulted with mixed vicki. She remained afebrile and without leukocytosis. Antibiotic was discontinued on day 5 of treatment (as she was continued on clarithromycin and flagyl). New / change in prescriptions: Clarithromycin for 9 more days Flagyl for 9 more days Protonix twice daily until advised to stop by GI Zofran as needed carafate as needed - before meals and bedtime hold off on propanolol. Check Blood pressure daily, once systolic blood pressure is consistently greater than 130, can restart Follow up: PCP 3-5 days GI - within 2-4 weeks she will need a follow up EGD soon Followup: NONE,NONE [Primary Care Provider] - Time spent managing pt's care (in minutes): 45
[2023-05-22 12:32] VITALS: BP 105/65; TEMP 97.3
== END 2023-05-22 15:27 | disposition home or self-care (01) | DRG 74 ==
LOC: ER 14:47 → ERHOLD 18:42 → 2ND 19:16
PROVIDERS: ADMIT Internal Medicine; ATTEND Hospitalist
DX: E11.43 Type 2 diabetes mellitus with diabetic autonomic (poly)neuropathy (principal); K31.84 Gastroparesis; E11.42 Type 2 diabetes mellitus with diabetic polyneuropathy; E11.65 Type 2 diabetes mellitus with hyperglycemia; I10 Essential (primary) hypertension; E86.0 Dehydration; F31.9 Bipolar disorder, unspecified; K21.9 Gastro-esophageal reflux disease without esophagitis; R00.0 Tachycardia, unspecified; Z60.2 Problems related to living alone; Z88.0 Allergy status to penicillin; Z79.4 Long term (current) use of insulin; Z79.899 Other long term (current) drug therapy
CPT/HCPCS: 36415; 74177; 76705; 80048; 80053; 80076; 81001; 81025; 82010; 82947; 83690; 83735; 84100; 84132; 84484; 85025; 87040; 87086; 87088; 90732; 93005; 96361; 96372; 96374; 96375; 99285; C9113; J0696; J1650; J1815; J2270; J2405; J2550; J3475; J3480; J7030; J7040; J7120; Q0169; Q9967

== ENCOUNTER 2023-05-26 15:34 | Inpatient (IN) | payer OTHER ==
[2023-05-26 16:31] LABS: Absolute Lymphocytes (CBC) 0.9 K/uL (0.7-4.9); Hematocrit 36.9 % (36.0-45.0); Lymphocytes % 10.9 % (15.3-44.8); MCV 75.9 fL (80-100); MPV 6.8 fL (7.6-11.3); RBC Red Blood Cell Count 4.87 M/uL (3.86-4.86)
[2023-05-26 16:52] LABS: Albumin 3.1 g/dL (3.4-5.0); Bilirubin Total 0.4 mg/dL (0.2-1.0); Potassium 3.2 mEq/L (3.5-5.1); Protein, Total 6.7 g/dL (6.4-8.2)
[2023-05-26] MEDS ORDERED: DICYCLOMINE HCL 10 MG CAP ONE (16:57)
[2023-05-26] MEDS ORDERED: NA CHLORIDE 0.9% 1,000 ML ONE (16:57)
[2023-05-26] MEDS ORDERED: ONDANSETRON 4 MG/2 ML VIAL ONE ×2 (16:57→17:18)
[2023-05-26] MEDS ORDERED: FAMOTIDINE 20 MG/2 ML VIAL IV ONE (17:19)
[2023-05-26] MEDS ORDERED: POTASSIUM 25 MEQ EFFERV TAB ONE (17:43)
[2023-05-26] MEDS ORDERED: PROMETHAZINE INJ 25 MG/ML AMP ONE (17:50)
[2023-05-26] MEDS ORDERED: KETOROLAC 30 MG/ML INJ ONE (18:06)
--- NOTE | 2023-05-26 18:28 | EDPHYS ---
Physician Documentation [facility] Name: Javier Pimentel Age: 37 yrs Sex: Female : 1985 Arrival Date: 05/26/2023 Time: 15:34 Bed 18 Private MD: Alphonso Gtz ED Physician John Berrios HPI: 05/26 18:20 This 37 yrs old Female presents to ER via EMS with complaints of Abdominal Pain, kb Vomiting. 18:20 The patient presents with abdominal pain that is diffuse. Onset: The symptoms/episode kb began/occurred yesterday. The symptoms do not radiate. Associated signs and symptoms: Pertinent positives: nausea and vomiting, Pertinent negatives: diarrhea, fever. The symptoms are described as constant, crampy. Modifying factors: The symptoms are alleviated by nothing, the symptoms are aggravated by nothing. Severity of pain: At its worst the pain was moderate in the emergency department the pain is unchanged. The patient has experienced similar episodes in the past. The patient has been recently been admitted at [facility], was discharged earlier this week. 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 - Social history:: Smoking status: Reported history of juuling and/or vaping. ROS: 18:19 Constitutional: Negative for fever, chills, and weight loss. kb 18:19 Abdomen/GI: Positive for abdominal pain, nausea and vomiting, Negative for diarrhea, constipation. 18:19 All other systems are negative. Exam: 18:19 Constitutional: This is a well developed, well nourished patient who is awake, alert, kb and in no acute distress. Head/Face: Normocephalic, atraumatic. ENT: Moist Mucous membranes Cardiovascular: Regular rate and rhythm with a normal S1 and S2. No gallops, murmurs, or rubs. No pulse deficits. Respiratory: Respirations even and unlabored. No increased work of breathing. Talking in full sentences Skin: Warm, dry with normal turgor. Normal color. MS/ Extremity: Pulses equal, no cyanosis. Neurovascular intact. Full, normal range of motion. Neuro: Awake and alert, GCS 15, oriented to person, place, time, and situation. Moves all extremities. Normal gait. 18:19 Abdomen/GI: Inspection: abdomen appears normal, Bowel sounds: normal, Palpation: soft, in all quadrants, mild abdominal tenderness, in all quadrants. Vital Signs: 15:48 BP 131 / 103; Pulse 115; Resp 16 S; Temp 97.3(TE); Pulse Ox 99% on R/A; Weight 72.57 kg aa5 (R); Height 5 ft. 0 in. (R); 18:47 BP 148 / 109; Pulse 120; Resp 17; Pulse Ox 100% on R/A; ss 19:41 BP 117 / 77; Pulse 110; Resp 18; Temp 98; Pulse Ox 100% on R/A; rv 15:48 Body Mass Index 31.25 (72.57 kg, 152.4 cm) aa5 [place] Coma Score: 19:41 Eye Response: spontaneous(4). Motor Response: obeys commands(6). Verbal Response: rv oriented(5). Total: 15. MDM: 15:53 Patient medically screened. kb 18:20 Data reviewed: vital signs, nurses notes. kb 18:21 Differential diagnosis: gastritis, non-specific abd pain, pancreatitis, kb gastroenteritis. Consideration of Admission/Observation Patient was admitted/placed on observation. Escalation of care including admission/observation considered. Management of patient was discussed with the following: Hospitalist: DOUGLAS Paz accepts pt for admission under Dr Swartz. Counseling: I had a detailed discussion with the patient and/or guardian regarding: the historical points, exam findings, and any diagnostic results supporting the discharge/admit diagnosis, lab results, the need for further work-up and treatment in the hospital. ED course: Pt states she is still having nausea and is afraid to go home because she cannot tolerate anything by mouth. 05/26 16:06 Order name: CBC with Diff; Complete Time: 16:36 kb 05/26 16:06 Order name: CMP; Complete Time: 16:53 kb 05/26 16:06 Order name: Lipase; Complete Time: 16:53 kb 05/26 16:06 Order name: IV Saline Lock; Complete Time: 16:22 kb 05/26 16:06 Order name: Labs collected and sent; Complete Time: 16:23 kb 05/26 17:28 Order name: PO challenge; Complete Time: 18:46 kb Administered Medications: 16:52 Drug: Ondansetron IVP 4 mg Route: IVP; Site: left antecubital; ss 18:02 Follow up: Response: No adverse reaction; Nausea unchanged ss 16:52 Drug: NS 0.9% IV 1000 ml Route: IV; Rate: 1000 ml; Site: left antecubital; ss 19:39 Follow up: IV Status: Completed infusion; IV Intake: 1000ml rv 17:13 Drug: Famotidine IVP 20 mg Route: IVP; Site: left antecubital; ss 18:02 Follow up: Response: No adverse reaction ss 17:13 Drug: Ondansetron IVP 4 mg Route: IVP; Site: left antecubital; ss 18:02 Follow up: Response: No adverse reaction; Nausea unchanged ss 17:37 Not Given (Physician Discretion): Potassium Chloride PO 40 mEq PO once aa5 17:43 Drug: Promethazine IM 25 mg Route: IM; Site: left gluteus; aa5 18:00 Follow up: Response: No adverse reaction aa5 18:00 Drug: Ketorolac IVP 15 mg Route: IVP; Site: left antecubital; aa5 19:38 Follow up: Response: No adverse reaction rv 18:46 Not Given (PT VOMITINGg): Dicyclomine PO 20 mg PO once bp 18:46 Not Given (PT VOMITINGg): Potassium PO Effervescent Tablet 25 mEq PO once; dissolve in bp 4 ounces of water or juice Disposition: 21:00 Co-signature as Attending Physician, John Berrios MD I reviewed the patient's care rt provided by the Advanced Practice Provider and agree with the diagnosis and treatment plan. Disposition Summary: 05/26/23 18:27 Hospitalization Ordered Hospitalization Status: Observation kb Provider: Yonathan Swartz Location: Telemetry/[facility] (observation) kb Condition: Stable kb Problem: new kb Symptoms: are unchanged kb Bed/Room Type: Standard Room Assignment: 221(05/26/23 18:58) dw Diagnosis - Abdominal pain, Generalized kb - Nausea with vomiting, unspecified - intractable kb Forms: - Medication Reconciliation Form kb - SBAR form kb Signatures: Dispatcher [employer] EDMS Elizabeth Padilla, [employer]-C [employer]-Ckb Ami Lopez, RN RN dw Mee Mcallister, RN RN aa5 Palma Louis, RENARD RN ss John Berrios MD MD rt Jeremy Yadav RN bp Porfirio Ziegler RN rv Corrections: (The following items were deleted from the chart) 18:48 16:07 Test, Urine+UC.LAB.BRZ ordered. EDMS EDMS 18:48 16:07 Urinalysis+U.LAB.BRZ ordered. EDMS EDMS 18:58 18:27 kb dw
--- NOTE | 2023-05-26 18:28 | ER ---
Nurse's Notes [facility] Name: Javier Pimentel Age: 37 yrs Sex: Female : 1985 Arrival Date: 05/26/2023 Time: 15:34 Bed 18 Private MD: Alphonso Gtz Diagnosis: Abdominal pain, Generalized;Nausea with vomiting, unspecified-intractable Presentation: 05/26 15:48 Chief complaint: Patient states: abd pain and vomiting since last night, reports being aa5 d/c'd from hospital on Monday, pt states "I was admitted because of my diabetes". Coronavirus screen: At this time, the client does not indicate any symptoms associated with coronavirus-19. Ebola Screen: Patient denies travel to an Ebola-affected area in the 21 days before illness onset. Initial Sepsis Screen: Does the patient meet any 2 criteria? HR > 90 bpm. Does the patient have a suspected source of infection? No. Patient's initial sepsis screen is negative. Risk Assessment: Do you want to hurt yourself or someone else? Patient reports no desire to harm self or others. Onset of symptoms was May 2023. 15:48 Acuity: NING 3 aa5 15:48 Method Of Arrival: EMS: [facility] aa5 Triage Assessment: 19:39 General: Appears in no apparent distress. Behavior is calm, cooperative. Pain: rv Complains of pain in abdomen. Respiratory: No deficits noted. Breath sounds are clear bilaterally. GI: Reports nausea, vomiting. 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 - Social history:: Smoking status: Reported history of juuling and/or vaping. Screenin:46 [facility] ED Fall Risk Assessment (Adult) History of falling in the last 3 months, bp including since admission No falls in past 3 months (0 pts). Abuse screen: Denies threats or abuse. Denies injuries from another. Nutritional screening: No deficits noted. Tuberculosis screening: No symptoms or risk factors identified. Assessment: 17:37 Reassessment: To bedside to administer k-lyte PO and dicyclomine, pt states "I am not aa5 able to drink that yet". Pt reports nausea, TOBACCO PACKER notified. . 17:54 Reassessment: Patient is alert, oriented x 3, equal unlabored respirations, skin aa5 warm/dry/pink. Pt states "my chest hurts from my esophagus throwing up", provider notified. . 19:40 GI: Bowel sounds present X 4 quads. Abd is soft and non tender X 4 quads. rv Vital Signs: 15:48 BP 131 / 103; Pulse 115; Resp 16 S; Temp 97.3(TE); Pulse Ox 99% on R/A; Weight 72.57 kg aa5 (R); Height 5 ft. 0 in. (R); 18:47 BP 148 / 109; Pulse 120; Resp 17; Pulse Ox 100% on R/A; ss 19:41 BP 117 / 77; Pulse 110; Resp 18; Temp 98; Pulse Ox 100% on R/A; rv 15:48 Body Mass Index 31.25 (72.57 kg, 152.4 cm) aa5 [place] Coma Score: 19:41 Eye Response: spontaneous(4). Motor Response: obeys commands(6). Verbal Response: rv oriented(5). Total: 15. ED Course: 15:36 Patient arrived in ED. mr 15:36 Alphonso Gtz is Private Physician. mr 15:45 Elizabeth Padilla FNP-C is [facility]. kb 15:45 John Berrios MD is Attending Physician. kb 15:48 Arm band placed on. aa5 15:49 Triage completed. aa5 16:22 Palma Louis, RENARD is Primary Nurse. ss 16:22 Inserted saline lock: 22 gauge in left antecubital area, using aseptic technique. Blood ss collected. 18:27 Yonathan Swartz is Hospitalizing Provider. kb 18:46 Patient has correct armband on for positive identification. Bed in low position. Call bp light in reach. Side rails up X2. 19:39 No provider procedures requiring assistance completed. Patient admitted, IV remains in rv place. 19:40 Provided Education on: ZOFRAN. rv Administered Medications: 16:52 Drug: Ondansetron IVP 4 mg Route: IVP; Site: left antecubital; ss 18:02 Follow up: Response: No adverse reaction; Nausea unchanged ss 16:52 Drug: NS 0.9% IV 1000 ml Route: IV; Rate: 1000 ml; Site: left antecubital; ss 19:39 Follow up: IV Status: Completed infusion; IV Intake: 1000ml rv 17:13 Drug: Famotidine IVP 20 mg Route: IVP; Site: left antecubital; ss 18:02 Follow up: Response: No adverse reaction ss 17:13 Drug: Ondansetron IVP 4 mg Route: IVP; Site: left antecubital; ss 18:02 Follow up: Response: No adverse reaction; Nausea unchanged ss 17:37 Not Given (Physician Discretion): Potassium Chloride PO 40 mEq PO once aa5 17:43 Drug: Promethazine IM 25 mg Route: IM; Site: left gluteus; aa5 18:00 Follow up: Response: No adverse reaction aa5 18:00 Drug: Ketorolac IVP 15 mg Route: IVP; Site: left antecubital; aa5 19:38 Follow up: Response: No adverse reaction rv 18:46 Not Given (PT VOMITINGg): Dicyclomine PO 20 mg PO once bp 18:46 Not Given (PT VOMITINGg): Potassium PO Effervescent Tablet 25 mEq PO once; dissolve in bp 4 ounces of water or juice Medication: 19:39 VIS not applicable for this client. rv Intake: 19:39 IV: 1000ml; Total: 1000ml. rv Outcome: 18:27 Decision to Hospitalize by Provider. kb 19:40 Admitted to Med/surg accompanied by tech, via wheelchair, room 221, with chart, Report rv called to DEBRA GLYNN 19:40 Condition: good 19:40 Instructed on the need for admit. 19:42 Patient left the ED. rv Signatures: Elizabeth Padilla, DANTE WELLINGTONP-Viki OsegueraMiladis de souza Mee Renner, RN RN aa5 Palma Louis RN RN Jeremy Yadav, RENARD GLYNN bp Porfirio Ziegler, RENARD RN rv Corrections: (The following items were deleted from the chart) 16:20 15:48 Method Of Arrival: Ambulatory aa5 aa5
--- NOTE | 2023-05-26 18:40 | P.HP ---
Certification for Inpatient Patient admitted to: Inpatient With expected LOS: <2 Midnights Patient will require the following post-hospital care: None Practitioner: I am a practitioner with admitting privileges, knowledge of patient current condition, hospital course, and medical plan of care. Services: Services provided to patient in accordance with Admission requirements found in Title 42 Section 412.3 of the Code of Federal Regulations Patient History Date of Service: 05/26/23 Reason for admission: Intractable nausea History of Present Illness: 37 yrs old Female with past medical history gastroparesis, IDDM, Bipolar Depression, peripherial neuropathy, HTN presents to ER via EMS with complaints of Nausea/Vomiting. She reports recently discharged, unable to tolerate p.o. intake worse today. She reports associated epigastric burning from vomiting, abdominal pain that is lower suprabupic. She reports high blood sugar over 200 the last few days. She reports unable to tolerate po intake so she has not taken her Lantus in the last 2-3 days. She reports she has not followed up outpatient with GI.She denies Fever, chills, diaphoresis, chest pain, shortness of breath or edema. Laboratory evaluation Mild hypokalemia potassium 3.2, blood sugar 172, anemia, hemoglobin 11.8, early left shift 82.5, Treated with Zofran 8 mg, Bentyl, Pepcid, normal saline, Toradol electrolytes replaced plan to admit for intractable nausea vomiting Allergies Penicillins Allergy (Intermediate, Verified 07/14/21 22:07) Itching/Hives/Rash Home Medications: Fluoxetine HCl 60 mg PO DAILY 12/27/22 Gabapentin 600 mg PO BID 12/27/22 Propranolol [Inderal*] 10 mg PO TID 12/27/22 Quetiapine Fumarate [Seroquel] 300 mg PO BEDTIME 12/27/22 hydrOXYzine HCL [Atarax] 50 mg PO Q6H 12/27/22 Ferrous Sulfate [Ferrous Sulfate*] 325 mg PO DAILY #30 tab 12/29/22 Sucralfate 10 ml PO ACHS #1200 ml 12/29/22 Insulin Glargine Human [Lantus*] 30 units SQ BID 05/16/23 Clarithromycin [Biaxin] 500 mg PO BID 9 Days #18 tab 05/22/23 Pantoprazole [Protonix Tab*] 40 mg PO BID 30 Days #60 tab 05/22/23 Sucralfate 10 ml PO ACHS 30 Days #1200 ml 05/22/23 metroNIDAZOLE [Flagyl*] 500 mg PO TID 9 Days #27 tab 05/22/23 ondansetron HCL [Ondansetron HCl] 4 mg PO Q8H #10 tab 05/22/23 - Past Medical/Surgical History Diabetic: Yes -: Diabetes type 1 -: Bipolar disorder -: Schizophrenia -: None Psychosocial/ Personal History: Disabled, lives alone. - Family History Father -: Diabetes Mother -: Diabetes - Social History Alcohol use: No CD- Drugs: Yes Caffeine use: No Review of Systems 10-point ROS is otherwise unremarkable Physical Examination - Physical Exam General: Alert, In no apparent distress, Oriented x3 HEENT: Atraumatic, Normocephalic, PERRLA Neck: Supple, 2+ carotid pulse no bruit Respiratory: Clear to auscultation bilaterally, Normal air movement Cardiovascular: No edema, Normal pulses, Regular rate/rhythm, Normal S1 S2 Gastrointestinal: Normal bowel sounds (Epigastric tenderness) Musculoskeletal: No clubbing, No swelling Integumentary: No rashes, No breakdown - Studies Laboratory Data (last 24 hrs) 05/26/23 16:21: Sodium 139, Potassium 3.2 L, BUN 9, Creatinine 0.53 L, Glucose 172 H, Total Bilirubin 0.4, AST 20, ALT 25, Alkaline Phosphatase 56, Lipase 13 05/26/23 16:21: WBC 8.30, Hgb 11.8 L, Hct 36.9, Plt Count 510 H Assessment and Plan - Plan Assessment plan Intractable nausea vomiting Epigastric pain Insulin-dependent diabetes mellitus Gastroparesis hypokalemia Essential hypertension Bipolar controlled Peripheral neuropathy Assessment plan Intractable nausea vomiting GI consult, IV fluids, prn antiemetics Epigastric pain prn analgesic, hypokalemia trend electroyltes, replace prn Insulin-dependent diabetes mellitus Ac HS, SSI resume home long 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 Gastroparesis Gi consult full liqiud, advance as tolertated Essential hypertension resume home HTN meds Bipolar controlled resume home psych meds Peripheral neuropathy resume home psych meds Full Code DVT lovenox Diet full liqiud, advance as tolertated Discharge Plan: Home Plan to discharge in: 48 Hours - Advance Directives Does patient have a Living Will: Yes Does patient have a Durable POA for Healthcare: No - Code Status/Comfort Care Code Status: Full Code Physician Review: Patient Assessed, Agree with Above Assessment and Plan Critical Care: Yes Time Spent Managing Pts Care (In Minutes): 55
[2023-05-26] MEDS ORDERED: PROMETHAZINE INJ 25 MG/ML AMP IV PRN (20:21)
[2023-05-26] MEDS ORDERED: ALPRAZOLAM 0.25 MG TABLET PO PRN (20:21)
[2023-05-26] MEDS: ONDANSETRON 4 MG/2 ML VIAL IV PRN (20:54)
[2023-05-26] MEDS: NA CHLORIDE 0.9% 1,000 ML IV SCH (20:54)
[2023-05-26] MEDS: INSULIN -REGULAR HUMAN 50 UNIT/0.5 ML ML SQ SCH (21:00)
[2023-05-26] MEDS: QUETIAPINE 100MG TAB PO SCH (21:15)
[2023-05-26] MEDS: PROPRANOLOL HCL 10 MG TAB PO SCH (21:15)
[2023-05-26] MEDS: INSULIN GLARGINE 100 UNIT/ML SQ SCH (21:16)
[2023-05-26] MEDS: SUCRALFATE 1GM/10ML UCUP PO SCH (21:16)
[2023-05-26] MEDS ORDERED: ACETAMINOPHEN 325 MG TABLET PO PRN (22:25)
[2023-05-26] MEDS: KETOROLAC 30 MG/ML INJ IV PRN (22:31)
[2023-05-26 22:47] VITALS: BMI 31.6
[2023-05-27 02:53] LABS: Absolute Lymphocytes (CBC) 2.2 K/uL (0.7-4.9); Hematocrit 30.7 % (36.0-45.0); Lymphocytes % 24.1 % (15.3-44.8); MCV 75.8 fL (80-100); MPV 7.2 fL (7.6-11.3); RBC Red Blood Cell Count 4.05 M/uL (3.86-4.86)
[2023-05-27 03:21] LABS: Magnesium 1.4 mg/dL (1.6-2.4); Phosphorus 2.5 mg/dL (2.5-4.9); Potassium 2.7 mEq/L (3.5-5.1)
[2023-05-27] MEDS ORDERED: Magnesium Sulfate 2gm IVPB 2 G/50 ML BAG IV ONE (03:30)
[2023-05-27] MEDS: KCL 20 MEQ/100 mL IVPB 20 MEQ/100 ML BAG IV SCH ×2 (05:09→07:11)
[2023-05-27] MEDS: NA CHLORIDE 0.9% 1,000 ML IV SCH ×2 (07:12→16:40)
[2023-05-27] MEDS: INSULIN -REGULAR HUMAN 50 UNIT/0.5 ML ML SQ SCH ×4 (07:30→20:36)
[2023-05-27] MEDS: ONDANSETRON 4 MG/2 ML VIAL IV PRN ×2 (08:31→20:34)
[2023-05-27] MEDS: SUCRALFATE 1GM/10ML UCUP PO SCH ×4 (08:31→20:35)
[2023-05-27] MEDS: ENOXAPARIN 40 MG/0.4 ML SQ SCH (08:31)
[2023-05-27] MEDS: INSULIN GLARGINE 100 UNIT/ML SQ SCH ×2 (08:34→20:41)
[2023-05-27] MEDS: PROPRANOLOL HCL 10 MG TAB PO SCH ×3 (08:34→20:35)
[2023-05-27] MEDS ORDERED: POTASSIUM PHOS IN 0.9 % NACL 15 MMOL/250 ML BAG IV ONE (10:00)
--- NOTE | 2023-05-27 10:12 | P.PN ---
Subjective Date of Service: 05/27/23 Chief Complaint: Intractable nausea Subjective: Improving (Patient is doing a little better possible gastroparesis she was just recently discharged) Review of Systems Unremarkable Physical Examination - Vital Signs Temperature: 97.7 F Blood Pressure: 96/55 Pulse: 97 Respirations: 14 Pulse Ox (%): 97 - Physical Exam General: Alert, Oriented x3 Respiratory: Clear to auscultation bilaterally Gastrointestinal: Normal bowel sounds, Soft and benign, Non-distended - Studies Laboratory Data (last 24 hrs) 05/26/23 16:21: Sodium 139, Potassium 3.2 L, BUN 9, Creatinine 0.53 L, Glucose 172 H, Total Bilirubin 0.4, AST 20, ALT 25, Alkaline Phosphatase 56, Lipase 13 05/26/23 16:21: WBC 8.30, Hgb 11.8 L, Hct 36.9, Plt Count 510 H Assessment And Plan - Current Problems (Diagnosis) (1) gastropareis suspected Current Visit: No Status: Acute Plan: Patient admitted with again with nausea and vomiting she was just recently discharged she of diabetes suspect gastroparesis have started her on some Reglan Labs showed hypokalemia mild anemia patient does have a microcytic anemia we will check iron levels continue to monitor Physician Review: Patient Assessed, Agree with Above Assessment and Plan
[2023-05-27] MEDS: METOCLOPRAMIDE 10 MG/2mL INJ IV SCH ×2 (10:46→16:41)
[2023-05-27] MEDS: KETOROLAC 30 MG/ML INJ IV PRN (12:11)
[2023-05-27] MEDS ORDERED: MAGNES/ALUMIN/SIMET 30ML UCUP PO PRN (18:47)
[2023-05-27] MEDS ORDERED: POTASSIUM 25 MEQ EFFERV TAB PO ONE (18:48)
[2023-05-27] MEDS ORDERED: ENOXAPARIN 40 MG/0.4 ML SQ SCH (20:20)
[2023-05-27] MEDS: QUETIAPINE 100MG TAB PO SCH (20:35)
[2023-05-27] MEDS: GABAPENTIN 300 MG CAP PO SCH (20:35)
[2023-05-28] MEDS: METOCLOPRAMIDE 10 MG/2mL INJ IV SCH ×3 (00:19→11:27)
[2023-05-28] MEDS: NA CHLORIDE 0.9% 1,000 ML IV SCH (02:53)
[2023-05-28 03:36] LABS: Absolute Lymphocytes (CBC) 2.4 K/uL (0.7-4.9); Hematocrit 29.3 % (36.0-45.0); Lymphocytes % 32.1 % (15.3-44.8); MCV 76.9 fL (80-100); MPV 7.3 fL (7.6-11.3); RBC Red Blood Cell Count 3.81 M/uL (3.86-4.86)
[2023-05-28 03:56] LABS: Magnesium 1.6 mg/dL (1.6-2.4); Phosphorus 2.8 mg/dL (2.5-4.9); Potassium 3.7 mEq/L (3.5-5.1)
[2023-05-28 04:17] LABS: Specific Gravity 1.013 (1.005-1.030); Urine Bacteria None Seen /HPF (<20); Urine Bilirubin NEGATIVE (Negative); Urine Blood Negative (Negative); Urine Clarity Extremely Turbid (Clear); Urine Color Light-Yellow (Yellow); Urine Glucose 2+ (Negative); Urine Mucus 1+ /HPF (None Seen); Urine Protein TRACE (Negative); Urine RBC <5 /HPF (None Seen); Urine Urobilinogen Normal (Normal); Urine pH 5.5 (5.0-7.0)
[2023-05-28] MEDS ORDERED: MAGNESIUM SULFATE 1 gm IVPB 1 GM/100 ML BAG IV ONE (06:00)
[2023-05-28] MEDS ORDERED: POTASSIUM 25 MEQ EFFERV TAB PO ONE (06:00)
[2023-05-28] MEDS: INSULIN -REGULAR HUMAN 50 UNIT/0.5 ML ML SQ SCH ×2 (07:30→11:30)
[2023-05-28] MEDS ORDERED: PANTOPRAZOLE 40MG TABLET PO SCH (09:00)
[2023-05-28] MEDS: INSULIN GLARGINE 100 UNIT/ML SQ SCH (09:00)
[2023-05-28] MEDS ORDERED: FLUOXETINE 20 MG CAP PO SCH (09:00)
[2023-05-28] MEDS ORDERED: HOME MED 1 EA UNK (Fluoxetine Hcl [Fluoxetine Hcl] 60 MG Tablet) PO SCH (09:00)
[2023-05-28] MEDS: PROPRANOLOL HCL 10 MG TAB PO SCH (09:20)
[2023-05-28] MEDS: GABAPENTIN 300 MG CAP PO SCH (09:20)
[2023-05-28] MEDS: ENOXAPARIN 40 MG/0.4 ML SQ SCH (09:22)
[2023-05-28] MEDS: SUCRALFATE 1GM/10ML UCUP PO SCH ×2 (09:22→11:28)
--- NOTE | 2023-05-28 10:00 | P.DS ---
Admission Date: 05/26/23 Discharge Date: 05/28/23 Disposition: ROUTINE DISCHARGE Discharge Condition: FAIR Reason for Admission: Intractable nausea - Problems (1) gastropareis suspected Current Visit: No Status: Acute Brief History of Present Illness: Patient is 37 years of age admitted with nausea and vomiting presumed gastroparesis Hospital Course: She was admitted to the hospital started on IV Reglan at the time of discharge alert oriented responsive cooperative mild nausea vomiting tolerating diet Labs chemistries all reviewed mild microcytic anemia at the time of discharge no other complaints. Patient to continue with the Reglan as needed follow-up with GI able for discharge Vital Signs/Physical Exam: Temp Pulse Resp BP Pulse Ox 97.6 F 88 14 108/81 98 05/28/23 08:00 05/28/23 09:20 05/28/23 08:00 05/28/23 09:20 05/28/23 08:00 Laboratory Data at Discharge: WBC 7.40 thou/uL (4.3-10.9) 05/28/23 02:38 Hgb 9.3 g/dL (12.0-15.0) L 05/28/23 02:38 Hct 29.3 % (36.0-45.0) L 05/28/23 02:38 Plt Count 417 thou/uL (152-406) H 05/28/23 02:38 Sodium 143 mEq/L (136-145) 05/28/23 02:38 Potassium 3.7 mEq/L (3.5-5.1) 05/28/23 02:38 BUN 13 mg/dL (7-18) 05/28/23 02:38 Creatinine 0.68 mg/dL (0.55-1.02) 05/28/23 02:38 Glucose 151 mg/dL (74-106) H 05/28/23 02:38 Phosphorus 2.8 mg/dL (2.5-4.9) 05/28/23 02:38 Magnesium 1.6 mg/dL (1.6-2.4) 05/28/23 02:38 Total Bilirubin 0.4 mg/dL (0.2-1.0) 05/26/23 16:21 AST 20 U/L (15-37) 05/26/23 16:21 ALT 25 U/L (13-56) 05/26/23 16:21 Alkaline Phosphatase 56 U/L (45-117) 05/26/23 16:21 Lipase 13 U/L (13-75) 05/26/23 16:21 Home Medications: Fluoxetine HCl 60 mg PO DAILY 12/27/22 Gabapentin 600 mg PO BID 12/27/22 Propranolol [Inderal*] 10 mg PO TID 12/27/22 Quetiapine Fumarate [Seroquel] 300 mg PO BEDTIME 12/27/22 hydrOXYzine HCL [Atarax] 50 mg PO Q6H 12/27/22 Ferrous Sulfate [Ferrous Sulfate*] 325 mg PO DAILY #30 tab 12/29/22 Insulin Glargine Human [Lantus*] 30 units SQ BID 05/16/23 Pantoprazole [Protonix Tab*] 40 mg PO BID 30 Days #60 tab 05/22/23 Ferrous Sulfate 325 mg PO DAILY 05/27/23 Fluoxetine HCl 60 mg PO DAILY 05/27/23 Gabapentin 600 mg PO BID 05/27/23 Pantoprazole [Protonix Tab*] 40 mg PO DAILY 05/27/23 Sucralfate 10 ml PO ACHS 05/27/23 hydrOXYzine HCL [Atarax] 50 mg PO Q6HP PRN 05/27/23 ondansetron HCL [Ondansetron HCl] 4 mg PO Q8H PRN 05/27/23 Metoclopramide HCl [Reglan] 5 mg PO TID PRN 10 Days #30 tab 05/28/23 Metoclopramide [Reglan] 5 mg PO TID PRN 10 Days #30 tab 05/28/23 New Medications: Metoclopramide HCl [Reglan] 5 mg PO TID PRN 10 Days #30 tab PRN Reason: Nausea / Vomiting Metoclopramide [Reglan] 5 mg PO TID PRN 10 Days #30 tab PRN Reason: Nausea / Vomiting Diet: Regular Followup: Alphonso Gtz, MAINTENANCE PIPEFITTER [Primary Care Provider] -
[2023-05-28 10:07] VITALS: O2SAT 98
[2023-05-28] MEDS: ONDANSETRON 4 MG/2 ML VIAL IV PRN (10:11)
[2023-05-28 11:54] VITALS: BP 143/88; TEMP 97.3
== END 2023-05-28 14:20 | disposition home or self-care (01) | DRG 392 ==
LOC: ER 15:34 → ERHOLD 18:42 → 2ND 19:29
PROVIDERS: ADMIT Internal Medicine Sleep Medicine; ATTEND Internal Medicine Sleep Medicine
DX: K31.84 Gastroparesis (principal); E87.6 Hypokalemia; D50.9 Iron deficiency anemia, unspecified; I10 Essential (primary) hypertension; E78.5 Hyperlipidemia, unspecified; E10.42 Type 1 diabetes mellitus with diabetic polyneuropathy; K59.00 Constipation, unspecified; F31.9 Bipolar disorder, unspecified; F20.9 Schizophrenia, unspecified; Z79.4 Long term (current) use of insulin; Z79.899 Other long term (current) drug therapy; Z88.0 Allergy status to penicillin; Z87.891 Personal history of nicotine dependence; Z83.3 Family history of diabetes mellitus
CPT/HCPCS: 36415; 80048; 80053; 81001; 82728; 82947; 83540; 83690; 83735; 84100; 84132; 84466; 85025; 96361; 96372; 96374; 96375; 99285; J1650; J2405; J2550; J2765; J3475; J3480; J7030

== ENCOUNTER 2023-06-23 20:04 | Emergency (ER) | payer OTHER ==
[2023-06-23] MEDS ORDERED: MORPHINE 4 MG/ML SYR ONE (20:29)
[2023-06-23] MEDS ORDERED: ONDANSETRON 4 MG/2 ML VIAL ONE (20:29)
[2023-06-23] MEDS ORDERED: FAMOTIDINE 20 MG/2 ML VIAL IV ONE (20:29)
[2023-06-23 21:01] LABS: Absolute Lymphocytes (CBC) 1.2 K/uL (0.7-4.9); Lymphocytes % 13.4 % (15.3-44.8); MCV 72.2 fL (80-100); MPV 7.1 fL (7.6-11.3); Platelets 606 thou/uL (152-406); RBC Red Blood Cell Count 4.99 M/uL (3.86-4.86)
[2023-06-23] MEDS ORDERED: NA CHLORIDE 0.9% 50 ML ONE (21:04)
[2023-06-23] MEDS ORDERED: METOCLOPRAMIDE 10 MG/2mL INJ ONE (21:05)
[2023-06-23] MEDS ORDERED: PANTOPRAZOLE 40 MG INJ ONE (21:08)
[2023-06-23] MEDS ORDERED: NA CHLORIDE 0.9% 250 ML ONE (21:09)
[2023-06-23] MEDS ORDERED: NA CHLORIDE 0.9% 2,000 ML ONE (21:09)
[2023-06-23 21:22] LABS: Albumin 3.3 g/dL (3.4-5.0); Bilirubin Total 0.5 mg/dL (0.2-1.0); Potassium 3.3 mEq/L (3.5-5.1); Protein, Total 7.1 g/dL (6.4-8.2)
--- NOTE | 2023-06-23 21:23 | ER ---
Nurse's Notes [facility] Name: Javier Moctezuma Age: 37 yrs Sex: Female : 1985 Arrival Date: 06/23/2023 Time: 20:04 Bed 7 Private MD: Diagnosis: GI Bleed/ Gastrointestinal hemorrhage, unspecified-upper;Essential (primary) hypertension;Type 1 diabetes mellitus with hyperglycemia;Gastroparesis;Hypokalemia Presentation: 06/23 20:08 Chief complaint: Patient states: uncontrolled n/v, started yesterday (06/22/23) at 2000. jw7 Coronavirus screen: Vaccine status: Patient reports receiving the 1st dose of the Covid vaccine. Ebola Screen: No symptoms or risks identified at this time. Initial Sepsis Screen:. Risk Assessment: Do you want to hurt yourself or someone else? Patient reports no desire to harm self or others. Onset of symptoms was June 22, 2023. 20:08 Method Of Arrival: EMS: [facility] 20:08 Acuity: NING 4 [facility] 20:31 Initial Sepsis Screen: Does the patient meet any 2 criteria? HR > 90 bpm. No. Patient's [facility] initial sepsis screen is negative. Does the patient have a suspected source of infection? Yes: Acute abdominal pain. Triage Assessment: 20:13 General: Appears uncomfortable, ill, Behavior is calm, cooperative, anxious. Pain: jw7 Complains of pain in abdomen and throat/esophagus Pain does not radiate. Pain currently is 10 out of 10 on a pain scale. Quality of pain is described as burning, crampy, Pain began 1 day ago. EENT: No deficits noted. Reports pain to esophagus/throat due to continued vomiting . Neuro: No deficits noted. Hunt Agitation-Sedation Scale (RASS): 0 - Alert and Calm Level of Consciousness is awake, alert, obeys commands, Oriented to person, place, time, situation. Cardiovascular: No deficits noted. Capillary refill < 3 seconds Clubbing of nail beds is absent JVD is absent Patient's skin is warm and dry. Respiratory: No deficits noted. Airway is patent Trachea midline Respiratory effort is even, unlabored, Respiratory pattern is regular, symmetrical. GI: Abdomen is round non-distended, Pt is actively vomiting dark coffee ground emesis Last meal was June 22, 2023. Reports lower abdominal pain, upper abdominal pain, epigastric pain, intolerance of fluids, intolerance of food, nausea, vomiting. : No deficits noted. No signs and/or symptoms were reported regarding the genitourinary system. Derm: No deficits noted. No signs and/or symptoms reported regarding the dermatologic system. Skin is intact, is healthy with good turgor, Skin is diaphoretic, Skin is normal, Skin temperature is warm. Musculoskeletal: No deficits noted. No signs and/or symptoms reported regarding the musculoskeletal system. Circulation, motion, and sensation intact. Capillary refill < 3 seconds. 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 - Social history:: Smoking status: Reported history of juuling and/or vaping. - Family history:: not pertinent. Screenin:25 [facility] ED Fall Risk Assessment (Adult) History of falling in the last 3 months, jw7 including since admission No falls in past 3 months (0 pts). Abuse screen: Denies threats or abuse. Denies injuries from another. Nutritional screening: No deficits noted. Tuberculosis screening: No symptoms or risk factors identified. Assessment: 20:25 General: Appears uncomfortable, ill, Behavior is calm, cooperative, anxious. Pain: jw7 Complains of pain in abdomen and throat/esophagus Pain does not radiate. Pain currently is 10 out of 10 on a pain scale. Quality of pain is described as burning, crampy, Pain began 1 day ago. Neuro: No deficits noted. Hunt Agitation-Sedation Scale (RASS): 0 - Alert and Calm Level of Consciousness is awake, alert, obeys commands, Oriented to person, place, time, situation. Cardiovascular: No deficits noted. Capillary refill < 3 seconds Clubbing of nail beds is absent JVD is absent. Respiratory: No deficits noted. Airway is patent Trachea midline Respiratory effort is even, unlabored, Respiratory pattern is regular, symmetrical. GI: Abdomen is round non-distended, Reports lower abdominal pain, upper abdominal pain, cramping, diarrhea, epigastric pain, intolerance of fluids, intolerance of food, nausea, vomiting. : No deficits noted. No signs and/or symptoms were reported regarding the genitourinary system. EENT: No deficits noted. Reports pain in throat/esophagus. Derm: No deficits noted. No signs and/or symptoms reported regarding the dermatologic system. Skin is intact, is healthy with good turgor, Skin is diaphoretic, Skin is normal, Skin temperature is warm. Musculoskeletal: No deficits noted. No signs and/or symptoms reported regarding the musculoskeletal system. Circulation, motion, and sensation intact. Capillary refill < 3 seconds. Vital Signs: 20:08 BP 199 / 117; Pulse 98; Resp 21 S; Pulse Ox 100% on R/A; Weight 72.57 kg; Height 5 ft. jw7 0 in. ; Pain 9/10; 20:10 BP 180 / 115; Pulse 90; Resp 20 S; Temp 97.5; Pulse Ox 100% on R/A; jw7 21:10 BP 154 / 106; Pulse 109; Resp 19 S; Pulse Ox 100% on R/A; jw7 22:40 BP 152 / 94; Pulse 111; Resp 20 S; Pulse Ox 100% on R/A; jw7 20:08 Body Mass Index 31.25 (72.57 kg, 152.4 cm) jw7 20:08 Pain Scale: Adult jw7 ED Course: 20:07 Patient arrived in ED. jw7 20:07 Michelle Mccallum, RN is Primary Nurse. jw7 20:08 Zhang Byers MD is Attending Physician. [facility] 20:13 Triage completed. jw7 20:13 Arm band placed on right wrist. jw7 20:25 Patient has correct armband on for positive identification. Bed in low position. Call [facility] light in reach. Side rails up X2. 20:53 Type And Screen Sent. jw7 20:53 Troponin HS Sent. jw7 20:53 CBC with Diff Sent. jw7 20:53 CMP Sent. jw7 20:53 Lipase Sent. jw7 21:45 Chest Single View XRAY In Process Unspecified. EDMS 21:49 CT Abd/Pelvis - Without Contrast In Process Unspecified. EDMS 23:07 No provider procedures requiring assistance completed. Patient transferred, IV remains jw7 in place. 23:08 Provided Education on: need for transfer. jw7 Administered Medications: 20:34 Drug: Famotidine IVP 20 mg Route: IVP; Site: left antecubital; vc1 21:22 Follow up: Response: No adverse reaction jw7 20:34 Drug: morphine IVP or IV 4 mg Route: IVP; Infused Over: 4 mins; Site: left antecubital; vc1 21:23 Follow up: Response: No adverse reaction jw7 20:34 Drug: Ondansetron IVP 8 mg Route: IVP; Site: left antecubital; vc1 21:23 Follow up: Response: No adverse reaction jw7 20:57 CANCELLED (Other Intervention Used): morphine IVP or IV 8 mg IVP once over 4 mins vc1 21:00 Drug: metoCLOPramide IVP 10 mg Route: IVP; Site: right upper arm; jw7 22:37 Follow up: Response: No adverse reaction jw7 21:21 Drug: NS 0.9% IV 1000 ml Route: IV; Rate: 1 bolus; Site: right upper arm; jw7 21:22 Drug: Pantoprazole IVP 80 mg Route: IVP; Site: right upper arm; jw7 22:38 Follow up: Response: No adverse reaction jw7 21:22 Drug: Pantoprazole IV 8 mg/hr Route: IV; Rate: 25 ml/hr; Site: right upper arm; jw7 21:32 CANCELLED (Other Intervention Used): NS 0.9% IV 1000 ml IV at 125 ml/hr continuous jw7 21:34 CANCELLED (Other Intervention Used): Ondansetron IVP 2 mg IVP once; over 2 minutes jw7 22:37 Drug: NS 0.9% with KCl IV 20 mEq/L 1000 ml Route: IV; Rate: 125 ml/hr; Site: right [facility] upper arm; 23:06 Follow up: Response: No adverse reaction; IV Status: Infusion continued; IV Intake: jw7 200ml 23:04 Drug: Labetalol IV 10 mg Route: IV; Rate: per protocol; Site: right upper arm; jw7 23:09 Follow up: IV Status: Completed infusion; IV Intake: 2ml jw7 23:10 Follow up: Response: No adverse reaction jw7 23:05 Drug: Labetalol IV 10 mg {Note: to be administered by EMS in route .} Route: IV; Rate: jw7 per protocol; Site: Other; 23:06 Drug: Promethazine IM 25 mg Route: IM; Site: left deltoid; jw7 23:06 Follow up: Response: No adverse reaction jw7 Medication: 23:09 VIS not applicable for this client. jw7 Intake: 23:06 IV: 200ml; Total: 200ml. jw7 23:09 IV: 2ml; Total: 202ml. jw7 Outcome: 21:23 ER care complete, transfer ordered by MD. [facility] 23:07 Transferred by ground EMS to [facility]. jw7 23:07 Condition: stable 23:07 Instructed on the need for transfer, Demonstrated understanding of instructions. 23:09 Patient left the ED. jw7 Signatures: Dispatcher [employer] EDMS Zhang Byers MD MD cha Calcote, Vanessa RN RN vc1 Michelle Mccallum RN RN jw7 Corrections: (The following items were deleted from the chart) 20:16 20:13 PSHx: hypertension; jw7 jw7 20:56 20:34 Ondansetron IVP 2 mg IVP in left antecubital vc1 vc1 20:56 20:34 morphine IVP or IV 8 mg IVP in left antecubital over 4 mins vc1 vc1 20:57 20:34 morphine IVP or IV 4 mg IVP in left antecubital over 4 mins vc1 vc1 20:57 20:34 Ondansetron IVP 2 mg IVP in left antecubital vc1 vc1 20:58 20:58 Ondansetron IVP 8 mg IVP in left antecubital vc1 vc1 21:22 21:21 NS 0.9% IV 1000 ml IV at 125 ml/hr in right upper arm jw7 jw7
--- NOTE | 2023-06-23 21:23 | EDPHYS ---
Physician Documentation [facility] Name: Javier Moctezuma Age: 37 yrs Sex: Female : 1985 Arrival Date: 06/23/2023 Time: 20:04 Bed 7 Private MD: GRANT Physician Zhang Byers HPI: 06/23 21:14 This 37 yrs old Female presents to ER via EMS with complaints of vomiting , nata blood, gastroparesis. 21:14 The patient presents with abdominal pain. Onset: The symptoms/episode began/occurred 2 nata day(s) ago. The patient presents to the emergency department with nausea, vomiting, abdominal pain, of the epigastric area, right upper quadrant and left upper quadrant. Onset: The symptoms/episode began/occurred 2 day(s) ago. Possible causes: unknown. The symptoms are aggravated by nothing. The symptoms are alleviated by nothing. The patient presents to the emergency department vomiting blood, a moderate amount, coffee grounds in nature, with multiple such episodes. Abdominal pain: described as burning, constant, crampy, located in the epigastric area, right upper quadrant and left upper quadrant. Modifying factors: The symptoms are alleviated by nothing, the symptoms are aggravated by food, movement, PO intake, pressure. Associated signs and symptoms: Pertinent positives: vomiting. Severity of symptoms: At their worst the symptoms were moderate yesterday, in the emergency department the symptoms are unchanged. 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 - Social history:: Smoking status: Reported history of juuling and/or vaping. - Family history:: not pertinent. ROS: 21:14 Constitutional: Negative for fever, chills, and weight loss, Eyes: Negative for injury, nata pain, redness, and discharge, ENT: Negative for injury, pain, and discharge, Neck: Negative for injury, pain, and swelling, Cardiovascular: Negative for chest pain, palpitations, and edema, Respiratory: Negative for shortness of breath, cough, wheezing, and pleuritic chest pain, Back: Negative for injury and pain, : Negative for injury, bleeding, discharge, and swelling, MS/Extremity: Negative for injury and deformity, Skin: Negative for injury, rash, and discoloration, Neuro: Negative for headache, weakness, numbness, tingling, and seizure, Psych: Negative for depression, anxiety, suicide ideation, homicidal ideation, and hallucinations, Allergy/Immunology: Negative for hives, rash, and allergies, Endocrine: Negative for neck swelling, polydipsia, polyuria, polyphagia, and marked weight changes, Hematologic/Lymphatic: Negative for swollen nodes, abnormal bleeding, and unusual bruising. 21:14 Abdomen/GI: Positive for abdominal pain, nausea and vomiting, abdominal cramps, black/tarry stool, of the epigastric area, right upper quadrant and left upper quadrant. Exam: 21:14 Constitutional: This is a well developed, well nourished patient who is awake, alert, nata and in no acute distress. Head/Face: Normocephalic, atraumatic. Eyes: Pupils equal round and reactive to light, extra-ocular motions intact. Lids and lashes normal. Conjunctiva and sclera are non-icteric and not injected. Cornea within normal limits. Periorbital areas with no swelling, redness, or edema. ENT: Nares patent. No nasal discharge, no septal abnormalities noted. Tympanic membranes are normal and external auditory canals are clear. Oropharynx with no redness, swelling, or masses, exudates, or evidence of obstruction, uvula midline. Mucous membranes moist. Neck: Trachea midline, no thyromegaly or masses palpated, and no cervical lymphadenopathy. Supple, full range of motion without nuchal rigidity, or vertebral point tenderness. No Meningismus. Chest/axilla: Normal chest wall appearance and motion. Nontender with no deformity. No lesions are appreciated. Cardiovascular: Regular rate and rhythm with a normal S1 and S2. No gallops, murmurs, or rubs. Normal PMI, no JVD. No pulse deficits. Respiratory: Lungs have equal breath sounds bilaterally, clear to auscultation and percussion. No rales, rhonchi or wheezes noted. No increased work of breathing, no retractions or nasal flaring. Back: No spinal tenderness. No costovertebral tenderness. Full range of motion. Skin: Warm, dry with normal turgor. Normal color with no rashes, no lesions, and no evidence of cellulitis. MS/ Extremity: Pulses equal, no cyanosis. Neurovascular intact. Full, normal range of motion. Neuro: Awake and alert, GCS 15, oriented to person, place, time, and situation. Cranial nerves II-XII grossly intact. Motor strength 5/5 in all extremities. Sensory grossly intact. Cerebellar exam normal. Normal gait. 21:14 Abdomen/GI: Inspection: abdomen appears normal, Bowel sounds: active, Palpation: mild abdominal tenderness, in the epigastric area, right upper quadrant and left upper quadrant, Liver: no appreciated palpable abnormalities, Hernia: not appreciated. 21:40 ECG was reviewed by the Attending Physician. [facility] Vital Signs: 20:08 BP 199 / 117; Pulse 98; Resp 21 S; Pulse Ox 100% on R/A; Weight 72.57 kg; Height 5 ft. jw 0 in. ; Pain 9/10; 20:10 BP 180 / 115; Pulse 90; Resp 20 S; Temp 97.5; Pulse Ox 100% on R/A; jw7 21:10 BP 154 / 106; Pulse 109; Resp 19 S; Pulse Ox 100% on R/A; jw7 22:40 BP 152 / 94; Pulse 111; Resp 20 S; Pulse Ox 100% on R/A; [facility] 20:08 Body Mass Index 31.25 (72.57 kg, 152.4 cm) [facility] 20:08 Pain Scale: Adult [facility] MDM: 20:09 Patient medically screened. [facility] 21:19 Differential diagnosis: Nonspecific abd pain, gastritis, pancreatitis, viral nata gastroenteritis, gastroenteritis, gastritis, diverticulitis, hemorrhagic shock, varices, Cholelithiasis, gastritis, GI Bleed, Mesenteric ischemia or infarction, non-specific abd pain. Data reviewed: vital signs, nurses notes, lab test result(s), EKG, radiologic studies, CT scan, plain films. Consideration of Admission/Observation Escalation of care including admission/observation considered. I considered the following discharge prescriptions or medication management in the emergency department Medications were administered in the Emergency Department. See MAR. Independent interpretation of the following test(s) in the Emergency Department EKG: See my EKG interpretation above. Test considered but Not performed: Ultrasound no abd usg. Historians other than the Patient: pt only , good historian. Care significantly affected by the following chronic conditions: Diabetes, Hypertension, gastroparesis, anxiety. Counseling: I had a detailed discussion with the patient and/or guardian regarding: the historical points, exam findings, and any diagnostic results supporting the discharge/admit diagnosis, the presence of at least one elevated blood pressure reading (>120/80) during this emergency department visit, lab results, radiology results, the need to transfer to another facility, for higher level of care, [facility] does not immediately have the required specialist. 06/23 20:36 Order name: CBC with Diff; Complete Time: 21:23 [facility] 06/23 20:36 Order name: CMP; Complete Time: 21:23 [facility] 06/23 20:36 Order name: Lipase; Complete Time: 21:23 [facility] 06/23 20:39 Order name: Troponin HS; Complete Time: 22: [facility] 06/23 20:39 Order name: Type And Screen; Complete Time: 22:09 [facility] 06/23 20:39 Order name: Chest Single View XRAY; Complete Time: 22: [facility] 06/23 20:39 Order name: CT Abd/Pelvis - Without Contrast; Complete Time: 22: [facility] 06/23 20:36 Order name: IV Saline Lock; Complete Time: 20:53 [facility] 06/23 20:36 Order name: Labs collected and sent; Complete Time: 20:53 [facility] 06/23 20:36 Order name: EKG - Nurse/Tech; Complete Time: 21:21 [facility] 06/23 20:39 Order name: IV Saline Lock - Large Bore; Complete Time: 21:21 [facility] EC:40 Rate is 108 beats/min. Rhythm is regular. QRS Reading is Normal. DE interval is normal. [facility] QRS interval is normal. QT interval is normal. No Q waves. T waves are Normal. No ST changes noted. Clinical impression: Sinus tachycardia and No evidence of ischemia. Interpreted by me. Reviewed by me. Administered Medications: 20:34 Drug: Famotidine IVP 20 mg Route: IVP; Site: left antecubital; vc1 21:22 Follow up: Response: No adverse reaction jw7 20:34 Drug: morphine IVP or IV 4 mg Route: IVP; Infused Over: 4 mins; Site: left antecubital; vc1 21:23 Follow up: Response: No adverse reaction jw7 20:34 Drug: Ondansetron IVP 8 mg Route: IVP; Site: left antecubital; vc1 21:23 Follow up: Response: No adverse reaction jw7 20:57 CANCELLED (Other Intervention Used): morphine IVP or IV 8 mg IVP once over 4 mins vc1 21:00 Drug: metoCLOPramide IVP 10 mg Route: IVP; Site: right upper arm; jw7 22:37 Follow up: Response: No adverse reaction jw7 21:21 Drug: NS 0.9% IV 1000 ml Route: IV; Rate: 1 bolus; Site: right upper arm; jw7 21:22 Drug: Pantoprazole IVP 80 mg Route: IVP; Site: right upper arm; jw7 22:38 Follow up: Response: No adverse reaction jw7 21:22 Drug: Pantoprazole IV 8 mg/hr Route: IV; Rate: 25 ml/hr; Site: right upper arm; jw7 21:32 CANCELLED (Other Intervention Used): NS 0.9% IV 1000 ml IV at 125 ml/hr continuous jw7 21:34 CANCELLED (Other Intervention Used): Ondansetron IVP 2 mg IVP once; over 2 minutes jw7 22:37 Drug: NS 0.9% with KCl IV 20 mEq/L 1000 ml Route: IV; Rate: 125 ml/hr; Site: right [facility] upper arm; 23:06 Follow up: Response: No adverse reaction; IV Status: Infusion continued; IV Intake: jw7 200ml 23:04 Drug: Labetalol IV 10 mg Route: IV; Rate: per protocol; Site: right upper arm; jw7 23:09 Follow up: IV Status: Completed infusion; IV Intake: 2ml jw7 23:10 Follow up: Response: No adverse reaction jw7 23:05 Drug: Labetalol IV 10 mg {Note: to be administered by EMS in route .} Route: IV; Rate: jw7 per protocol; Site: Other; 23:06 Drug: Promethazine IM 25 mg Route: IM; Site: left deltoid; jw7 23:06 Follow up: Response: No adverse reaction jw7 Disposition Summary: 06/23/23 21:23 Transfer Ordered Transfer Location: [facility] nata Reason: Higher level of care nata Condition: Fair nata Problem: new nata Symptoms: have worsened nata Accepting Physician: chuy keira(06/23/23 23:09) jw7 Diagnosis - GI Bleed/ Gastrointestinal hemorrhage, unspecified - upper nata - Essential (primary) hypertension nata - Type 1 diabetes mellitus with hyperglycemia anta - Gastroparesis nata - Hypokalemia nata Forms: - Medication Reconciliation Form nata - SBAR form nata Signatures: Dispatcher [employer] EDMS Zhang Byers MD MD nata Janel Georges RN RN vc1 Michelle Mccallum RN RN jw7 Corrections: (The following items were deleted from the chart) 20:16 20:13 PSHx: hypertension; jw7 jw7 20:57 20:33 morphine IVP or IV 8 mg IVP once over 4 mins ordered. vc1 vc1 20:57 20:34 morphine IVP or IV 8 mg IVP once over 4 mins given. vc1 vc1 20:57 20:56 morphine IVP or IV 8 mg IVP once over 4 mins given. vc1 vc1 20:57 20:57 morphine IVP or IV 8 mg IVP once over 4 mins ordered. vc1 vc1 21:24 21:23 [facility] nata nata 21:32 20:39 NS 0.9% IV 1000 ml IV at 125 ml/hr continuous ordered. nata jw7 21:32 21:21 NS 0.9% IV 1000 ml IV at 125 ml/hr continuous given. jw7 jw7 21:32 21:22 NS 0.9% IV 1000 ml IV at 125 ml/hr continuous ordered. jw7 jw7 21:32 21:31 NS 0.9% IV 1000 ml IV at 125 ml/hr continuous ordered. jw7 jw7 21:34 20:33 Ondansetron IVP 2 mg IVP once; over 2 minutes ordered. vc1 jw7 21:34 20:34 Ondansetron IVP 2 mg IVP once; over 2 minutes given. vc1 jw7 21:34 20:56 Ondansetron IVP 2 mg IVP once; over 2 minutes given. vc1 jw7 21:34 20:57 Ondansetron IVP 2 mg IVP once; over 2 minutes ordered. vc1 jw7 23:09 21:24 [facility] nata jw7
[2023-06-23] MEDS ORDERED: NS KCL 20MEQ 1,000 ML IV ONE (21:46)
--- NOTE | 2023-06-23 21:55 | RAD REPORT ---
EXAM DESCRIPTION: RAD - Chest Single View - 06/23/2023 9:43 pm CLINICAL HISTORY: SOB Chest pain. COMPARISON: <Comparisons> FINDINGS: Portable technique limits examination quality. The lungs are grossly clear. The heart is normal in size. No displaced fractures. IMPRESSION: No acute intrathoracic process suspected.
--- NOTE | 2023-06-23 21:58 | RAD REPORT ---
EXAM DESCRIPTION: CT - Abdomen Pelvis Wo Contrast - 06/23/2023 9:47 pm CLINICAL HISTORY: Abdominal pain. ABD PAIN COMPARISON: Abdomen Pelvis W Contrast dated 05/17/2023bdomen Pelvis W Contrast dated 05/17/2023; Ab domen Pelvis W Contrast dated 12/26/2022 TECHNIQUE: CT imaging of the abdomen and pelvis was performed without contrast. Solid organ, bowel a nd vascular assessment is limited due to lack of IV and oral contrast. All CT scans are performed using dose optimization technique as appropriate and may include automated exposure control or mA/KV adjustment according to patient size. FINDINGS: 6 mm noncalcified nodule in the right middle lobe. The liver, spleen, pancreas, adrenal glands and kidneys are within normal limits for a limited non-co ntrast examination. No bowel obstruction, free air, intra-abdominal free fluid or abscess. Mild pelvic free fluid. The ap pendix is not identified as a discrete structure, however, no secondary findings of appendicitis are identified. The osseous structures are within normal limits. IMPRESSION: No acute intra-abdominal or pelvic findings. A limited non-contrast examination was performed as detailed.
[2023-06-23] MEDS ORDERED: LABETALOL 20 MG/4ML SYRINGE IV ONE (23:02)
[2023-06-23] MEDS ORDERED: PROMETHAZINE INJ 25 MG/ML AMP ONE (23:11)
[2023-06-23 23:29] VITALS: O2SAT 100
[2023-06-23 23:30] VITALS: TEMP 97.5
[2023-06-23 23:34] VITALS: BP 152/94
--- NOTE | 2023-06-26 13:14 | EKG ---
Test Date: 2023-06-23 Test Time: 21:11:42 Office Manager Executive Assistant: LINETTE MEASUREMENT RESULTS: Intervals: Rate: 108 CA: 144 QRSD: 74 QT: 380 QTc: 509 [place]: P: 57 CA: 144 QRS: 19 T: 32 INTERPRETIVE STATEMENTS: Sinus tachycardia Nonspecific ST and T wave abnormality Abnormal ECG No previous ECG available for comparison Electronically Signed On 06-26-23 13:11:03 CDT by Kris Lopez
== END 2023-06-23 23:09 | disposition short-term general hospital (02) ==
LOC: ER 20:04
DX: K92.2 Gastrointestinal hemorrhage, unspecified (principal); E10.65 Type 1 diabetes mellitus with hyperglycemia; E10.43 Type 1 diabetes mellitus with diabetic autonomic (poly)neuropathy; K31.84 Gastroparesis; E87.6 Hypokalemia; I10 Essential (primary) hypertension; Z79.4 Long term (current) use of insulin; Z88.0 Allergy status to penicillin
CPT/HCPCS: 85025; 36415; 86900; 86850; 86901; 84484; 83690; 80053; 74176; 71045; 96372; 99285; J2550; J2765; C9113; J2405; J7050; J7030; J3480; 93005

== ENCOUNTER 2023-08-20 06:13 | Emergency (ER) | payer OTHER ==
[2023-08-20 07:09] LABS: Hematocrit 35.8 % (36.0-45.0); Lymphocytes % 10.9 % (15.3-44.8); MCV 73.1 fL (80-100); MPV 6.7 fL (7.6-11.3); Platelets 504 thou/uL (152-406)
[2023-08-20] MEDS ORDERED: METOCLOPRAMIDE 10 MG/2mL INJ ONE (07:22)
[2023-08-20] MEDS ORDERED: NA CHLORIDE 0.9% 50 ML ONE (07:23)
[2023-08-20] MEDS ORDERED: NA CHLORIDE 0.9% 1,000 ML ONE (07:23)
[2023-08-20 07:24] LABS: Albumin 3.6 g/dL (3.4-5.0); Bilirubin Total 0.5 mg/dL (0.2-1.0); Magnesium 1.5 mg/dL (1.6-2.4); Potassium 3.9 mEq/L (3.5-5.1); Protein, Total 7.6 g/dL (6.4-8.2)
[2023-08-20 07:26] LABS: Protime INR 1.05
[2023-08-20 07:26] LABS: Specific Gravity > 1.030 (1.005-1.030)
[2023-08-20 07:27] LABS: Specific Gravity > 1.030 (1.005-1.030); Urine Bacteria >50 /HPF (<20); Urine Bilirubin NEGATIVE (Negative); Urine Blood Negative (Negative); Urine Clarity Turbid (Clear); Urine Color Light-Yellow (Yellow); Urine Glucose 4+ (Over) (Negative); Urine Mucus Slight /HPF (None Seen); Urine Protein NEGATIVE (Negative); Urine RBC <5 /HPF (None Seen); Urine Urobilinogen Normal (Normal)
[2023-08-20] MEDS ORDERED: MORPHINE 4 MG/ML SYR ONE ×2 (07:37→09:22)
[2023-08-20 07:42] LABS: Barbiturates NEGATIVE (NEGATIVE); Benzodiazepines NEGATIVE (NEGATIVE); Cocaine NEGATIVE (NEGATIVE); METHAMPHETAM NEGATIVE (NEGATIVE); Opiates NEGATIVE (NEGATIVE); Phencyclidine NEGATIVE (NEGATIVE); THC Cannibis NEGATIVE (NEGATIVE)
[2023-08-20 07:45] LABS: Methadone ND (NEGATIVE)
[2023-08-20] MEDS ORDERED: PROMETHAZINE INJ 25 MG/ML AMP ONE ×2 (08:08→09:43)
--- NOTE | 2023-08-20 09:15 | ER ---
Nurse's Notes [facility] Name: Javier Moctezuma Age: 37 yrs Sex: Female : 1985 Arrival Date: 08/20/2023 Time: 06:13 Bed 20 Private MD: Diagnosis: Gastroparesis;Vomiting Presentation: 08/20 06:22 Chief complaint: Patient states: "my gastroparesis is acting up and when I start as6 vomiting I always need to come in". Coronavirus screen: At this time, the client does not indicate any symptoms associated with coronavirus-19. Ebola Screen: No symptoms or risks identified at this time. Initial Sepsis Screen: Does the patient meet any 2 criteria? No. Patient's initial sepsis screen is negative. Does the patient have a suspected source of infection? No. Patient's initial sepsis screen is negative. Risk Assessment: Do you want to hurt yourself or someone else? Patient reports no desire to harm self or others. Onset of symptoms was August 20, 2023. 06:22 Acuity: NING 3 as6 06:22 Method Of Arrival: Wheelchair as6 Historical: - Allergies: 06:21 PENICILLINS; as6 - PMHx: 06:21 Anxiety; Bipolar disorder; Diabetes - IDDM; Gastroparesis; Hypertensive disorder; as6 Schizophrenia; - PSHx: 06:21 section; tubal ligation; as6 - Immunization history:: Client reports having NOT received the Covid vaccine. - Social history:: Smoking status: Reported history of juuling and/or vaping. Screenin:[address] [facility] ED Fall Risk Assessment (Adult) History of falling in the last 3 months, ph including since admission No falls in past 3 months (0 pts) Confusion or Disorientation No (0 pts) Intoxicated or Sedated No (0 pts) Impaired Gait No (0 pts) Mobility Assist Device Used No (0 pt) Altered Elimination No (0 pt) Score/Fall Risk Level 0 - 2 = Low Risk Oriented to surroundings, Maintained a safe environment, Hourly rounding (assess needs \\T\\ fall precautionary measures) done, Used ambulatory aids as needed (educated on \\T\\ assisted with). Abuse screen: Denies threats or abuse. Denies injuries from another. Nutritional screening: No deficits noted. Tuberculosis screening: No symptoms or risk factors identified. Assessment: 07:42 General: Appears in no apparent distress. uncomfortable, Behavior is calm, cooperative, ph appropriate for age. Pain: Complains of pain in abdomen. 07:42 GI: Abdomen is round Reports upper abdominal pain, nausea, vomiting. ph Vital Signs: 06:22 Pulse 96; Resp 18 S; Pulse Ox 100% on R/A; Weight 68.04 kg (R); Height 5 ft. 0 in. (R); as6 Pain 10/10; 06:25 BP 159 / 109; Pulse Ox 97.8% on R/A; as6 07:29 BP 132 / 71; Pulse 103; Resp 18; Pulse Ox 100% on R/A; ph 09:46 BP 125 / 78; Pulse 77; Resp 18; Temp 98; Pulse Ox 99% on R/A; ph 06:22 Body Mass Index 29.29 (68.04 kg, 152.4 cm) as6 06:22 Pain Scale: Adult as6 ED Course: 06:15 Patient arrived in ED. jj6 06:21 Arm band placed on. as6 06:23 Triage completed. as6 06:24 Geneva Nelson MD is Attending Physician. sd2 07:00 Attending Physician role handed off by Geneva Nelson MD rn 07:00 Homero Kenney MD is Attending Physician. rn 07:00 Inserted saline lock: 20 gauge in right antecubital area, using aseptic technique. as6 Blood collected. ultrasound guided, long catheter. 07:01 Lipase Sent. as6 07:01 Magnesium Sent. as6 07:01 CMP Sent. as6 07:01 CBC with Diff Sent. as6 07:08 Allyson Martinez, RN is Primary Nurse. ph 07:15 Gastric Occult Blood Sent. wm 07:15 Ptt, Activated Sent. wm 07:16 PT-INR Sent. wm 07:16 Urine Drug Screen Sent. wm 07:16 Test, Urine Sent. wm 07:16 Urinalysis w/ reflexes Sent. wm 07:16 Lipase Sent. wm 07:16 Magnesium Sent. wm 07:16 CMP Sent. wm 07:39 Patient has correct armband on for positive identification. Placed in gown. Bed in low ph position. Call light in reach. Side rails up X 1. Pulse ox on. NIBP on. 09:13 Dmitriy Hall MD is Referral Physician. rn 09:46 No provider procedures requiring assistance completed. IV discontinued, intact, ph bleeding controlled, No redness/swelling at site. Pressure dressing applied. Administered Medications: 07:16 Drug: NS 0.9% IV 1000 ml IV at 1 bolus Per protocol; 1000 mL bolus Route: IV; Rate: 1 ph bolus; Site: right antecubital; 08:30 Follow up: IV Status: Completed infusion ph 07:17 Drug: metoCLOPramide IVP 10 mg IVP once; over 1 to 2 minutes Route: IVP; Site: right ph antecubital; 08:00 Follow up: Response: No adverse reaction ph 07:29 Drug: morphine IVP or IV 4 mg IVP once over 4 mins Route: IVP; Infused Over: 4 mins; ph Site: right antecubital; 08:00 Follow up: Response: No adverse reaction ph 08:05 Drug: Promethazine IVP 12.5 mg IVP once Route: IVP; Site: right antecubital; ph 08:30 Follow up: Response: No adverse reaction ph 09:23 Drug: morphine IVP or IV 4 mg IVP once over 4 mins Route: IVP; Infused Over: 4 mins; ph Site: right antecubital; 10:00 Follow up: Response: No adverse reaction; Pain is decreased ph 09:46 Drug: Promethazine IVP 12.5 mg IVP once Route: IVP; Site: right antecubital; ph 10:00 Follow up: Response: No adverse reaction ph Medication: 07:40 VIS not applicable for this client. ph Outcome: 09:14 Discharge ordered by . rn 09:47 Discharged to home ambulatory, ph 09:47 Condition: good 09:47 Discharge instructions given to patient, Instructed on discharge instructions, follow up and referral plans. Demonstrated understanding of instructions, follow-up care, 10:05 Patient left the ED. ph Signatures: Homero Kenney MD MD rn Hall, Patricia, RN RN ph Marsh, Wendy wm Jeffries, Jennifer jj6 Luis Thompson RN RN as6 Geneva Nelson MD MD sd2
--- NOTE | 2023-08-20 09:15 | EDPHYS ---
Physician Documentation [facility] Name: Javier Moctezuma Age: 37 yrs Sex: Female : 1985 Arrival Date: 08/20/2023 Time: 06:13 Bed 20 Private MD: ED Physician Homero Kenney HPI: 08/20 06:37 This 37 yrs old Female presents to ER via Wheelchair with complaints of Nausea/Vomiting.sd2 06:37 37 yo F presents with CC of n/v that started 3-4 hours ago. Hx of gastroparesis. Seen sd2 for same numerous times in the past. Reports last taking her Reglan yesterday but has not taken it today since this started. Denies any fevers, diarrhea, abdominal pain or urinary symptoms. Reports initially emesis started out normal color and is now dark black. Reports she thinks she vomited at least 15 times so far today. Reports has not been able to follow up with GI or her PCP due to frequent visits to the ER and the hospital for these symptoms.. Historical: - Allergies: 06:21 PENICILLINS; as6 - PMHx: 06:21 Anxiety; Bipolar disorder; Diabetes - IDDM; Gastroparesis; Hypertensive disorder; as6 Schizophrenia; - PSHx: 06:21 section; tubal ligation; as6 - Immunization history:: Client reports having NOT received the Covid vaccine. - Social history:: Smoking status: Reported history of juuling and/or vaping. ROS: 06:37 Constitutional: Negative for fever, chills, and weight loss, Eyes: Negative for injury, sd2 pain, redness, and discharge, Cardiovascular: Negative for chest pain, palpitations, and edema, Respiratory: Negative for shortness of breath, cough, wheezing. 06:37 : Negative for dysuria, urinary frequency, hesitancy, urgency and hematuria. MS/Extremity: Negative for injury and deformity, Skin: Negative for injury, rash, and discoloration, Neuro: Negative for headache, numbness and tingling. 06:37 Abdomen/GI: Positive for nausea, vomiting, Negative for abdominal pain, diarrhea, Exam: 06:37 Constitutional: This is a well developed, well nourished patient who is awake, alert, sd2 and in no acute distress. Head/Face: Normocephalic, atraumatic. Eyes: EOMI, normal conjunctiva bilaterally Chest/axilla: Normal chest wall appearance and motion. Nontender with no deformity. Cardiovascular: Regular rate and rhythm with a normal S1 and S2. No gallops, murmurs, or rubs. 2+ distal pulses. Respiratory: Lungs have equal breath sounds bilaterally, clear to auscultation and percussion. No rales, rhonchi or wheezes noted. No increased work of breathing, no retractions or nasal flaring. Abdomen/GI: Soft, non-tender, with normal bowel sounds. No guarding or rebound. No evidence of tenderness throughout. Skin: Warm, dry with normal turgor. Normal color with no rashes, no lesions, and no evidence of cellulitis. MS/ Extremity: Pulses equal, no cyanosis. Neurovascular intact. Full, normal range of motion. Ambulatory without difficulty. Psych: Awake, alert, with orientation to person, place and time. Behavior, mood, and affect are within normal limits. Vital Signs: 06:22 Pulse 96; Resp 18 S; Pulse Ox 100% on R/A; Weight 68.04 kg (R); Height 5 ft. 0 in. (R); as6 Pain 10/10; 06:25 BP 159 / 109; Pulse Ox 97.8% on R/A; as6 07:29 BP 132 / 71; Pulse 103; Resp 18; Pulse Ox 100% on R/A; ph 09:46 BP 125 / 78; Pulse 77; Resp 18; Temp 98; Pulse Ox 99% on R/A; ph 06:22 Body Mass Index 29.29 (68.04 kg, 152.4 cm) as6 06:22 Pain Scale: Adult as6 MDM: 06:23 Patient medically screened. sd2 06:37 Differential diagnosis: Nonspecific abd pain, gastritis, cholecystitis, pancreatitis, sd2 appendicitis, diverticulitis, viral gastroenteritis, gastroenteritis, GIB among others. Data reviewed: vital signs, nurses notes. I considered the following discharge prescriptions or medication management in the emergency department Medications were administered in the Emergency Department. See MAR. Care significantly affected by the following chronic conditions: Diabetes, Hypertension, Gastroparesis. 08:39 Independent interpretation of the following test(s) in the Emergency Department. rn Special discussion: Based on the patient's Hx, exam, and Dx evaluation, there is no indication for emergent surgery or inpatient Tx. It is understood by the patient/guardian that if the Sx's persist or worsen they need to return immediately for re-evaluation. 09:13 ED course: Patient improved, no further hematemesis here. Hemoglobin greater than 11, rn was 10 last time. Stable vital signs. No indication for admission or transfer at this time. Most likely Karla-Regalado tear as began after several episodes of retching.. 08/20 06:36 Order name: CBC with Diff; Complete Time: 08:14 sd2 08/20 06:36 Order name: CMP; Complete Time: 07:30 sd2 08/20 06:36 Order name: Magnesium; Complete Time: 07:30 sd2 08/20 06:36 Order name: Lipase; Complete Time: 07:30 sd2 08/20 06:36 Order name: Urinalysis w/ reflexes; Complete Time: 07:30 sd2 08/20 06:36 Order name: Test, Urine; Complete Time: 07:30 sd2 08/20 06:36 Order name: Urine Drug Screen; Complete Time: 08:00 sd2 08/20 06:36 Order name: PT-INR; Complete Time: 07:30 sd2 08/20 06:36 Order name: Ptt, Activated; Complete Time: 07:30 sd2 08/20 06:36 Order name: Gastric Occult Blood; Complete Time: 08:00 sd2 Administered Medications: 07:16 Drug: NS 0.9% IV 1000 ml IV at 1 bolus Per protocol; 1000 mL bolus Route: IV; Rate: 1 ph bolus; Site: right antecubital; 08:30 Follow up: IV Status: Completed infusion ph 07:17 Drug: metoCLOPramide IVP 10 mg IVP once; over 1 to 2 minutes Route: IVP; Site: right ph antecubital; 08:00 Follow up: Response: No adverse reaction ph 07:29 Drug: morphine IVP or IV 4 mg IVP once over 4 mins Route: IVP; Infused Over: 4 mins; ph Site: right antecubital; 08:00 Follow up: Response: No adverse reaction ph 08:05 Drug: Promethazine IVP 12.5 mg IVP once Route: IVP; Site: right antecubital; ph 08:30 Follow up: Response: No adverse reaction ph 09:23 Drug: morphine IVP or IV 4 mg IVP once over 4 mins Route: IVP; Infused Over: 4 mins; ph Site: right antecubital; 10:00 Follow up: Response: No adverse reaction; Pain is decreased ph 09:46 Drug: Promethazine IVP 12.5 mg IVP once Route: IVP; Site: right antecubital; ph 10:00 Follow up: Response: No adverse reaction ph Disposition Summary: 08/20/23 09:14 Discharge Ordered Notes: Location: Home rn Problem: chronic rn Symptoms: have improved rn Condition: Stable rn Diagnosis - Gastroparesis rn - Vomiting rn Followup: rn - With: Dmitriy Hall MD - When: As needed - Reason: Recheck today's complaints, Re-evaluation by your physician Discharge Instructions: - Discharge Summary Sheet rn - Vomiting, Adult rn - Gastroparesis rn Forms: - Medication Reconciliation Form rn - Thank You Letter rn - 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 Hx of gastroparesis. sd2 Seen for same numerous times in the past. Reports last taking her Reglan yesterday but has not taken it today since this started. Denies any fevers, diarrhea, abdominal pain or urinary symptoms. Reports initially emesis started out normal color and is now dark black. Reports she thinks she vomited at least 15 times so far today.. sd2
[2023-08-20 10:31] VITALS: BP 125/78; TEMP 98; O2SAT 99
== END 2023-08-20 10:05 | disposition home or self-care (01) ==
LOC: ER 06:13
DX: K31.84 Gastroparesis (principal); Z88.0 Allergy status to penicillin
CPT/HCPCS: 96361; 85025; 81001; 36415; 83735; 81025; 85610; 83986; 82271; 85730; 83690; 80053; 80307; 96375; 96374; 99284; J2550 ×2; J2765; J7030

== ENCOUNTER → 2023-12-01 | Emergency (ER) | payer OTHER ==
[~2023-12-01] MED LIST: CIPROFLOXACIN 400mg IV 400 MG/200 ML BAG IV ONE; FAMOTIDINE 20 MG/2 ML VIAL IV ONE; INSULIN REGULAR (HUMAN) 100 UNIT/ML ONE; LORazepam 2 MG/ML VIAL ONE; METOCLOPRAMIDE 10 MG/2mL INJ ONE; METRONIDAZOLE 500mg IVPB 500 MG/100 ML BAG IV ONE; MORPHINE 4 MG/ML SYR ONE; NA CHLORIDE 0.9% 1,000 ML ONE; ONDANSETRON 4 MG/2 ML VIAL ONE; PANTOPRAZOLE 40 MG INJ ONE; PROMETHAZINE INJ 25 MG/ML AMP ONE
[2023-12-01 15:51] LABS: Absolute Lymphocytes (CBC) 1.5 K/uL (0.7-4.9); Hematocrit 37.4 % (36.0-45.0); Lymphocytes % 18.5 % (15.3-44.8); MPV 6.7 fL (7.6-11.3); Platelets 543 thou/uL (152-406); RBC Red Blood Cell Count 5.13 M/uL (3.86-4.86)
[2023-12-01 16:04] LABS: Protime INR 0.93
[2023-12-01 16:29] LABS: ALT/SGPT 23 U/L (13-56); AST/SGOT 22 U/L (15-37); BUN Blood Urea Nitrogen 13 mg/dL (7-18); Bicarbonate 24 mEq/L (21-32); Glomerular Filtration Rate 99 ml/min (=/>90); Glucose Level 377 mg/dL (74-106); Potassium 4.4 mEq/L (3.5-5.1); Sodium Level 135 mEq/L (136-145)
[2023-12-01 16:30] LABS: Albumin 3.3 g/dL (3.4-5.0); Alkaline Phosphatase 106 U/L (45-117); Bilirubin Direct < 0.1 mg/dL (0-0.2); Bilirubin Indirect, Calculated ND mg/dL (0.2-0.8); Bilirubin Total 0.4 mg/dL (0.2-1.0); Lipase 32 U/L (13-75); Magnesium 1.8; Protein, Total 7.7 g/dL (6.4-8.2); Troponin High Sensitivity < 3 (<58.9)
--- NOTE | 2023-12-01 16:43 | EDPHYS ---
Physician Documentation [facility] Name: Javier Moctezuma Age: 38 yrs Sex: Female : 1985 Arrival Date: 12/01/2023 Time: 15:15 Bed 14 Private MD: ED Physician Homero Kenney HPI: 12/01 15:25 This 38 yrs old Female presents to ER via EMS with complaints of Nausea/Vomiting. cp 15:25 The patient presents to the emergency department with nausea, with "dry heaves", cp vomiting, that is continuous, abdominal pain, of the epigastric area. Onset: The symptoms/episode began/occurred yesterday. Possible causes: flare up of bowel problem, gastroparesis. 15:25 Associated signs and symptoms: Pertinent positives: coffee ground and bloody emesis. cp 15:25 Severity of symptoms: in the emergency department the symptoms are worse moderately. 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 - Social history:: Smoking status: Patient denies any tobacco usage or history of. ROS: 15:30 Constitutional: Positive for poor PO intake, Negative for body aches, chills, fever, cp 15:30 Eyes: Negative for injury, pain, redness, and discharge, cp 15:30 Cardiovascular: Negative for chest pain, palpitations, 15:30 Respiratory: Negative for cough, shortness of breath, wheezing, 15:30 Abdomen/GI: Positive for abdominal pain, nausea and vomiting, hematemesis, Negative for diarrhea, constipation, black/tarry stool, rectal bleeding, 15:30 Neuro: Negative for altered mental status, headache, 15:30 All other systems are negative, Exam: 15:35 Constitutional: The patient appears in no acute distress, alert, awake, cp non-diaphoretic, non-toxic, well developed, well nourished, uncomfortable, 15:35 Head/Face: Normocephalic, atraumatic. cp 15:35 Eyes: Periorbital structures: appear normal, Conjunctiva: normal, no exudate, no injection, Sclera: no appreciated abnormality, Lids and lashes: appear normal, bilaterally, 15:35 ENT: External ear(s): are unremarkable, Nose: is normal, Mouth: Lips: moist, Oral mucosa: moist, Posterior pharynx: Airway: no evidence of obstruction, patent, 15:35 Neck: ROM/movement: is normal, is supple, without pain, no range of motions limitations, no meningismus, 15:35 Chest/axilla: Inspection: normal, 15:35 Cardiovascular: Rate: normal, Rhythm: regular, 15:35 Respiratory: the patient does not display signs of respiratory distress, Respirations: normal, no use of accessory muscles, no retractions, labored breathing, is not present, Breath sounds: are clear throughout, no decreased breath sounds, no stridor, no wheezing, 15:35 Abdomen/GI: Inspection: abdomen appears normal, Bowel sounds: active, all quadrants, Palpation: soft, in all quadrants, moderate abdominal tenderness, in the epigastric area, rebound tenderness, is not appreciated, 15:35 Back: pain, is absent, ROM is normal, 15:35 Neuro: Orientation: to person, place \\T\\ time. Mentation: is normal, Motor: moves all fours, strength is normal, 15:53 ECG was reviewed by the Attending Physician. Vital Signs: 15:18 BP 160 / 90; Pulse 90; Resp 18; Temp 97.5; Pulse Ox 100% ; cp4 17:04 BP 167 / 103; Pulse 87; Resp 18; Pulse Ox 100% ; cp4 18:00 BP 123 / 76; Pulse 109; Resp 18; Pulse Ox 100% ; cp4 19:00 BP 136 / 96; Pulse 100; Resp 17 S; Pulse Ox 99% on R/A; jw7 20:00 BP 132 / 94; Pulse 104; Resp 17 S; Pulse Ox 97% on R/A; jw7 21:00 BP 145 / 93; Pulse 109; Resp 17 S; Pulse Ox 99% on R/A; jw7 22:00 BP 125 / 91; Pulse 108; Resp 16 S; Pulse Ox 100% on R/A; jw7 23:00 BP 125 / 94; Pulse 104; Resp 17 S; Pulse Ox 100% on R/A; jw7 MDM: 15:26 Patient medically screened. 18:15 Data reviewed: vital signs, nurses notes, lab test result(s), EKG, radiologic studies, cp CT scan, plain films. 18:15 Differential diagnosis: gastritis, cholecystitis, pancreatitis, viral gastroenteritis, cp gastroenteritis. I considered the following discharge prescriptions or medication management in the emergency department Medications were administered in the Emergency Department. See MAR. Independent interpretation of the following test(s) in the Emergency Department EKG: See my EKG interpretation above. Care significantly affected by the following chronic conditions: Diabetes, Hypertension. Response to treatment: the patient's symptoms have mildly improved after treatment, and as a result, I will continue to observe the patient. 12/01 15:22 Order name: Basic Metabolic Panel; Complete Time: 16:38 12/01 16:38 Interpretation: Normal except: NA 135; GLUC 377. 12/01 15:22 Order name: CBC with Diff; Complete Time: 16:38 12/01 16:38 Interpretation: Normal except: RBC 5.13; MCV 73.0; MCH 23.6; PLT 543; RDW 15.9; MPV cp 6.7; BAM% 73.9. 12/01 15:22 Order name: LFT's; Complete Time: 16:38 12/01 15:22 Order name: Magnesium; Complete Time: 16:38 12/01 15:22 Order name: PT-INR; Complete Time: 16:38 12/01 15:22 Order name: Troponin HS; Complete Time: 16:38 12/01 15:22 Order name: Ptt, Activated; Complete Time: 16:38 12/01 15:22 Order name: Lipase; Complete Time: 16:38 12/01 15:22 Order name: Lactate w/ 2H reflex if indic.; Complete Time: 16:38 12/01 15:22 Order name: Blood Culture Adult (2) 12/01 15:39 Order name: Type And Screen; Complete Time: 18:39 12/01 18:45 Order name: Glucose, Ancillary Testing; Complete Time: 18:58 EDMS 12/01 15:22 Order name: XRAY Chest (1 view); Complete Time: 17:16 12/01 17:16 Interpretation: Report review. 12/01 16:41 Order name: CT Abd/Pelvis - IV Contrast Only; Complete Time: 18:12 cp 12/01 15:22 Order name: EKG; Complete Time: 15:23 12/01 15:22 Order name: Cardiac monitoring; Complete Time: 15:40 12/01 15:22 Order name: EKG - Nurse/Tech; Complete Time: 15:49 cp 12/01 15:22 Order name: IV Saline Lock; Complete Time: 15:49 12/01 15:22 Order name: Labs collected and sent; Complete Time: 15:49 12/01 15:22 Order name: O2 Per Protocol; Complete Time: 15:39 cp 12/01 15:22 Order name: O2 Sat Monitoring; Complete Time: 15:39 12/01 15:22 Order name: Accucheck Blood Glucose; Complete Time: 15:51 12/01 15:39 Order name: IV - Large Bore; Complete Time: 15:48 12/01 16:09 Order name: Labs - recollect needed: recollect T\\T\\S / specimen not labeled correctly ; eb Complete Time: 17:05 EC:53 Rate is 88 beats/min. Rhythm is regular. SC interval is normal. QRS interval is normal. cp QT interval is normal. T waves are Inverted in leads aVR, V2. Interpreted by me. Reviewed by me. Administered Medications: 15:48 Drug: Pantoprazole IVP 40 mg IVP once Route: IVP; Site: right wrist; cp4 17:06 Follow up: Response: No adverse reaction cp4 15:48 Drug: morphine IVP or IV 4 mg IVP once over 4 mins Route: IVP; Infused Over: 4 mins; cp4 Site: right antecubital; 17:05 Follow up: Response: No adverse reaction cp4 15:49 Drug: Ondansetron IVP 4 mg IVP once; over 2 minutes Route: IVP; Site: right antecubital;cp4 17:06 Follow up: Response: No adverse reaction cp4 15:49 Drug: Famotidine IVP 20 mg IVP once; dilute with 10 mL 0.9% NaCl; give over 2 minutes cp4 Route: IVP; Site: right antecubital; 17:06 Follow up: Response: No adverse reaction cp4 16:23 Drug: metoCLOPramide IVP 10 mg IVP once; over 1 to 2 minutes Route: IVP; Site: right cp4 antecubital; 17:07 Follow up: Response: No adverse reaction cp4 17:04 Drug: Ativan IVP 1 mg IVP once Route: IVP; Site: right antecubital; cp4 17:06 Follow up: Response: No adverse reaction 4 17:50 Drug: NS 0.9% IV 1000 ml IV at 1 bolus Per protocol; 1000 mL bolus Route: IV; Rate: 1 cp4 bolus; Site: right antecubital; 23:19 Follow up: Response: No adverse reaction; IV Status: Completed infusion; IV Intake: jw7 1000ml 17:51 Drug: Insulin Regular Human IVP 10 units IVP once {Co-Signature: kc6 (Margarita Maldonado cp4 RN).} Route: IVP; Site: right antecubital; 23:18 Follow up: Response: No adverse reaction 7 18:33 Drug: Ciprofloxacin IVPB 400 mg 200 ml IVPB once over 60 mins Volume: 200 ml; Route: cp4 IVPB; Infused Over: 60 mins; Site: right antecubital; 23:19 Follow up: Response: No adverse reaction; IV Status: Completed infusion; IV Intake: jw7 200ml 18:34 Drug: metroNIDAZOLE IVPB 500 mg 100 ml IVPB once over 30 mins Volume: 100 ml; Route: cp4 IVPB; Infused Over: 30 mins; Site: right antecubital; 23:19 Follow up: Response: No adverse reaction; IV Status: Completed infusion; IV Intake: jw7 100ml 20:01 Drug: morphine IVP or IV 4 mg IVP once over 4 mins Route: IVP; Infused Over: 4 mins; jw7 Site: right antecubital; 23:20 Follow up: Response: No adverse reaction; Marked relief of symptoms jw7 20:01 Drug: NS 0.9% IV 1000 ml IV at 1 bolus Per protocol; 1000 mL bolus Route: IV; Rate: 1 jw7 bolus; Site: right antecubital; 23:20 Follow up: Response: No adverse reaction; IV Status: Completed infusion; IV Intake: jw7 1000ml 20:01 Drug: Promethazine IVP 25 mg IVP once Route: IVP; Site: right antecubital; jw7 23:20 Follow up: Response: No adverse reaction jw7 22:46 Drug: morphine IVP or IV 4 mg IVP once over 4 mins Route: IVP; Infused Over: 4 mins; jw7 Site: right antecubital; 23:20 Follow up: Response: No adverse reaction jw7 Disposition Summary: 12/01/23 16:43 Transfer Ordered Notes: Accepting Physician: Doctor mills Transfer Location: [facility] cp Reason: Higher level of care cp Condition: Stable cp Problem: new cp Symptoms: have improved cp Accepting Physician: Doctor garcia Diagnosis - Hematemesis cp - Diabetes mellitus due to underlying condition with hyperglycemia cp Forms: - Medication Reconciliation Form cp - SBAR form cp Addendum: 12/03/2023 07:17 Co-signature as Attending Physician, Homero Kenney MD I reviewed the patient's care r n provided by the Advanced Practice Provider and agree with the diagnosis and treatment plan. Signatures: Dispatcher [employer] EDMS Homero Kenney MD MD rn Page, Corey, PA PA cp Botello, Elizabeth eb Waits, Jodi RN RN jw7 Margarita Maldonado RN RN kc6 Erin Salmeron cp4 Margarita Maldonado RN kc6 Corrections: (The following items were deleted from the chart) 12/01 21:38 15:23 Test, Urine+UC.LAB.BRZ ordered. EDCO EDCO 21:39 15:23 URINE DRUG SCREEN+UC.LAB.BRZ ordered. EDCO EDMS 21:39 15:23 Urinalysis W/Microscopic+U.LAB.BRZ ordered. EDCO EDCO 12/02 19:46 12/01 15:25 Onset: The symptoms/episode began/occurred this morning, cp cp
--- NOTE | 2023-12-01 16:43 | ER ---
Nurse's Notes [facility] Name: Javier Moctezuma Age: 38 yrs Sex: Female : 1985 Arrival Date: 12/01/2023 Time: 15:15 Bed 14 Private MD: Diagnosis: Hematemesis;Diabetes mellitus due to underlying condition with hyperglycemia Presentation: 12/01 15:18 Chief complaint: EMS states: nausea and vomiting since yesterday. Reports history of cp4 gastroparesis and eating red beans and rice yesterday. Coronavirus screen: Vaccine status: Patient reports being unvaccinated. Client denies travel out of the [place] in the last 14 days. At this time, the client does not indicate any symptoms associated with coronavirus-19. Ebola Screen: Patient negative for fever greater than or equal to 101.5 degrees Fahrenheit, and additional compatible Ebola Virus Disease symptoms Patient denies exposure to infectious person. Patient denies travel to an Ebola-affected area in the 21 days before illness onset. No symptoms or risks identified at this time. Initial Sepsis Screen: Does the patient meet any 2 criteria? No. Patient's initial sepsis screen is negative. Does the patient have a suspected source of infection? No. Patient's initial sepsis screen is negative. Risk Assessment: Do you want to hurt yourself or someone else? Patient reports no desire to harm self or others. Onset of symptoms was November 30, 2023. 15:18 Method Of Arrival: EMS: [facility] cp4 15:18 Acuity: NING 3 cp4 Triage Assessment: 15:20 General: Appears in no apparent distress. Behavior is calm, cooperative, appropriate cp4 for age. Pain: Denies pain. GI: Reports nausea, vomiting, since yesterday. 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 - Social history:: Smoking status: Patient denies any tobacco usage or history of. Screenin:21 [facility] ED Fall Risk Assessment (Adult) History of falling in the last 3 months, cp4 including since admission No falls in past 3 months (0 pts) Confusion or Disorientation No (0 pts) Intoxicated or Sedated No (0 pts) Impaired Gait No (0 pts) Mobility Assist Device Used No (0 pt) Altered Elimination No (0 pt) Score/Fall Risk Level 0 - 2 = Low Risk Oriented to surroundings, Maintained a safe environment, Educated pt \T\ family on fall prevention, incl call for assistance when getting out of bed, Assessed \T\ reinforced patient's understanding of fall precautions, Provided non-skid footwear, Hourly rounding (assess needs \T\ fall precautionary measures) done. Abuse screen: Denies threats or abuse. Nutritional screening: No deficits noted. Tuberculosis screening: No symptoms or risk factors identified. Assessment: 15:21 Reassessment: No changes from previously documented assessment. GI: Abdomen is round cp4 non-distended. 19:00 General: Appears in no apparent distress. uncomfortable, Behavior is calm, cooperative. jw7 19:00 Pain: Complains of pain in epigastric area Pain does not radiate. Pain currently is 7 jw7 out of 10 on a pain scale. Quality of pain is described as burning, Pain began suddenly, Is continuous. Neuro: Level of Consciousness is awake, alert, obeys commands, Oriented to person, place, time, situation. Cardiovascular: Capillary refill < 3 seconds Clubbing of nail beds is absent Patient's skin is warm and dry. 19:00 Respiratory: Airway is patent Trachea midline Respiratory effort is even, unlabored, jw7 Respiratory pattern is regular, symmetrical. GI: Abdomen is round non-distended. : No deficits noted. No signs and/or symptoms were reported regarding the genitourinary system. EENT: No deficits noted. No signs and/or symptoms were reported regarding the EENT system. Derm: Skin is intact, is healthy with good turgor, Skin is dry, Skin is normal, Skin temperature is warm. Musculoskeletal: Circulation, motion, and sensation intact. Range of motion: intact in all extremities. 20:00 Reassessment: Patient appears in no apparent distress at this time. Patient and/or jw7 family updated on plan of care and expected duration. Pain level reassessed. Patient is alert, oriented x 3, equal unlabored respirations, skin warm/dry/pink. 20:12 General: attempted to call report, no answer. jw7 20:29 General: Report given to RENARD Avina . jw7 21:00 Reassessment: Patient appears in no apparent distress at this time. Patient and/or 7 family updated on plan of care and expected duration. Pain level reassessed. Patient is alert, oriented x 3, equal unlabored respirations, skin warm/dry/pink. 22:00 Reassessment: Patient appears in no apparent distress at this time. No changes from [facility] previously documented assessment. Patient and/or family updated on plan of care and expected duration. Pain level reassessed. Patient is alert, oriented x 3, equal unlabored respirations, skin warm/dry/pink. 23:00 Reassessment: Patient appears in no apparent distress at this time. No changes from [facility] previously documented assessment. Patient and/or family updated on plan of care and expected duration. Pain level reassessed. Patient is alert, oriented x 3, equal unlabored respirations, skin warm/dry/pink. Vital Signs: 15:18 BP 160 / 90; Pulse 90; Resp 18; Temp 97.5; Pulse Ox 100% ; cp4 17:04 BP 167 / 103; Pulse 87; Resp 18; Pulse Ox 100% ; cp4 18:00 BP 123 / 76; Pulse 109; Resp 18; Pulse Ox 100% ; cp4 19:00 BP 136 / 96; Pulse 100; Resp 17 S; Pulse Ox 99% on R/A; jw7 20:00 BP 132 / 94; Pulse 104; Resp 17 S; Pulse Ox 97% on R/A; jw7 21:00 BP 145 / 93; Pulse 109; Resp 17 S; Pulse Ox 99% on R/A; jw7 22:00 BP 125 / 91; Pulse 108; Resp 16 S; Pulse Ox 100% on R/A; jw7 23:00 BP 125 / 94; Pulse 104; Resp 17 S; Pulse Ox 100% on R/A; jw7 ED Course: 15:17 Patient arrived in ED. cp4 15:18 Erin Salmeron is Primary Nurse. cp4 15:18 Zhang Panda PA is PHCP. cp 15:18 Homero Kenney MD is Attending Physician. cp 15:20 Triage completed. cp4 15:20 Arm band placed on right wrist. Patient placed in the treatment room, on a stretcher. cp4 15:21 Bed in low position. Call light in reach. Side rails up X2. cp4 15:48 Type And Screen Sent. cp4 15:48 Blood Culture Adult (2) Sent. cp4 15:48 Lactate w/ 2H reflex if indic. Sent. cp4 15:48 Lipase Sent. cp4 15:48 Ptt, Activated Sent. cp4 16:12 XRAY Chest (1 view) In Process Unspecified. EDMS 17:13 CT Abd/Pelvis - IV Contrast Only In Process Unspecified. EDMS 18:09 initiated a transfer with Andrea Polanco from the [facility]. eb 18:41 connected the GI correctional officer for [facility] with Zhang Chong for patient transfer eb consultation. 19:[address] [facility]/ accepting Dr. Johnson, T \T\ 1900. Accepting admin Andrea Polanco \T\ 1920. Pt room number at facility is A-[id number]. Number for nurse to nurse report [phone]. 20:11 Provided Education on: need for transfer. jw7 20:11 No provider procedures requiring assistance completed. jw7 20:11 Patient transferred, IV remains in place. jw7 23:07 Inserted saline lock: 20 gauge in right upper arm, using aseptic technique. ,using vc1 aseptic technique. ultrasound guided long 20g Accessed. Administered Medications: 15:48 Drug: Pantoprazole IVP 40 mg IVP once Route: IVP; Site: right wrist; cp4 17:06 Follow up: Response: No adverse reaction cp4 15:48 Drug: morphine IVP or IV 4 mg IVP once over 4 mins Route: IVP; Infused Over: 4 mins; cp4 Site: right antecubital; 17:05 Follow up: Response: No adverse reaction cp4 15:49 Drug: Ondansetron IVP 4 mg IVP once; over 2 minutes Route: IVP; Site: right antecubital;cp4 17:06 Follow up: Response: No adverse reaction cp4 15:49 Drug: Famotidine IVP 20 mg IVP once; dilute with 10 mL 0.9% NaCl; give over 2 minutes cp4 Route: IVP; Site: right antecubital; 17:06 Follow up: Response: No adverse reaction cp4 16:23 Drug: metoCLOPramide IVP 10 mg IVP once; over 1 to 2 minutes Route: IVP; Site: right cp4 antecubital; 17:07 Follow up: Response: No adverse reaction cp4 17:04 Drug: Ativan IVP 1 mg IVP once Route: IVP; Site: right antecubital; cp4 17:06 Follow up: Response: No adverse reaction 4 17:50 Drug: NS 0.9% IV 1000 ml IV at 1 bolus Per protocol; 1000 mL bolus Route: IV; Rate: 1 cp4 bolus; Site: right antecubital; 23:19 Follow up: Response: No adverse reaction; IV Status: Completed infusion; IV Intake: jw7 1000ml 17:51 Drug: Insulin Regular Human IVP 10 units IVP once {Co-Signature: [email or web address] (Margarita Maldonado cp4 RN).} Route: IVP; Site: right antecubital; 23:18 Follow up: Response: No adverse reaction [facility] 18:33 Drug: Ciprofloxacin IVPB 400 mg 200 ml IVPB once over 60 mins Volume: 200 ml; Route: cp4 IVPB; Infused Over: 60 mins; Site: right antecubital; 23:19 Follow up: Response: No adverse reaction; IV Status: Completed infusion; IV Intake: jw7 200ml 18:34 Drug: metroNIDAZOLE IVPB 500 mg 100 ml IVPB once over 30 mins Volume: 100 ml; Route: cp4 IVPB; Infused Over: 30 mins; Site: right antecubital; 23:19 Follow up: Response: No adverse reaction; IV Status: Completed infusion; IV Intake: jw7 100ml 20:01 Drug: morphine IVP or IV 4 mg IVP once over 4 mins Route: IVP; Infused Over: 4 mins; jw7 Site: right antecubital; 23:20 Follow up: Response: No adverse reaction; Marked relief of symptoms jw7 20:01 Drug: NS 0.9% IV 1000 ml IV at 1 bolus Per protocol; 1000 mL bolus Route: IV; Rate: 1 jw7 bolus; Site: right antecubital; 23:20 Follow up: Response: No adverse reaction; IV Status: Completed infusion; IV Intake: jw7 1000ml 20:01 Drug: Promethazine IVP 25 mg IVP once Route: IVP; Site: right antecubital; jw7 23:20 Follow up: Response: No adverse reaction jw7 22:46 Drug: morphine IVP or IV 4 mg IVP once over 4 mins Route: IVP; Infused Over: 4 mins; jw7 Site: right antecubital; 23:20 Follow up: Response: No adverse reaction jw7 Medication: 15:21 VIS not applicable for this client. cp4 Intake: 23:19 IV: 1000ml; Total: 1000ml. jw7 23:19 IV: 100ml; Total: 1100ml. jw7 23:19 IV: 200ml; Total: 1300ml. jw7 23:20 IV: 1000ml; Total: 2300ml. jw7 Outcome: 16:43 ER care complete, transfer ordered by MD. cp 20:11 Instructed on the need for transfer, Demonstrated understanding of instructions, jw7 23:15 Transferred by ground EMS Note: [facility] [place] jw7 23:15 Condition: stable 23:20 Patient left the ED. jw7 Signatures: Dispatcher [employer] EDMS Zhang Panda PA PA cp Botello, Elizabeth eb Calcote, Vanessa, RN RN vc1 Michelle Mccallum RN RN Erin Khanna cp4 Elizabeth Harris Kaitlyn RN [email or web address] Corrections: (The following items were deleted from the chart) 20:03 20:02 General: Appears in no apparent distress. uncomfortable, Behavior is calm, jw7 cooperative, jw7
--- NOTE | 2023-12-01 17:04 | RAD REPORT ---
EXAM DESCRIPTION: Gerald Single View12/01/2023 4:10 pm CLINICAL HISTORY: vomiting COMPARISON: No comparisons TECHNIQUE: Portable AP view of the chest. FINDINGS: Persistent right costophrenic angle opacification, may relate to atelectasis or early airs pace disease. No pneumothorax or effusion. The cardiomediastinal contours are unremarkable. IMPRESSION: Persistent right costophrenic angle mild opacification as above.
--- NOTE | 2023-12-01 18:08 | RAD REPORT ---
EXAM DESCRIPTION: CT - Abdomen Pelvis W Contrast - 12/01/2023 5:12 pm CLINICAL HISTORY: hematemesis;Abd pain COMPARISON: Abdomen Pelvis W Contrast dated 05/17/2023; Abdomen Pelvis W Contrast dated 12/26/2022; Abdomen Pelvis W Contrast dated 07/13/2021; Abdomen Pelvis W Contrast dated 12/26/2020 TECHNIQUE: Thin cut axial CT imaging of the abdomen and pelvis was performed following intravenous a dministration of 95 mL Isovue 300. Multiplanar reformats were generated and reviewed. All CT scans are performed using dose optimization technique as appropriate and may include automated exposure control or mA/KV adjustment according to patient size. FINDINGS: No suspicious findings in the lung bases. Elevation of the right danie diaphragm. The liver, spleen, adrenal glands, and pancreas show no suspicious findings. Gallbladder and biliary tree are also without suspicious finding. Symmetric renal function is seen with no hydronephrosis or suspicious renal mass. No dilated bowel loops or bowel wall thickening. Fluid opacification throughout the colon, without si gnificant distention. Mild mucosal enhancement along the distal descending colon, sigmoid, and rectum . No free air, free fluid or inflammatory stranding. No hernia, mass or bulky lymphadenopathy. Bulky appearance of the posterior uterine wall, suggestive of fibroid. The urinary bladder is without signi ficant finding. No suspicious bony findings. IMPRESSION: Fluid opacification throughout the colon, without significant distention. Mild mucosal e nhancement along the distal descending colon, sigmoid, and rectum. Findings suggest infectious/inflam matory colitis.
[2023-12-02 05:41] VITALS: TEMP 97.5; O2SAT 100
[2023-12-02 05:54] VITALS: BP 125/94
--- NOTE | 2023-12-04 17:00 | EKG ---
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
== END ==
LOC: ER 15:15
DX: K92.0 Hematemesis (principal); E11.65 Type 2 diabetes mellitus with hyperglycemia; I10 Essential (primary) hypertension; F31.9 Bipolar disorder, unspecified; F20.9 Schizophrenia, unspecified; Z88.0 Allergy status to penicillin
CPT/HCPCS: 87040 ×2; 85025; 80048; 36415; 86900; 83735; 86850; 85610; 86901; 82947; 80076; 83605; 85730; 84484; 83690; 74177; 71045; 99285; Q9967; J2550; J1815; J2765; C9113; J2405; J0744; J7030 ×2; 93005

== ENCOUNTER 2024-02-15 12:23 | Inpatient (IN) | payer OTHER ==
[2024-02-15] MEDS ORDERED: NA CHLORIDE 0.9% 1,000 ML ONE ×2 (12:38→13:59)
[2024-02-15] MEDS ORDERED: PROMETHAZINE INJ 25 MG/ML AMP ONE ×2 (12:38→15:57)
[2024-02-15 13:20] LABS: Absolute Lymphocytes (CBC) 0.7 K/uL (0.7-4.9); Absolute Monocytes 0.4 K/uL (0.1-1.3); Absolute Neutrophil 12.4 K/uL (1.8-8.0); Basophils % 0.2 % (0-1.3); Hematocrit 37.1 % (36.0-45.0); Hemoglobin 11.5 g/dL (12.0-15.0); Lymphocytes % 5.1 % (15.3-44.8); MCH 21.8 pg (27.0-35.0); MCV 70.4 fL (80-100); MPV 7.4 fL (7.6-11.3); Monocytes % 3.3 % (3.3-12.3); Neutrophils % 91.4 % (41.7-73.7); Platelets 638 thou/uL (152-406); RBC Red Blood Cell Count 5.28 M/uL (3.86-4.86); Red Cell Distribution Width 19.7 % (12.1-15.2)
[2024-02-15 13:25] LABS: Albumin 3.4 g/dL (3.4-5.0); Albumin/Globulin Ratio 0.7 (1.1-1.8); Anion Gap 20.8 mEq/L (5.0-15.0); Bilirubin Total 0.7 mg/dL (0.2-1.0); Globulin 4.6 g/dL (2.3-3.5); Potassium 3.8 mEq/L (3.5-5.1)
[2024-02-15 13:50] LABS: Specific Gravity 1.029 (1.005-1.030); Sqamous Epithelial <5 /HPF (None Seen); Urine Bacteria <20 /HPF (<20); Urine Bilirubin NEGATIVE (Negative); Urine Blood Negative (Negative); Urine Clarity Clear (Clear); Urine Color Colorless (Yellow); Urine Culture Reflex Order NOT NEEDED; Urine Glucose 4+ (Over) (Negative); Urine Ketones 4+ (Over) (Negative); Urine Microscopic Reflex YN ORDER UMIC; Urine Nitrite NEGATIVE (Negative); Urine Protein 1+ (Negative); Urine RBC <5 /HPF (None Seen); Urine Urobilinogen Normal (Normal); Urine WBC <5 /HPF (<5); Urine pH 5.5 (5.0-7.0)
[2024-02-15 13:53] LABS: Specific Gravity 1.029 (1.005-1.030)
[2024-02-15 13:57] LABS: Anisocytosis 1+; Blood Morphology Comment NOTED (NOT SEEN); Hypochromasia 1+; Platelet Estimate INCR; White Blood Cell Scan OK (OK)
[2024-02-15] MEDS ORDERED: INSULIN REGULAR (HUMAN) 100 UNIT/ML ONE (13:58)
[2024-02-15] MEDS ORDERED: FAMOTIDINE 20 MG/2 ML VIAL IV ONE (14:23)
--- NOTE | 2024-02-15 14:36 | RAD REPORT ---
EXAM DESCRIPTION: CTAbdomen Pelvis W Contrast - 02/15/2024 2:07 pm CLINICAL HISTORY: Abdominal pain. Abd pain;Nausea / vomiting COMPARISON: Abdomen Pelvis W Contrast dated 12/01/2023; Abdomen Pelvis W Contrast dated 05/17/2023; Abdomen Pelvis W Contrast dated 12/26/2022; Abdomen Pelvis W Contrast dated 07/13/2021 TECHNIQUE: Biphasic CT imaging of the abdomen and pelvis was performed with 100 ml non-ionic IV cont rast. All CT scans are performed using dose optimization technique as appropriate and may include automated exposure control or mA/KV adjustment according to patient size. FINDINGS: The lung bases are clear.Small hiatal hernia. The liver, spleen, pancreas, adrenal glands and kidneys are within normal limits. No bowel obstruction, free air, free fluid or abscess. The appendix is normal. No evidence of signi ficant lymphadenopathy. No suspicious bony findings. IMPRESSION: No acute intra-abdominal or pelvic finding.
--- NOTE | 2024-02-15 14:46 | EDPHYS ---
Physician Documentation [facility] Name: Javier Moctezuma Age: 38 yrs Sex: Female : 1985 Arrival Date: 02/15/2024 Time: 12:23 Bed 19 Private MD: ED Physician Homero Kenney HPI: 02/14 12:42 This 38 yrs old Female presents to ER via EMS with complaints of Nausea/Vomiting. rn 12:42 The patient presents to the emergency department with nausea, vomiting, abdominal pain. rn Onset: The symptoms/episode began/occurred 1 week(s) ago. Possible causes: flare up of bowel problem, Gastroparesis. The symptoms are aggravated by pressure, The symptoms are alleviated by nothing. Severity of symptoms: At their worst the symptoms were moderate in the emergency department the symptoms are unchanged. The patient has experienced similar episodes in the past. Patient reports history of gastroparesis, has been having upper abdominal pain associated with nausea and vomiting for the last week almost. States was in outside hospital, given pain medicine and nausea medicine and sent home without feeling better. Patient reports intermittent episodes of blood in emesis. saw her GI doctor Dr. Hall 2 weeks ago. Denies fever. No chest pain.. 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 - Infectious Disease History:: Denies. - Social history:: Smoking status: Reported history of juuling and/or vaping. - Family history:: not pertinent. - Hospitalizations: : No recent hospitalization is reported. ROS: 12:42 Constitutional: Negative for fever, chills, and weight loss, Eyes: Negative for injury, rn pain, redness, and discharge, Neck: Negative for injury, pain, and swelling, Cardiovascular: Negative for chest pain, palpitations, and edema, Respiratory: Negative for shortness of breath, cough, wheezing, and pleuritic chest pain, Abdomen/GI: Positive for abdominal pain and vomiting MS/Extremity: Negative for injury and deformity, Skin: Negative for injury, rash, and discoloration, Neuro: Positive for generalized weakness Exam: 12:42 Constitutional: Disheveled patient, initially refusing to talk to me unless we gave rn her pain and nausea medication. Finally began to talk to me after discussion. Head/Face: Normocephalic, atraumatic. ENT: Dry mucous membranes Cardiovascular: Regular rate and rhythm. No pulse deficits. Respiratory: No increased work of breathing, no retractions or nasal flaring. Abdomen/GI: Soft, mild tenderness epigastrium and periumbilical region. MS/ Extremity: Pulses equal, no cyanosis. Neuro: Awake and alert, GCS 15 Vital Signs: 12:31 BP 99 / 88; Pulse 89; Resp 18; Temp 97.5; Pulse Ox 100% ; Weight 63.5 kg; Height 5 ft. mb9 0 in. ; Pain 10/10; 13:09 BP 155 / 117; Pulse 101; Resp 15; Pulse Ox 100% on R/A; Pain 10/10; mb9 14:17 BP 122 / 85; Pulse 115; Resp 16; Pulse Ox 100% on R/A; mb9 17:34 BP 98 / 67; Pulse 122; Resp 20; Pulse Ox 100% on R/A; mg7 12:31 Body Mass Index 27.34 (63.50 kg, 152.4 cm) mb9 12:31 Pain Scale: Adult mb9 13:09 Pain Scale: Adult mb9 MDM: 12:31 Patient medically screened. rn 14:44 Differential diagnosis: Nonspecific abd pain, gastritis, cholecystitis, pancreatitis, rn appendicitis, diverticulitis, viral gastroenteritis, gastroenteritis, DKA. Data reviewed: vital signs, nurses notes, lab test result(s), radiologic studies, CT scan, and as a result, I will admit patient. Consideration of Admission/Observation Patient was admitted/placed on observation. Escalation of care including admission/observation considered. Counseling: I had a detailed discussion with the patient and/or guardian regarding the historical points, exam findings, and any diagnostic results supporting the discharge/admit diagnosis, lab results, radiology results, the need for further work-up and treatment in the hospital. Response to treatment: the patient's symptoms have mildly improved after treatment, and as a result, I will admit patient. ED course: I personally spent 35 minutes engaged in work directly related to the individual patient's care. This does not include any time spent performing procedures. The patient has been deemed critically ill because of intractable vomiting, DKA requiring insulin drip and fluid resuscitation.. 02/14 12:33 Order name: CBC with Diff; Complete Time: 14:16 rn 02/14 12:33 Order name: CMP; Complete Time: 13:44 rn 02/14 12:33 Order name: Lipase; Complete Time: 13:44 rn 02/14 12:33 Order name: Test, Urine; Complete Time: 14:16 rn 02/14 12:33 Order name: Urinalysis w/ reflexes; Complete Time: 14:16 rn 02/14 13:26 Order name: CBC Smear Scan; Complete Time: 14:16 EDMS 02/14 15:18 Order name: Basic Metabolic Panel EDMS 02/14 15:18 Order name: Basic Metabolic Panel EDMS 02/14 15:18 Order name: Basic Metabolic Panel EDMS 02/14 15:18 Order name: Basic Metabolic Panel EDMS 02/14 15:18 Order name: CBC with Automated Diff EDMS 02/14 15:18 Order name: CBC with Automated Diff EDMS 02/14 15:18 Order name: CBC with Automated Diff EDMS 02/14 15:18 Order name: CBC with Automated Diff EDMS 02/14 15:18 Order name: Lipid Profile EDMS 02/14 15:18 Order name: Lipid Profile EDMS 02/14 15:18 Order name: Magnesium EDMS 02/14 15:18 Order name: Magnesium EDMS 02/14 15:18 Order name: Magnesium EDMS 02/14 15:18 Order name: Magnesium EDMS 02/14 15:18 Order name: Phosphorus EDMS 02/14 15:18 Order name: Phosphorus EDMS 02/14 15:18 Order name: Phosphorus EDMS 02/14 15:18 Order name: Phosphorus EDMS 02/14 16:02 Order name: Glucose, Ancillary Testing EDMS 02/14 17:38 Order name: Glucose, Ancillary Testing EDMS 02/14 18:19 Order name: Glucose, Ancillary Testing EDMS 02/14 12:33 Order name: CT Abd/Pelvis - IV Contrast Only; Complete Time: 14:41 rn 02/14 15:18 Order name: CONS Physician Consult EDMS 02/14 12:33 Order name: IV Saline Lock; Complete Time: 13:03 rn 02/14 12:33 Order name: Labs collected and sent; Complete Time: 12:55 rn Administered Medications: 12:34 CANCELLED (Duplicate Order): ondansetron 4 mg IVP once; over 2 minutes rn 12:55 Drug: NS 0.9% IV 1000 ml IV at 1 bolus Per protocol; 1000 mL bolus Route: IV; Rate: 1 mb9 bolus; Site: right forearm; 14:01 Follow up: Response: No adverse reaction; IV Status: Completed infusion mb9 12:55 Drug: Promethazine IVP 12.5 mg IVP once Route: IVP; Site: right forearm; mb9 14:01 Follow up: Response: No adverse reaction mb9 13:40 Drug: Droperidol IVP 2.5 mg IVP once Route: IVP; Site: right wrist; mb9 14:18 Follow up: Response: No adverse reaction mb9 14:00 Drug: Insulin Regular Human Sub-Q 10 units Sub-Q once {Co-Signature: [email or web address] (Carri Leroy RN).} Route: Sub-Q; Site: abdomen; 14:18 Follow up: Response: No adverse reaction mb9 14:01 Drug: NS 0.9% IV 1000 ml IV at 1000 ml once Route: IV; Rate: 1000 ml; Site: right wrist;mb9 15:09 Follow up: Response: No adverse reaction; IV Status: Completed infusion mb9 14:26 Drug: Famotidine IVP 20 mg IVP once; dilute with 10 mL 0.9% NaCl; give over 2 minutes mb9 Route: IVP; Site: right wrist; 14:39 Follow up: Response: No adverse reaction mb9 15:54 Drug: Insulin Drip - (Insulin Regular Human IVP 100 units, NS 0.9% IV 100 ml) IV at mg7 calculated rate continuous; Standard concentration 1unit/ml; Dose for DKA is 0.1 units/kg/hr {Co-Signature: [email or web address] (Carri Leroy RN).} Route: IV; Rate: calculated rate; Site: right wrist; 17:00 Follow up: Rate change 1.5 units/hr mg7 16:00 Drug: Promethazine IVP 12.5 mg IVP once Route: IVP; Site: right wrist; mg7 Disposition Summary: 02/15/24 14:46 Hospitalization Ordered Notes: Hospitalization Status: Inpatient Admission rn Provider: Yonathan Swartz rn Condition: Stable rn Problem: new rn Symptoms: have improved rn Bed/Room Type: Standard rn Location: Intensive Care Unit(02/15/24 17:46) eb Room Assignment: 5-(02/15/24 17:46) eb Diagnosis - Diabetes mellitus due to underlying condition with ketoacidosis without coma rn - Intractable vomiting rn Forms: - Medication Reconciliation Form rn - SBAR form rn - Leadership Thank You Letter 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 Total time: 35 minutes rn Signatures: Dispatcher [employer] EDHomero Coyle MD MD rn Botello, Elizabeth eb Bradberry, Kelly RN RN kb3 Miladis Burnett, RN RN [id number] Anh Thompson RN RN mg7 Carri Leroy RN [email or web address] Corrections: (The following items were deleted from the chart) 12:34 12:33 Ondansetron IVP 4 mg IVP once; over 2 minutes ordered. rn rn 17:21 14:46 Intensive Care Unit rn kb3 17:21 14:46 rn kb3 17:46 17:21 [facility] ER HOLD kb3 eb 17:46 17:21 ERHOLD- kb3 eb
--- NOTE | 2024-02-15 14:46 | ER ---
Nurse's Notes [facility] Name: Javier Moctezuma Age: 38 yrs Sex: Female : 1985 Arrival Date: 02/15/2024 Time: 12:23 Bed 19 Private MD: Diagnosis: Diabetes mellitus due to underlying condition with ketoacidosis without coma;Intractable vomiting Presentation: 02/14 12:31 Chief complaint: EMS states: "toned out for N/V that started at 8am this morning. mb9 Administered 4 mg of Zofran IM. No relief.". Coronavirus screen: Vaccine status: Patient reports receiving the 2nd dose of the covid vaccine. Ebola Screen: No symptoms or risks identified at this time. Initial Sepsis Screen: Does the patient meet any 2 criteria? No. Patient's initial sepsis screen is negative. Does the patient have a suspected source of infection? No. Patient's initial sepsis screen is negative. Risk Assessment: Do you want to hurt yourself or someone else? Patient reports no desire to harm self or others. Onset of symptoms was February 15, 2024. 12:31 Acuity: NING 3 mb9 12:31 Method Of Arrival: EMS: [facility] Triage Assessment: 12:32 General: Appears uncomfortable, Behavior is anxious. Pain: Complains of pain in mb9 abdomen. EENT: No signs and/or symptoms were reported regarding the EENT system. Neuro: Hunt Agitation-Sedation Scale (RASS): 0 - Alert and Calm Level of Consciousness is awake, alert, obeys commands, Oriented to person, place, time, situation, Appropriate for age. Cardiovascular: Heart tones S1 S2 present Patient's skin is warm and dry. Respiratory: Airway is patent Respiratory effort is even, unlabored, Respiratory pattern is regular, symmetrical. GI: Abdomen is round non-distended, Bowel sounds present X 4 quads. Abd is soft Abdomen is tender to palpation X 4 quads. Reports nausea, vomiting. : No signs and/or symptoms were reported regarding the genitourinary system. Derm: Skin is pink, warm \\T\\ dry. Musculoskeletal: Range of motion: intact in all extremities. 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 - Infectious Disease History:: Denies. - Social history:: Smoking status: Reported history of juuling and/or vaping. - Family history:: not pertinent. - Hospitalizations: : No recent hospitalization is reported. Screenin:34 [facility] ED Fall Risk Assessment (Adult) History of falling in the last 3 months, mb9 including since admission No falls in past 3 months (0 pts) Confusion or Disorientation No (0 pts) Intoxicated or Sedated No (0 pts) Impaired Gait No (0 pts) Mobility Assist Device Used No (0 pt) Altered Elimination No (0 pt) Score/Fall Risk Level 0 - 2 = Low Risk Oriented to surroundings, Maintained a safe environment, Educated pt \\T\\ family on fall prevention, incl call for assistance when getting out of bed. Abuse screen: Denies threats or abuse. Nutritional screening: No deficits noted. Tuberculosis screening: No symptoms or risk factors identified. Assessment: 12:35 Reassessment: see triage assessment. mb9 13:10 Reassessment: Patient and/or family updated on plan of care and expected duration. Pain mb9 level reassessed. Patient states symptoms have not improved. 13:17 Reassessment: pt states pain and nausea is not improved. ERP notified. mb9 14:17 Reassessment: Patient states symptoms have not improved. Cardiovascular: Reports since mb9 burning in the chest. Respiratory: Airway is patent Respiratory effort is even, unlabored, Respiratory pattern is regular, symmetrical. GI: Pt is actively vomiting dark brown. 14:44 Reassessment: Faxed insulin drip to pharmacy. mb9 14:54 Reassessment: pt states, "I peed myself, you need to change me." Pt educated about mb9 pressing call light button when needing to use restroom. Bedside commode placed in room. Vital Signs: 12:31 BP 99 / 88; Pulse 89; Resp 18; Temp 97.5; Pulse Ox 100% ; Weight 63.5 kg; Height 5 ft. mb9 0 in. ; Pain 10/10; 13:09 BP 155 / 117; Pulse 101; Resp 15; Pulse Ox 100% on R/A; Pain 10/10; mb9 14:17 BP 122 / 85; Pulse 115; Resp 16; Pulse Ox 100% on R/A; mb9 17:34 BP 98 / 67; Pulse 122; Resp 20; Pulse Ox 100% on R/A; mg7 12:31 Body Mass Index 27.34 (63.50 kg, 152.4 cm) mb9 12:31 Pain Scale: Adult mb9 13:09 Pain Scale: Adult mb9 ED Course: 12:31 Patient arrived in ED. mb9 12:31 Homero Kenney MD is Attending Physician. rn 12:31 Arm band placed on. mb9 12:32 Triage completed. mb9 12:32 Patient requests liquids. Patient requests pain medication. mb9 12:34 Miladis Burnett, RENARD is Primary Nurse. mb9 12:34 Placed in gown. Bed in low position. Call light in reach. Side rails up X 1. Provided mb9 Education on: press call light if needing anything. Client placed on continuous cardiac and pulse oximetry monitoring. NIBP monitoring applied. Door closed. Noise minimized. Warm blanket given. 12:34 No provider procedures requiring assistance completed. mb9 12:40 Patient requests pain medication. mb9 12:50 Patient requests pain medication. mb9 12:54 Missed attempt(s): 22 gauge in left antecubital area. Bleeding controlled, band aid mb9 applied, catheter tip intact. 12:55 Initial lab(s) drawn, by ok, sent to lab. mb9 12:55 Thermoregulation: warm blanket given to patient. mb9 12:55 CBC with Diff Sent. mb9 12:55 CMP Sent. mb9 12:55 Lipase Sent. mb9 12:55 Missed attempt(s): 22 gauge in right forearm. Bleeding controlled, band aid applied, aa5 catheter tip intact. 13:00 Inserted saline lock: 22 gauge in right wrist, using aseptic technique. aa5 13:09 Patient requests food. Patient requests liquids. Patient requests pain medication. mb9 13:11 Cleaned of incontinence. Linen changed. mb9 13:13 ekg monitor tech on. mb9 13:17 Patient requests pain medication. mb9 13:20 Patient requests pain medication. mb9 13:30 Assisted with bedpan. Cleaned of incontinence. mb9 14:[address] via stretcher. mb9 14:09 CT Abd/Pelvis - IV Contrast Only In Process Unspecified. EDMS 14:10 Patient moved back from CT. mb9 14:12 Patient requests pain medication. mb9 14:46 Yonathan Swartz is Hospitalizing Provider. rn 15:00 Assisted to bedside commode. Cleaned of incontinence. Linen changed. mb9 15:39 Report given to Olena RN. mb9 17:21 Anh Thompson, RENARD is Primary Nurse. mg7 Administered Medications: 12:34 CANCELLED (Duplicate Order): ondansetron 4 mg IVP once; over 2 minutes rn 12:55 Drug: NS 0.9% IV 1000 ml IV at 1 bolus Per protocol; 1000 mL bolus Route: IV; Rate: 1 mb9 bolus; Site: right forearm; 14:01 Follow up: Response: No adverse reaction; IV Status: Completed infusion mb9 12:55 Drug: Promethazine IVP 12.5 mg IVP once Route: IVP; Site: right forearm; mb9 14:01 Follow up: Response: No adverse reaction mb9 13:40 Drug: Droperidol IVP 2.5 mg IVP once Route: IVP; Site: right wrist; mb9 14:18 Follow up: Response: No adverse reaction mb9 14:00 Drug: Insulin Regular Human Sub-Q 10 units Sub-Q once {Co-Signature: ld1 (Carri Leroy RN).} Route: Sub-Q; Site: abdomen; 14:18 Follow up: Response: No adverse reaction mb9 14:01 Drug: NS 0.9% IV 1000 ml IV at 1000 ml once Route: IV; Rate: 1000 ml; Site: right wrist;mb9 15:09 Follow up: Response: No adverse reaction; IV Status: Completed infusion mb9 14:26 Drug: Famotidine IVP 20 mg IVP once; dilute with 10 mL 0.9% NaCl; give over 2 minutes mb9 Route: IVP; Site: right wrist; 14:39 Follow up: Response: No adverse reaction mb9 15:54 Drug: Insulin Drip - (Insulin Regular Human IVP 100 units, NS 0.9% IV 100 ml) IV at mg7 calculated rate continuous; Standard concentration 1unit/ml; Dose for DKA is 0.1 units/kg/hr {Co-Signature: ld1 (Carri Leroy RN).} Route: IV; Rate: calculated rate; Site: right wrist; 17:00 Follow up: Rate change 1.5 units/hr mg7 16:00 Drug: Promethazine IVP 12.5 mg IVP once Route: IVP; Site: right wrist; mg7 Medication: 12:34 VIS not applicable for this client. mb9 Outcome: 14:46 Decision to Hospitalize by Provider. rn 18:23 Patient left the ED. mg7 Signatures: Dispatcher [employer] EDMS Homero Kenney MD MD rn Calderon, Audri, RN RN [id number] Miladis Burnett RN RN mb9 Anh Thompson RN RN mg7 Carri Leroy RN ld1 Corrections: (The following items were deleted from the chart) 14:02 13:40 Patient moved to [place] via stretcher. mb9 mb9
[2024-02-15] MEDS ORDERED: D10W 250 ML BAG IV PRN (14:50)
[2024-02-15] MEDS ORDERED: GLUCAGON 1 MG/VIAL IM PRN (14:50)
[2024-02-15] MEDS ORDERED: INSULIN -REGULAR HUMAN 100 UNIT in NA CHLORIDE 0.9% 100 ML IV SCH (15:00)
[2024-02-15] MEDS ORDERED: METOCLOPRAMIDE 10 MG/2mL INJ ONE ×2 (15:18→21:00)
--- NOTE | 2024-02-15 15:22 | P.HP ---
Certification for Inpatient Patient admitted to: Inpatient With expected LOS: >2 Midnights Patient will require the following post-hospital care: None Practitioner: I am a practitioner with admitting privileges, knowledge of patient current condition, hospital course, and medical plan of care. Services: Services provided to patient in accordance with Admission requirements found in Title 42 Section 412.3 of the Code of Federal Regulations Patient History Date of Service: 02/15/24 Reason for admission: DKA History of Present Illness: Javier Moctezuma is a 38 year old female with Pmhx gastroparesis, Diabetes Mellitus- IDDM, bipolar disorder, Schizophrenia, and hypertensive disorder who presents to the ER with chief complaints of abdominal pain, N/V, diarrhea. She reports not taking her antipsychotics or insulin for 3 months. On examination she appears agitated, uncomfortable, and extremely nauseous. Insulin drip started in the ED, multiple medications to control nausea provided in the ED and did not relieve nausea. Initial vitals BP 99 / 88; Pulse 89; Resp 18; Temp 97.5; Pulse Ox 100% Laboratory evaluation WBC 13.6, serum glucose 368, potassium 3.8, sodium [address] abdomen pelvis reports " No acute intra-abdominal or pelvic finding." Javier will be admitted to hospitalist service for further evaluation and treatment of gastroparesis, DKA, Hematemesis. Dr. Hall consulted Allergies Penicillins Allergy (Intermediate, Verified 07/14/21 22:07) Itching/Hives/Rash Home Medications: Propranolol [Inderal*] 10 mg PO TID 12/27/22 Quetiapine Fumarate [Seroquel] 300 mg PO BEDTIME 12/27/22 hydrOXYzine HCL [Atarax] 50 mg PO TID 12/27/22 Insulin Glargine Human [Lantus*] 30 units SQ BID 05/16/23 Gabapentin 600 mg PO BID 05/27/23 Sucralfate 10 ml PO ACHS 05/27/23 Metoclopramide HCl [Reglan] 5 mg PO TID PRN 10 Days #30 tab 05/28/23 Fluoxetine HCl 20 mg PO DAILY 08/09/23 Fluoxetine HCl [Prozac] 40 mg PO DAILY 08/09/23 Ferrous Sulfate 325 mg PO BID 30 Days #60 tab 08/10/23 - Past Medical/Surgical History Diabetic: Yes -: Diabetes type 1 -: Bipolar disorder -: Schizophrenia -: GERD -: HTN -: c-sections -: tubal ligation Psychosocial/ Personal History: Disabled, lives alone. - Family History Father -: Diabetes Mother -: Diabetes - Social History Alcohol use: No CD- Drugs: No Caffeine use: No Review of Systems Gastrointestinal: Nausea, Vomiting, Abdominal Pain, Diarrhea Physical Examination - Physical Exam General: Alert, Oriented x3, Acute distress HEENT: Atraumatic, Normocephalic, PERRLA Neck: Supple, 2+ carotid pulse no bruit Respiratory: Clear to auscultation bilaterally, Normal air movement Cardiovascular: Normal pulses, Regular rate/rhythm, Normal S1 S2 Capillary refill: <2 Seconds Gastrointestinal: Normal bowel sounds, Soft and benign Musculoskeletal: No swelling, No erythema Integumentary: No rashes Neurological: Normal speech, Normal tone - Studies Laboratory Data (last 24 hrs) 02/15/24 02/15/24 12:48 12:48 WBC 13.60 H Hgb 11.5 L Hct 37.1 Plt Count 638 H Sodium 135 L Potassium 3.8 BUN 12 Creatinine 0.92 Glucose 360 H Total Bilirubin 0.7 AST 14 L ALT 20 Alkaline Phosphatase 107 Lipase 9 L Assessment and Plan - Plan Assessment and plan DKA in a patient with diabetes mellitusIDDM Serum glucose 360 Has not taken insulin for a few months Insulin gtt-titrate according to POC glucose BMP Q4H Accucheck Q1H IV fluids Hematemesis Gastroparesis Consult Dr. Rafael Cline q6h for 24 hours, then Q8H NPO while vomitting Bipolar disorder Schizophrenia Continue home medications when available Pharmacy is [facility] DVT PPx heparin Full code LOS 2 days Discharge Plan: Home Plan to discharge in: 48 Hours - Advance Directives Does patient have a Living Will: No Does patient have a Durable POA for Healthcare: No Time Spent Managing Pts Care (In Minutes): 50
[2024-02-15] MEDS: METOCLOPRAMIDE 10 MG/2mL INJ IV SCH (16:00)
[2024-02-15 16:37] LABS: Anion Gap 17.1 mEq/L (5.0-15.0); Potassium 3.1 mEq/L (3.5-5.1)
[2024-02-15] MEDS: D5W 0 ML IV ONE (18:19)
[2024-02-15] MEDS: INSULIN -REGULAR HUMAN 100 UNIT in NA CHLORIDE 0.9% 100 ML IV SCH (18:21)
[2024-02-15] MEDS: D5 0.45 NS 1,000 ML with POTASSIUM CL 30 MEQ IV SCH (18:49)
[2024-02-15 23:32] LABS: Anion Gap 12.2 mEq/L (5.0-15.0); Potassium 3.2 mEq/L (3.5-5.1)
[2024-02-16] MEDS ORDERED: ONDANSETRON 4 MG/2 ML VIAL ONE ×2 (02:10→18:52)
[2024-02-16] MEDS ORDERED: KCL 20 MEQ/100 mL IVPB 100 ML IV ONE ×2 (02:10→03:55)
[2024-02-16] MEDS: ONDANSETRON 4 MG/2 ML VIAL IV PRN (02:13)
[2024-02-16] MEDS: KCL 20 MEQ/100 mL IVPB 20 MEQ/100 ML BAG IV SCH (02:13)
[2024-02-16] MEDS ORDERED: METOCLOPRAMIDE 10 MG/2mL INJ ONE ×4 (03:54→23:17)
[2024-02-16] MEDS: D5 0.45 NS 1,000 ML with POTASSIUM CL 30 MEQ IV SCH (03:59)
[2024-02-16] MEDS ORDERED: PROMETHAZINE INJ 25 MG/ML AMP ONE ×3 (04:32→15:15)
[2024-02-16] MEDS: PROMETHAZINE INJ 25 MG/ML AMP IV PRN (04:33)
[2024-02-16 06:06] LABS: Absolute Basophils 0.1 K/uL (0-0.5); Absolute Lymphocytes (CBC) 0.8 K/uL (0.7-4.9); Absolute Monocytes 0.7 K/uL (0.1-1.3); Absolute Neutrophil 11.1 K/uL (1.8-8.0); Basophils % 0.5 % (0-1.3); Eosinophils % 0.1 % (0-4.4); Hematocrit 28.5 % (36.0-45.0); Hemoglobin 9.2 g/dL (12.0-15.0); Lymphocytes % 6.7 % (15.3-44.8); MCH 22.5 pg (27.0-35.0); MCHC 32.2 g/dL (32.0-36.0); MCV 69.8 fL (80-100); MPV 6.8 fL (7.6-11.3); Monocytes % 5.2 % (3.3-12.3); Neutrophils % 87.5 % (41.7-73.7); Platelets 498 thou/uL (152-406); RBC Red Blood Cell Count 4.09 M/uL (3.86-4.86); Red Cell Distribution Width 19.6 % (12.1-15.2)
[2024-02-16 06:28] LABS: Albumin 2.7 g/dL (3.4-5.0); Albumin/Globulin Ratio 0.7 (1.1-1.8); Anion Gap 12.8 mEq/L (5.0-15.0); Bilirubin Total 0.3 mg/dL (0.2-1.0); Globulin 3.7 g/dL (2.3-3.5); Magnesium 1.4 mg/dL (1.6-2.4); Potassium 3.8 mEq/L (3.5-5.1); Protein, Total 6.4 g/dL (6.4-8.2)
[2024-02-16 06:30] LABS: Phosphorus 1.3 mg/dL (2.5-4.9)
[2024-02-16] MEDS: POTASSIUM PHOS IN 0.9 % NACL 15 MMOL/250 ML BAG IV ONE (07:28)
[2024-02-16] MEDS: Magnesium Sulfate 2gm IVPB 2 G/50 ML BAG IV ONE (07:28)
[2024-02-16] MEDS ORDERED: SODIUM CHLORIDE 0.9% 10ML INJ IV PRN (10:39)
[2024-02-16] MEDS ORDERED: D5.45NS W/KCL 20MEQ 0 ML IV ONE (13:40)
--- NOTE | 2024-02-16 15:02 | P.PN ---
Patient seen and examined. Plan of care discussed with Julito. DKA resolved but patient still not able to tolerate p.o. She has been dry heaving. Continue insulin drip for aggressive blood sugar control, D5 infusion as needed. Scheduled Reglan And antiemetics as needed IV Protonix for suspected gastritis Maalox as needed IV hydration Monitor and correct electrolytes. <lou pino - Last Filed: 02/16/24 15:40> Date of Service: 02/16/24 Subjective Continues to vomit, small relief Blood sugar improved ROS 10 point ROS as noted above, otherwise negative Physical Exam General: Alert and oriented x 3, Acute distress HEENT: Atraumatic, Normocephalic, PERRLA Neck: Supple, 2+ carotid pulse no bruit Respiratory: Clear to auscultation bilaterally, Normal air movement Cardiovascular: Regular rate and rhythm, no murmur noted, Normal S1 S2 Capillary refill: <2 Seconds Gastrointestinal: hyperactive bowel sounds, Soft and benign on palpation, tenderness Musculoskeletal: No swelling, No erythema Integumentary: No rashes Neurological: Normal speech, Normal tone Vitals Reviewed Problem list DKA in a patient with diabetes mellitusIDDM Hematemesis Gastroparesis Bipolar disorder Schizophrenia Assessment and Plan DKA in a patient with diabetes mellitusIDDM Electrolyte imbalance 2/2 insulin gtt Serum glucose 219 Has not taken insulin for a few months continue Insulin gtt-titrate according to POC glucose Accucheck Q1h IV fluids NPO Replete electrolytes PRN Hematemesis Gastroparesis Consult Dr. Hall Reglan q6h for 24 hours, then Q8H NPO while vomitting Maalox, IV protonix Bipolar disorder Schizophrenia Continue home medications when available Pharmacy is [facility] in [place] DVT PPx heparin Full code LOS 2 days <Bridget Vila - Last Filed: 02/16/24 18:30>
[2024-02-16] MEDS: METOCLOPRAMIDE 10 MG/2mL INJ IV SCH (15:41)
[2024-02-16] MEDS: MAGNES/ALUMIN/SIMET 30ML UCUP PO PRN ×2 (15:44→19:30)
[2024-02-16 16:09] VITALS: BMI 27.6
[2024-02-16] MEDS: PANTOPRAZOLE 40MG TABLET PO SCH (19:30)
[2024-02-16] MEDS ORDERED: PANTOPRAZOLE 40 MG INJ IVP SCH (21:00)
[2024-02-17] MEDS ORDERED: ONDANSETRON 4 MG/2 ML VIAL ONE ×2 (04:26→08:18)
[2024-02-17] MEDS ORDERED: METOCLOPRAMIDE 10 MG/2mL INJ ONE ×2 (07:49→14:54)
[2024-02-17 08:12] LABS: Absolute Lymphocytes (CBC) 1.2 K/uL (0.7-4.9); Absolute Monocytes 0.6 K/uL (0.1-1.3); Absolute Neutrophil 6.7 K/uL (1.8-8.0); Basophils % 0.3 % (0-1.3); Eosinophils % 0.2 % (0-4.4); Hematocrit 29.3 % (36.0-45.0); Hemoglobin 9.2 g/dL (12.0-15.0); Lymphocytes % 14.4 % (15.3-44.8); MCH 21.9 pg (27.0-35.0); MCHC 31.4 g/dL (32.0-36.0); MCV 69.9 fL (80-100); MPV 6.8 fL (7.6-11.3); Monocytes % 6.7 % (3.3-12.3); Neutrophils % 78.4 % (41.7-73.7); Platelets 470 thou/uL (152-406); RBC Red Blood Cell Count 4.19 M/uL (3.86-4.86)
[2024-02-17 08:20] LABS: Anion Gap 8.5 mEq/L (5.0-15.0); Potassium 3.5 mEq/L (3.5-5.1)
[2024-02-17 08:21] LABS: Phosphorus 1.4 mg/dL (2.5-4.9)
[2024-02-17] MEDS: POTASSIUM PHOS IN 0.9 % NACL 15 MMOL/250 ML BAG IV ONE (08:49)
[2024-02-17] MEDS ORDERED: PROMETHAZINE INJ 25 MG/ML AMP ONE (10:27)
--- NOTE | 2024-02-17 11:51 | P.PN ---
Subjective Date of Service: 02/17/24 Chief Complaint: DKA Patient states he feels much better today. Blood sugar readings have improved on insulin drip. She has not vomited since this morning. Physical Examination - Vital Signs Temperature: 98.9 F Blood Pressure: 131/89 Pulse: 99 Respirations: 16 Pulse Ox (%): 100 Assessment And Plan - Plan Diagnosis DKA in a patient with diabetes mellitusIDDM Hematemesis Gastroparesis Bipolar disorder Schizophrenia Assessment and Plan DKA in a patient with diabetes mellitusIDDM Electrolyte imbalance 2/2 insulin gtt Blood glucose readings improved, DKA resolved History of noncompliance to insulin. Trial of clear liquid diet and transition insulin drip to subcutaneous insulin Continue IV fluids Replete electrolytes PRN Hematemesis Gastroparesis Consult Dr. Hall Continue Reglan IV Q8H Trial of clear liquid diet Continue Maalox, IV protonix Bipolar disorder Schizophrenia Resume home medications. DVT PPx heparin Full code
[2024-02-17] MEDS ORDERED: GLUCAGON 1 MG/VIAL IM PRN (14:46)
[2024-02-17] MEDS ORDERED: D50W 25 GM/50 ML SYRINGE IV PRN (14:46)
[2024-02-17] MEDS ORDERED: INSULIN REGULAR (HUMAN) 100 UNIT/ML ONE (16:36)
[2024-02-17] MEDS ORDERED: PANTOPRAZOLE 40MG TABLET PO ONE (16:36)
[2024-02-17] MEDS: INSULIN REGULAR (HUMAN) 100 UNIT/ML SQ SCH (16:38)
[2024-02-17 22:51] VITALS: O2SAT 99
[2024-02-18 06:43] LABS: Albumin 2.4 g/dL (3.4-5.0); Albumin/Globulin Ratio 0.8 (1.1-1.8); Anion Gap 8.7 mEq/L (5.0-15.0); Bilirubin Total 0.4 mg/dL (0.2-1.0); Globulin 3.2 g/dL (2.3-3.5); Phosphorus 1.9 mg/dL (2.5-4.9); Potassium 3.7 mEq/L (3.5-5.1); Protein, Total 5.6 g/dL (6.4-8.2)
[2024-02-18 06:48] LABS: Absolute Eosinophils 0.1 K/uL (0-0.5); Absolute Lymphocytes (CBC) 1.2 K/uL (0.7-4.9); Absolute Monocytes 0.7 K/uL (0.1-1.3); Absolute Neutrophil 5.3 K/uL (1.8-8.0); Basophils % 0.5 % (0-1.3); Hematocrit 29.6 % (36.0-45.0); Hemoglobin 9.5 g/dL (12.0-15.0); Lymphocytes % 16.9 % (15.3-44.8); MCH 22.5 pg (27.0-35.0); MCHC 32.1 g/dL (32.0-36.0); MCV 70.3 fL (80-100); MPV 7.2 fL (7.6-11.3); Monocytes % 8.9 % (3.3-12.3); Neutrophils % 72.7 % (41.7-73.7); Platelets 430 thou/uL (152-406); RBC Red Blood Cell Count 4.21 M/uL (3.86-4.86)
[2024-02-18] MEDS: POTASSIUM PHOS IN 0.9 % NACL 15 MMOL/250 ML BAG IV ONE (09:08)
[2024-02-18] MEDS ORDERED: MAGNESIUM CITRATE 300 ML BOT PO SCH (11:00)
--- NOTE | 2024-02-18 14:49 | RAD REPORT ---
EXAM DESCRIPTION: US - UPPER EXTREMITY VENOUS UNILATE - 02/18/2024 2:39 pm CLINICAL HISTORY: Right upper extremity swelling COMPARISON: None. TECHNIQUE: Real-time sonographic evaluation of the right upper extremity deep venous system was perf ormed. FINDINGS: Color Doppler, grayscale, and spectral analysis was performed. Occlusive thrombus in the right mid brachial vein. The venous line is also present within the vein. T he vein is patent distally. No other thrombi identified . IMPRESSION: Positive for venous thrombosis in the right mid brachial vein with veinous line in place .
--- NOTE | 2024-02-18 16:44 | P.PN ---
Subjective Date of Service: 02/18/24 Chief Complaint: DKA Patient has been tolerating full liquid diet. Patient reports swelling in the right arm where she has a midline. Physical Examination - Vital Signs Temperature: 97.9 F Blood Pressure: 113/63 Pulse: 107 Respirations: 16 Pulse Ox (%): 99 Assessment And Plan - Plan Diagnosis DKA in a patient with diabetes mellitusIDDM Hematemesis Gastroparesis Bipolar disorder Schizophrenia Assessment and Plan DKA in a patient with diabetes mellitusIDDM Electrolyte imbalance 2/2 insulin gtt Blood glucose readings improved, DKA resolved History of noncompliance to insulin. Patient is tolerating full liquid diet. Advance diet as tolerated. Continue IV fluids Replete electrolytes PRN Insulin sliding scale. Resume Lantus at 15 units twice daily. Patient is on 30 units twice daily at home. Hematemesis Gastroparesis IV Reglan transitioned to oral erythromycin Full liquid diet and advance as tolerated Continue Maalox, IV protonix Bipolar disorder Schizophrenia Continue home medications. Right upper extremity DVT Eliquis initiated. DVT PPx Eliquis. Full code
[2024-02-18] MEDS ORDERED: HYDROCODONE/APAP 7.5/325 MG TAB PO PRN (20:10)
[2024-02-18] MEDS: ERYTHROMYCIN BASE 250 MG TAB PO SCH (21:00)
[2024-02-18] MEDS: APIXABAN 5 MG TABLET PO SCH (21:24)
[2024-02-18] MEDS: INSULIN GLARGINE 100 UNIT/ML SQ SCH (21:39)
[2024-02-18] MEDS: MORPHINE 2 MG/ML SYR IV PRN (21:45)
[2024-02-19] MEDS: HYDROCODONE/APAP 7.5/325 MG TAB PO PRN (04:54)
[2024-02-19 08:22] LABS: Absolute Eosinophils 0.1 K/uL (0-0.5); Absolute Lymphocytes (CBC) 1.4 K/uL (0.7-4.9); Absolute Monocytes 0.7 K/uL (0.1-1.3); Absolute Neutrophil 3.2 K/uL (1.8-8.0); Basophils % 0.4 % (0-1.3); Eosinophils % 1.5 % (0-4.4); Hematocrit 29.1 % (36.0-45.0); Hemoglobin 9.4 g/dL (12.0-15.0); Lymphocytes % 26.2 % (15.3-44.8); MCH 22.7 pg (27.0-35.0); MCHC 32.3 g/dL (32.0-36.0); MCV 70.1 fL (80-100); MPV 7.1 fL (7.6-11.3); Monocytes % 12.5 % (3.3-12.3); Neutrophils % 59.4 % (41.7-73.7); Platelets 410 thou/uL (152-406); RBC Red Blood Cell Count 4.15 M/uL (3.86-4.86); Red Cell Distribution Width 19.9 % (12.1-15.2)
[2024-02-19] MEDS ORDERED: MORPHINE 4 MG/ML SYR IV PRN (08:37)
[2024-02-19 08:38] LABS: Anion Gap 7.5 mEq/L (5.0-15.0); Phosphorus 2.8 mg/dL (2.5-4.9); Potassium 3.5 mEq/L (3.5-5.1)
[2024-02-19] MEDS ORDERED: MORPHINE 2 MG/ML SYR IV PRN (14:44)
--- NOTE | 2024-02-19 15:26 | P.DS ---
Admission Date: 02/15/24 Discharge Date: 02/19/24 Disposition: ROUTINE DISCHARGE Discharge Condition: FAIR Reason for Admission: DKA Brief History of Present Illness: 38 year old woman with history of gastroparesis, Diabetes Mellitus-IDDM, bipolar disorder, Schizophrenia, and hypertensive disorder presented to the ER with chief complaints of abdominal pain, N/V, diarrhea. She reported not taking her antipsychotics or insulin for 3 months. She appeared agitated, uncomfortable, and complaining of nausea. Patient was severely hyperglycemic and meets DKA criteria. Insulin drip started in the ED, multiple medications to control n ausea provided in the ED and did not relieve nausea. Initial vitals BP 99 / 88; Pulse 89; Resp 18; Temp 97.5; Pulse Ox 100% Laboratory evaluation WBC 13.6, serum glucose 368, potassium 3.8, sodium [address] abdomen pelvis reports " No acute intra-abdominal or pelvic finding." Patient was hospitalized for further evaluation and management of gastroparesis, DKA. Hospital Course: Diagnosis DKA in a patient with diabetes mellitusIDDM Hematemesis Gastroparesis Bipolar disorder Schizophrenia Assessment and Plan DKA in a patient with diabetes mellitusIDDM Electrolyte imbalance 2/2 insulin gtt Blood glucose readings improved, DKA resolved History of noncompliance to insulin. Patient is tolerating full liquid diet. Advance diet as tolerated. Continue IV fluids Replete electrolytes PRN Insulin sliding scale. Resume Lantus at 15 units twice daily. Patient is on 30 units twice daily at home. Intractable nausea and vomiting Gastroparesis. Patient reports transient bloodstained vomitus which occurred after several vomiting episodes. She was treated with scheduled IV Reglan, promethazine and Zofran as needed. IV Reglan was transitioned to oral erythromycin Diet advanced to full liquid which she tolerated She was also on MiraLAX and IV Protonix for possible gastritis. Patient has clinically improved, has good oral intake. She is discharged with erythromycin for gastroparesis. She is also prescribed Protonix for gastritis. Bipolar disorder Schizophrenia Continue home medications. Right upper extremity DVT Eliquis initiated for DVT. DVT was provoked by an intravenous catheter. Patient informed she will need anticoagulation for at least 3 to 6 months. Vital Signs/Physical Exam: Temp Pulse Resp BP Pulse Ox 98.0 F 99 H 16 118/77 99 02/19/24 12:00 02/19/24 12:00 02/19/24 12:00 02/19/24 12:00 02/19/24 12:00 Laboratory Data at Discharge: WBC 5.30 thou/uL (4.3-10.9) 02/19/24 07:32 Hgb 9.4 g/dL (12.0-15.0) L 02/19/24 07:32 Hct 29.1 % (36.0-45.0) L 02/19/24 07:32 Plt Count 410 thou/uL (152-406) H 02/19/24 07:32 Sodium 141 mEq/L (136-145) 02/19/24 07:32 Potassium 3.5 mEq/L (3.5-5.1) 02/19/24 07:32 BUN 5 mg/dL (7-18) L 02/19/24 07:32 Creatinine 0.53 mg/dL (0.55-1.02) L 02/19/24 07:32 Glucose 127 mg/dL (74-106) H 02/19/24 07:32 Phosphorus 2.8 mg/dL (2.5-4.9) 02/19/24 07:32 Magnesium 2.0 mg/dL (1.6-2.4) 02/18/24 05:55 Total Bilirubin 0.4 mg/dL (0.2-1.0) 02/18/24 05:55 AST 11 U/L (15-37) L 02/18/24 05:55 ALT 15 U/L (13-56) 02/18/24 05:55 Alkaline Phosphatase 74 U/L (45-117) 02/18/24 05:55 Triglycerides 108 mg/dL (<150) 02/16/24 05:59 Cholesterol 204 mg/dL (<200) H 02/16/24 05:59 HDL Cholesterol 34 mg/dL (40-60) L 02/16/24 05:59 Cholesterol/HDL Ratio 6.00 02/16/24 05:59 Lipase 9 U/L (13-75) L 02/15/24 12:48 Home Medications: Gabapentin 600 mg PO BID 02/17/24 Insulin -Regular Human [Novolin -R*] 5 units SQ AC 02/17/24 Apixaban [Eliquis] 5 mg PO BID #74 tab 02/19/24 Erythromycin Base [Erythromycin] 250 mg PO TID #30 tab 02/19/24 Fluoxetine HCl [Prozac] 40 mg PO DAILY #30 tab 02/19/24 Hydrocodone 7.5/APAP 325 [Terra Bella 7.5/325 mg*] 1 tab PO Q4H PRN #12 tab 02/19/24 Insulin Glargine,Hum.rec.anlog [Lantus] 30 units SQ BID #30 ml 02/19/24 Pantoprazole [Protonix Tab*] 40 mg PO BID #60 tab 02/19/24 Pantoprazole [Protonix Tab*] 40 mg PO BIDAC #60 tab 02/19/24 Quetiapine Fumarate [Seroquel] 300 mg PO BEDTIME #30 tab 02/19/24 New Medications: Apixaban [Eliquis] 5 mg PO BID #74 tab Erythromycin Base [Erythromycin] 250 mg PO TID #30 tab Insulin Glargine,Hum.rec.anlog [Lantus] 30 units SQ BID #30 ml Hydrocodone 7.5/APAP 325 [Terra Bella 7.5/325 mg*] 1 tab PO Q4H PRN #12 tab PRN Reason: Pain Scale 5-7 (Moderate) Pantoprazole [Protonix Tab*] 40 mg PO BIDAC #60 tab Pantoprazole [Protonix Tab*] 40 mg PO BID #60 tab Fluoxetine HCl [Prozac] 40 mg PO DAILY #30 tab Quetiapine Fumarate [Seroquel] 300 mg PO BEDTIME #30 tab Diet: ADA Activity: Ad parish Followup: NONE,NONE [Primary Care Provider] - 1-2 Weeks
[2024-02-19 17:52] VITALS: BP 116/72; TEMP 97.6
[2024-02-25] MEDS ORDERED: APIXABAN 5 MG TABLET PO SCH (21:00)
== END 2024-02-19 18:15 | disposition home or self-care (01) | DRG 73 ==
LOC: ER 12:23 → ERHOLD 15:12 → 3RD-ICU 17:57 → 4TH 02-17 16:53
PROVIDERS: ADMIT Internal Medicine; ATTEND Internal Medicine
DX: E11.43 Type 2 diabetes mellitus with diabetic autonomic (poly)neuropathy (principal); K29.71 Gastritis, unspecified, with bleeding; E11.10 Type 2 diabetes mellitus with ketoacidosis without coma; I10 Essential (primary) hypertension; K31.84 Gastroparesis; F31.9 Bipolar disorder, unspecified; F20.9 Schizophrenia, unspecified; T38.3X6A Underdosing of insulin and oral hypoglycemic [antidiabetic] drugs, initial encounter; Z60.2 Problems related to living alone; Z88.0 Allergy status to penicillin; Z79.4 Long term (current) use of insulin; Z98.51 Tubal ligation status; Z91.128 Patient's intentional underdosing of medication regimen for other reason; Z91.148 Patient's other noncompliance with medication regimen for other reason; Z79.899 Other long term (current) drug therapy
CPT/HCPCS: 36415; 74177; 80048; 80053; 80061; 81001; 81025; 82947; 83690; 83735; 84100; 85025; 93971; 96372; 99285; J1815; J2270; J2405; J2550; J2765; J3475; J3480; J7030; J7799; Q9967

== ENCOUNTER 2024-02-24 09:17 | Inpatient (IN) | payer OTHER ==
[2024-02-24] MEDS ORDERED: NA CHLORIDE 0.9% 1,000 ML ONE ×3 (09:34→23:29)
[2024-02-24] MEDS ORDERED: METOCLOPRAMIDE 10 MG/2mL INJ ONE ×2 (09:47→19:37)
[2024-02-24] MEDS ORDERED: INSULIN GLARGINE 100 UNIT/ML SQ ONE (09:48)
[2024-02-24 09:52] LABS: Specific Gravity > 1.030 (1.005-1.030)
[2024-02-24 09:53] LABS: Specific Gravity > 1.030 (1.005-1.030); Sqamous Epithelial 20-50 /HPF (None Seen); Urine Bacteria None Seen /HPF (<20); Urine Bilirubin NEGATIVE (Negative); Urine Blood Negative (Negative); Urine Clarity Extremely Turbid (Clear); Urine Color Light-Yellow (Yellow); Urine Culture Reflex Order NOT NEEDED; Urine Glucose 4+ (Over) (Negative); Urine Ketones 4+ (Over) (Negative); Urine Micro Reflex YN NO BILL MICROSCOPIC; Urine Mucus Slight /HPF (None Seen); Urine Nitrite NEGATIVE (Negative); Urine Protein TRACE (Negative); Urine RBC 21-50 /HPF (None Seen); Urine Urobilinogen Normal (Normal); Urine WBC >50 /HPF (<5); Urine Yeast (Budding) Occasional /HPF (None Seen); Urine pH 5.5 (5.0-7.0)
[2024-02-24] MEDS ORDERED: PROMETHAZINE INJ 25 MG/ML AMP ONE (10:46)
[2024-02-24 11:19] LABS: Absolute Monocytes 0.5 K/uL (0.1-1.3); Absolute Neutrophil 11.1 K/uL (1.8-8.0); Basophils % 0.3 % (0-1.3); Eosinophils % 0.2 % (0-4.4); Hematocrit 35.5 % (36.0-45.0); Lymphocytes % 7.6 % (15.3-44.8); MCH 21.9 pg (27.0-35.0); MCV 70.7 fL (80-100); MPV 7.4 fL (7.6-11.3); Monocytes % 4.1 % (3.3-12.3); Neutrophils % 87.8 % (41.7-73.7); Platelets 595 thou/uL (152-406); RBC Red Blood Cell Count 5.03 M/uL (3.86-4.86); Red Cell Distribution Width 19.5 % (12.1-15.2)
[2024-02-24 11:36] LABS: Albumin 2.8 g/dL (3.4-5.0); Albumin/Globulin Ratio 0.7 (1.1-1.8); Anion Gap 13.5 mEq/L (5.0-15.0); BETA HYDROXYBUTYRATE 3.43 mmol/L (0.02-0.27); Bilirubin Direct 0.2 mg/dL (0-0.2); Bilirubin Indirect, Calculated 0.2 mg/dL (0.2-0.8); Bilirubin Total 0.4 mg/dL (0.2-1.0); Magnesium 1.6 mg/dL (1.6-2.4); Phosphorus 2.3 mg/dL (2.5-4.9); Potassium 4.5 mEq/L (3.5-5.1); Protein, Total 6.8 g/dL (6.4-8.2)
[2024-02-24 12:20] LABS: Anisocytosis 1+; Blood Morphology Comment NOTED (NOT SEEN); Hypochromasia 1+; Microcytosis 1+; Platelet Estimate ADEQ; White Blood Cell Scan OK (OK)
[2024-02-24 12:28] LABS: Arterial Blood Carboxyhemoglob 1.1 % (0-1.5); Blood Gas Oxyhemoglobin 95.5 % (94-97); Blood Gas THB 11.7 g/dl (12-18); Blood O2 Saturation 97.8 % (92-98.5)
[2024-02-24] MEDS ORDERED: MORPHINE 4 MG/ML SYR ONE (13:16)
--- NOTE | 2024-02-24 14:01 | RAD REPORT ---
EXAM DESCRIPTION: RAD - Chest Single View - 02/24/2024 1:40 pm CLINICAL HISTORY: Device placement PICC line placement IMPRESSION: PICC line with its tip near the junction of the SVC and right atrium
--- NOTE | 2024-02-24 14:45 | EDPHYS ---
Physician Documentation [facility] Name: Javier Moctezuma Age: 38 yrs Sex: Female : 1985 Arrival Date: 02/24/2024 Time: 09:17 Bed 7 Private MD: ED Physician John Berrios HPI: 02/23 09:43 This 38 yrs old Female presents to ER via Unassigned with complaints of nausea, sb4 vomiting, abdominal pain. 09:43 The patient presents to the emergency department with nausea, vomiting, abdominal pain. sb4 Onset: The symptoms/episode began/occurred 1 week(s) ago. Possible causes: out of insulin. Patient states that she was admitted here 9 days ago for DKA. She was discharged 1 week ago. States that she has been out of her Lantus because [facility] has been out of stock. She endorses nausea, vomiting, abdominal pain since. No other associated signs and symptoms. No other alleviating aggravating factor. 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 - Infectious Disease History:: Denies. - Social history:: Smoking status: Patient denies any tobacco usage or history of. ROS: 09:43 Constitutional: Negative for fever, chills, and weight loss, sb4 09:43 Abdomen/GI: Positive for abdominal pain, nausea and vomiting, 09:43 All other systems are negative, Exam: 09:43 Head/Face: Normocephalic, atraumatic. sb4 09:43 Constitutional: The patient appears alert, awake, pale, uncomfortable, 09:43 Eyes: Extraocular movements: intact throughout, 09:43 ENT: Mouth: Oral mucosa: dry, 09:43 Cardiovascular: Rate: tachycardic, Rhythm: regular, 09:43 Respiratory: the patient does not display signs of respiratory distress, Respirations: normal, 09:43 Abdomen/GI: Inspection: abdomen appears normal, Palpation: abdomen is soft and non-tender, 09:43 Musculoskeletal/extremity: Exam is negative for decreased range of motion, erythema, injury, Vital Signs: 09:40 BP 144 / 107; Pulse 119; Resp 19; Temp 98.9; Pulse Ox 100% ; ko1 10:32 BP 141 / 104; Pulse 120; Resp 15; Pulse Ox 100% ; ko1 12:18 BP 134 / 105; Pulse 116; Resp 18; Pulse Ox 99% ; mb9 12:24 BP 140 / 105; Pulse 111; Resp 16; Pulse Ox 99% ; ko1 14:12 BP 133 / 79; Pulse 112; Resp 16; Pulse Ox 100% on R/A; mb9 MDM: 09:25 Patient medically screened. sb4 10:54 Awaiting: IV has not been established. patient has limited access. awaiting PICC team sb4 to insert midline. 14:44 Data reviewed: vital signs, nurses notes, EMS record, lab test result(s), radiologic sb4 studies, I have discussed the patient's presentation/case with the attending Emergency Department Physician; and as a result, I will admit patient. Consideration of Admission/Observation Patient was admitted/placed on observation. Counseling: I had a detailed discussion with the patient and/or guardian regarding the historical points, exam findings, and any diagnostic results supporting the discharge/admit diagnosis, lab results, radiology results, the need for further work-up and treatment in the hospital. 02/23 09:25 Order name: BETA HYDROXYBUTYRATE; Complete Time: 11:36 sb4 02/23 09:25 Order name: Basic Metabolic Panel; Complete Time: 11:36 sb4 02/23 09:25 Order name: CBC with Diff; Complete Time: 12:23 sb4 02/23 09:25 Order name: Hepatic Function; Complete Time: 11:36 sb4 02/23 09:25 Order name: Lipase; Complete Time: 11:36 sb4 02/23 09:25 Order name: Magnesium; Complete Time: 11:36 sb4 02/23 09:25 Order name: Phosphorus; Complete Time: 11:36 sb4 02/23 09:26 Order name: UAM; Complete Time: 09:55 sb4 02/23 09:26 Order name: Test, Urine; Complete Time: 09:55 sb4 02/23 09:58 Order name: Glucose, Ancillary Testing; Complete Time: 10:00 EDMS 02/23 11:59 Order name: ABG; Complete Time: 12:30 sb4 02/23 12:21 Order name: CBC Smear Scan; Complete Time: 12:23 EDMS 02/23 12:45 Order name: UAM sb4 02/23 13:18 Order name: XRAY Chest (1 view); Complete Time: 14:15 ld1 02/23 09:25 Order name: Cardiac monitoring; Complete Time: 09:30 sb4 02/23 09:25 Order name: IV Saline Lock; Complete Time: 13:14 sb4 02/23 09:25 Order name: O2 Per Protocol; Complete Time: 09:30 sb4 02/23 09:25 Order name: O2 Sat Monitoring; Complete Time: 09:30 sb4 02/23 10:25 Order name: Misc. Order: Midline; Complete Time: 13:14 ld1 Administered Medications: 09:49 Drug: Insulin Glargine Sub-Q 30 units Sub-Q once {Co-Signature: hb (Lisa Koo RN).} Route: Sub-Q; Site: abdomen; 11:00 Follow up: Response: No adverse reaction ko1 10:51 Drug: Promethazine IM 25 mg IM once Route: IM; Site: right deltoid; mb9 11:29 Follow up: Response: No adverse reaction mb9 13:10 Drug: metoCLOPramide IVP 10 mg IVP once; over 1 to 2 minutes Route: IVP; Site: left ko1 upper arm; 13:30 Follow up: Response: No adverse reaction ko1 13:14 Drug: NS 0.9% IV 1000 ml IV at 1 bolus Per protocol; 1000 mL bolus Route: IV; Rate: 1 ko1 bolus; Site: left upper arm; 14:52 Follow up: Response: No adverse reaction; IV Status: Completed infusion mb9 13:30 Drug: NS 0.9% IV 1000 ml IV at 1000 ml once Route: IV; Rate: 1000 ml; Site: left upper mb9 arm; 14:13 Follow up: Response: No adverse reaction; IV Status: Completed infusion; IV Intake: ko1 1000ml 13:30 Drug: morphine IVP or IV 4 mg IVP once over 4 mins Route: IVP; Infused Over: 4 mins; mb9 Site: left upper arm; 13:45 Follow up: Response: No adverse reaction; Pain is decreased ko1 15:06 Drug: Droperidol IVP 2.5 mg IVP once Route: IVP; Site: left upper arm; mb9 Disposition: 16:31 Co-signature as Attending Physician, John Berrios MD I reviewed the patient's care rt provided by the Advanced Practice Provider and agree with the diagnosis and treatment plan. Disposition Summary: 02/24/24 14:45 Hospitalization Ordered Notes: Hospitalization Status: Inpatient Admission sb4 Provider: Junior Kenney sb4 Condition: Fair sb4 Problem: new sb4 Symptoms: are unchanged sb4 Bed/Room Type: Standard sb4 Location: Intensive Care Unit(02/24/24 16:07) eb Room Assignment: 4-(02/24/24 16:07) eb Diagnosis - Type 1 diabetes mellitus with hyperglycemia sb4 - Nausea with vomiting, unspecified sb4 Forms: - Medication Reconciliation Form sb4 - SBAR form sb4 - Leadership Thank You Letter sb4 Signatures: Dispatcher [employer] EDMS Chanel Dong eb Carri Leroy RN RN ld1 Deidra Holland RN RN ko1 Elisa Martin PAAramisC PAAramisC sb4 Miladis Burnett RN RN mb9 John Berrios MD MD rt Lisa Koo RN Corrections: (The following items were deleted from the chart) 09: 09:26 BETA HYDROXYBUTYRATE+C.LAB.BRZ ordered. EDMS EDMS 09:26 09:26 BASIC METABOLIC PANEL+C.LAB.BRZ ordered. EDMS EDMS 09:26 09:26 CBC+H.LAB.BRZ ordered. EDMS EDMS 09:26 09:26 HEPATIC FUNCTION+C.LAB.BRZ ordered. EDMS EDMS 09:26 09:26 LIPASE+C.LAB.BRZ ordered. EDMS EDMS 09:26 09:26 MAGNESIUM+C.LAB.BRZ ordered. EDMS EDMS 09:26 09:26 PHOSPHORUS+C.LAB.BRZ ordered. EDMS EDMS 09: 09:26 Urinalysis W/Microscopic+U.LAB.BRZ ordered. EDMS EDMS 09:26 Test, Urine+UC.LAB.BRZ ordered. EDMS EDMS 14:45 Telemetry/MedSurg (Inpatient) 4 eb 14:45 sb4 eb
--- NOTE | 2024-02-24 14:45 | ER ---
Nurse's Notes [facility] Name: Javier Moctezuma Age: 38 yrs Sex: Female : 1985 Arrival Date: 02/24/2024 Time: 09:17 Bed 7 Private MD: Diagnosis: Type 1 diabetes mellitus with hyperglycemia;Nausea with vomiting, unspecified Presentation: 02/23 09:40 Chief complaint: EMS states: patient called for N/V, abdominal pain. Recently ko1 discharged from the hospital for DKA, has not been able to take her insulin due to pharmacy being out of stock. Coronavirus screen: At this time, the client does not indicate any symptoms associated with coronavirus-19. Ebola Screen: No symptoms or risks identified at this time. Initial Sepsis Screen: Does the patient meet any 2 criteria? No. Patient's initial sepsis screen is negative. Does the patient have a suspected source of infection? No. Patient's initial sepsis screen is negative. Risk Assessment: Do you want to hurt yourself or someone else? Patient reports no desire to harm self or others. Onset of symptoms is unknown. Care prior to arrival: Glucose check: 349. 09:40 Method Of Arrival: EMS: [facility] ko1 09:40 Acuity: NING 3 ko1 Triage Assessment: 09:40 EENT: No deficits noted. Neuro: No deficits noted. Cardiovascular: Rhythm is sinus ko1 tachycardia. Respiratory: No deficits noted. GI: Reports lower abdominal pain, upper abdominal pain, cramping, diarrhea, nausea, vomiting. : No deficits noted. Derm: Bruising that is dark purple, brown, green, yellow, on bilateral arms. Musculoskeletal: No deficits noted. 10:04 General: Appears distressed, uncomfortable, ill, Behavior is calm, cooperative, ko1 appropriate for age. Pain: Complains of pain in abdomen. 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 - Infectious Disease History:: Denies. - Social history:: Smoking status: Patient denies any tobacco usage or history of. Screenin:30 [facility] ED Fall Risk Assessment (Adult) History of falling in the last 3 months, mb9 including since admission No falls in past 3 months (0 pts) Confusion or Disorientation No (0 pts) Intoxicated or Sedated No (0 pts) Impaired Gait No (0 pts) Mobility Assist Device Used No (0 pt) Altered Elimination No (0 pt) Score/Fall Risk Level 0 - 2 = Low Risk Oriented to surroundings, Maintained a safe environment, Educated pt \T\ family on fall prevention, incl call for assistance when getting out of bed. Abuse screen: Denies threats or abuse. Nutritional screening: No deficits noted. Tuberculosis screening: No symptoms or risk factors identified. 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 10:29 Reassessment: spoke to lab about drawing blood work. mb9 10:52 Reassessment: lab at bedside. mb9 11:00 Reassessment: No changes from previously documented assessment. Patient and/or family mb9 updated on plan of care and expected duration. Pain level reassessed. Patient is alert, oriented x 3, equal unlabored respirations, skin warm/dry/pink. 12:42 Reassessment: awaiting mid line nurse. ko1 13:36 Reassessment: Patient appears in no apparent distress at this time. No changes from mb9 previously documented assessment. Patient and/or family updated on plan of care and expected duration. Pain level reassessed. Patient is alert, oriented x 3, equal unlabored respirations, skin warm/dry/pink. Vital Signs: 09:40 BP 144 / 107; Pulse 119; Resp 19; Temp 98.9; Pulse Ox 100% ; ko1 10:32 BP 141 / 104; Pulse 120; Resp 15; Pulse Ox 100% ; ko1 12:18 BP 134 / 105; Pulse 116; Resp 18; Pulse Ox 99% ; mb9 12:24 BP 140 / 105; Pulse 111; Resp 16; Pulse Ox 99% ; ko1 14:12 BP 133 / 79; Pulse 112; Resp 16; Pulse Ox 100% on R/A; mb9 ED Course: 09:23 Patient arrived in ED. eb 09:24 Elisa Martin PA-C is PHCP. sb4 09:24 John Berrios MD is Attending Physician. sb4 09:30 Deidra Holland, RENARD is Primary Nurse. ko1 09:40 UAM Sent. ko1 09:40 Test, Urine Sent. ko1 10:04 Triage completed. ko1 10:04 Arm band placed on right wrist. Patient placed in an exam room, on a stretcher, on ko1 assistant art director, on pulse oximetry, Patient notified of wait time. 10:30 No provider procedures requiring assistance completed. mb9 10:30 Placed in gown. Bed in low position. Call light in reach. Side rails up X 1. Provided mb9 Education on: press call light if needing anything. Client placed on continuous cardiac and pulse oximetry monitoring. NIBP monitoring applied. microgrinder operator on. Door closed. Noise minimized. Warm blanket given. 10:32 Assisted to bathroom. ko1 10:43 Patient requests pain medication. mb9 11:27 Patient requests pain medication. mb9 13:37 Thermoregulation: warm blanket given to patient. mb9 13:42 XRAY Chest (1 view) In Process Unspecified. EDMS 14:44 Junior Keneny MD is Hospitalizing Provider. sb4 14:53 Patient admitted, IV remains in place. mb9 Administered Medications: 09:49 Drug: Insulin Glargine Sub-Q 30 units Sub-Q once {Co-Signature: alan (Lisa Koo RN).} Route: Sub-Q; Site: abdomen; 11:00 Follow up: Response: No adverse reaction ko1 10:51 Drug: Promethazine IM 25 mg IM once Route: IM; Site: right deltoid; mb9 11:29 Follow up: Response: No adverse reaction mb9 13:10 Drug: metoCLOPramide IVP 10 mg IVP once; over 1 to 2 minutes Route: IVP; Site: left ko1 upper arm; 13:30 Follow up: Response: No adverse reaction ko1 13:14 Drug: NS 0.9% IV 1000 ml IV at 1 bolus Per protocol; 1000 mL bolus Route: IV; Rate: 1 ko1 bolus; Site: left upper arm; 14:52 Follow up: Response: No adverse reaction; IV Status: Completed infusion mb9 13:30 Drug: NS 0.9% IV 1000 ml IV at 1000 ml once Route: IV; Rate: 1000 ml; Site: left upper mb9 arm; 14:13 Follow up: Response: No adverse reaction; IV Status: Completed infusion; IV Intake: ko1 1000ml 13:30 Drug: morphine IVP or IV 4 mg IVP once over 4 mins Route: IVP; Infused Over: 4 mins; mb9 Site: left upper arm; 13:45 Follow up: Response: No adverse reaction; Pain is decreased ko1 15:06 Drug: Droperidol IVP 2.5 mg IVP once Route: IVP; Site: left upper arm; mb9 Medication: 10:30 VIS not applicable for this client. mb9 Intake: 14:13 IV: 1000ml; Total: 1000ml. ko1 Outcome: 14:45 Decision to Hospitalize by Provider. sb4 16:21 Admitted to ICU accompanied by nurse, via wheelchair, room 4, on monitor, with chart, ko1 16:21 Condition: stable 16:21 Instructed on the need for admit, 16:22 Patient left the ED. ko1 Signatures: Dispatcher [employer] EDChanel Seo Kathy RN RN ko1 Elisa Martin PA-C PAChristel sb4 Miladis Burnett RN RN mb9 Lisa Koo RN
--- NOTE | 2024-02-24 16:14 | P.HP ---
Certification for Inpatient Patient admitted to: Inpatient Patient will require the following post-hospital care: None Practitioner: I am a practitioner with admitting privileges, knowledge of patient current condition, hospital course, and medical plan of care. Services: Services provided to patient in accordance with Admission requirements found in Title 42 Section 412.3 of the Code of Federal Regulations Patient History Date of Service: 02/24/24 Reason for admission: Hyperglycemia, intractable nausea/vomiting History of Present Illness: 38-year-old female with history of type 1 diabetes, hypertension, schizophrenia/bipolar disorder presents emergency department chief complaint of nausea/vomiting, hyperglycemia. She was recently seen here and admitted for DKA on 02/15/2024 and discharged on 02/19/2024 for DKA, gastroparesis. She reports that since she was discharged had been unable to spanish moss picker her insulin at [facility] because they did not have any Lantus. She was evaluated here in the emergency department today she is not in DKA but was significantly hyperglycemic with a glucose of 386 also with persistent intractable nausea/vomiting. Patient only 3 admitted under observation for intractable nausea/vomiting and hyperglycemia. She was given a dose of her Lantus in the ED. Allergies Penicillins Allergy (Intermediate, Verified 07/14/21 22:07) Itching/Hives/Rash Home Medications: Gabapentin 600 mg PO BID 02/17/24 Insulin -Regular Human [Novolin -R*] 5 units SQ AC 02/17/24 Apixaban [Eliquis] 5 mg PO BID #74 tab 02/19/24 Erythromycin Base [Erythromycin] 250 mg PO TID #30 tab 02/19/24 Fluoxetine HCl [Prozac] 40 mg PO DAILY #30 tab 02/19/24 Hydrocodone 7.5/APAP 325 [Arimo 7.5/325 mg*] 1 tab PO Q4H PRN #12 tab 02/19/24 Insulin Glargine,Hum.rec.anlog [Lantus] 30 units SQ BID #30 ml 02/19/24 Pantoprazole [Protonix Tab*] 40 mg PO BID #60 tab 02/19/24 Pantoprazole [Protonix Tab*] 40 mg PO BIDAC #60 tab 02/19/24 Quetiapine Fumarate [Seroquel] 300 mg PO BEDTIME #30 tab 02/19/24 - Past Medical/Surgical History Diabetic: Yes -: Diabetes type 1 -: Bipolar disorder -: Schizophrenia -: GERD -: HTN -: gastroperisis -: Right upper extremity DVT rovoked -: c-sections -: tubal ligation Psychosocial/ Personal History: Disabled, lives alone. - Family History Father -: Diabetes Mother -: Diabetes - Social History Alcohol use: No CD- Drugs: No Caffeine use: No Place of Residence: Home Review of Systems 10-point ROS is otherwise unremarkable Gastrointestinal: Nausea, Vomiting, Abdominal Pain Physical Examination - Physical Exam General: Alert, In no apparent distress, Oriented x3 HEENT: Atraumatic, PERRLA Neck: Supple, 2+ carotid pulse no bruit Respiratory: Clear to auscultation bilaterally, Normal air movement Cardiovascular: Regular rate/rhythm, Normal S1 S2 Gastrointestinal: Normal bowel sounds Musculoskeletal: No tenderness Integumentary: No rashes Neurological: Normal speech, Normal strength at 5/5 x4 extr, Normal tone - Studies Laboratory Data (last 24 hrs) 02/24/24 02/24/24 10:56 10:56 WBC 12.60 H Hgb 11.0 L Hct 35.5 L Plt Count 595 H Sodium 135 L Potassium 4.5 BUN 10 Creatinine 0.70 Glucose 386 H Phosphorus 2.3 L Magnesium 1.6 Total Bilirubin 0.4 AST 9 L ALT 15 Alkaline Phosphatase 92 Lipase 14 Assessment and Plan - Plan Assessment: Diabetes mellitus type 1 with hyperglycemia intractable nausea/vomiting secondary to gastroparesis Recently diagnosed right upper extremity provoked DVT on anticoagulation BPD/schizophrenia Plan: Diabetes mellitus type 1 with hyperglycemia Reports she was unable to spanish moss picker her long-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 at [facility] as they were out Takes Lantus 30 units twice daily at home long-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 resume, sliding scale in place intractable nausea/vomiting secondary to gastroparesis N.p.o. tonight aside from ice chips, sips of water Advance diet as tolerated Twice daily Protonix consider Reglan if symptoms not improving Recently diagnosed right upper extremity provoked DVT on anticoagulation Resume Eliquis BPD/schizophrenia Home medications continued DVT PPX: Continue Eliquis Code status:full Discharge Plan: Home Plan to discharge in: 24 Hours - Advance Directives Does patient have a Living Will: No Does patient have a Durable POA for Healthcare: No - Code Status/Comfort Care Code Status Assessed: Yes (Full code) Critical Care: No Time Spent Managing Pts Care (In Minutes): 70
[2024-02-24] MEDS ORDERED: INSULIN REGULAR (HUMAN) 100 UNIT/ML ONE ×2 (16:51→20:37)
[2024-02-24] MEDS: ONDANSETRON 4 MG/2 ML VIAL IV PRN (16:53)
[2024-02-24] MEDS: NA CHLORIDE 0.9% 1,000 ML IV SCH (16:54)
[2024-02-24] MEDS: PANTOPRAZOLE 40MG TABLET PO SCH (16:54)
[2024-02-24] MEDS: INSULIN REGULAR (HUMAN) 100 UNIT/ML SQ SCH (16:57)
[2024-02-24 17:09] VITALS: BMI 33.1
[2024-02-24] MEDS: MORPHINE 2 MG/ML SYR IV PRN (17:45)
[2024-02-24] MEDS: MAGNES/ALUMIN/SIMET 30ML UCUP PO PRN (17:45)
[2024-02-24] MEDS: METOCLOPRAMIDE 10 MG/2mL INJ IV SCH (19:38)
[2024-02-24] MEDS ORDERED: GABAPENTIN 300 MG CAP ONE (20:00)
[2024-02-24] MEDS: LORazepam 2 MG/ML VIAL IV ONE (20:55)
[2024-02-24] MEDS: QUETIAPINE 100MG TAB PO SCH (21:44)
[2024-02-24] MEDS: GABAPENTIN 300 MG CAP PO SCH (21:44)
[2024-02-24] MEDS: APIXABAN 5 MG TABLET PO SCH (21:44)
[2024-02-24] MEDS ORDERED: MORPHINE 2 MG/ML SYR ONE (21:48)
[2024-02-24] MEDS ORDERED: ONDANSETRON 4 MG/2 ML VIAL ONE (23:28)
[2024-02-24] MEDS ORDERED: MAGNES/ALUMIN/SIMET 30ML UCUP ONE (23:28)
[2024-02-25] MEDS ORDERED: ONDANSETRON 4 MG/2 ML VIAL ONE (05:00)
[2024-02-25] MEDS ORDERED: MORPHINE 2 MG/ML SYR ONE (05:00)
[2024-02-25 07:09] LABS: Absolute Lymphocytes (CBC) 1.9 K/uL (0.7-4.9); Absolute Monocytes 0.7 K/uL (0.1-1.3); Basophils % 0.4 % (0-1.3); Eosinophils % 0.2 % (0-4.4); Hemoglobin 9.3 g/dL (12.0-15.0); Lymphocytes % 21.6 % (15.3-44.8); MCH 22.8 pg (27.0-35.0); MCHC 31.9 g/dL (32.0-36.0); MCV 71.4 fL (80-100); Monocytes % 8.3 % (3.3-12.3); Neutrophils % 69.5 % (41.7-73.7); Platelets 463 thou/uL (152-406); RBC Red Blood Cell Count 4.07 M/uL (3.86-4.86); Red Cell Distribution Width 19.6 % (12.1-15.2)
[2024-02-25 07:24] LABS: Albumin 2.4 g/dL (3.4-5.0); Albumin/Globulin Ratio 0.7 (1.1-1.8); Anion Gap 11.3 mEq/L (5.0-15.0); Bilirubin Total 0.2 mg/dL (0.2-1.0); Globulin 3.4 g/dL (2.3-3.5); Magnesium 1.7 mg/dL (1.6-2.4); Potassium 3.3 mEq/L (3.5-5.1); Protein, Total 5.8 g/dL (6.4-8.2)
[2024-02-25] MEDS ORDERED: GABAPENTIN 300 MG CAP ONE (08:18)
[2024-02-25] MEDS ORDERED: INSULIN GLARGINE 100 UNIT/ML SQ ONE (08:19)
[2024-02-25] MEDS: FLUOXETINE 20 MG CAP PO SCH (08:23)
[2024-02-25] MEDS: INSULIN GLARGINE 100 UNIT/ML SQ SCH (08:23)
--- NOTE | 2024-02-25 10:58 | P.PN ---
Date of Service: 02/25/24 Subjective: Still with abdominal pain, nausea/vomiting States she feels worse than yesterday Complaining of some burning/GERD ROS: 10 point ROS as noted above, otherwise negative Physical exam GEN: Alert, oriented, NAD HEENT: Normal conjunctiva, sclera anicteric CV: Regular rate and rhythm, no edema Pulm: Nonlabored respirations on room air ABD: Soft, nontender, nondistended MSK: No joint tenderness Integumentary: No rashes Neuro: Normal speech, normal affect Vitals reviewed Assessment: Diabetes mellitus type 1 with hyperglycemia intractable nausea/vomiting secondary to gastroparesis Recently diagnosed right upper extremity provoked DVT on anticoagulation BPD/schizophrenia Plan: Diabetes mellitus type 1 with hyperglycemia Reports 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 was 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-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 at [facility] as they were out Takes Lantus 30 units twice daily at home long-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 resume, sliding scale in place Blood sugar better controlled on her current regimen intractable nausea/vomiting secondary to gastroparesis Advanced to clear liquids Twice daily Protonix Was given one-time dose of Reglan overnight Complains of severe burning sensation in her esophagus Started Carafate liquid 02/24 Recently diagnosed right upper extremity provoked DVT on anticoagulation Resume Eliquis BPD/schizophrenia Home medications continued DVT PPX: Continue Eliquis Code status:full Dispo: 1-2 days Time Spent Managing Pts Care (In Minutes): 35 <Arsh Pardo - Last Filed: 02/25/24 10:58> DOS (02/25/24) Patient seen and examined on rounds this morning with CONTRACT PROCESSOR Char. I performed a substantial part of the MDM during this patient's care today as noted above in the plan of care. I agree with plan of care as noted above with the following additions / corrections: feeling slightly better continues with nausea, episode of vomiting last night on CLD add carafate monitor hgb, h/o UGI bleed, and now on eliquis for RUE dvt diagnosed last hospitalization advance diet as tolerated <Junior Kenney - Last Filed: 02/26/24 22:22>
[2024-02-25] MEDS ORDERED: INSULIN REGULAR (HUMAN) 100 UNIT/ML ONE (11:41)
[2024-02-25] MEDS: SUCRALFATE 1GM/10ML UCUP PO SCH (12:01)
[2024-02-25] MEDS: METOCLOPRAMIDE 10 MG/2mL INJ IV ONE (20:01)
[2024-02-26 06:33] LABS: Absolute Eosinophils 0.1 K/uL (0-0.5); Absolute Lymphocytes (CBC) 1.6 K/uL (0.7-4.9); Absolute Monocytes 0.4 K/uL (0.1-1.3); Absolute Neutrophil 2.7 K/uL (1.8-8.0); Basophils % 0.4 % (0-1.3); Eosinophils % 1.4 % (0-4.4); Hematocrit 24.8 % (36.0-45.0); Hemoglobin 7.8 g/dL (12.0-15.0); Lymphocytes % 33.3 % (15.3-44.8); MCH 22.2 pg (27.0-35.0); MCHC 31.3 g/dL (32.0-36.0); MPV 6.6 fL (7.6-11.3); Monocytes % 8.6 % (3.3-12.3); Neutrophils % 56.3 % (41.7-73.7); Nucleated Red Blood Cells % 0.2 % (0-0); Platelets 379 thou/uL (152-406); RBC Red Blood Cell Count 3.49 M/uL (3.86-4.86); Red Cell Distribution Width 19.6 % (12.1-15.2)
[2024-02-26 06:41] LABS: ALT/SGPT < 10 U/L (13-56); AST/SGOT 8 U/L (15-37); Albumin/Globulin Ratio 0.7 (1.1-1.8); Alkaline Phosphatase 56 U/L (45-117); BUN Blood Urea Nitrogen 6 mg/dL (7-18); Bicarbonate 28 mEq/L (21-32); Bilirubin Total 0.2 mg/dL (0.2-1.0); Globulin 2.7 g/dL (2.3-3.5); Glomerular Filtration Rate 121 ml/min (=/>90); Glucose Level 85 mg/dL (74-106); Magnesium 1.7 mg/dL (1.6-2.4); Protein, Total 4.7 g/dL (6.4-8.2); Sodium Level 143 mEq/L (136-145)
[2024-02-26 07:31] LABS: Ferritin 4.9 ng/mL (8-388)
[2024-02-26] MEDS: POTASSIUM CL SA 10 MEQ TAB PO ONE ×2 (08:33→16:59)
[2024-02-26] MEDS: MAGNESIUM SULFATE 1 gm IVPB 1 GM/100 ML BAG IV ONE (09:35)
--- NOTE | 2024-02-26 13:41 | P.PN ---
Date of Service: 02/26/24 Subjective: Still with abdominal pain, nausea/vomiting Feeling a little better today Vomited overnight Complaining of some burning/GERD More anemic today ROS: 10 point ROS as noted above, otherwise negative Physical exam GEN: Alert, oriented, NAD HEENT: Normal conjunctiva, sclera anicteric CV: Regular rate and rhythm, no edema Pulm: Nonlabored respirations on room air ABD: Soft, nontender, nondistended MSK: No joint tenderness Integumentary: No rashes Neuro: Normal speech, normal affect Vitals reviewed Assessment: Diabetes mellitus type 1 with hyperglycemia intractable nausea/vomiting secondary to gastroparesis Iron deficiency anemia Recently diagnosed right upper extremity provoked DVT on anticoagulation BPD/schizophrenia Plan: Diabetes mellitus type 1 with hyperglycemia Reports she was unable to grape picker her long-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 at [facility] as they were out Takes Lantus 30 units twice daily at home long-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 resume, sliding scale in place Blood sugar better controlled on her current regimen intractable nausea/vomiting secondary to gastroparesis Advanced to clear liquids Twice daily Protonix Was given one-time dose of Reglan overnight Complains of severe burning sensation in her esophagus Started Carafate liquid 02/24 Iron deficiency anemia Noted to be severely iron deficient denies melena, hematochezia Does have history of upper GI bleed, esophageal ulcerations, gastritis Continue p.o. liquid Carafate, PPI IV iron started 02/25 Recently diagnosed right upper extremity provoked DVT on anticoagulation Resume Eliquis BPD/schizophrenia Home medications continued DVT PPX: Continue Eliquis Code status:full Dispo: 1-2 days Time Spent Managing Pts Care (In Minutes): 35 <Arsh Pardo - Last Filed: 02/26/24 13:39> Patient seen and examined on rounds this morning with BROACHER Char. I performed a substantial part of the MDM during this patient's care today as noted above in the plan of care. I agree with plan of care as noted above with the following additions / corrections: reports vomiting last night nauseous this morning glc <100 this morning, insulin held last night she does confirm she normally does use 30u BID at home cut dose, adjust as needed may need to back down to full liquids continue carafate h/o GI bleed / esophagitis in past currently denies melena, denies black/bloody vomitus <Junior Kenney - Last Filed: 02/26/24 22:20>
--- NOTE | 2024-02-26 13:53 | RAD REPORT ---
EXAM DESCRIPTION: US - UPPER EXTREMITY VENOUS UNILATE - 02/26/2024 1:24 pm CLINICAL HISTORY: History of recent right upper extremity DVT. Follow-up COMPARISON: 02/18/2024. TECHNIQUE: Real-time sonographic evaluation of the right upper extremity deep venous system was perf ormed. FINDINGS: Normal compressibility, flow augmentation, phasic flow and spontaneous flow is identified in the right subclavian and axillary veins. Access line along the proximal right brachial vein has be en removed. Occlusive thrombus extends throughout the [id number] right brachial vein. Thrombo sis is also seen along the right basilic vein. Visualized aspects of the radial and ulnar veins are p atent. IMPRESSION: Persistent occlusive thrombus, extending throughout the proximal to distal right brachia l vein. Superficial thrombophlebitis also seen along the right basilic vein.
[2024-02-26] MEDS: SOD FERRIC GLUC COMPLX/SUCROSE 250 MG in NA CHLORIDE 0.9% 250 ML IV SCH (15:03)
[2024-02-27 06:04] LABS: Absolute Eosinophils 0.1 K/uL (0-0.5); Absolute Lymphocytes (CBC) 1.3 K/uL (0.7-4.9); Absolute Monocytes 0.4 K/uL (0.1-1.3); Absolute Neutrophil 2.3 K/uL (1.8-8.0); Basophils % 0.6 % (0-1.3); Eosinophils % 3.2 % (0-4.4); Hematocrit 26.5 % (36.0-45.0); Hemoglobin 8.3 g/dL (12.0-15.0); Lymphocytes % 30.4 % (15.3-44.8); MCH 22.1 pg (27.0-35.0); MCHC 31.4 g/dL (32.0-36.0); MCV 70.5 fL (80-100); MPV 6.6 fL (7.6-11.3); Monocytes % 10.5 % (3.3-12.3); Neutrophils % 55.3 % (41.7-73.7); Nucleated Red Blood Cells % 0.2 % (0-0); Platelets 241 thou/uL (152-406); RBC Red Blood Cell Count 3.76 M/uL (3.86-4.86); Red Cell Distribution Width 19.6 % (12.1-15.2)
[2024-02-27 06:12] LABS: Albumin/Globulin Ratio 0.7 (1.1-1.8); Anion Gap 5.9 mEq/L (5.0-15.0); Bilirubin Total 0.2 mg/dL (0.2-1.0); Globulin 2.7 g/dL (2.3-3.5); Potassium 3.9 mEq/L (3.5-5.1); Protein, Total 4.7 g/dL (6.4-8.2)
[2024-02-27] MEDS: POTASSIUM CL SA 10 MEQ TAB PO ONE (08:34)
--- NOTE | 2024-02-27 20:12 | P.PN ---
Date of Service: 02/27/24 Subjective: Still with some nausea Called pharmacy and verified lantus is available for mushroom picker ROS: 10 point ROS as noted above, otherwise negative Physical exam GEN: AAOx3, NAD HEENT: Normal conjunctiva, sclera anicteric CV: RRR, S1 S2 present,no murmur noted Pulm: Nonlabored respirations on room air ABD: Soft and benign on palpation, NT/ND MSK: No joint tenderness Integumentary: No rashes Neuro: Normal speech, normal affect Vitals reviewed Assessment: Diabetes mellitus type 1 with hyperglycemia intractable nausea/vomiting secondary to gastroparesis Iron deficiency anemia Recently diagnosed right upper extremity provoked DVT on anticoagulation BPD/schizophrenia Plan: Diabetes mellitus type 1 with hyperglycemia Reports she was unable to mushroom picker her long-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 at [facility] as they were out-verified Lantus is available for mushroom picker (02/26) Takes Lantus 30 units twice daily at home long-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 resume, sliding scale in place Blood sugar better controlled on her current regimen intractable nausea/vomiting secondary to gastroparesis Advanced to Full liquid diet Twice daily Protonix Was given one-time dose of Reglan overnight Complains of severe burning sensation in her esophagus Started Carafate liquid 02/24 Iron deficiency anemia Noted to be severely iron deficient denies melena, hematochezia Does have history of upper GI bleed, esophageal ulcerations, gastritis Continue p.o. liquid Carafate, PPI IV iron started 02/25 Recently diagnosed right upper extremity provoked DVT on anticoagulation Resume Eliquis BPD/schizophrenia Home medications continued DVT PPX: Continue Eliquis Code status:full
[2024-02-27 23:41] VITALS: O2SAT 97
[2024-02-28 07:54] LABS: Anion Gap 5.7 mEq/L (5.0-15.0); Bicarbonate 30 mEq/L (21-32); Glomerular Filtration Rate 117 ml/min (=/>90); Glucose Level 165 mg/dL (74-106); Potassium 3.7 mEq/L (3.5-5.1); Sodium Level 141 mEq/L (136-145)
[2024-02-28 07:56] LABS: BUN Blood Urea Nitrogen < 3 mg/dL (7-18)
--- NOTE | 2024-02-28 10:17 | P.DS ---
Admission Date: 02/25/24 Discharge Date: 02/28/24 Disposition: ROUTINE DISCHARGE Discharge Condition: GOOD Reason for Admission: Hyperglycemia, intractable nausea/vomiting Vital Signs/Physical Exam: Temp Pulse Resp BP Pulse Ox 97.2 F 110 H 15 111/68 97 02/28/24 08:00 02/28/24 08:00 02/28/24 08:00 02/28/24 08:00 02/28/24 08:00 Laboratory Data at Discharge: WBC 4.10 thou/uL (4.3-10.9) L 02/27/24 05:45 Hgb 8.3 g/dL (12.0-15.0) L D 02/27/24 05:45 Hct 26.5 % (36.0-45.0) L 02/27/24 05:45 Plt Count 241 thou/uL (152-406) D 02/27/24 05:45 Sodium 141 mEq/L (136-145) 02/28/24 07:00 Potassium 3.7 mEq/L (3.5-5.1) 02/28/24 07:00 BUN < 3 mg/dL (7-18) L 02/28/24 07:00 Creatinine 0.64 mg/dL (0.55-1.02) 02/28/24 07:00 Glucose 165 mg/dL (74-106) H 02/28/24 07:00 Phosphorus 2.3 mg/dL (2.5-4.9) L 02/24/24 10:56 Magnesium 2.0 mg/dL (1.6-2.4) 02/27/24 05:45 Total Bilirubin 0.2 mg/dL (0.2-1.0) 02/27/24 05:45 AST 11 U/L (15-37) L 02/27/24 05:45 ALT 11 U/L (13-56) L 02/27/24 05:45 Alkaline Phosphatase 60 U/L (45-117) 02/27/24 05:45 Lipase 14 U/L (13-75) 02/24/24 10:56 Home Medications: Gabapentin 600 mg PO BID 02/17/24 Insulin -Regular Human [Novolin -R*] 5 units SQ AC 02/17/24 Apixaban [Eliquis] 5 mg PO BID #74 tab 02/19/24 Erythromycin Base [Erythromycin] 250 mg PO TID #30 tab 02/19/24 Fluoxetine HCl [Prozac] 40 mg PO DAILY #30 tab 02/19/24 Hydrocodone 7.5/APAP 325 [Hankins 7.5/325 mg*] 1 tab PO Q4H PRN #12 tab 02/19/24 Insulin Glargine,Hum.rec.anlog [Lantus] 30 units SQ BID #30 ml 02/19/24 Pantoprazole [Protonix Tab*] 40 mg PO BID #60 tab 02/19/24 Quetiapine Fumarate [Seroquel] 300 mg PO BEDTIME #30 tab 02/19/24 Pen Needle, Diabetic [Insulin Pen Needle] 1 dis.ndl MC BEDTIME 30 Days #30 dis.ndl 02/27/24 Ondansetron [Zofran] 4 mg PO Q6H PRN 7 Days #30 tab 02/28/24 Sucralfate [Carafate*] 10 ml PO ACHS #414 ml 02/28/24 New Medications: Sucralfate [Carafate*] 10 ml PO ACHS #414 ml Pen Needle, Diabetic [Insulin Pen Needle] 1 dis.ndl MC BEDTIME 30 Days #30 dis.ndl Ondansetron [Zofran] 4 mg PO Q6H PRN 7 Days #30 tab PRN Reason: Nausea / Vomiting Physician Discharge Instructions: Javier Moctezuma presented to the ED with chief complaint of unable to pepper picker her insulin at [facility] causing hyperglycemia as well as continued nausea and vomiting. [facility] has confirmed that lantus is available for pepper picker. Pen needles have also been provided at [facility]. Continue with gentle full liquid diet for two more days before advancing to soft GI diet. Continue to check your blood sugar three times daily, preferably before administering insulin to be sure your blood sugar level is appropriate (>120). Keep a consistent carbohydrate diet to accomplish diabetes management. 1. Please call and schedule a follow-up appointment with your PCP in 3-5 days - Please follow-up with your PCP for medication refills/adjustments 2. Please call and schedule a follow-up appointment with gastroenterology in one week for continued gastroparesis management. 3. Refrain from using marijuana to accomplish some relief from cyclic nausea and vomitting. 4. Continue with a diabetic diet using full liquid diet for relief of nausea and vomitting, advance in two days to GI soft (soft food, avoid breads, cereals, and croutons). 5. Return to the ED if symptoms worsen New prescription for pepper picker at [facility] BD pen arcelia Mckenzie is ready for pepper picker. Diet: ADA Activity: [facility] Followup: NONE,NONE [Primary Care Provider] - Dmitriy Hall MD [ACTIVE - CAN ADMIT] - 1-2 Weeks
[2024-02-28] MEDS: POTASSIUM CL SA 10 MEQ TAB PO ONE (10:26)
[2024-02-28 17:38] VITALS: BP 130/73; TEMP 97.6
== END 2024-02-28 16:10 | disposition home or self-care (01) | DRG 74 ==
LOC: ER 09:17 → ERHOLD 15:25 → 3RD-ICU 16:20 → OBSVTOIN 02-25 15:30 → 4TH 02-25 18:25
PROVIDERS: ADMIT Hospitalist; ATTEND Internal Medicine
PROC: 4A033R1 Measurement of Arterial Saturation, Peripheral, Percutaneous Approach (ICD-10-PCS; principal; 2024-02-24)
DX: E10.43 Type 1 diabetes mellitus with diabetic autonomic (poly)neuropathy (principal); K31.84 Gastroparesis; E10.65 Type 1 diabetes mellitus with hyperglycemia; I10 Essential (primary) hypertension; F31.9 Bipolar disorder, unspecified; F20.9 Schizophrenia, unspecified; D50.9 Iron deficiency anemia, unspecified; K21.9 Gastro-esophageal reflux disease without esophagitis; T38.3X6A Underdosing of insulin and oral hypoglycemic [antidiabetic] drugs, initial encounter; Z60.2 Problems related to living alone; Z88.0 Allergy status to penicillin; Z79.4 Long term (current) use of insulin; Z79.01 Long term (current) use of anticoagulants; Z98.51 Tubal ligation status; Z79.899 Other long term (current) drug therapy; Z91.138 Patient's unintentional underdosing of medication regimen for other reason; Z91.148 Patient's other noncompliance with medication regimen for other reason
CPT/HCPCS: 36415; 36569; 36600; 71045; 80048; 80053; 80076; 81001; 81025; 82010; 82728; 82805; 82947; 83540; 83690; 83735; 84100; 84132; 84466; 85018; 85025; 93971; 96361; 96372; 96374; 96375; 99285; G0378; J1815; J2270; J2405; J2550; J2765; J2916; J3475; J7030; J7050

== ENCOUNTER 2024-06-26 08:45 | Emergency (ER) | payer OTHER ==
[2024-06-26] MEDS ORDERED: NA CHLORIDE 0.9% 1,000 ML ONE (10:01)
[2024-06-26] MEDS ORDERED: ONDANSETRON 4 MG/2 ML VIAL ONE (10:01)
[2024-06-26] MEDS ORDERED: ONDANSETRON 4 MG (ODT) TAB ONE (10:49)
[2024-06-26 10:50] LABS: Absolute Eosinophils 0.2 K/uL (0-0.5); Absolute Lymphocytes (CBC) 0.8 K/uL (0.7-4.9); Absolute Monocytes 1.2 K/uL (0.1-1.3); Absolute Neutrophil 9.7 K/uL (1.8-8.0); Basophils % 0.3 % (0-1.3); Eosinophils % 1.3 % (0-4.4); Hematocrit 32.5 % (36.0-45.0); Lymphocytes % 6.9 % (15.3-44.8); MCH 27.2 pg (27.0-35.0); MCHC 33.7 g/dL (32.0-36.0); MCV 80.6 fL (80-100); MPV 6.9 fL (7.6-11.3); Monocytes % 10.1 % (3.3-12.3); Neutrophils % 81.4 % (41.7-73.7); Nucleated Red Blood Cells % 0.1 % (0-0); Platelets 448 thou/uL (152-406); RBC Red Blood Cell Count 4.03 M/uL (3.86-4.86); Red Cell Distribution Width 12.9 % (12.1-15.2)
[2024-06-26 10:58] LABS: Specific Gravity 1.021 (1.005-1.030)
[2024-06-26 11:00] LABS: Sqamous Epithelial 20-50 /HPF (None Seen); Urine Bacteria <20 /HPF (<20); Urine Microscopic Reflex YN ORDER UMIC; Urine Mucus 4+ /HPF (None Seen); Urine WBC >50 /HPF (<5)
[2024-06-26 11:01] LABS: Specific Gravity 1.021 (1.005-1.030); Urine Bilirubin NEGATIVE (Negative); Urine Blood 1+ (Negative); Urine Clarity Extremely Turbid (Clear); Urine Color Yellow (Yellow); Urine Glucose TRACE (Negative); Urine Ketones 2+ (Negative); Urine Nitrite 1+ (Negative); Urine Protein 2+ (Negative); Urine Urobilinogen 2+ (Normal)
[2024-06-26 11:22] LABS: ALT/SGPT < 14 U/L (13-56); AST/SGOT ND U/L (15-37); Albumin 2.2 g/dL (3.4-5.0); Albumin/Globulin Ratio 0.5 (1.1-1.8); Alkaline Phosphatase 98 U/L (45-117); Anion Gap 13.4 mEq/L (5.0-15.0); BUN Blood Urea Nitrogen 12 mg/dL (7-18); Bicarbonate 26 mEq/L (21-32); Bilirubin Total 0.5 mg/dL (0.2-1.0); Globulin 4.5 g/dL (2.3-3.5); Glomerular Filtration Rate 116 ml/min (=/>90); Glucose Level 93 mg/dL (74-106); Lipase < 6 U/L (13-75); Potassium ND mEq/L (3.5-5.1); Protein, Total 6.7 g/dL (6.4-8.2); Sodium Level 135 mEq/L (136-145)
--- NOTE | 2024-06-26 11:26 | EDPHYS ---
Physician Documentation [facility] Name: Javier Moctezuma Age: 38 yrs Sex: Female : 1985 Arrival Date: 06/26/2024 Time: 08:45 Bed 4 Private MD: ED Physician Sreekanth Barillas HPI: 06/26 09:25 This 38 yrs old Female presents to ER via EMS with complaints of Nausea/Vomiting. sp3 09:25 38-year-old female with history of gastroparesis, diabetes, hypertension, sp3 bipolar/schizophrenia now presents to the ED with recurrent vomiting and epigastric pain consistent with her prior gastroparesis. Patient states that her sugars been under control running in the 150s. No bladder mucus in her emesis. This is consistent with her prior episodes with no significant change. Review of systems negative for fever, chest pain, shortness of breath, back pain, rash, syncope, near syncope, known sick contacts, travel history, prolonged immobilization, or any other signs or symptoms on ROS at this time.. 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 - Infectious Disease History:: Denies. - Social history:: Smoking status: Patient/guardian denies using tobacco. ROS: 09:25 Constitutional: Negative for fever, chills, and weight loss, Eyes: Negative for injury, sp3 pain, redness, and discharge, ENT: Negative for injury, pain, and discharge, Neck: Negative for injury, pain, and swelling, Cardiovascular: Negative for chest pain, palpitations, and edema, Respiratory: Negative for shortness of breath, cough, wheezing, and pleuritic chest pain, Back: Negative for injury and pain, MS/Extremity: Negative for injury and deformity, Skin: Negative for injury, rash, and discoloration, Neuro: Negative for headache, weakness, numbness, tingling, and seizure, Psych: Negative for depression, anxiety, suicide ideation, homicidal ideation, and hallucinations, Allergy/Immunology: Negative for hives, rash, and allergies, Endocrine: Negative for neck swelling, polydipsia, polyuria, polyphagia, and marked weight changes, Hematologic/Lymphatic: Negative for swollen nodes, abnormal bleeding, and unusual bruising, 09:25 All other systems are negative, Exam: 09:27 Constitutional: This is a well developed, well nourished patient who is awake, alert, sp3 and in no acute distress. Head/Face: Normocephalic, atraumatic. Eyes: Pupils equal round and reactive to light, extra-ocular motions intact. Lids and lashes normal. Conjunctiva and sclera are non-icteric and not injected. Cornea within normal limits. Periorbital areas with no swelling, redness, or edema. Neck: Trachea midline, no thyromegaly or masses palpated, and no cervical lymphadenopathy. Supple, full range of motion without nuchal rigidity, or vertebral point tenderness. No Meningismus. Chest/axilla: Normal chest wall appearance and motion. Nontender with no deformity. No lesions are appreciated. Cardiovascular: Regular rate and rhythm with a normal S1 and S2. No gallops, murmurs, or rubs. Normal PMI, no JVD. No pulse deficits. Respiratory: Lungs have equal breath sounds bilaterally, clear to auscultation and percussion. No rales, rhonchi or wheezes noted. No increased work of breathing, no retractions or nasal flaring. Back: No spinal tenderness. No costovertebral tenderness. Full range of motion. Skin: Warm, dry with normal turgor. Normal color with no rashes, no lesions, and no evidence of cellulitis. MS/ Extremity: Pulses equal, no cyanosis. Neurovascular intact. Full, normal range of motion. Neuro: Awake and alert, GCS 15, oriented to person, place, time, and situation. Cranial nerves II-XII grossly intact. Motor strength 5/5 in all extremities. Sensory grossly intact. Cerebellar exam normal. Normal gait. Psych: Awake, alert, with orientation to person, place and time. Behavior, mood, and affect are within normal limits. 09:27 Abdomen/GI: Diffuse mild epigastric tenderness without peritoneal signs, rebound or guarding. No active emesis noted. Vital signs are normal., Vital Signs: 08:48 BP 140 / 89; Pulse 95; Resp 16; Temp 97; Pulse Ox 99% ; ko1 11:30 BP 144 / 79; Pulse 89; Resp 18; Pulse Ox 99% on R/A; ld1 MDM: 08:57 Patient medically screened. sp3 09:27 Data reviewed: vital signs, nurses notes, old medical records, lab test result(s). ED sp3 course: 38-year-old female with PMH above now with recurrent gastroparesis. Differential diagnosis includes gastroparesis, biliary pathology, dehydration, gastritis, among others. I am out of the suspicious for acute coronary syndrome, sepsis, shock, pulmonary etiology, vascular etiology, or any other critical illness at this time. Treatment will be ondansetron IV, IV fluids and we will check general laboratory values. Disposition probable discharge pending workup and patient recovered.. 10:43 ED course: Unable to get peripheral IV. Femoral stick performed by pr right femoral sp3 vein for blood. We will attempt p.o. hydration with ODT ondansetron.. 11:24 ED course: Patient able to take oral hydration without emesis. UA demonstrates mild UTI sp3 though potentially contaminated sample. Will place patient on Bactrim, Phenergan and oral hydration with follow-up to PCP.. 06/26 08:58 Order name: CBC with Diff; Complete Time: 11:24 sp3 06/26 08:58 Order name: CMP; Complete Time: 11:24 sp3 06/26 08:58 Order name: Lipase; Complete Time: 11:24 sp3 06/26 08:58 Order name: Test, Urine; Complete Time: 11:24 sp3 06/26 08:58 Order name: Urinalysis w/ reflexes; Complete Time: 11:24 sp3 06/26 08:58 Order name: Lactate w/ 2H reflex if indic.; Complete Time: 11:24 sp3 06/26 11:27 Order name: Glucose, Ancillary Testing; Complete Time: 11:27 EDMS 06/26 10:43 Order name: PO challenge; Complete Time: 10:50 sp3 Administered Medications: 10:52 Drug: Ondansetron PO 4 mg PO once Route: PO; mb9 11:11 Follow up: Response: No adverse reaction mb9 11:11 Not Given (Physician Discretion): ns 0.9% 1000 ml IV at 1 bolus Per protocol; 1000 mL mb9 bolus 11:11 Not Given (Physician Discretion): ondansetron 4 mg IVP once; over 2 minutes mb9 Disposition Summary: 06/26/24 11:25 Discharge Ordered Notes: Location: Home sp3 Condition: Stable sp3 Diagnosis - Dehydration, UTI, vomiting, gastroparesis sp3 Followup: sp3 - With: Private Physician - When: Upon discharge from the Emergency Department - Reason: Continuance of care Discharge Instructions: - Discharge Summary Sheet sp3 - Urinary Tract Infection, Adult sp3 - Gastroparesis sp3 Forms: - Medication Reconciliation Form sp3 - Antibiotic Education sp3 - Prescription Opioid Use sp3 - Patient Portal Instructions sp3 - Leadership Thank You Letter sp3 Prescriptions: - Bactrim DS 800-160 mg Oral tablet - take 1 tablet ORAL route every 12 hours for 5 days; 10 tablet; Refills: 0, sp3 Product Selection Permitted - promethazine 25 mg Oral Tablet - take 1 tablet ORAL route every 6 hours As needed; 20 tablet; Refills: 0, sp3 Product Selection Permitted Signatures: Dispatcher [employer] EDSreekanth Burns MD MD sp3 Deidra Holland RN RN Miladis Briones, RN RN mb9 Corrections: (The following items were deleted from the chart) 08:59 08:58 CBC+H.LAB.BRZ ordered. EDMS EDMS 08:59 08:58 COMPREHENSIVE METABOLIC PANEL+C.LAB.BRZ ordered. EDMS EDMS 08:59 08:58 LIPASE+C.LAB.BRZ ordered. EDMS EDMS 08:59 08:58 Test, Urine+UC.LAB.BRZ ordered. EDMS EDMS 08:59 08:58 Urinalysis+U.LAB.BRZ ordered. EDMS EDMS 08:59 08:58 LACTATE+C.LAB.BRZ ordered. EDMS EDMS
--- NOTE | 2024-06-26 11:26 | ER ---
Nurse's Notes [facility] Name: Javier Moctezuma Age: 38 yrs Sex: Female : 1985 Arrival Date: 06/26/2024 Time: 08:45 Bed 4 Private MD: Diagnosis: Dehydration, UTI, vomiting, gastroparesis Presentation: 06/26 08:48 Chief complaint: EMS states: has hx of gastroparesis, has had nausea and vomiting for 3 ko1 days, took reglan at home but its not working. Patient states she needs zofran and the maalox/lidocaine combo. Coronavirus screen: At this time, the client does not indicate any symptoms associated with coronavirus-19. Ebola Screen: No symptoms or risks identified at this time. Initial Sepsis Screen: Does the patient meet any 2 criteria? No. Patient's initial sepsis screen is negative. Does the patient have a suspected source of infection? No. Patient's initial sepsis screen is negative. Risk Assessment: Do you want to hurt yourself or someone else? Patient reports no desire to harm self or others. Onset of symptoms is unknown. Care prior to arrival: Glucose check: 114. 08:48 Method Of Arrival: EMS: [facility] ko1 08:48 Acuity: NING 3 ko1 Triage Assessment: 08:50 General: Appears in no apparent distress. Behavior is calm, cooperative. Pain: ko1 Complains of pain in esophagus. GI: Reports nausea, vomiting. 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 - Infectious Disease History:: Denies. - Social history:: Smoking status: Patient/guardian denies using tobacco. Screenin:08 [facility] ED Fall Risk Assessment (Adult) History of falling in the last 3 months, mb9 including since admission No falls in past 3 months (0 pts) Confusion or Disorientation No (0 pts) Intoxicated or Sedated No (0 pts) Impaired Gait No (0 pts) Mobility Assist Device Used No (0 pt) Altered Elimination No (0 pt) Score/Fall Risk Level 0 - 2 = Low Risk Oriented to surroundings, Maintained a safe environment, Educated pt \T\ family on fall prevention, incl call for assistance when getting out of bed. Abuse screen: Denies threats or abuse. Nutritional screening: No deficits noted. Tuberculosis screening: No symptoms or risk factors identified. Assessment: 10:07 General: Appears in no apparent distress. Behavior is calm, cooperative. Pain: mb9 Complains of pain in abdomen Pain does not radiate. Pain currently is 10 out of 10 on a pain scale. Quality of pain is described as throbbing, Pain began gradually, Is chronic. Neuro: Hunt Agitation-Sedation Scale (RASS): 0 - Alert and Calm Level of Consciousness is awake, alert, obeys commands, Oriented to person, place, time, situation, Appropriate for age. Cardiovascular: Patient's skin is warm and dry. Respiratory: Airway is patent Respiratory effort is even, unlabored, Respiratory pattern is regular, symmetrical. GI: Abdomen is flat, non-distended, Abd is soft Abdomen is tender to palpation in suprapubic area, right lower quadrant and left lower quadrant. : No signs and/or symptoms were reported regarding the genitourinary system. EENT: No signs and/or symptoms were reported regarding the EENT system. Derm: Skin is pink, warm \T\ dry. Musculoskeletal: Range of motion: intact in all extremities. 11:30 Reassessment: Pt left without receiving discharge papers. ld1 Vital Signs: 08:48 BP 140 / 89; Pulse 95; Resp 16; Temp 97; Pulse Ox 99% ; ko1 11:30 BP 144 / 79; Pulse 89; Resp 18; Pulse Ox 99% on R/A; ld1 ED Course: 08:47 Patient arrived in ED. ko1 08:49 Sreekanth Barillas MD is Attending Physician. sp3 08:50 Triage completed. ko1 08:50 Arm band placed on right wrist. Patient placed in an exam room, on a stretcher, on ko1 pulse oximetry, Patient notified of wait time. 09:41 Missed attempt(s): 18 gauge in right forearm. oh1 09:42 Missed attempt(s): 18 gauge in right antecubital area. oh1 09:42 Missed attempt(s): 20 gauge in left antecubital area. oh1 09:43 Missed attempt(s): 20 gauge forearm. oh1 09:59 Miladis Quezada, RN is Primary Nurse. mb9 10:06 Placed in gown. Bed in low position. Call light in reach. Side rails up X 1. Client mb9 placed on continuous cardiac and pulse oximetry monitoring. NIBP monitoring applied. 10:09 Provided Education on: press call light if needing anything. mb9 10:53 Test, Urine Sent. mb9 10:53 CMP Sent. mb9 10:53 Lipase Sent. mb9 10:53 Urinalysis w/ reflexes Sent. mb9 11:16 Checked the patients' blood sugar level, it was 79. oh1 11:44 No provider procedures requiring assistance completed. Patient did not have IV access mb9 during this emergency room visit. Administered Medications: 10:52 Drug: Ondansetron PO 4 mg PO once Route: PO; mb9 11:11 Follow up: Response: No adverse reaction mb9 11:11 Not Given (Physician Discretion): ns 0.9% 1000 ml IV at 1 bolus Per protocol; 1000 mL mb9 bolus 11:11 Not Given (Physician Discretion): ondansetron 4 mg IVP once; over 2 minutes mb9 Medication: 10:09 VIS not applicable for this client. mb9 Outcome: 11:25 Discharge ordered by . sp3 11:46 Discharged to home ambulatory, ld1 11:46 Condition: stable 11:46 Discharge instructions given to pt left prior to receiving discharge papers 11:47 Patient left the ED. ld1 Signatures: Carri Leroy RN RN ld1 Sreekanth Barillas MD MD sp3 Deidra Holland RN RN ko1 Miladis Quezada, RN RN mb9 Yue Mendoza oh1
[2024-06-26 11:58] VITALS: TEMP 97; O2SAT 99
[2024-06-26 12:02] VITALS: BP 144/79
== END 2024-06-26 11:47 | disposition home or self-care (01) ==
LOC: ER 08:45
DX: E86.0 Dehydration (principal); N39.0 Urinary tract infection, site not specified; K31.84 Gastroparesis; E11.9 Type 2 diabetes mellitus without complications; Z79.4 Long term (current) use of insulin; F20.9 Schizophrenia, unspecified
CPT/HCPCS: 85025; 81001; 36415; 81025; 82947; 83605; 83690; 80053; Q0162; J2405; J7030

== ENCOUNTER 2024-10-23 15:31 | Emergency (ER) | payer OTHER ==
[2024-10-23] MEDS ORDERED: HYDROCODONE/APAP 10/325 TAB ONE (18:45)
[2024-10-23] MEDS ORDERED: LIDOCAINE 2% MPF 5 ML VIAL ONE (18:45)
--- NOTE | 2024-10-23 21:03 | ER ---
Nurse's Notes [facility] Name: Javier Moctezuma Age: 38 yrs Sex: Female : 1985 Arrival Date: 10/23/2024 Time: 15:31 Bed 16 Private MD: Diagnosis: Abscess of Bartholin's gland Presentation: 10/23 15:52 Chief complaint: Patient states: she has "swelling and maybe a cyst on my girl parts ap3 and it hurts real bad". patient reports she has had these symptoms for approx 5 days, and states her current pain is a 10/10 on the pain scale. Coronavirus screen: At this time, the client does not indicate any symptoms associated with coronavirus-19. Ebola Screen: No symptoms or risks identified at this time. Initial Sepsis Screen: Does the patient meet any 2 criteria? HR > 90 bpm. Does the patient have a suspected source of infection? No. Patient's initial sepsis screen is negative. Risk Assessment: Do you want to hurt yourself or someone else? Patient reports no desire to harm self or others. Onset of symptoms was October 18, 2024. 15:52 Method Of Arrival: Wheelchair ap3 15:52 Acuity: NING 4 ap3 Triage Assessment: 15:54 General: Appears uncomfortable, Behavior is calm, cooperative, appropriate for age. ap3 Pain: Complains of pain in groin Pain currently is 10 out of 10 on a pain scale. Pain began 5 days ago. Neuro: Level of Consciousness is awake, alert, obeys commands, Oriented to person, place, time, situation, Appropriate for age. Cardiovascular: Patient's skin is warm and dry. Respiratory: Airway is patent Respiratory effort is even, unlabored, Respiratory pattern is regular, symmetrical. Derm: Reports pain that is 10 out of 10 on a pain scale. 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 Flu vaccine is not up to date. - Infectious Disease History:: Denies. - Social history:: Smoking status: Reported history of juuling and/or vaping. Screenin:55 [facility] ED Fall Risk Assessment (Adult) History of falling in the last 3 months, ap3 including since admission No falls in past 3 months (0 pts) Confusion or Disorientation No (0 pts) Intoxicated or Sedated No (0 pts) Impaired Gait No (0 pts) Mobility Assist Device Used No (0 pt) Altered Elimination No (0 pt) Score/Fall Risk Level 0 - 2 = Low Risk Oriented to surroundings, Maintained a safe environment, Educated pt \\T\\ family on fall prevention, incl call for assistance when getting out of bed, Assessed \\T\\ reinforced patient's understanding of fall precautions, Hourly rounding (assess needs \\T\\ fall precautionary measures) done, Used ambulatory aids as needed (educated on \\T\\ assisted with), Used gait belt as appropriate. Abuse screen: Denies threats or abuse. Nutritional screening: No deficits noted. Tuberculosis screening: No symptoms or risk factors identified. Assessment: 18:49 General: Appears in no apparent distress. uncomfortable, Behavior is calm, cooperative, ph appropriate for age. Pain: Complains of pain in vaginal opening. Neuro: Level of Consciousness is awake, alert, obeys commands, Oriented to person, place, time, situation. Cardiovascular: Capillary refill < 3 seconds in bilateral fingers Patient's skin is warm and dry. Derm: Skin is pink, warm \\T\\ dry. Derm: Abscess located on vaginal opening. Musculoskeletal: Circulation, motion, and sensation intact. Range of motion: intact in all extremities. Musculoskeletal: Swelling present in right labia minora. 19:00 Reassessment: Patient appears in no apparent distress at this time. Patient is alert, kj2 oriented x 3, equal unlabored respirations, skin warm/dry/pink. Patient is alert/active/playful, equal unlabored respirations, skin warm/dry/pink. 20:17 Reassessment: Patient appears in no apparent distress at this time. Patient and/or kj2 family updated on plan of care and expected duration. Pain level reassessed. Patient is alert, oriented x 3, equal unlabored respirations, skin warm/dry/pink. 21:15 Reassessment: Patient appears in no apparent distress at this time. Patient is alert, kj2 oriented x 3, equal unlabored respirations, skin warm/dry/pink. Patient is alert/active/playful, equal unlabored respirations, skin warm/dry/pink. 21:46 Reassessment: Patient appears in no apparent distress at this time. Patient and/or kj2 family updated on plan of care and expected duration. Pain level reassessed. Patient is alert, oriented x 3, equal unlabored respirations, skin warm/dry/pink. Vital Signs: 15:52 BP 128 / 91; Pulse 104; Resp 17; Temp 98.1; Pulse Ox 100% ; Weight 77.11 kg; Height 5 ap3 ft. 0 in. ; Pain 10/10; 20:13 BP 142 / 102; Pulse 99; Resp 18; Pulse Ox 100% ; kj2 21:46 BP 129 / 87; Pulse 100; Resp 20; Temp 98.1; Pulse Ox 100% on R/A; kj2 15:52 Body Mass Index 33.20 (77.11 kg, 152.4 cm) ap3 15:52 Pain Scale: Adult ap3 ED Course: 15:33 Patient arrived in ED. ra3 15:42 Andrew Leroy DO is Attending Physician. ms3 15:42 Richard Qureshi NP is PHCP. pm1 15:54 Triage completed. ap3 15:55 Arm band placed on left wrist. ap3 18:09 Patient placed in an exam room, on a stretcher. ll1 18:34 Allyson Martinez, RN is Primary Nurse. ph 18:51 Patient has correct armband on for positive identification. Bed in low position. Call ph light in reach. Side rails up X 1. Pulse ox on. NIBP on. Door closed. Noise minimized. Warm blanket given. Pillow given. 21:46 No provider procedures requiring assistance completed. kj2 21:47 Provided Education on: medication regimen. kj2 21:47 Patient did not have IV access during this emergency room visit. kj2 Administered Medications: 18:49 Drug: HYDROcodone-acetaminophen PO 10 mg-325 mg 1 tabs PO once Route: PO; ph 18:52 Follow up: Response: No adverse reaction ph 21:37 Not Given (Not availablee): [id number] mg IM once pm1 21:45 Drug: Clindamycin PO 300 mg PO once Route: PO; kj2 21:45 Follow up: Response: No adverse reaction; Medication administered at discharge. kj2 Medication: 18:51 VIS not applicable for this client. ph Outcome: 21:03 Discharge ordered by . pm1 21:47 Discharged to home ambulatory, kj2 21:47 Condition: stable 21:47 Discharge instructions given to patient, Instructed on discharge instructions, follow up and referral plans. medication usage, Demonstrated understanding of instructions, follow-up care, medications, Prescriptions given X 2, 21:47 Patient left the ED. kj2 Signatures: Allyson Martinez, RN RN ph Richard Qureshi, PORTER BAGGAGE PORTER BAGGAGE pm1 Risa Sam RN RN ap3 Angeline Fernandez RN RN ll1 Andrew Leroy DO DO ms3 Isabela Celestin rv1 Esthela Rodriguez ra3 Bozena Velez, RN RN kj2 Corrections: (The following items were deleted from the chart) 21:00 20:58 Irrigation rv1 rv1 21:00 20:58 Wound care: rv1 rv1
--- NOTE | 2024-10-23 21:03 | EDPHYS ---
Physician Documentation [facility] Name: Javier Moctezuma Age: 38 yrs Sex: Female : 1985 Arrival Date: 10/23/2024 Time: 15:31 Bed 16 Private MD: ED Physician Andrew Leroy HPI: 10/23 17:32 This 38 yrs old Female presents to ER via Wheelchair with complaints of Abscess - pm1 vaginal swelling. 17:32 the patient presents with a swollen area of the vaginal opening. Description: swollen. pm1 Onset: The symptoms/episode began/occurred 2 day(s) ago. Possible cause(s): unknown. Associated signs and symptoms: Pertinent negatives: fever. Modifying factors: the symptoms are alleviated by nothing, the symptoms are aggravated by pressure, touching. Severity of symptoms: in the emergency department the symptoms are actually worse. The patient has experienced similar episodes in the past, and the symptoms today are exactly the same, to previous Bartholin cysts. The patient has not recently seen a physician. 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 Flu vaccine is not up to date. - Infectious Disease History:: Denies. - Social history:: Smoking status: Reported history of juuling and/or vaping. ROS: 17:32 Constitutional: Negative for fever, chills, and weight loss, Cardiovascular: Negative pm1 for chest pain, palpitations, and edema, Respiratory: Negative for shortness of breath, cough, wheezing, and pleuritic chest pain, Abdomen/GI: Negative for abdominal pain, nausea, vomiting, diarrhea, and constipation, 17:32 MS/Extremity: Negative for injury and deformity, Skin: Negative for injury, rash, and discoloration, 17:32 Neuro: Negative for headache, weakness, numbness, tingling, and seizure, 17:32 : Positive for right sided vaginal swelling, 17:32 All other systems are negative, Exam: 18:36 Constitutional: This is a well developed, well nourished patient who is awake, alert, pm1 and in no acute distress. Head/Face: Normocephalic, atraumatic. 18:36 Cardiovascular: Exam negative for acute changes, 18:36 Respiratory: Exam negative for acute changes, 18:36 : Pelvic Exam: External exam: Bartholin's cyst present, PJ RN present. Vital Signs: 15:52 BP 128 / 91; Pulse 104; Resp 17; Temp 98.1; Pulse Ox 100% ; Weight 77.11 kg; Height 5 ap3 ft. 0 in. ; Pain 10/10; 20:13 BP 142 / 102; Pulse 99; Resp 18; Pulse Ox 100% ; kj2 21:46 BP 129 / 87; Pulse 100; Resp 20; Temp 98.1; Pulse Ox 100% on R/A; kj2 15:52 Body Mass Index 33.20 (77.11 kg, 152.4 cm) ap3 15:52 Pain Scale: Adult ap3 Procedures: 21:00 I \T\ D: Incision and drainage was performed for an abscess of the Bartholin's gland. pm1 Prepped with Betadine, Anesthetized with 3 ml's 1% Lidocaine. Incised with #11 blade. Drained moderate amount purulent fluid. Packed with word catheter. 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 MDM: 15:44 Medical Screening Exam initiated pm1 18:42 Data reviewed: vital signs. pm1 21:01 Counseling: I had a detailed discussion with the patient and/or guardian regarding the pm1 historical points, exam findings, and any diagnostic results supporting the discharge/admit diagnosis, the need for outpatient follow up, an OB/Gyne specialist, to return to the emergency department if symptoms worsen or persist or if there are any questions or concerns that arise at home. 21:36 ED course: clindamycin IM is not available. Offered the patient IV and she would like pm1 PO instead. 10/23 17:32 Order name: Setup Suture Tray; Complete Time: 18:52 pm1 Administered Medications: 18:49 Drug: HYDROcodone-acetaminophen PO 10 mg-325 mg 1 tabs PO once Route: PO; ph 18:52 Follow up: Response: No adverse reaction ph 21:37 Not Given (Not availablee): [id number] mg IM once pm1 21:45 Drug: Clindamycin PO 300 mg PO once Route: PO; kj2 21:45 Follow up: Response: No adverse reaction; Medication administered at discharge. kj2 Disposition Summary: 10/23/24 21:03 Discharge Ordered Notes: Location: Home pm1 Problem: new pm1 Symptoms: have improved pm1 Condition: Stable pm1 Diagnosis - Abscess of Bartholin's gland pm1 Followup: pm1 - With: Emergency Department - When: As needed - Reason: Worsening of condition Followup: pm1 - With: Private Physician - When: 2 - 3 days - Reason: Recheck today's complaints, Continuance of care, Re-evaluation by your physician Discharge Instructions: - Discharge Summary Sheet pm1 - Bartholin's Cyst pm1 - Bartholin's Cyst Incision and Drainage pm1 Forms: - Medication Reconciliation Form pm1 - Antibiotic Education pm1 - Prescription Opioid Use pm1 - Patient Portal Instructions pm1 - Leadership Thank You Letter pm1 Prescriptions: - Clindamycin HCl 300 mg Oral Capsule - take 1 capsule ORAL route every 6 hours for 10 days; 40 capsule; Refills: 0, pm1 Product Selection Permitted - Tramadol 50 mg Oral Tablet - take 1 tablet ORAL route every 8 hours as needed; 12 tablet; Refills: 0, pm1 Product Selection Permitted Addendum: 10/25/2024 21:34 I was immediately available on-site in the Emergency Department for consultation in the m s3 care of the patient. Signatures: Allyson Martinez, RN RN Richard Rendon NP KEY SANDER pm1 Risa Sam RN RN [id number] Andrew Leroy DO DO ms3 Bozena Velez RN RN kj2
[2024-10-23 21:52] VITALS: TEMP 98.1; O2SAT 100
[2024-10-23 21:54] VITALS: BP 129/87
== END 2024-10-23 21:47 | disposition home or self-care (01) ==
LOC: ER 15:31
DX: N75.1 Abscess of Bartholin's gland (principal)
CPT/HCPCS: 10060; 99284; J2003

== ENCOUNTER 2025-07-29 20:44 | Emergency (ER) | payer OTHER ==
[2025-07-29] MEDS ORDERED: ZIPRASIDONE MESYLA 20 MG/VIAL IM ONE (20:56)
[2025-07-29] MEDS ORDERED: WATER FOR INJ,STERILE 10 ML ONE (20:57)
[2025-07-29] MEDS ORDERED: LORazepam 2 MG/ML VIAL ONE (21:37)
[2025-07-30 00:51] LABS: METHAMPHETAM POSITIVE (NEGATIVE); THC Cannibis NEGATIVE (NEGATIVE)
--- NOTE | 2025-07-30 07:21 | EDPHYS ---
Physician Documentation [facility] Name: Javier Moctezuma Age: 39 yrs Sex: Female : 1985 Arrival Date: 07/29/2025 Time: 20:44 Bed 8 Private MD: ED Physician Ivan Anders HPI: 07/29 20:51 This 39 yrs old Other Race Female presents to ER via Unassigned with complaints of sp4 Abdominal Pain. 07/30 05:39 Patient presents for complaint of methamphetamine intoxication. Patient also reports sp4 anxiety associated with methamphetamine abuse. . 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 - Infectious Disease History:: Denies. - Social history:: Smoking status: Reported history of juuling and/or vaping. Patient/guardian denies using alcohol, street drugs. - Family history:: not pertinent. ROS: 07/30 05:39 Constitutional: Negative for fever, chills, and weight loss, positive for anxiety, sp4 positive for drug abuse All other systems are negative, Exam: 05:39 Constitutional: Anxious appearing female, disorganized speech, moderate agitation, sp4 poor hygiene Head/Face: Normocephalic, atraumatic. Eyes: Pupils equal round and reactive to light, extra-ocular motions intact. Lids and lashes normal. Conjunctiva and sclera are not injected. Cornea within normal limits. Periorbital areas with no swelling, redness, or edema. ENT: Nares patent. No nasal discharge, no septal abnormalities noted. Tympanic membranes are normal and external auditory canals are clear. Oropharynx with no redness, swelling, or masses, exudates, or evidence of obstruction, uvula midline. Mucous membranes moist. Neck: Trachea midline, no thyromegaly or masses palpated, and no cervical lymphadenopathy. Supple, full range of motion without nuchal rigidity, or vertebral point tenderness. Chest/axilla: Normal chest wall appearance and motion. Nontender with no deformity. No lesions are appreciated. Cardiovascular: Regular rate and rhythm with a normal S1 and S2. No gallops, murmurs, or rubs. No pulse deficits. Respiratory: Lungs have equal breath sounds bilaterally, clear to auscultation and percussion. No rales, rhonchi or wheezes noted. No increased work of breathing, no retractions or nasal flaring. Abdomen/GI: Soft, with normal bowel sounds. No distension or tympany. No guarding or rebound. No evidence of tenderness throughout. Back: No spinal tenderness. No costovertebral tenderness. Skin: Warm, dry with normal turgor. Normal color with no rashes, no lesions, and no evidence of cellulitis. MS/ Extremity: Pulses equal, no cyanosis. Neurovascular intact. Full, normal range of motion. Neuro: Awake and alert, moderately agitated, normal gait, moves all extremities. No signs of neurologic deficit, appears intoxicated on stimulant Vital Signs: 07/29 20:57 Pulse 110; Resp 19 S; Temp 97.6(O); Pulse Ox 99% on R/A; Weight 70.31 kg (R); Height 4 lg3 ft. 11 in. (R); Pain 0/10; 22:08 BP 96 / 57; MAP 69 mmHg; al5 22:57 BP 91 / 66; Pulse 93; Resp 20; Pulse Ox 99% ; vc1 07/30 00:00 BP 103 / 74; Pulse 105; Resp 17; Pulse Ox 100% ; vc1 01:06 BP 81 / 57; Pulse 94; Resp 18; Pulse Ox 100% ; kb4 02:00 BP 79 / 61; Pulse 96; Resp 16; Pulse Ox 100% ; kb4 03:00 BP 96 / 71; Pulse 79; Resp 16; Pulse Ox 100% ; vc1 04:00 BP 113 / 82; Pulse 94; Resp 16; Pulse Ox 100% ; kb4 05:00 BP 84 / 75; Pulse 93; Resp 16; Pulse Ox 99% ; kb4 06:00 BP 83 / 56; Pulse 99; Resp 16; Pulse Ox 99% ; kb4 07:48 BP 94 / 62; Pulse 95; Resp 15; Pulse Ox 97% ; bp 07/29 20:57 Body Mass Index 31.31 (70.31 kg, 149.86 cm) [facility] 07/29 20:57 Pain Scale: Adult [facility] 07/29 22:08 patient side lying al5 07/30 01:06 laying on L side kb4 02:00 side lying kb4 [place] Coma Score: 05:39 Eye Response: spontaneous(4). Motor Response: obeys commands(6). Verbal Response: sp4 oriented(5). Total: 15. MDM: 07/29 21:37 Medical Screening Exam initiated sp4 07/30 05:42 Differential diagnosis: drug withdrawal. acute psychotic break, depression, psychosis sp4 secondary to non-compliance, Polysubstance abuse. Data reviewed: vital signs, nurses notes, old medical records, lab test result(s), urine drug screen. Consideration of Admission/Observation Escalation of care including admission/observation considered. ED course: Patient was given Geodon IM and also Ativan IM for acute agitation. Patient will be allowed to rest until 7 AM then we will reassess. . 07:34 ED course: On repeat evaluation at 7 AM patient appears well enough for discharge. sp4 Patient will require somebody to pick her up. We have encouraged patient to discontinue use of crystal meth. 07/29 21:14 Order name: SCARLET; Complete Time: 01:22 sp4 Administered Medications: 07/29 21:05 Drug: Geodon IM 40 mg IM once Route: IM; Site: right gluteus; 4 21:33 Follow up: Response: No adverse reaction 4 21:43 Drug: LORazepam IM 2 mg IM once Route: IM; Site: right ventrogluteal; kb4 07/30 07:48 Follow up: Response: No adverse reaction bp Disposition Summary: 07/30/25 07:21 Discharge Ordered Notes: Location: Home sp4 Problem: new sp4 Symptoms: have improved sp4 Condition: Stable sp4 Diagnosis - Acute methamphetamine intoxication, agitation requiring sedation sp4 Followup: sp4 - With: Private Physician - When: As needed - Reason: Discharge Instructions: - Discharge Summary Sheet sp4 - Methamphetamines Use Disorder sp4 Forms: - Patient Portal Instructions sp4 Signatures: Dispatcher [employer] EDYamile Aguila RN RN lg3 Ivan Anders MD MD sp4 Lucrecia Shine RN RN kb4 Jeremy Yadav RN bp
--- NOTE | 2025-07-30 07:21 | ER ---
Nurse's Notes [facility] Name: Javier Moctezuma Age: 39 yrs Sex: Female : 1985 Arrival Date: 07/29/2025 Time: 20:44 Bed 8 Private MD: Diagnosis: Acute methamphetamine intoxication, agitation requiring sedation Presentation: 07/29 20:57 Chief complaint: Patient states: they put drugs in me. i don't want to . denies lg3 pain. Coronavirus screen: At this time, unable to obtain information related to travel outside the [place] Ebola Screen: No symptoms or risks identified at this time. Initial Sepsis Screen: Does the patient meet any 2 criteria? No. Patient's initial sepsis screen is negative. Does the patient have a suspected source of infection? No. Patient's initial sepsis screen is negative. Risk Assessment: Do you want to hurt yourself or someone else? Patient reports no desire to harm self or others. Onset of symptoms is unknown. 20:57 Method Of Arrival: Ambulatory lg3 20:57 Acuity: NING 3 lg3 Triage Assessment: 20:58 General: Appears in no apparent distress. unkempt, Behavior is fussy, inappropriate for lg3 age, restless. Pain: Denies pain. EENT: No deficits noted. No signs and/or symptoms were reported regarding the EENT system. Neuro: Hunt Agitation-Sedation Scale (RASS): +1 Restless Level of Consciousness is awake, alert, obeys commands, Oriented to person, place, Speech rambling. Cardiovascular: No deficits noted. Capillary refill < 3 seconds Clubbing of nail beds is absent JVD is absent Patient's skin is warm and dry. Respiratory: No deficits noted. Airway is patent Respiratory effort is even, unlabored, Respiratory pattern is regular, symmetrical. GI: No deficits noted. Abdomen is round non-distended, obese. : No signs and/or symptoms were reported regarding the genitourinary system. Derm: Skin is intact, Skin is dry, Skin is normal, Skin temperature is warm. Musculoskeletal: No deficits noted. Circulation, motion, and sensation intact. Range of motion: intact in all extremities. 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 - Infectious Disease History:: Denies. - Social history:: Smoking status: Reported history of juuling and/or vaping. Patient/guardian denies using alcohol, street drugs. - Family history:: not pertinent. Screenin:57 [facility] ED Fall Risk Assessment (Adult) History of falling in the last 3 months, vc1 including since admission No falls in past 3 months (0 pts) Confusion or Disorientation Yes (5 pts) Intoxicated or Sedated Yes (3 pts) Impaired Gait No (0 pts) Mobility Assist Device Used No (0 pt) Altered Elimination No (0 pt) Score/Fall Risk Level 3 or more points = High Risk Oriented to surroundings, Maintained a safe environment, Educated pt \T\ family on fall prevention, incl call for assistance when getting out of bed, Assessed \T\ reinforced patient's understanding of fall precautions, Hourly rounding (assess needs \T\ fall precautionary measures) done, Used ambulatory aids as needed (educated on \T\ assisted with), Implemented a Fall Risk Plan of Care, Apply high fall risk patient identification: yellow non skid footwear/ fall signage, Remained w/in arm's length of patient and in sight while toileting, Offered frequent toileting (1:1 observation), Remained with patient while ambulating. Abuse screen: Denies threats or abuse. Nutritional screening: No deficits noted. Tuberculosis screening: No symptoms or risk factors identified. Assessment: 21:06 Reassessment: placed patient on air sampling and monitoring after medication administration. al5 21:12 Reassessment: patient hollering and screaming in room, assessed situation. patient al5 crying and flailing in the bed stating she doesn't wanna for something she did not do, she did not do drugs this time. patient ripped herself off of air sampling and monitoring. notified provider of situation. 22:19 Reassessment: Patient appears in no apparent distress at this time. Patient and/or al5 family updated on plan of care and expected duration. Pain level reassessed. respirations even and unlabored, skin warm and dry. 22:19 Reassessment: Sandra ArriagaMOM): [phone]. al5 22:56 Reassessment: Patient appears in no apparent distress at this time. pt resting vc1 comfortably, respirations even and unlabored. 07/30 00:26 Reassessment: Patient appears in no apparent distress at this time. No changes from vc1 previously documented assessment. 03:34 Reassessment: Patient appears in no apparent distress at this time. No changes from vc1 previously documented assessment. Patient and/or family updated on plan of care and expected duration. Pain level reassessed. Patient is alert, oriented x 3, equal unlabored respirations, skin warm/dry/pink. 05:35 Reassessment: Patient appears in no apparent distress at this time. No changes from kb4 previously documented assessment. Patient and/or family updated on plan of care and expected duration. Pain level reassessed. Patient is alert, oriented x 3, equal unlabored respirations, skin warm/dry/pink. 06:41 Reassessment: Patient appears in no apparent distress at this time. No changes from al5 previously documented assessment. Patient and/or family updated on plan of care and expected duration. Pain level reassessed. Patient is alert, oriented x 3, equal unlabored respirations, skin warm/dry/pink. Vital Signs: 07/29 20:57 Pulse 110; Resp 19 S; Temp 97.6(O); Pulse Ox 99% on R/A; Weight 70.31 kg (R); Height 4 lg3 ft. 11 in. (R); Pain 0/10; 22:08 BP 96 / 57; MAP 69 mmHg; al5 22:57 BP 91 / 66; Pulse 93; Resp 20; Pulse Ox 99% ; vc1 07/30 00:00 BP 103 / 74; Pulse 105; Resp 17; Pulse Ox 100% ; vc1 01:06 BP 81 / 57; Pulse 94; Resp 18; Pulse Ox 100% ; kb4 02:00 BP 79 / 61; Pulse 96; Resp 16; Pulse Ox 100% ; kb4 03:00 BP 96 / 71; Pulse 79; Resp 16; Pulse Ox 100% ; vc1 04:00 BP 113 / 82; Pulse 94; Resp 16; Pulse Ox 100% ; kb4 05:00 BP 84 / 75; Pulse 93; Resp 16; Pulse Ox 99% ; kb4 06:00 BP 83 / 56; Pulse 99; Resp 16; Pulse Ox 99% ; kb4 07:48 BP 94 / 62; Pulse 95; Resp 15; Pulse Ox 97% ; bp 07/29 20:57 Body Mass Index 31.31 (70.31 kg, 149.86 cm) lg3 07/29 20:57 Pain Scale: Adult lg3 07/29 22:08 patient side lying al5 07/30 01:06 laying on L side kb4 02:00 side lying kb4 [place] Coma Score: 05:39 Eye Response: spontaneous(4). Motor Response: obeys commands(6). Verbal Response: sp4 oriented(5). Total: 15. ED Course: 07/29 20:47 Patient arrived in ED. mr 20:51 Ivan Anders MD is Attending Physician. sp4 20:53 Lucrecia Shine RN is Primary Nurse. kb4 20:58 Triage completed. lg3 20:58 Arm band placed on right wrist. lg3 21:00 Patient has correct armband on for positive identification. Bed in low position. Call al5 light in reach. Side rails up X2. Provided Education on: plan of care. 22:20 No provider procedures requiring assistance completed. al5 07/30 06:55 Patient did not have IV access during this emergency room visit. al5 Administered Medications: 07/29 21:05 Drug: Geodon IM 40 mg IM once Route: IM; Site: right gluteus; kb4 21:33 Follow up: Response: No adverse reaction kb4 21:43 Drug: LORazepam IM 2 mg IM once Route: IM; Site: right ventrogluteal; kb4 07/30 07:48 Follow up: Response: No adverse reaction bp Medication: 07/29 22:58 VIS not applicable for this client. vc1 Outcome: 07/30 07:21 Discharge ordered by MD. sp4 07:49 Discharged to home ambulatory, bp 07:49 Condition: stable 07:49 Discharge instructions given to patient, Instructed on discharge instructions, follow up and referral plans. Demonstrated understanding of instructions, follow-up care, 07:49 Patient left the ED. bp Signatures: Miladis Nichols, Reg Reg mr Jeremy Yadav RN RN bp Yamile Avendano RN RN lg3 Janel Georges RN RN vc1 Ivan Anders MD MD sp4 Risa Bear, RN RN al5 Lucrecia Shine, RN RN kb4
[2025-07-30 08:11] VITALS: TEMP 97.6
[2025-07-30 08:22] VITALS: BP 94/62; O2SAT 97
== END 2025-07-30 07:49 | disposition home or self-care (01) ==
LOC: ER 20:44
DX: F15.129 Other stimulant abuse with intoxication, unspecified (principal)
CPT/HCPCS: 80307; 96372; 99284; J3486

== ENCOUNTER 2025-08-25 08:58 | Emergency (ER) | payer OTHER ==
[2025-08-25] MEDS ORDERED: METOCLOPRAMIDE 10 MG/2mL INJ ONE (09:45)
[2025-08-25] MEDS ORDERED: DIPHENHYDRAMINE 50 MG/ML VIAL ONE (09:45)
[2025-08-25] MEDS ORDERED: NA CHLORIDE 0.9% 0 ML ONE (09:45)
[2025-08-25 10:31] LABS: Absolute Lymphocytes (CBC) 1.6 K/uL (0.7-4.9); Hematocrit 35.5 % (36.0-45.0); Hemoglobin 11.2 g/dL (12.0-15.0); MCH 21.6 pg (27.0-35.0); MCHC 31.5 g/dL (32.0-36.0); MCV 68.7 fL (80-100); MPV 6.9 fL (7.6-11.3); Nucleated RBC Absolute Count 0.0 (0-0); Nucleated Red Blood Cells % 0.0 % (0-0); RBC Red Blood Cell Count 5.17 M/uL (3.86-4.86); White Blood Count 9.10 thou/uL (4.3-10.9)
[2025-08-25 10:53] LABS: AST/SGOT 20 U/L (15-37); Albumin 2.8 g/dL (3.4-5.0); Albumin/Globulin Ratio 0.7 (1.1-1.8); Alkaline Phosphatase 89 U/L (45-117); Anion Gap 8.8 mEq/L (5.0-15.0); BUN Blood Urea Nitrogen 9 mg/dL (7-18); Globulin 4.0 g/dL (2.3-3.5); Glucose Level 251 mg/dL (74-106); Lipase 17 U/L (13-75); Potassium 3.8 mEq/L (3.5-5.1)
[2025-08-25 11:09] LABS: ALT/SGPT < 14 U/L (13-56)
[2025-08-25] MEDS ORDERED: ONDANSETRON 4 MG (ODT) TAB ONE (11:19)
--- NOTE | 2025-08-25 12:00 | EDPHYS ---
Physician Documentation [facility] Name: Javier Moctezuma Age: 39 yrs Sex: Female : 1985 Arrival Date: 08/25/2025 Time: 08:58 Bed 13 Private MD: ED Physician Homero Kenney HPI: 08/25 09:06 This 39 yrs old Female presents to ER via Unassigned with complaints of Vomiting. kb 09:06 Pt is a 39 year old female who presents for nausea and vomiting for 4 days and diarrhea kb for 2 days. Denies fever. Reports history of gastroparesis, diabetes. REports BGL 247 this morning. . 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 - Infectious Disease History:: Denies. - Social history:: Smoking status: unknown. ROS: 09:07 Constitutional: As per HPI kb Exam: 09:07 Constitutional: This is a well developed, well nourished patient who is awake, alert, kb and in no acute distress. Head/Face: Normocephalic, atraumatic. ENT: Moist Mucous membranes Respiratory: Respirations even and unlabored. No increased work of breathing. Talking in full sentences Skin: Warm, dry with normal turgor. Normal color. MS/ Extremity: Pulses equal, no cyanosis. Neurovascular intact. Full, normal range of motion. Neuro: Awake and alert, GCS 15, oriented to person, place, time, and situation. Vital Signs: 09:11 BP 119 / 78; Pulse 103; Resp 16; Temp 97.2(TE); Pulse Ox 100% on R/A; Weight 77.11 kg; hb Height 5 ft. 3 in. ; Pain 8/10; 12:12 BP 120 / 72; Pulse 98; Resp 16; Temp 98; Pulse Ox 100% ; hh1 09:11 Body Mass Index 30.11 (77.11 kg, 160.02 cm) hb 09:11 Pain Scale: Adult hb MDM: 09:00 Medical Screening Exam initiated kb 11:58 Differential diagnosis: Nonspecific abd pain, gastritis, viral gastroenteritis, kb Gastroparesis, dehydration, abnormal electrolytes. Data reviewed: vital signs, nurses notes. Test considered but Not performed: CT: CT abdomen considered but and is similar to previous episodes of gastroparesis. Patient tolerating p.o. intake after treatment. Counseling: I had a detailed discussion with the patient and/or guardian regarding the historical points, exam findings, and any diagnostic results supporting the discharge/admit diagnosis, lab results, the need for outpatient follow up, a grocery caddy, to return to the emergency department if symptoms worsen or persist or if there are any questions or concerns that arise at home. 08/25 09:10 Order name: CBC with Diff; Complete Time: 12:11 kb 08/25 09:10 Order name: CMP; Complete Time: 11:12 kb 08/25 09:10 Order name: Lipase; Complete Time: 11:12 kb 08/25 10:37 Order name: CBC Smear Scan; Complete Time: 12:11 EDMS 08/25 09:10 Order name: Labs collected and sent; Complete Time: 10:24 kb 08/25 11:13 Order name: PO challenge; Complete Time: 11:57 kb Administered Medications: 11:22 Drug: Ondansetron Oral Disintegrating Tablet Oral Disintegrating Tablet 4 mg PO once hh1 Route: PO; 11:57 Follow up: Response: Nausea is decreased hh1 11:23 Not Given (Unable to get IV accesss): ns 0.9% 1000 ml IV at 1 bolus Per protocol; to be hh1 given as a bolus over 60 minutes 11:23 Not Given (Unable to get IV access): [id number] mg IVP once; over 1 to 2 minutes hh1 11:23 Not Given (Unable to get IV access): [id number] mg IVP once hh1 Disposition: 17:48 Co-signature as Attending Physician, Homero Kenney MD I reviewed the patient's care rn provided by the Advanced Practice Provider and agree with the diagnosis and treatment plan. Disposition Summary: 08/25/25 11:59 Discharge Ordered Notes: Location: Home kb Condition: Stable kb Diagnosis - Nausea with vomiting, unspecified kb - Gastroparesis kb Followup: kb - With: Emergency Department - When: As needed - Reason: Worsening of condition Followup: kb - With: Private Physician - When: 2 - 3 days - Reason: Recheck today's complaints, Continuance of care, Re-evaluation by your physician Discharge Instructions: - Discharge Summary Sheet kb - Nausea and Vomiting, Adult, [id number]-kc-[id number] kb - Gastroparesis kb Forms: - Medication Reconciliation Form kb - Antibiotic Education kb - Prescription Opioid Use kb - Patient Portal Instructions kb - Leadership Thank You Letter kb Prescriptions: - ondansetron 4 mg Oral Tablet,disintegrating - take 1 tablet ORAL route every 6 hours as needed for nausea and vomiting; 12 kb tablet; Refills: 0, Product Selection Permitted Signatures: Dispatcher [employer] EDMS Elizabeth Padilla, CREPE MACHINE OPERATOR-C CREPE MACHINE OPERATOR-Ckb Homero Kenney MD MD rn Baxter, Heather, RN RENARD Lisa Collins, RN RN hh1 Corrections: (The following items were deleted from the chart) 09:10 09:10 CBC+H.LAB.BRZ ordered. EDMS EDMS 09:10 09:10 COMPREHENSIVE METABOLIC PANEL+C.LAB.BRZ ordered. EDMS EDMS 09:10 09:10 LIPASE+C.LAB.BRZ ordered. EDMS EDMS 09:10 09:10 Test, Urine+UC.LAB.BRZ ordered. EDMS EDMS 12:00 09:10 IV Saline Lock ordered. marina hh1
--- NOTE | 2025-08-25 12:00 | ER ---
Nurse's Notes [facility] Name: Javier Moctezuma Age: 39 yrs Sex: Female : 1985 Arrival Date: 08/25/2025 Time: 08:58 Bed 13 Private MD: Diagnosis: Nausea with vomiting, unspecified;Gastroparesis Presentation: 08/25 09:11 Chief complaint: EMS states: Upper abdominal pain and N/V x 4-5 days. Coronavirus hb screen: At this time, the client does not indicate any symptoms associated with coronavirus-19. Ebola Screen: No symptoms or risks identified at this time. Initial Sepsis Screen: Does the patient meet any 2 criteria? No. Patient's initial sepsis screen is negative. Does the patient have a suspected source of infection? No. Patient's initial sepsis screen is negative. Risk Assessment: Do you want to hurt yourself or someone else? Patient reports no desire to harm self or others. Onset of symptoms was August 21, 2025. 09:11 Method Of Arrival: EMS: [facility] 09:11 Acuity: NING 3 hb Triage Assessment: 12:13 General: Behavior is calm, cooperative, appropriate for age. Neuro: No deficits noted. hh1 Cardiovascular: No deficits noted. Respiratory: No deficits noted. GI: Reports nausea, vomiting. 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 - Infectious Disease History:: Denies. - Social history:: Smoking status: unknown. Screenin:57 [facility] ED Fall Risk Assessment (Adult) History of falling in the last 3 months, hh1 including since admission No falls in past 3 months (0 pts) Confusion or Disorientation No (0 pts) Intoxicated or Sedated No (0 pts) Impaired Gait No (0 pts) Mobility Assist Device Used No (0 pt) Altered Elimination No (0 pt) Score/Fall Risk Level 0 - 2 = Low Risk Oriented to surroundings, Maintained a safe environment, Educated pt \T\ family on fall prevention, incl call for assistance when getting out of bed, Assessed \T\ reinforced patient's understanding of fall precautions, Hourly rounding (assess needs \T\ fall precautionary measures) done, Used ambulatory aids as needed (educated on \T\ assisted with). 12:13 Abuse screen: Denies threats or abuse. Denies injuries from another. Nutritional hh1 screening: No deficits noted. Tuberculosis screening: No symptoms or risk factors identified. Assessment: 09:57 General: Appears in no apparent distress. Pain: Denies pain. Neuro: No deficits noted. hh1 Cardiovascular: No deficits noted. Respiratory: No deficits noted. GI: Abdomen is flat, Reports diarrhea, vomiting. 10:27 Reassessment: Patient appears in no apparent distress at this time. Patient and/or iw family updated on plan of care and expected duration. Pain level reassessed. Patient is alert, oriented x 3, equal unlabored respirations, skin warm/dry/pink. 11:58 Reassessment: PO challenge done and successful after medications given. MD notified. 1 Vital Signs: 09:11 BP 119 / 78; Pulse 103; Resp 16; Temp 97.2(TE); Pulse Ox 100% on R/A; Weight 77.11 kg; hb Height 5 ft. 3 in. ; Pain 8/10; 12:12 BP 120 / 72; Pulse 98; Resp 16; Temp 98; Pulse Ox 100% ; hh1 09:11 Body Mass Index 30.11 (77.11 kg, 160.02 cm) hb 09:11 Pain Scale: Adult hb ED Course: 09:00 Patient arrived in ED. im 09:00 Elizabeth Padilla FNP-C [facility] kb 09:00 Homero Kenney MD is Attending Physician. kb 09:16 Triage completed. hb 09:17 Arm band placed on. hb 09:42 Lisa Collins, RN is Primary Nurse. hh1 09:53 EMS IV access infiltrated. Attempted other IV access, no success. hh1 09:57 Asked charger tester for assistance with IV access. hh1 09:57 Patient has correct armband on for positive identification. Bed in low position. Call [facility] light in reach. 09:57 No provider procedures requiring assistance completed. hh1 10:27 Missed attempt(s): 24 gauge in right upper arm. Bleeding controlled, band aid applied, iw catheter tip intact. 12:13 Provided Education on: plan of care. 1 12:13 Patient did not have IV access during this emergency room visit. hh1 Administered Medications: 11:22 Drug: Ondansetron Oral Disintegrating Tablet Oral Disintegrating Tablet 4 mg PO once hh1 Route: PO; 11:57 Follow up: Response: Nausea is decreased hh1 11:23 Not Given (Unable to get IV accesss): ns 0.9% 1000 ml IV at 1 bolus Per protocol; to be hh1 given as a bolus over 60 minutes 11:23 Not Given (Unable to get IV access): [id number] mg IVP once; over 1 to 2 minutes hh 11:23 Not Given (Unable to get IV access): [id number] mg IVP once hh1 Medication: 09:57 VIS not applicable for this client. hh1 Outcome: 11:59 Discharge ordered by . kb 12:12 Discharged to home ambulatory, 1 12:12 Condition: good 12:12 Discharge instructions given to patient, Instructed on discharge instructions, follow up and referral plans. medication usage, Demonstrated understanding of instructions, follow-up care, medications, Prescriptions given X 1, 12:14 Patient left the ED. 1 Signatures: Elizabeth Padilla, SHWETHA-C SHWETHA-Reyna Richmond RN RN Lisa Koo, RENARD GLYNN Eva Sacnlon Heather, RN RN hh1
[2025-08-25 12:10] LABS: Anisocytosis 1+; Blood Morphology Comment NOTED (NOT SEEN); Hypochromasia 1+; Microcytosis 1+; Poikilocytosis 1+; White Blood Cell Scan OK (OK)
[2025-08-25 14:04] VITALS: O2SAT 100
[2025-08-25 14:06] VITALS: BP 120/72; TEMP 98
== END 2025-08-25 12:14 | disposition home or self-care (01) ==
LOC: ER 08:58
DX: R11.2 Nausea with vomiting, unspecified (principal); K31.84 Gastroparesis; F41.9 Anxiety disorder, unspecified; E11.9 Type 2 diabetes mellitus without complications; I10 Essential (primary) hypertension; E11.43 Type 2 diabetes mellitus with diabetic autonomic (poly)neuropathy; Z79.4 Long term (current) use of insulin; Z88.0 Allergy status to penicillin
CPT/HCPCS: 85025; 36415; 83690; 80053; 99284; Q0162; J1200; J2765; J7030

== ENCOUNTER 2025-09-04 15:45 | Emergency (ER) | payer OTHER ==
[2025-09-04 16:07] LABS: Absolute Lymphocytes (CBC) 1.7 K/uL (0.7-4.9); Hematocrit 29.3 % (36.0-45.0); Hemoglobin 9.5 g/dL (12.0-15.0); MCH 22.4 pg (27.0-35.0); MCHC 32.5 g/dL (32.0-36.0); MCV 68.9 fL (80-100); MPV 6.4 fL (7.6-11.3); Nucleated RBC Absolute Count 0.0 (0-0); Nucleated Red Blood Cells % 0.0 % (0-0); RBC Red Blood Cell Count 4.25 M/uL (3.86-4.86); White Blood Count 7.20 thou/uL (4.3-10.9)
[2025-09-04] MEDS ORDERED: LORazepam 2 MG/ML VIAL ONE (16:22)
[2025-09-04] MEDS ORDERED: METOCLOPRAMIDE 10 MG/2mL INJ ONE (16:22)
[2025-09-04 16:31] LABS: ALT/SGPT 15 U/L (13-56); Albumin 2.5 g/dL (3.4-5.0); Albumin/Globulin Ratio 0.7 (1.1-1.8); Alkaline Phosphatase 72 U/L (45-117); Anion Gap 9.9 mEq/L (5.0-15.0); BUN Blood Urea Nitrogen 11 mg/dL (7-18); Globulin 3.6 g/dL (2.3-3.5); Glucose Level 317 mg/dL (74-106); Lipase 27 U/L (13-75); Potassium 3.9 mEq/L (3.5-5.1)
[2025-09-04 16:39] LABS: AST/SGOT < 10 U/L (15-37)
[2025-09-04 16:46] LABS: METHAMPHETAM NEGATIVE (NEGATIVE); THC Cannibis NEGATIVE (NEGATIVE)
[2025-09-04 17:10] LABS: Sqamous Epithelial None Seen /HPF (None Seen); Urine Culture Reflex Order REFLEXED; Urine Microscopic Reflex YN ORDER UMIC; Urine WBC Clump Many /HPF (None Seen); Urine Yeast (Budding) Few /HPF (None Seen)
[2025-09-04] MEDS ORDERED: ONDANSETRON 4 MG/2 ML VIAL ONE (17:18)
[2025-09-04] MEDS ORDERED: CEFTRIAXONE 1000 MG/VIAL ONE (17:33)
[2025-09-04] MEDS ORDERED: INSULIN REGULAR (HUMAN) 100 UNIT/ML ONE (17:33)
[2025-09-04] MEDS ORDERED: NA CHLORIDE 0.9% 1,000 ML ONE (17:34)
--- NOTE | 2025-09-04 18:32 | RAD REPORT ---
EXAMINATION: CT ABDOMEN AND PELVIS WITH CONTRAST CLINICAL INDICATION: Abdominal pain TECHNIQUE: CT abdomen and pelvis was performed, after the administration of 100 cc Isovue-300.. Sagit ivette and coronal reconstructions were obtained. One or more of the following dose reduction techniques were used: Automated exposure control, adjustment of the mA and kV according to patient si ze, and iterative reconstruction. Unless otherwise specified, incidental findings do not require dedicated imaging follow-up. [id number]. Oral contrast was not given which limits evaluation of bowel and appendix. COMPARISON: .2023 FINDINGS: Liver, spleen, pancreas, adrenals and kidneys appear unremarkable No evidence of diverticulitis. Normal appendix. No adnexal mass. Small umbilical hernia Wall of the distal esophagus appears mildly thickened Trace amount of free fluid may be physiologic : IMPRESSION: Apparent thickening of the wall of the distal esophagus could be secondary to incomplete distention o r inflammation.
[2025-09-04] MEDS ORDERED: CIPROFLOXACIN HCL 500 MG TAB ONE (19:00)
--- NOTE | 2025-09-04 19:17 | EDPHYS ---
Physician Documentation [facility] Name: Javier Moctezuma Age: 39 yrs Sex: Female : 1985 Arrival Date: 09/04/2025 Time: 15:45 Bed 6 Private MD: ED Physician Zhang Byers HPI: 09/04 15:55 This 39 yrs old Female presents to ER via EMS with complaints of cp Nausea/Vomiting/Diarrhea. 15:55 The patient presents with abdominal pain in the lower abdomen. The patient presents to the emergency department with nausea, that is moderate, vomiting, that is intermittent, diarrhea, that is intermittent. Onset: The symptoms/episode began/occurred this morning. Possible causes: flare up of bowel problem, gastroparesis. 15:55 Associated signs and symptoms: Pertinent negatives: constipation, fever, GI bleeding. cp Historical: - Allergies: 15:56 PENICILLINS; jb4 - PMHx: 15:56 Diabetes - IDDM; Gastroparesis; Hypertensive disorder; Schizophrenia; Anxiety; Bipolar jb4 disorder; - PSHx: 15:56 section; tubal ligation; jb4 - Immunization history:: Adult Immunizations up to date. - Infectious Disease History:: Denies. - Social history:: Smoking status: Reported history of juuling and/or vaping. ROS: 16:00 Eyes: Negative for injury, pain, redness, and discharge, cp 16:00 Constitutional: Positive for poor PO intake, Negative for body aches, chills, fever, 16:00 ENT: Negative for drainage from ear(s), ear pain, sore throat, difficulty swallowing, difficulty handling secretions, 16:00 Cardiovascular: Negative for chest pain, palpitations, 16:00 Respiratory: Negative for cough, shortness of breath, wheezing, 16:00 Abdomen/GI: Positive for abdominal pain, nausea and vomiting, diarrhea, Negative for constipation, hematemesis, black/tarry stool, rectal bleeding, 16:00 Neuro: Negative for altered mental status, dizziness, headache, syncope, weakness, 16:00 All other systems are negative, Exam: 16:05 Constitutional: The patient appears in no acute distress, alert, awake, cp non-diaphoretic, non-toxic, well developed, well nourished, uncomfortable, 16:05 Head/Face: Normocephalic, atraumatic. cp 16:05 Eyes: Periorbital structures: appear normal, Conjunctiva: normal, no exudate, no cp injection, Sclera: no appreciated abnormality, Lids and lashes: appear normal, bilaterally, 16:05 ENT: External ear(s): are unremarkable, Nose: is normal, Mouth: Lips: moist, Oral mucosa: moist, Posterior pharynx: Airway: no evidence of obstruction, patent, 16:05 Neck: ROM/movement: is normal, is supple, without pain, no range of motions limitations, 16:05 Chest/axilla: Inspection: normal, 16:05 Cardiovascular: Rate: tachycardic, Rhythm: regular, Edema: is not appreciated, JVD: is not appreciated, 16:05 Respiratory: the patient does not display signs of respiratory distress, Respirations: normal, no use of accessory muscles, no retractions, labored breathing, is not present, Breath sounds: are clear throughout, no decreased breath sounds, no stridor, no wheezing, 16:05 Abdomen/GI: Inspection: distension, is not seen, Bowel sounds: active, all quadrants, Palpation: soft, in all quadrants, moderate abdominal tenderness, in all quadrants, rebound tenderness, is not appreciated, involuntary guarding, is not appreciated, 16:05 Back: CVA tenderness, is absent, 16:05 Neuro: Orientation: to person, place \T\ time. Mentation: is normal, Cerebellar function: is grossly normal, Motor: moves all fours, strength is normal, Sensation: is normal, Vital Signs: 15:50 BP 163 / 108; Pulse 99; Resp 16; Temp 98.3(O); Pulse Ox 100% on R/A; Weight 77.11 kg; jb4 Height 4 ft. 11 in. ; 16:55 BP 141 / 85; Pulse 97; Resp 16; Pulse Ox 100% on R/A; jb4 18:00 BP 137 / 78; Pulse 101; Resp 16; Pulse Ox 100% on R/A; jb4 19:30 BP 180 / 95; Pulse 93; Resp 16; Pulse Ox 100% on R/A; jb4 15:50 Body Mass Index 34.34 (77.11 kg, 149.86 cm) jb4 MDM: 15:50 Medical Screening Exam initiated cp 19:15 Data reviewed: vital signs, nurses notes, lab test result(s), radiologic studies, CT cp scan, and as a result, I will discharge patient. 19:15 I considered the following discharge prescriptions or medication management in the emergency department Medications were administered in the Emergency Department. See MAR. Care significantly affected by the following chronic conditions: Diabetes, Hypertension. Counseling: I had a detailed discussion with the patient and/or guardian regarding the historical points, exam findings, and any diagnostic results supporting the discharge/admit diagnosis, lab results, radiology results, to return to the emergency department if symptoms worsen or persist or if there are any questions or concerns that arise at home. Response to treatment: the patient's symptoms have markedly improved after treatment, and as a result, I will discharge patient. Special discussion: Based on the patient's Hx, exam, and Dx evaluation, there is no indication for emergent surgery or inpatient Tx. It is understood by the patient/guardian that if the Sx's persist or worsen they need to return immediately for re-evaluation. ED course: VSS. Nausea and pain improved, vomiting resolved. CT abdomen/pelvis negative for acute findings. 09/04 15:51 Order name: UA Rfx Nico Cult if indicated; Complete Time: 17:12 cp 09/04 17:16 Interpretation: Normal except: [facility] Extremely Turbid; UGLUC 4+ (Over); UBLD 3+ (OVER); cp UPROT 1+; UESTR 25; UWBC >50; URBC >50; HYAL >20; UWBC Clump Many; BYST Few. 09/04 15:51 Order name: Test, Urine; Complete Time: 17:12 cp 09/04 15:51 Order name: CBC with Diff 09/04 16:32 Interpretation: Normal except: HGB 9.5; HCT 29.3; MCV 68.9; MCH 22.4; PLT 618; RDW cp 19.9; MPV 6.4. 09/04 15:51 Order name: CMP; Complete Time: 17:12 cp 09/04 19:14 Interpretation: Normal except: GLUC 317; GFR 85; AST < 10; BILIT < 0.2; CA 7.8; TP 6.1; cp ALB 2.5; GLOB 3.6; A/G 0.7. 09/04 15:51 Order name: Lipase; Complete Time: 17:12 cp 09/04 16:00 Order name: UDS; Complete Time: 17:12 cp 09/04 17:13 Order name: Urine Culture EDMS 09/04 17:19 Order name: CT Abd/Pelvis - IV Contrast Only; Complete Time: 18:36 cp 09/04 18:37 Interpretation: Report reviewed. cp 09/04 15:51 Order name: IV Saline Lock; Complete Time: 16:08 cp 09/04 15:51 Order name: Labs collected and sent; Complete Time: 16:08 cp 09/04 18:37 Order name: PO challenge; Complete Time: 19:03 cp Administered Medications: 16:29 Drug: metoCLOPramide IVP 10 mg IVP once; over 1 to 2 minutes Route: IVP; Site: left jb4 forearm; 16:35 Follow up: Response: No adverse reaction aa5 16:29 Drug: Ativan IVP 1 mg IVP once Route: IVP; Site: left femoral; jb4 16:35 Follow up: Response: No adverse reaction aa5 17:19 Drug: Ondansetron IVP 4 mg IVP once; over 2 minutes Route: IVP; Site: left antecubital; kb4 18:28 Follow up: Response: No adverse reaction kb4 17:39 Drug: Insulin Regular Human IVP 10 units IVP once {Co-Signature: aa5 (Mee Mcallister kb4 RN).} Route: IVP; Site: left antecubital; 18:27 Follow up: Response: No adverse reaction kb4 17:39 Drug: NS 0.9% IV 1000 ml IV at 1000 ml once; to be given as a bolus over 60 minutes kb4 Route: IV; Rate: 1000 ml; Site: left antecubital; 17:39 Drug: Famotidine IVP 20 mg IVP once; dilute with 10 mL 0.9% NaCl; give over 2 minutes kb4 Route: IVP; Site: left antecubital; 18:27 Follow up: Response: No adverse reaction kb4 17:45 Drug: Rocephin IV 1 grams IV at calculated rate once; Given slow IV push per pharmacy kb4 instructions Route: IV; Rate: calculated rate; Site: right antecubital; 19:03 Drug: Ciprofloxacin PO 500 mg PO once Route: PO; kb4 Disposition Summary: 10/23/25 19:16 Discharge Ordered Notes: Location: Home cp Problem: new cp Symptoms: have improved cp Condition: Stable cp Diagnosis - UTI/ Urinary tract infection, site not specified cp - Abdominal pain, unspecified cp - Nausea with vomiting, unspecified cp - Diabetes mellitus due to underlying condition with hyperglycemia cp Followup: cp - With: Private Physician - When: 2 - 3 days - Reason: Worsening of condition Discharge Instructions: - Discharge Summary Sheet cp - Abdominal Pain, Adult cp - Hyperglycemia cp - Nausea and Vomiting, Adult cp - Urinary Tract Infection, Adult cp - Daily Diabetes Mellitus Record cp - Blood Glucose Monitoring, Adult cp - Diabetes Mellitus and Nutrition, Adult cp Forms: - Medication Reconciliation Form cp - Antibiotic Education cp - Prescription Opioid Use cp - Patient Portal Instructions cp - Leadership Thank You Letter cp Prescriptions: - Pepcid 20 mg Oral Tablet - take 1 tablet ORAL route every 12 hours for 10 days; 20 tablet; Refills: 0, cp Product Selection Permitted - Cipro 500 mg Oral Tablet - take 1 tablet ORAL route every 12 hours for 7 days; 14 tablet; Refills: 0, cp Product Selection Permitted - ondansetron 8 mg Oral Tablet,disintegrating - take 1 tablet ORAL route every 12 hours; 15 tablet; Refills: 0, Product cp Selection Permitted Signatures: Dispatcher [employer] EDMS Zhang Panda PA-C PAVinay Barrios cp, RN RN jb4 Lucrecia Shine RN RN kb4 Mee Mcallister RN aa5 Mee Mcallister RN aa5 Corrections: (The following items were deleted from the chart) 15:52 15:52 UA Rfx Nico Cult if indicated+U.LAB.BRZ ordered. EDMS EDMS 15:52 15:52 Test, Urine+UC.LAB.BRZ ordered. EDMS EDMS 15:52 15:52 CBC+H.LAB.BRZ ordered. EDMS EDMS 15:52 15:52 COMPREHENSIVE METABOLIC PANEL+C.LAB.BRZ ordered. EDMS EDMS 15:52 15:52 LIPASE+C.LAB.BRZ ordered. EDTN EDMS 09/05 18:27 16:00 Constitutional: Positive for poor PO intake, Negative for body aches, chills, cp fever, cp 18:27 16:00 Abdomen/GI: Positive for abdominal pain, nausea and vomiting, diarrhea, Negative cp for constipation, hematemesis, black/tarry stool, rectal bleeding, cp 18: 16:00 Respiratory: Negative for cough, shortness of breath, wheezing, cp cp 18: 16:00 Cardiovascular: Negative for chest pain, palpitations, cp cp : 16:00 Eyes: Negative for injury, pain, redness, and discharge, cp cp 18: 16:00 ENT: Negative for drainage from ear(s), ear pain, sore throat, difficulty cp swallowing, difficulty handling secretions, cp : 16:00 Neuro: Negative for altered mental status, dizziness, headache, syncope, cp weakness, cp : 16:00 All other systems are negative, cp cp
--- NOTE | 2025-09-04 19:17 | ER ---
Nurse's Notes [facility] Name: Javier Moctezuma Age: 39 yrs Sex: Female : 1985 Arrival Date: 09/04/2025 Time: 15:45 Bed 6 Private MD: Diagnosis: UTI/ Urinary tract infection, site not specified;Abdominal pain, unspecified;Nausea with vomiting, unspecified;Diabetes mellitus due to underlying condition with hyperglycemia Presentation: 09/04 15:50 Chief complaint: EMS states: Pt reports N/V/D since this morning. is having lower jb4 abdominal pain. She has a BGL of 406. Coronavirus screen: At this time, the client does not indicate any symptoms associated with coronavirus-19. Ebola Screen: No symptoms or risks identified at this time. Initial Sepsis Screen: Does the patient meet any 2 criteria? HR > 90 bpm. Yes Does the patient have a suspected source of infection? No. Patient's initial sepsis screen is negative. Risk Assessment: Do you want to hurt yourself or someone else? Patient reports no desire to harm self or others. Onset of symptoms was September 04, 2025. Transition of care: patient was not received from another setting of care. 15:50 Method Of Arrival: EMS: [facility] jb4 15:50 Acuity: NING 3 jb4 Historical: - Allergies: 15:56 PENICILLINS; jb4 - PMHx: 15:56 Diabetes - IDDM; Gastroparesis; Hypertensive disorder; Schizophrenia; Anxiety; Bipolar jb4 disorder; - PSHx: 15:56 section; tubal ligation; jb4 - Immunization history:: Adult Immunizations up to date. - Infectious Disease History:: Denies. - Social history:: Smoking status: Reported history of juuling and/or vaping. Screenin:58 [facility] ED Fall Risk Assessment (Adult) History of falling in the last 3 months, jb4 including since admission No falls in past 3 months (0 pts) Confusion or Disorientation No (0 pts) Intoxicated or Sedated No (0 pts) Impaired Gait No (0 pts) Mobility Assist Device Used No (0 pt) Altered Elimination No (0 pt) Score/Fall Risk Level 0 - 2 = Low Risk Oriented to surroundings, Maintained a safe environment. Abuse screen: Denies threats or abuse. Nutritional screening: No deficits noted. Tuberculosis screening: No symptoms or risk factors identified. Assessment: 15:58 General: Appears in no apparent distress. uncomfortable, Behavior is calm, cooperative, jb4 appropriate for age. Pain: Complains of pain in right lower quadrant and left lower quadrant Pain does not radiate. Pain currently is 8 out of 10 on a pain scale. Neuro: Level of Consciousness is awake, alert, obeys commands, Oriented to person, place, time, situation. Cardiovascular: Patient's skin is warm and dry. Respiratory: Airway is patent Respiratory effort is even, unlabored, Respiratory pattern is regular, symmetrical. GI: Abdomen is flat, non-distended, obese, Reports lower abdominal pain, diarrhea, nausea, vomiting. Derm: Skin is intact, Skin is pink, warm \T\ dry. Musculoskeletal: Circulation, motion, and sensation intact. Range of motion: intact in all extremities. 16:55 Reassessment: Patient appears in no apparent distress at this time. Patient and/or jb4 family updated on plan of care and expected duration. Pain level reassessed. Patient is alert, oriented x 3, equal unlabored respirations, skin warm/dry/pink. 19:00 Reassessment: Patient appears in no apparent distress at this time. Patient and/or jb4 family updated on plan of care and expected duration. Pain level reassessed. Patient is alert, oriented x 3, equal unlabored respirations, skin warm/dry/pink. 19:58 Reassessment: Patient appears in no apparent distress at this time. Patient and/or jb4 family updated on plan of care and expected duration. Pain level reassessed. Patient is alert, oriented x 3, equal unlabored respirations, skin warm/dry/pink. Vital Signs: 15:50 BP 163 / 108; Pulse 99; Resp 16; Temp 98.3(O); Pulse Ox 100% on R/A; Weight 77.11 kg; jb4 Height 4 ft. 11 in. ; 16:55 BP 141 / 85; Pulse 97; Resp 16; Pulse Ox 100% on R/A; jb4 18:00 BP 137 / 78; Pulse 101; Resp 16; Pulse Ox 100% on R/A; jb4 19:30 BP 180 / 95; Pulse 93; Resp 16; Pulse Ox 100% on R/A; jb4 15:50 Body Mass Index 34.34 (77.11 kg, 149.86 cm) jb4 ED Course: 15:49 Patient arrived in ED. jb4 15:50 Zhang [facility]anda [facility] cp 15:50 Zhang Byers MD is Attending Physician. cp 15:56 Triage completed. jb4 15:57 Arm band placed on right wrist. jb4 15:58 Patient has correct armband on for positive identification. Bed in low position. Call jb4 light in reach. Side rails up X 1. Provided Education on: plan of care. 16:00 Inserted saline lock: 22 gauge in left antecubital area, using aseptic technique. aa5 16:08 CBC with Diff Sent. jb4 16:08 CMP Sent. jb4 16:08 Lipase Sent. jb4 16:28 Vinay Brooks, RENARD is Primary Nurse. jb4 16:29 UDS Sent. jb4 16:29 Test, Urine Sent. jb4 16:29 UA Rfx Nico Cult if indicated Sent. jb4 18:00 No provider procedures requiring assistance completed. IV discontinued, intact, jb4 bleeding controlled, No redness/swelling at site. Pressure dressing applied. 18:14 CT Abd/Pelvis - IV Contrast Only In Process Unspecified. EDMS Administered Medications: 16:29 Drug: metoCLOPramide IVP 10 mg IVP once; over 1 to 2 minutes Route: IVP; Site: left jb4 forearm; 16:35 Follow up: Response: No adverse reaction aa5 16:29 Drug: Ativan IVP 1 mg IVP once Route: IVP; Site: left femoral; jb4 16:35 Follow up: Response: No adverse reaction aa5 17:19 Drug: Ondansetron IVP 4 mg IVP once; over 2 minutes Route: IVP; Site: left antecubital; kb4 18:28 Follow up: Response: No adverse reaction kb4 17:39 Drug: Insulin Regular Human IVP 10 units IVP once {Co-Signature: aa5 (Mee Mcallister RN).} Route: IVP; Site: left antecubital; 18:27 Follow up: Response: No adverse reaction kb4 17:39 Drug: NS 0.9% IV 1000 ml IV at 1000 ml once; to be given as a bolus over 60 minutes kb4 Route: IV; Rate: 1000 ml; Site: left antecubital; 17:39 Drug: Famotidine IVP 20 mg IVP once; dilute with 10 mL 0.9% NaCl; give over 2 minutes kb4 Route: IVP; Site: left antecubital; 18:27 Follow up: Response: No adverse reaction kb4 17:45 Drug: Rocephin IV 1 grams IV at calculated rate once; Given slow IV push per pharmacy kb4 instructions Route: IV; Rate: calculated rate; Site: right antecubital; 19:03 Drug: Ciprofloxacin PO 500 mg PO once Route: PO; kb4 Medication: 15:58 VIS not applicable for this client. jb4 Outcome: 19:16 Discharge ordered by . gene 19:59 Discharged to home ambulatory, jb4 19:59 Condition: stable 19:59 Discharge instructions given to patient, Instructed on discharge instructions, follow up and referral plans. no drinking with medication, medication usage, Demonstrated understanding of instructions, follow-up care, medications, Prescriptions given X 3, 19:59 Patient left the ED. jb4 Signatures: Dispatcher [employer] EDDC Mee Mcallister, RN RN aa5 Zhang Panda, PA-C PA-C Vinay Schwarz RN RN jb4 Lucrecia Shine RN RN marina4 Mee Mcallister RN aa5
[2025-09-04 20:25] LABS: Anisocytosis 1+; Blood Morphology Comment NOTED (NOT SEEN); White Blood Cell Scan OK (OK)
[2025-09-04 20:26] LABS: Poikilocytosis 1+
[2025-09-04 21:05] VITALS: TEMP 98.3; O2SAT 100
[2025-09-04 21:08] VITALS: BP 180/95
== END 2025-09-04 19:59 | disposition home or self-care (01) ==
LOC: ER 15:45
DX: N39.0 Urinary tract infection, site not specified (principal); E08.65 Diabetes mellitus due to underlying condition with hyperglycemia; R10.9 Unspecified abdominal pain; I10 Essential (primary) hypertension
CPT/HCPCS: 87088; 85025; 81001; 87086; 36415; 81025; 82947; 83690; 80053; 80307; 74177; 99284; Q9967; J2765; J2405; J1815; J7030; J0696

== ENCOUNTER 2025-09-07 11:55 | Emergency (ER) | payer OTHER ==
[2025-09-07] MEDS ORDERED: METOCLOPRAMIDE 10 MG/2mL INJ ONE (12:49)
[2025-09-07] MEDS ORDERED: ONDANSETRON 4 MG/2 ML VIAL ONE (12:49)
[2025-09-07] MEDS ORDERED: NA CHLORIDE 0.9% 1,000 ML ONE (12:50)
[2025-09-07 13:21] LABS: Absolute Lymphocytes (CBC) 1.5 K/uL (0.7-4.9); Hematocrit 31.6 % (36.0-45.0); Hemoglobin 9.8 g/dL (12.0-15.0); MCH 21.3 pg (27.0-35.0); MCHC 30.9 g/dL (32.0-36.0); MCV 69.0 fL (80-100); MPV 6.9 fL (7.6-11.3); Nucleated RBC Absolute Count 0.0 (0-0); Nucleated Red Blood Cells % 0.0 % (0-0); RBC Red Blood Cell Count 4.58 M/uL (3.86-4.86); White Blood Count 7.50 thou/uL (4.3-10.9)
[2025-09-07 13:34] LABS: ALT/SGPT 18.0 U/L (13-56); AST/SGOT 17.0 U/L (15-37); Albumin 2.6 g/dL (3.4-5.0); Albumin/Globulin Ratio 0.7 (1.1-1.8); Alkaline Phosphatase 81.0 U/L (45-117); Anion Gap 9.3 mEq/L (5.0-15.0); BUN Blood Urea Nitrogen 10.0 mg/dL (7-18); Globulin 3.9 g/dL (2.3-3.5); Glucose Level 158.0 mg/dL (74-106); Lipase 25.0 U/L (13-75); Potassium 4.3 mEq/L (3.5-5.1)
[2025-09-07 14:07] LABS: Anisocytosis 1+; Blood Morphology Comment NOTED (NOT SEEN); Hypochromasia 1+; Microcytosis 1+; Platelets Clumped FEW; Poikilocytosis SLIGHT; White Blood Cell Scan OK (OK)
[2025-09-07 14:08] LABS: Stomatocytes FEW
--- NOTE | 2025-09-07 14:58 | EDPHYS ---
Physician Documentation [facility] Name: Javier Moctezuma Age: 39 yrs Sex: Female : 1985 Arrival Date: 09/07/2025 Time: 11:55 Bed 6 Private MD: ED Physician Homero Kenney HPI: 09/07 12:17 This 39 yrs old Female presents to ER via EMS with complaints of Nausea/Vomiting, rn Abdominal Pain. 12:17 Patient reports epigastric abdominal discomfort with nausea and vomiting, identical to rn previous gastroparesis episodes. Reports has had this 3 times in the last month. Reports takes Reglan, p.o. Zofran and sometimes help but not helping today. No blood in emesis or stool. No chest pain or shortness of breath. Does report heavy menstrual cycles with chronic anemia.. Historical: - Allergies: 12:03 PENICILLINS; ll1 - PMHx: 12:03 Anxiety; Bipolar disorder; Diabetes - IDDM; Gastroparesis; Hypertensive disorder; ll1 Schizophrenia; - PSHx: 12:03 section; tubal ligation; ll1 - Immunization history:: Adult Immunizations up to date. - Social history:: Smoking status: Reported history of juuling and/or vaping. - Family history:: not pertinent. - Hospitalizations: : No recent hospitalization is reported. ROS: 12:17 Constitutional: Negative for fever, chills, and weight loss, Cardiovascular: Negative rn for chest pain, palpitations, and edema, Respiratory: Negative for shortness of breath, cough, wheezing, and pleuritic chest pain, Abdomen/GI: Positive for abdominal pain with nausea and vomiting MS/Extremity: Negative for injury and deformity, Skin: Negative for injury, rash, and discoloration, Neuro: Positive for generalized weakness and malaise Exam: 12:17 Constitutional: This is a well developed, well nourished patient who is awake, alert, rn and in no acute distress. ENT: Dry mucous membranes Cardiovascular: Regular rate and rhythm. No pulse deficits. Respiratory: No increased work of breathing, no retractions or nasal flaring. Abdomen/GI: No focal tenderness. No rebound or guarding. No distention Neuro: Awake and alert, GCS 15 Vital Signs: 12:10 BP 122 / 92; Pulse 87; Resp 17; Temp 97.9; Pulse Ox 99% ; Weight 77.11 kg; Height 4 ft. ll1 11 in. ; Pain 9/10; 12:10 Body Mass Index 34.34 (77.11 kg, 149.86 cm) ll1 12:10 Pain Scale: Adult ll1 MDM: 11:59 Medical Screening Exam initiated rn 14:56 Differential diagnosis: Nonspecific abd pain, gastritis, pancreatitis, Gastroparesis. rn Data reviewed: vital signs, nurses notes, lab test result(s), radiologic studies, CT scan, and as a result, I will discharge patient. Counseling: I had a detailed discussion with the patient and/or guardian regarding the historical points, exam findings, and any diagnostic results supporting the discharge/admit diagnosis, lab results, the need for outpatient follow up, to return to the emergency department if symptoms worsen or persist or if there are any questions or concerns that arise at home. Response to treatment: the patient's symptoms have markedly improved after treatment, and as a result, I will discharge patient. Special discussion: Based on the patient's Hx, exam, and Dx evaluation, there is no indication for emergent surgery or inpatient Tx. It is understood by the patient/guardian that if the Sx's persist or worsen they need to return immediately for re-evaluation. I discussed with the patient/guardian in detail that at this point there is no indication for admission to the hospital. It is understood, however, that if the symptoms persist or worsen the patient needs to return immediately for re-evaluation. Based on the history and exam findings, there is no indication for further emergent testing or inpatient evaluation. I discussed with the patient/guardian the need to see the psychiatric aides teacher for further evaluation of the symptoms. I discussed with the patient/guardian the need to see the primary care provider for further evaluation of the symptoms. 09/07 12:13 Order name: CBC with Diff rn 09/07 12:13 Order name: CMP; Complete Time: 13:50 rn 09/07 12:13 Order name: Lipase; Complete Time: 13:50 rn 09/07 13:07 Order name: Test, Serum; Complete Time: 13:50 bp 09/07 13:29 Order name: CBC Smear Scan EDMS 09/07 12:13 Order name: IV Saline Lock; Complete Time: 13:06 rn 09/07 12:13 Order name: Labs collected and sent; Complete Time: 13:06 rn Administered Medications: 13:06 Drug: Ondansetron IVP 4 mg IVP once; over 2 minutes Route: IVP; Site: left antecubital; bp 13:06 Drug: NS 0.9% IV 1000 ml IV at 1 bolus Per protocol; to be given as a bolus over 60 bp minutes Route: IV; Rate: 1 bolus; Site: left antecubital; 13:06 Drug: metoCLOPramide IVP 10 mg IVP once; over 1 to 2 minutes Route: IVP; Site: left bp antecubital; 14:12 Drug: Droperidol IVP 1.25 mg IVP once Route: IVP; Site: left antecubital; bp Disposition Summary: 09/07/25 14:58 Discharge Ordered Notes: Location: Home rn Problem: an acute exacerbation rn Symptoms: have improved rn Condition: Stable rn Diagnosis - Gastroparesis rn Followup: rn - With: Private Physician - When: As needed - Reason: Recheck today's complaints, Re-evaluation by your physician Discharge Instructions: - Discharge Summary Sheet rn - Gastroparesis rn Forms: - Medication Reconciliation Form rn - Antibiotic grinder operator external tool - Prescription Opioid Use rn - Patient Portal Instructions rn - Leadership Thank You Letter rn Signatures: Dispatcher [employer] EDMS Homero Kenney MD MD rn Peltier, Brian RN RN Angeline Bosch RN RN ll1 Corrections: (The following items were deleted from the chart) 12:14 12:14 CBC+H.LAB.BRZ ordered. EDMS EDMS 12:14 12:14 COMPREHENSIVE METABOLIC PANEL+C.LAB.BRZ ordered. EDMS EDMS 12:14 12:14 LIPASE+C.LAB.BRZ ordered. EDMS EDMS 12:14 12:14 Test, Urine+UC.LAB.BRZ ordered. EDMS EDMS
--- NOTE | 2025-09-07 14:58 | ER ---
Nurse's Notes [facility] Name: Javier Moctezuma Age: 39 yrs Sex: Female : 1985 Arrival Date: 09/07/2025 Time: 11:55 Bed 6 Private MD: Diagnosis: Gastroparesis Presentation: 09/07 12:03 Chief complaint: Patient states: Gastroparesis flare-up, didn't take medications ll1 because a it interacts with her schizo medications. Chief complaint: Patient states: N/V with abdominal pain since 6 AM EMS states: VSS. Coronavirus screen: Client denies travel out of the [place] in the last 14 days. At this time, the client does not indicate any symptoms associated with coronavirus-19. Ebola Screen: Patient denies travel to an Ebola-affected area in the 21 days before illness onset. Initial Sepsis Screen: Does the patient meet any 2 criteria? No. Patient's initial sepsis screen is negative. Does the patient have a suspected source of infection? No. Patient's initial sepsis screen is negative. Risk Assessment: Do you want to hurt yourself or someone else? Patient reports no desire to harm self or others. 12:03 Method Of Arrival: EMS ll1 12:03 Acuity: NING 3 ll1 12:10 Onset of symptoms was September 07, 2025. ll1 Triage Assessment: 12:03 General: Appears uncomfortable, Behavior is calm, cooperative, appropriate for age. ll1 Pain: Complains of pain in abdomen. GI: Reports lower abdominal pain, upper abdominal pain, nausea, vomiting. Historical: - Allergies: 12:03 PENICILLINS; ll1 - PMHx: 12:03 Anxiety; Bipolar disorder; Diabetes - IDDM; Gastroparesis; Hypertensive disorder; ll1 Schizophrenia; - PSHx: 12:03 section; tubal ligation; ll1 - Immunization history:: Adult Immunizations up to date. - Social history:: Smoking status: Reported history of juuling and/or vaping. - Family history:: not pertinent. - Hospitalizations: : No recent hospitalization is reported. Vital Signs: 12:10 BP 122 / 92; Pulse 87; Resp 17; Temp 97.9; Pulse Ox 99% ; Weight 77.11 kg; Height 4 ft. ll1 11 in. ; Pain 9/10; 12:10 Body Mass Index 34.34 (77.11 kg, 149.86 cm) ll1 12:10 Pain Scale: Adult ll1 ED Course: 11:57 Patient arrived in ED. al6 11:58 Homero Kenney MD is Attending Physician. rn 12:03 Arm band placed on. ll1 12:04 Triage completed. ll1 12:47 Jeremy Yadav, RN is Primary Nurse. bp 13:08 Initial lab(s) drawn, by me, sent to lab. Inserted saline lock: 22 gauge in left bp antecubital area, using aseptic technique. Blood collected. Flushed with 10 mL NS. 14:57 No provider procedures requiring assistance completed. IV discontinued, intact, ss bleeding controlled, No redness/swelling at site. Pressure dressing applied. Administered Medications: 13:06 Drug: Ondansetron IVP 4 mg IVP once; over 2 minutes Route: IVP; Site: left antecubital; bp 13:06 Drug: NS 0.9% IV 1000 ml IV at 1 bolus Per protocol; to be given as a bolus over 60 bp minutes Route: IV; Rate: 1 bolus; Site: left antecubital; 13:06 Drug: metoCLOPramide IVP 10 mg IVP once; over 1 to 2 minutes Route: IVP; Site: left bp antecubital; 14:12 Drug: Droperidol IVP 1.25 mg IVP once Route: IVP; Site: left antecubital; bp Outcome: 14:58 Discharge ordered by . rn 15:23 Patient left the ED. ss Signatures: Homero Kenney MD MD rn Blanchard, Shelby, RN RN Jeremy Yadav RN RN bp Lewis, Lynsay, RN RN [facility] Patty Cnatu al6 Corrections: (The following items were deleted from the chart) 12:13 12:03 Chief complaint: EMS states: VSS ll1 ll1
[2025-09-07 16:19] VITALS: BP 122/92; TEMP 97.9; O2SAT 99
== END 2025-09-07 15:23 | disposition home or self-care (01) ==
LOC: ER 11:55
DX: K31.84 Gastroparesis (principal)
CPT/HCPCS: 85025; 36415; 84703; 83690; 80053; 96375; 96374; 99284; J2765; J2405; J1790; J7030